=== PATIENT | female | born 1940 | race Caucasian/White ===

== ENCOUNTER → 2017-03-30 15:46 | Outpatient (CLI) | payer MEDICARE, SELFPAY ==
--- NOTE | 2017-03-30 15:52 | MM_ITS ---
MM Dig SC mamm unilat LT CAD CAD Screening ORDERING PHYSICIAN : Froilan Priest MD PATIENT AGE: 76 years GENDER: Female COMPARISON: Previous left mammograms: February 2016, 2014, 2013, January 2013 INDICATION: 76-year-old. Previous right mastectomy. No hormones no new complaints. Family history:. 2 sisters with breast cancer. TECHNIQUE: Standard CC and MLO images were obtained. R2 CAD reviewed. Actually cc view included FINDINGS: Left breast appears stable with no significant new findings. [id number] residual fibroglandular elements. No new areas of concern. Follow-up in one yea recommended r. Self breast examination also. IMPRESSION: Stable left mammogram, with no new areas of concern Follow-up in one year BI-RADS Category: 2 Benign Finding(s) RECOMMENDED FOLLOW-UP: 1YR - 1 YEAR FOLLOW-UP (A letter has been sent to the patient regarding results of the study.)
== END ==
PROVIDERS: Family Provider Internal Medicine Adolescent Medicine; PCP Internal Medicine Adolescent Medicine; Visit Provider Internal Medicine Adolescent Medicine
DX: Z12.31 Encounter for screening mammogram for malignant neoplasm of breast (principal)
CPT/HCPCS: 77067

== ENCOUNTER → 2018-04-07 09:56 | Outpatient (CLI) | payer MEDICARE, OTHER, SELFPAY ==
--- NOTE | 2018-04-07 10:03 | MM_ITS ---
MM Dig SC mamm unilat LT CAD Ordering Physician: Froilan Priest MD Patient Age: 77 years Female COMPARISON: Multiple previous studies including March 2017, February 2016, 2014, 2013. INDICATION: HISTORY. Previous right mastectomy. No hormones no new complaints . family history of 2 sisters with breast cancer. TECHNIQUE: Cc and MLO view both breast along with axillary cc nipple profile MLO view.: 4 images submitted FINDINGS: Minimal residual fibroglandular elements lower density breast with moderate fatty replacement throughout but no significant new areas of concern. No dominant or suspicious mass. No suspicious calcifications. No significant areas highlighted by CAD . Mole markers noted but most evident towards the inferior left breast. IMPRESSION: Negative, Stable left mammogram. No new areas of concern. Follow-up in one year recommended. BI-RADS Category: 1 Negative RECOMMENDED FOLLOW-UP: 1YR 1 YEAR FOLLOW-UP A letter has been sent to the patient regarding results of the study.)
== END ==
PROVIDERS: PCP Internal Medicine Adolescent Medicine; Visit Provider Internal Medicine Adolescent Medicine
DX: Z12.31 Encounter for screening mammogram for malignant neoplasm of breast (principal)
CPT/HCPCS: 77067

== ENCOUNTER 2018-10-10 22:53 | Observation (INO) ==
[2018-10-10 23:26] LABS: Basophils # 0.1 K/mm3 (0-0.2); Basophils % 1.1 % (0.1-2.0); Eosinophils # 0.1 K/mm3 (0.0-0.4); Eosinophils % 1.6 % (0.1-12.0); Hematocrit 42.4 % (37.0-47.0); Hemoglobin 14.5 g/dL (12.2-16.2); Lymphocytes # 2.4 K/mm3 (0.7-4.5); Lymphocytes % 36.7 % (10-50); Mean Corpuscular HGB Conc 34.3 g/dL (31.8-35.4); Mean Corpuscular Volume 87.3 fl (81-99); Mean Platelet Volume 7.3 fl (7.4-10.4); Monocytes # 0.6 K/mm3 (0.1-1.0); Monocytes % 8.8 % (1.7-9.3); Neutrophils # 3.4 K/mm3 (1.8-7.8); Neutrophils % 51.8 % (37.0-80.0); Platelet Count 203 K/mm3 (142-424); Red Blood Count 4.86 M/mm3 (4.20-5.40); Red Cell Distribution Width 13.5 % (11.5-17.5); White Blood Count 6.5 K/mm3 (4.8-10.8)
[2018-10-10 23:43] LABS: Alanine Aminotransferase 27 U/L (12-78); Albumin/Globulin Ratio 1.2 (1.1-1.8); Alkaline Phosphatase 106 U/L (46-116); Anion Gap 14.7 mEq/L (5-15); Aspartate Amino Transferase 17 U/L (15-37); Bilirubin,Total 0.6 mg/dL (0.2-1.0); Blood Urea Nitrogen 27 mg/dL (7-18); Calcium 9.4 mg/dL (8.5-10.1); Carbon Dioxide 26 mmol/L (21.0-32.0); Chloride 106 mmol/L (98-107); Globulin 3.3 gm/dl (1.3-3.2); Glucose 149 mg/dL (74-106); Sodium 143 mmol/L (136-145); Total Protein,Serum 7.3 gm/dL (6.4-8.2)
--- NOTE | 2018-10-10 23:43 | Emergency Department Note ---
ED Disposition Clinical Impression: Atrial fibrillation with rapid ventricular response Dyspnea Qualifiers: Dyspnea type: unspecified Qualified Code(s): R06.00 - Dyspnea, unspecified Disposition: Admitted as Observation Condition on Discharge: Fair (Stable/improved) Time of Disposition: 01:44 - Critical Care Critical Care Time: No Attestation: On 10/10/18, the high probability of a clinically significant, sudden or life threatening deterioration of the following system(s) required my full and direct attention, intervention and personal management. The time I documented below is in addition to time spent performing reported procedures but includes the following listed in this critical care notation. Medical Decision Making - Medical Records Medical records reviewed: Yes: I reviewed the patient's medical records. - Edwin Inquiry Pt receiving controlled substance: No Edwin was queried for this patient: No Vital Signs: 10/10/18 22:58 10/10/18 23:43 10/11/18 00:00 Temperature 98.3 F Temperature Source Oral Pulse Rate [Right Brachial] 113 H 96 H 103 H Respiratory Rate 18 18 18 Blood Pressure [Right Arm] 165/97 H 122/81 128/82 Blood Pressure Mean [Right Arm] 119 94 97 Blood Pressure Source [Right Arm] Automatic Cuff Automatic Cuff Blood Pressure Position [Right Arm] Sitting Sitting 02 Sat by Pulse Oximetry 95 94 L Oxygen Delivery Method Room Air Room Air 10/11/18 00:13 10/11/18 00:46 10/11/18 01:21 Temperature Temperature Source Pulse Rate [Right Brachial] 78 71 72 Respiratory Rate 16 16 Blood Pressure [Right Arm] 128/62 121/66 122/80 Blood Pressure Mean [Right Arm] 84 84 94 Blood Pressure Source [Right Arm] Automatic Cuff Automatic Cuff Blood Pressure Position [Right Arm] Supine Sitting 02 Sat by Pulse Oximetry 98 Oxygen Delivery Method Room Air - Lab Data Lab results reviewed: Yes: I reviewed the patient's lab results. Lab Results 10/10/18 23:17: WBC 6.5, RBC 4.86, Hgb 14.5, Hct 42.4, MCV 87.3, MCH 29.9, MCHC 34.3, RDW 13.5, Plt Count 203, MPV 7.3 L, Neut % (Auto) 51.8, Lymph % (Auto) 36.7, Faulk % (Auto) 8.8, Eos % (Auto) 1.6, Baso % (Auto) 1.1, Neut # (Auto) 3.4, Lymph # (Auto) 2.4, Faulk # (Auto) 0.6, Eos # (Auto) 0.1, Baso # (Auto) 0.1 10/10/18 23:17: Sodium 143, Potassium 3.7, Chloride 106, Carbon Dioxide 26, Anion Gap 14.7, BUN 27 H, Creatinine 1.28 H, Estimated Creat Clear 44, Estimated GFR 40 L, Est GFR ( Amer) 49 L, Glucose 149 H, Calcium 9.4, Total Bilirubin 0.6, AST 17, ALT 27, Alkaline Phosphatase 106, Troponin I < 0.02, Total Protein 7.3, Albumin 4.0, Globulin 3.3 H, Albumin/Globulin Ratio 1.2 10/10/18 23:17: Magnesium 2.0, TSH 7.68 H Result diagrams: 10/10/18 23:17 10/10/18 23:17 Orders (Tests/Meds): ED MEDICATIONS Generic Name Dose Route Start Last Admin Trade Name Freq PRN Reason Stop Dose Admin Diltiazem HCl 100 mg/ Sodium 100 mls @ 5 mls/hr 10/10/18 23:45 10/11/18 00:04 Chloride IV 11/09/18 23:44 5 mls/hr .Q20H BRIAN Administration Protocol Discontinued Medications Generic Name Dose Route Start Last Admin Trade Name Freq PRN Reason Stop Dose Admin Diltiazem HCl 20 mg 10/10/18 23:50 10/11/18 00:05 Cardizem 25mg/5ml Vial IV 10/10/18 23:51 20 mg ONCE ONE Administration ORDERS Category Date Time Status CXR --portable [XR chest portable] Stat Exams 10/10/18 23:26 Taken Troponin I Stat Lab 10/11/18 01:34 Ordered ECG Request by /Nse Stat Y 10/10/18 23:17 Ordered - Radiology Data #1 Image(s): Chest Image Reviewed: Yes I reviewed the patient's radiology image Preliminary Findings: Normal/NAD (No acute changes. Preliminary reading by m yself.) - ECG Data Tracing #1 I reviewed this ECG and interpreted as documented below: (EKG at 23:04 shows atrial fibrillation with RVR at 112 BPM. Minimal LVH voltage criteria. ST-T changes consistent with inferolateral ischemia.) Medical Decision Narrative: 23:54 Pt evaluated. EKG and cardiac work up ordered. Cardizem 20 mg IVP and Cardizem 10 mg/hr IV drip ordered. 01:42 All labs, EKG and PCXR reviewed. Pt reassessed and is improved. Still without chest pain. Dyspnea sensation has resolved. HR in 60's. BP stable. I discussed case with her PCP Dr. Priest and he has agreed to admit pt to observation on step down. I have discussed results of work up, diagnosis and care plan with pt. She understands, agrees and all questions answered. Pt will now be admitted. Arrhythmia/Palpitations HPI - General Chief Complaint: Arrhythmia/Palpitations Stated Complaint: heart racing Time Seen by Provider: 10/10/18 23:42 Mode of Arrival: Ambulatory Source of Information: Patient Limitations: No Limitations - History of Present Illness HPI narrative: Pt is here in the ER for evaluation from home via POV c/o rapid heart rate. Pt has atrial fibrillation. She is on Amiodarone and Plavix. Onset of rapid rate about 2 hours ago. No chest pain. She thinks she may have very mild dyspnea. No abdominal pain. No other complaints. - Related Data Home Medications Medication Instructions Recorded Confirmed Amiodarone HCl [Amiodarone 100mg 100 mg PO DAILY 10/10/18 10/10/18 Tab] Aspirin [Aspir 81] 81 mg PO DAILY 10/10/18 10/10/18 Clopidogrel Bisulfate [Plavix 75mg 75 mg PO DAILY 10/10/18 10/10/18 Tab] Allergies Allergy/AdvReac Type Severity Reaction Status Date / Time corn [From CORN (FOOD/DRUG)] Allergy Mild COUGH Verified 10/10/18 23:04 egg [From EGGS (FOOD/DRUG)] Allergy Mild COUGH Verified 10/10/18 23:04 lactose Allergy Mild COUGH Verified 10/10/18 23:04 [From DAIRY FOODS (FOOD/DRUG)] soy Allergy Mild COUGH Verified 10/10/18 23:04 wheat Allergy Mild COUGH Verified 10/10/18 23:04 From CORN (FOOD/DRUG) Allergy Mild COUGH Uncoded 03/15/17 15:34 From DAIRY FOODS (FOOD/DRUG) Allergy Mild COUGH Uncoded 03/15/17 15:34 From EGGS (FOOD/DRUG) Allergy Unknown COUGH Uncoded 03/15/17 15:34 [facility] History - Hepatitis A Screen Drug use history?: No High risk sexual behaviors?: No History of sexually transmitted infection?: No Currently employed?: No Childcare worker?: No Do you have indoor plumbing?: Yes Do you have electricity?: Yes Attestation statement:: This patient has been screened for Hepatitis A risk factors. I have reviewed the patient's past medical history: Yes - Social History Alcohol Intake: never Occupational Status: retired Housing: house ROS Obtained: Yes All systems reviewed & no additional complaints - Constitutional Constitutional: Reports system reviewed and no additional complaints, except as docu - Eyes Eyes: Reports system reviewed and no additional complaints, except as docu - ENT Ears, Nose, Mouth, and Throat: Reports system reviewed and no additional complaints, except as docu - Cardiovascular Cardiovascular: Reports system reviewed and no additional complaints, except as docu, Reports as per HPI, Denies chest pain, Denies chest pain at rest, Denies diaphoresis, Reports dyspnea (mild sensation), Reports palpitations, Denies radiating jaw, neck or arm pain, Reports rapid heart rate - Respiratory Respiratory: Yes system reviewed and no additional complaints, except as docu, Yes as per HPI, Yes dyspnea (mild sensation) - Gastrointestinal Gastrointestingal: Reports: system reviewed and no additional complaints, except as docu - Genitourinary Female Genitourinary: Reports system reviewed and no additional complaints, except as docu - Musculoskeletal Musculoskeletal: Reports system reviewed and no additional complaints, except as docu - Integumentary/Breasts Skin/Breast: Reports system reviewed and no additional complaints, except as docu - Neurologic Neurologic: Reports system reviewed and no additional complaints, except as docu - Endocrine Endocrine: Reports system reviewed and no additional complaints, except as docu - Hematologic/Lymphatic Henatologic/Lymphatic: Reports system reviewed and no additional complaints, except as docu - Allergic/Immunologic Allergic/Immunologic: Reports system reviewed and no additional complaints, except as docu Physical Exam - General General appearance: alert, in no apparent distress - Head Head exam: atraumatic, normocephalic, normal inspection - Eye Eye exam: Present: normal appearance, PERRL, EOMI - ENT ENT exam: Present: normal exam, normal oropharynx, mucous membranes moist - Neck Neck exam: Present: normal inspection, full ROM, trachea midline - Chest Chest inspection: Present: normal inspection, symmetric chest wall rise. Absent: tenderness - Respiratory Respiratory exam: Present: normal lung sounds bilaterally. Absent: respiratory distress, wheezes - Cardiovascular Cardiovascular exam: Present: tachycardia (irregularly irregular with atrial fibrillation with RVR on lead II monitor.). Absent: systolic murmur, rubs, ga llop, JVD - Abdominal Exam Abdominal exam: Present: soft, normal bowel sounds. Absent: distention, tenderness, guarding, rebound - Extremities Exam Extremities exam: Present: normal inspection, full ROM, normal capillary refill. Absent: tenderness - Back Exam Back exam: Present: normal inspection - Neurological Exam Neurological exam: Present: alert, oriented X3, CN II-XII intact - Psychiatric Psychiatric exam: Present: normal affect, normal mood - Skin Skin exam: Present: warm, dry, intact, normal color. Absent: rash, cyanosis, diaphoresis, erythema
[2018-10-11 00:21] LABS: Thyroid Stimulating Hormone 7.68 uIU/ml (0.358-3.740)
[2018-10-11 06:42] LABS: Anion Gap 16.6 mEq/L (5-15)
--- NOTE | 2018-10-11 08:42 | Pharmacy Consult Notes ---
[facility] Pharmacy VTE Monitoring - Patient Demographics Admission date: 10/11/18 Report Date: 10/11/18 Time: 08:41 Allergies/Adverse Reactions: Patient Allergies corn [From CORN (FOOD/DRUG)] Allergy (Mild, Verified 10/10/18 23:04) COUGH egg [From EGGS (FOOD/DRUG)] Allergy (Mild, Verified 10/10/18 23:04) COUGH lactose [From DAIRY FOODS (FOOD/DRUG)] Allergy (Mild, Verified 10/10/18 23:04) COUGH soy Allergy (Mild, Verified 10/10/18 23:04) COUGH wheat Allergy (Mild, Verified 10/10/18 23:04) COUGH From CORN (FOOD/DRUG) Allergy (Mild, Uncoded 03/15/17 15:34) COUGH From DAIRY FOODS (FOOD/DRUG) Allergy (Mild, Uncoded 03/15/17 15:34) COUGH From EGGS (FOOD/DRUG) Allergy (Unknown, Uncoded 03/15/17 15:34) COUGH Height: 1.68 m Weight: 77.139 kg Patient Problems: Current Active Problems (Updated 10/11/18 @ 01:47 by Harjit Rincon III, DO) Atrial fibrillation with rapid ventricular response (Acute) Dyspnea (Acute) - VTE Risk Labs: VTE Related Lab Results Hgb 14.5 g/dL (12.2-16.2) 10/10/18 23:17 Hct 42.4 % (37.0-47.0) 10/10/18 23:17 Plt Count 203 K/mm3 (142-424) 10/10/18 23:17 BUN 24 mg/dL (7-18) H 10/11/18 05:41 Creatinine 1.04 mg/dL (0.55-1.02) H 10/11/18 05:41 Estimated Creat Clear 54 mL/min (50-200) 10/11/18 05:41 Was VTE Risk Assessment Performed: Yes VTE Score: 3 VTE Risk Level: Low Risk Clinical Trial Participant: No - Prophylaxis VTE Prophylaxis Ordered?: Yes Types of VTE Prophylaxis: TEDS Knee High
--- NOTE | 2018-10-11 08:45 | H&P/Discharge Summary ---
General - General Admission date:: 10/11/18 Discharge date: 10/11/18 *Admission Date: 10/11/18 *Chief complaint: Palpitations with rapid A. fib *History of present illness: 78-year-old white female with remote history of recurrent atrial fibrillation with rapid ventricular response, most recently in 2005, who has been maintained on amiodarone since that point with good results. Unfortunately, last night she came to the hospital with a sensation of palpitations and was found to be in rapid atrial fibrillation with rate of 140. [facility]. Overnight she converted into a slow atrial fibrillation rate and this morning is feeling much better with no symptoms. [facility] History I have reviewed the patient's past medical history: Yes Medical History: Reports:: Arrhythmia, Atrial Fibrillation, Cancer, Deep Vein Thrombosis, Hyperlipidemia, Palpitations Denies:: Diabetes Mellitus Type 1, Diabetes Mellitus Type 2, MRSA *Have you ever received a pneumonia vaccine?: Yes *Have you received a flu vaccine this season?: Yes Other Medical History: Reports: Arthritis, Cataracts (bilateral) Laterality Cases: Right: Breast Biopsy, Mastectomy Other Surgeries: Yes: Colonoscopy (2014) Amputation: No Fractures: No - *Social History Smoking Status: Never smoker Alcohol Intake: never *Occupational Status:: retired Housing: house Household Members: spouse *Travel in the last 8 weeks: None - Psychiatric History Expresses thoughts of harming self/others: None Suicide Plan Description: No Plan Family Hx:: No significant family history, Cancer Review of Systems - Review of Systems Review of systems:: pertinent systems reviewed and negative unless documented below - *Cardiovascular Reports irregular heart rhythm, Reports rapid, pounding, or irregular heartbeat, Reports shortness of breath causing sudden awakening, Denies shortness of breath, Denies shortness of breath with activity, Denies leg swelling, Denies foot swelling, Denies radiating jaw, neck or arm pain Exam Vital signs and Labs for Last 24 Hours: Temp Pulse Resp BP Pulse Ox 98 F 56 L 21 111/55 L 92 L 10/11/18 02:20 10/11/18 07:01 10/11/18 07:01 10/11/18 07:01 10/11/18 07:01 Laboratory Results - last 24 hr 10/10/18 23:17: WBC 6.5, RBC 4.86, Hgb 14.5, Hct 42.4, MCV 87.3, MCH 29.9, MCHC 34.3, RDW 13.5, Plt Count 203, MPV 7.3 L, Neut % (Auto) 51.8, Lymph % (Auto) 36.7, Preble % (Auto) 8.8, Eos % (Auto) 1.6, Baso % (Auto) 1.1, Neut # (Auto) 3.4, Lymph # (Auto) 2.4, Preble # (Auto) 0.6, Eos # (Auto) 0.1, Baso # (Auto) 0.1 10/10/18 23:17: Sodium 143, Potassium 3.7, Chloride 106, Carbon Dioxide 26, Anion Gap 14.7, BUN 27 H, Creatinine 1.28 H, Estimated Creat Clear 44, Estimated GFR 40 L, Est GFR ( Amer) 49 L, Glucose 149 H, Calcium 9.4, Total Bilirubin 0.6, AST 17, ALT 27, Alkaline Phosphatase 106, Troponin I < 0.02, Total Protein 7.3, Albumin 4.0, Globulin 3.3 H, Albumin/Globulin Ratio 1.2 10/10/18 23:17: Magnesium 2.0, TSH 7.68 H 10/11/18 01:48: Troponin I < 0.02 10/11/18 05:41: Troponin I < 0.02 10/11/18 05:41: Sodium 145, Potassium 3.6, Chloride 107, Carbon Dioxide 25, Anion Gap 16.6 H, BUN 24 H, Creatinine 1.04 H, Estimated Creat Clear 54, Estimated GFR 51 L, Est GFR ( Amer) 62 D, Glucose 101 D, Calcium 9.0 I & O for Last 24 hours: Intake & Output 10/08/18 10/09/18 10/10/18 10/11/18 11:59 11:59 11:59 11:59 Intake Total 380 / 380 Balance 380 / 380 Weight 170 lb 1 oz Narrative: Currently patient is pleasant, talkative, oriented x3. Lungs are clear bilaterally. Good air expansion. Heart rate irregular but rate controlled at this point. Abdomen soft and nontender. No edema or clubbing. Neurologically intact. No JVD. Abdomen soft and nontender. Hospital Course Hospital Course: Patient was admitted, converted to slow A. fib on Cardizem drip and this was stopped about 3 hours ago. She is been given 1 dose of immediate release diltiazem. She feels good and wishes to go home. We will obtain echocardiogram before discharge to assess chamber size for further evaluation, and I also discussed with her her need for ongoing anticoagulation instead of her Plavix therapy. We will switch her to Eliquis 5 mg twice daily, starter kits were given and counseling was given by pharmacy service about this medication. We will also start low-dose Synthroid therapy because of her elevated TSH, obviously cautiously because of her atrial fibrillation issues, I will start with 25 mcg daily. We will also begin long-acting diltiazem to start tomorrow. I will see her in short-term follow-up in 2 days. Results Labs on day of discharge: Labs from last 24 hours 10/11/18 10/11/18 10/11/18 05:41 05:41 01:48 WBC RBC Hgb Hct MCV MCH MCHC RDW Plt Count MPV Neut % (Auto) Lymph % (Auto) Preble % (Auto) Eos % (Auto) Baso % (Auto) Neut # (Auto) Lymph # (Auto) Preble # (Auto) Eos # (Auto) Baso # (Auto) Sodium 145 Potassium 3.6 Chloride 107 Carbon Dioxide 25 Anion Gap 16.6 H BUN 24 H Creatinine 1.04 H Estimated Creat Clear 54 Estimated GFR 51 L Est GFR ( Amer) 62 D Glucose 101 D Calcium 9.0 Magnesium Total Bilirubin AST ALT Alkaline Phosphatase Troponin I < 0.02 < 0.02 Total Protein Albumin Globulin Albumin/Globulin Ratio TSH 10/10/18 10/10/18 10/10/18 23:17 23:17 23:17 WBC 6.5 RBC 4.86 Hgb 14.5 Hct 42.4 MCV 87.3 MCH 29.9 MCHC 34.3 RDW 13.5 Plt Count 203 MPV 7.3 L Neut % (Auto) 51.8 Lymph % (Auto) 36.7 Preble % (Auto) 8.8 Eos % (Auto) 1.6 Baso % (Auto) 1.1 Neut # (Auto) 3.4 Lymph # (Auto) 2.4 Preble # (Auto) 0.6 Eos # (Auto) 0.1 Baso # (Auto) 0.1 Sodium 143 Potassium 3.7 Chloride 106 Carbon Dioxide 26 Anion Gap 14.7 BUN 27 H Creatinine 1.28 H Estimated Creat Clear 44 Estimated GFR 40 L Est GFR ( Amer) 49 L Glucose 149 H Calcium 9.4 Magnesium 2.0 Total Bilirubin 0.6 AST 17 ALT 27 Alkaline Phosphatase 106 Troponin I < 0.02 Total Protein 7.3 Albumin 4.0 Globulin 3.3 H Albumin/Globulin Ratio 1.2 TSH 7.68 H DS: Diagnosis - Discharge Diagnosis (1) Hypothyroidism Status: Acute (2) Atrial fibrillation with rapid ventricular response Status: Resolved Discharge Plan - Patient Discharge Instructions ACTIVITY: Continue current activity DIET: continue same diet Patient Instructions: DI for Atrial Fibrillation, DI for Shortness of Breath - Follow up Plan Follow up with: Froilan Priest MD [Primary Care Provider] - 2 days Disposition: Home, Self-Residential Medications: Home Medications Medication Instructions Recorded Confirmed Type Amiodarone HCl [Amiodarone 100mg 200 mg PO DAILY 10/10/18 10/11/18 History Tab] Aspirin [Aspir 81] 81 mg PO DAILY 10/10/18 10/10/18 History Clopidogrel Bisulfate [Plavix 75mg 75 mg PO DAILY 10/10/18 10/10/18 History Tab] Apixaban [Eliquis 5mg tab] 5 mg PO BID #60 tab.ds.pk 10/11/18 Rx Levothyroxine Sodium [Synthroid 25 mcg PO DAILY #30 tab 10/11/18 Rx 25mcg (0.025mg) tablet] dilTIAZem HCl [Cardizem 180mg ER 180 mg PO DAILY #30 cap.er.24h 10/11/18 Rx capsule] Prescriptions/Medication Reconciliation: New Apixaban [Eliquis 5mg tab] 5 mg PO BID #60 tab.ds.pk dilTIAZem HCl [Cardizem 180mg ER capsule] 180 mg PO DAILY #30 cap.er.24h Levothyroxine Sodium [Synthroid 25mcg (0.025mg) tablet] 25 mcg PO DAILY #30 tab Continued Aspirin [Aspir 81] 81 mg PO DAILY Amiodarone HCl [Amiodarone 100mg Tab] 200 mg PO DAILY Discontinued Clopidogrel Bisulfate [Plavix 75mg Tab] 75 mg PO DAILY
--- NOTE | 2018-10-12 14:12 | Cardiology Report ---
PROCEDURE: 2-D M-mode and color Doppler study. INDICATIONS FOR THE TEST: Chest pain COPD Heart Murmur Tobacco Smoking Palpitations Fatigue Syncope Edema Hypertension Diabetes Mellitus Rheumatic Fever SOB ROCK Obesity Hyperlipidemia Family History HD Additional History AF RVR PATIENT INFORMATION HEIGHT: 66 WEIGHT:170 GENDER: Female B/P:128/82 2-D/M-MODE INTERPRETATION: 2-D MEASUREMENTS OBSERVED VALUES IN CMS Right Ventricular Dimension (RVDd) 2.6 Interventricular Septum (Thickness)(IVsd) .9 Left Ventricular Internal Dimensions(LVIDd) 5.3 Left Ventricular Posterior Wall (Thickness)(LVPWd) .9 Aortic Root 3.0 Aortic Cusp Separation 1.1 Left Atrial Dimensions (LAD) 3.2 2D 1. Left atrium is mildly enlarged, left ventricle is normal size, there is no concentric left ventricular hypertrophy, visually estimated ejection fraction 55% with no regional wall motion abnormality. 2. The right atrium and right ventricle are mildly enlarged with normal contractility. 3. The aortic valve is thickened and calcified without aortic stenosis. 4. The mitral and tricuspid valve leaflets are minimally thickened. 5. The pulmonic valve is poorly visualized. 6. No significant pericardial effusion. DOPPLER INTERROGATION: Doppler interrogation of the aortic, mitral and tricuspid valvular presence of mild aortic, mild mitral and tricuspid regurgitation, tricuspid regurgitation jet velocity is inadequate for calculation of the right ventricular systolic pressure, diastolic parameters are inconclusive. Inferior vena cava is normal size with normal inspiratory collapse. CONCLUSION: 1. Biatrial enlargement, normal left ventricular size, visually estimated ejection fraction 55% with no regional wall motion abnormality, diastolic parameters are inconclusive. 2. Mildly enlarged right ventricle with normal contractility. 3. Mild aortic, mild mitral and tricuspid regurgitation. 4. No significant pericardial effusion noted.
== END 2018-10-11 11:02 | disposition home or self-care (01) ==
LOC: ER 22:53 → 2ND 10-11 01:40 → INTOOBSV 10-11 02:05 → 2ND 10-11 02:06
PROVIDERS: ADMIT Internal Medicine Adolescent Medicine; ATTEND Internal Medicine Adolescent Medicine
DX: I48.91 Unspecified atrial fibrillation; Z91.018 Allergy to other foods; Z86.718 Personal history of other venous thrombosis and embolism; Z85.9 Personal history of malignant neoplasm, unspecified; E78.5 Hyperlipidemia, unspecified; Z79.899 Other long term (current) drug therapy; Z79.02 Long term (current) use of antithrombotics/antiplatelets; Z80.9 Family history of malignant neoplasm, unspecified; Z90.11 Acquired absence of right breast and nipple; E03.9 Hypothyroidism, unspecified; Z91.012 Allergy to eggs; Z91.011 Allergy to milk products
CPT/HCPCS: 36415; 71010; 71045; 80048; 80053; 83735; 84443; 84484; 85025; 93005; 93306; 96365; 96366; 96375; 99284; G0378

== ENCOUNTER → 2018-12-18 14:12 | Outpatient (CLI) | payer MEDICARE, OTHER, SELFPAY ==
--- NOTE | 2018-12-18 14:15 | MR_ITS ---
PROCEDURE: MR LUMBAR SPINE WO CON CLINICAL INDICATION: LUMBAR RADICULOPATHY Low back pain radiating down the left leg COMPARISON: BOX LINER/O MRI-L-SPINE W/O from 09/26/2013 TECHNIQUE: Standard multiplanar multiecho sequences are performed without contrast. 3-D MIP and myelographic images are also rendered and reviewed FINDINGS: The spinal cord ends at the L1-L2 level. Mild degenerative disc disease T11-T12. T12-L1: Unremarkable. L1-L2: Mild degenerative disc disease with minimal bulging disc. L2-L3: Mild degenerative disc disease with minimal bulging disc and facet and endplate hypertrophic change with mild left lateral recess and foraminal narrowing. L3-L4: Degenerate disc disease with bulging disc with facet ligamentum hypertrophy with moderate to severe right-sided foraminal narrowing and mild left foraminal narrowing. Previously noted disc herniation at L3-L4 is no longer apparent L4-5: Minimal anterolisthesis of L4 of 2-3 mm with bulging disc along with facet and ligamentum hypertrophy with mild to moderate bilateral foraminal narrowing. There is transverse narrowing of the canal at this level from the facet and uncovertebral hypertrophy with bilateral lateral recess narrowing. L5-S1: Small annular fissure. No extruded herniated disc or bony canal stenosis. IMPRESSION: 1. Multilevel lumbar spondylosis with degenerative disc disease bulging disc and facet and ligamentum hypertrophy. Please see above for detailed description at each level. 2. L2-L3: Mild degenerative disc disease with minimal bulging disc and facet and endplate hypertrophic change with mild left lateral recess and foraminal narrowing. 3. L3-L4: Degenerate disc disease with bulging disc with facet ligamentum hypertrophy with moderate to severe right-sided foraminal narrowing and mild left foraminal narrowing. Previously noted disc herniation at L3-L4 is no longer apparent 4. L4-5: Minimal anterolisthesis of L4 of 2-3 mm with bulging disc along with facet and ligamentum hypertrophy with mild to moderate bilateral foraminal narrowing. There is transverse narrowing of the canal at this level from the facet and uncovertebral hypertrophy with bilateral lateral recess narrowing 5. No extruded herniated disc evident Dictated by: Yong Whatley MD 12/20/2018 07:11 Electronically signed by Yong Whatley MD in [place] 12/20/2018 07:11
== END ==
PROVIDERS: PCP Internal Medicine Adolescent Medicine; Visit Provider Internal Medicine Adolescent Medicine
DX: M54.16 Radiculopathy, lumbar region (principal)
CPT/HCPCS: 72148; 76376

== ENCOUNTER 2019-01-04 15:30 | Outpatient (RCR) | payer MEDICARE, OTHER, SELFPAY ==
--- NOTE | 2018-12-22 16:09 | HMH.PTOPEV ---
PT Outpatient Evaluation Rehab PT Outpatient Evaluation Start: 12/22/18 15:05 Freq: Status: Active Protocol: Document 12/22/18 15:46 ARMOND (Rec: 12/22/18 16:08 ARMOND [id number]) Electronically Signed By Kee Randall, PT 12/22/18 15:46 Outpatient Therapy Subjective History Subjective History Patient is a 78 year old female presenting to outpatient PT with reports of chronic low back pain with acute exacerbation starting . 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 Most recent MRI indicates mult-level degenerative changes and disc bulges. Chief Complaint Pain Symptom Type Sharp Symptoms Relieved By Rest/Positioning Symptoms Aggravated By Standing,Walking Prior Functional Limitations None Current Functional Limitations Lifting,Housework,Sleeping, Standing,Recreation Activity, Walking Symptom Description Constant but Variable Level of pain today (0-10) 8 Pain scale - at its best (0-10) 4 Pain scale - at its worst (0-10) 10 Lumbopelvic Eval Posture Thoracic Spine Posture Standing Position Increased Kyphosis Lumbar Spine Posture Standing Position Decreased Lordosis Assistive device Assistive Devices None / NA Gait Observation General Gait Pattern Observation Wide Based Gait,Hips Posterior to ROBERT,Decrease Weight Bear ( L),Decrease Stride Lngth (L) Palapation tenderness left lumbar spinal tenderness Yes: 3/4 paraspinal tenderness Yes: 3/4 buttock tenderness Yes: 3/4 Accessory Movement L2 left L3 left L4 left L5 left Range of Motion Lumbar Spine Active Flexion Range of 70 Motion (degrees) Lumbar Spine Active Extension Range of 5 inc LLE radic Motion (degrees) Left Lumbar Spine Lateral Flexion Active 7 inc radic Range of Motion (degrees) Right Lumbar Spine Lateral Flexion 22 Active Range of Motion (degrees) Lumbar Spine ROM Limitations Bony Restriction Manual Muscle Test Left Knee Extension Strength Grade 4- Good- Hip Flexion Strength Grade 4- Good- DTR Rt Patellar 2+ Lt Patellar
== END 2019-01-04 15:35 | disposition home or self-care (01) ==
LOC: PT 15:30
PROVIDERS: Visit Provider Internal Medicine Adolescent Medicine
DX: M54.5 Low back pain (principal)
CPT/HCPCS: 97010; 97012; 97014; 97035; 97110; 97163; G0283

== ENCOUNTER → 2019-06-07 10:52 | Outpatient (CLI) | payer MEDICARE, OTHER, SELFPAY ==
--- NOTE | 2019-06-07 10:58 | MM_ITS ---
PROCEDURE: MM DIG SC MAMM UNILAT LT CAD Digital Breast Tomosynthesis Included CLINICAL INDICATION: SCREENING Screening for breast cancer COMPARISON: DMSUL DIG MAMM-SCREENING UNI-LT from 03/19/2016 [facility]UNILT MM Dig SC mamm unilat LT CAD from 03/30/2017 [facility]UNILT MM Dig SC mamm unilat LT CAD from 04/07/2018 TECHNIQUE: Standard CC and MLO images and 3D Tomosynthesis was obtained. R2 CAD reviewed. FINDINGS: Mostly fatty replaced fibroglandular tissue. No malignant appearing mass or malignant-appearing microcalcification evident. There has been a prior right mastectomy. Benign-appearing calcification is present in the lateral aspect of the left breast. IMPRESSION: BI-RAD Category: 1 Negative FOLLOW-UP: 1YR 1 Year Follow-up (A letter has been sent to the patient regarding results of the study.) Dictated by: Yong Whatley MD 06/12/2019 17:43 Electronically signed by Yong Whatley MD in [place] 06/12/2019 17:43
== END ==
PROVIDERS: PCP Internal Medicine Adolescent Medicine; Visit Provider Nurse Practitioner Family
DX: Z12.31 Encounter for screening mammogram for malignant neoplasm of breast (principal)
CPT/HCPCS: 77063; 77067

== ENCOUNTER → 2019-12-12 10:32 | Outpatient (CLI) | payer MEDICARE, OTHER, SELFPAY ==
[2019-12-12 10:48] LABS: Basophils # 0.1 K/mm3 (0-0.2); Basophils % 1.4 % (0.1-2.0); Eosinophils # 0.1 K/mm3 (0.0-0.4); Eosinophils % 1.8 % (0.1-12.0); Hematocrit 35.4 % (37.0-47.0); Hemoglobin 11.6 g/dL (12.2-16.2); Lymphocytes # 1.6 K/mm3 (0.7-4.5); Lymphocytes % 31.5 % (10-50); Mean Corpuscular HGB Conc 32.7 g/dL (31.8-35.4); Mean Corpuscular Hemoglobin 28.6 pg (27.0-31.2); Mean Corpuscular Volume 87.4 fl (81-99); Mean Platelet Volume 8.1 fl (7.4-10.4); Monocytes # 0.5 K/mm3 (0.1-1.0); Monocytes % 10.7 % (1.7-9.3); Neutrophils # 2.7 K/mm3 (1.8-7.8); Neutrophils % 54.7 % (37.0-80.0); Platelet Count 232 K/mm3 (142-424); Red Blood Count 4.05 M/mm3 (4.20-5.40); Red Cell Distribution Width 13.1 % (11.5-17.5)
[2019-12-12 12:19] LABS: Coronavirus 19 IgG Antibody Negative (Negative); Coronavirus 19 IgM Antibody Negative (Negative)
== END ==
PROVIDERS: Visit Provider Otolaryngology
DX: Z01.818 Encounter for other preprocedural examination (principal); D49.89 Neoplasm of unspecified behavior of other specified sites
CPT/HCPCS: 36415; 85025; 86328

== ENCOUNTER 2019-12-13 06:31 | Day surgery (SDC) | payer MEDICARE, OTHER, SELFPAY ==
[2019-12-11 10:43] VITALS: BMI 27.1
[2019-12-13 06:50] VITALS: BP 155/54; PULSE 73; RESP 18; TEMP 36.6; O2SAT 99
--- NOTE | 2019-12-13 07:37 | P.PN_ITS ---
[facility] Anesthesia Checklist - Structural Data Admitted From: Home Planned Operative Procedure/s: excision neoplasm l cheek Consent for Planned Operative Procedure(s) Verified: Yes - Additional verifications Anesthesia Reactions: No Hx Blood Transfusions: No Blood Transfusion Reaction: No - Airway Assessment C-Spine Mobility Assessed: Yes TMJ Mobility Assessed: Yes Dentition: Partials - Neurological Assessment Level of Consciousness: Awake, Alert, Appropriate - Anesthesia Plan Anesthesia Risk discussed: Yes Anesthesia Plan: Verified ASA Class: II Anesthesia Type: MAC [facility] History I have reviewed the patient's past medical history: Yes Medical History: Reports:: Arrhythmia, Atrial Fibrillation, Cancer (breast/ skin), Deep Vein Thrombosis, Hyperlipidemia, Palpitations Denies:: Diabetes Mellitus Type 1, Diabetes Mellitus Type 2, Internal Pacemaker, MRSA, Seizures *Have you ever received a pneumonia vaccine?: Yes *Have you received a flu vaccine this season?: No Other Medical History: Reports: Arthritis, Cataracts. Denies: Blood Transfusion Reaction Anesthesia experience/problems:: none Laterality Cases: Right: Breast Biopsy, Mastectomy, Bilateral: Cataract, Tonsillectomy Other Surgeries: Yes: Colonoscopy. No: Pacemaker Amputation: No Fractures: No - *Social History Last grade of school completed: High school graduate Smoking Status: Never smoker Alcohol Intake: never Substance Use Type: denies use *Occupational Status:: retired Housing: house Household Members: spouse *Travel in the last 8 weeks: None Family Hx:: No significant family history, Cancer
[2019-12-13 09:20] VITALS: BP 134/55; PULSE 66; RESP 18; TEMP 36.3; O2SAT 98
--- NOTE | 2019-12-13 09:20 | P.OP_ITS ---
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 The perilesional area on the left cheek was infiltrated with 1.5 cc of 2% lidocaine containing epinephrine. The joanie out was incised and the lesion was excised and submitted. Bleeding was stopped with bipolar cautery. Blood loss was less than 5 cc. Anterior and posterior incisions were made and a tissue rearrangement geometric plastic repair was done with interrupted 5-0 nylon sutures. A Dermabond dressing was applied and the patient was sent to recovery in good general condition. Condition: stable Disposition: PACU Complications:: none
[2019-12-13 09:35] VITALS: BP 136/73; PULSE 65; RESP 18; O2SAT 100
[2019-12-13 09:50] VITALS: BP 136/59; PULSE 65; RESP 18; O2SAT 98
== END 2019-12-13 09:50 | disposition home or self-care (01) ==
LOC: OR 06:32
PROVIDERS: PCP Internal Medicine Adolescent Medicine; Visit Provider Otolaryngology
PROC: (CPT 14040; principal; 2019-12-13 08:00)
DX: L57.0 Actinic keratosis (principal); Z85.828 Personal history of other malignant neoplasm of skin; Z85.3 Personal history of malignant neoplasm of breast; I10 Essential (primary) hypertension; I48.91 Unspecified atrial fibrillation; E78.5 Hyperlipidemia, unspecified; R00.2 Palpitations; Z86.718 Personal history of other venous thrombosis and embolism; M19.90 Unspecified osteoarthritis, unspecified site; Z90.11 Acquired absence of right breast and nipple; Z90.89 Acquired absence of other organs; Z87.39 Personal history of other diseases of the musculoskeletal system and connective tissue
CPT/HCPCS: 14040; 88305; 96374

== ENCOUNTER → 2020-03-04 16:59 | Outpatient (CLI) | payer MEDICARE, OTHER, SELFPAY ==
--- NOTE | 2020-03-04 | XR_ITS ---
PROCEDURE: XR CHEST 2V CLINICAL HISTORY: CHRONIC COUGH AND SOA COMPARISON: CR CXR CHEST(2 VIEWS-NOT PORTABLE) from 05/01/2014 CR CXR1 CHEST-PORTABLE from 05/03/2014 CR CXR CHEST(2 VIEWS-NOT PORTABLE) from 09/20/2016 FINDINGS: The cardiomediastinal silhouette and pulmonary vascularity are within normal limits. The lungs are clear without infiltrates, suspicious nodules, or pleural effusions. There are degenerative changes of the thoracic with upper thoracic kyphosis IMPRESSION: No acute findings. Dictated by: Yong Whatley MD 03/04/2020 17:28 Yong Whatley MD in [place] 03/04/2020 17:28
[2020-03-04 17:45] LABS: Basophils % 0.4 % (0.1-2.0); Eosinophils % 0.4 % (0.1-12.0); Hematocrit 30.3 % (37.0-47.0); Hemoglobin 9.4 g/dL (12.2-16.2); Lymphocytes # 1.8 K/mm3 (0.7-4.5); Lymphocytes % 28.1 % (10-50); Mean Corpuscular HGB Conc 31.1 g/dL (31.8-35.4); Mean Corpuscular Hemoglobin 24.3 pg (27.0-31.2); Mean Corpuscular Volume 78.1 fl (81-99); Mean Platelet Volume 7.9 fl (7.4-10.4); Monocytes # 0.6 K/mm3 (0.1-1.0); Monocytes % 10.2 % (1.7-9.3); Neutrophils # 3.8 K/mm3 (1.8-7.8); Neutrophils % 60.9 % (37.0-80.0); Platelet Count 318 K/mm3 (142-424); Red Blood Count 3.88 M/mm3 (4.20-5.40); Red Cell Distribution Width 15.3 % (11.5-17.5); White Blood Count 6.3 K/mm3 (4.8-10.8)
[2020-03-04 18:04] LABS: Alanine Aminotransferase 19 U/L (12-78); Albumin Level 4.7 g/dl (3.5-5.0); Albumin/Globulin Ratio 1.9 (1.1-1.8); Alkaline Phosphatase 86 U/L (38-126); Anion Gap 15.6 mEq/L (5-15); Aspartate Amino Transferase 28 U/L (14-36); Bilirubin,Total 0.4 mg/dl (0.2-1.3); Blood Urea Nitrogen 24 mg/dl (7-17); Calcium 10.2 mg/dl (8.4-10.2); Carbon Dioxide 25 mmol/L (22.0-30.0); Chloride 105 mmol/L (98-107); Creatine Kinase 35 U/L (30-135); Estimated Glomerular Filt Rate 43 ml/min (>60); GFR (African American) 52 ML/MIN (>60); Globulin 2.5 g/dL (1.3-3.2); Glucose 100 mg/dl (74-100); Magnesium 2.2 mg/dl (1.6-2.3); Potassium 4.6 mmoL/L (3.5-5.1); Sodium 141 mmol/L (136-145); Total Protein,Serum 7.2 g/dl (6.3-8.2)
[2020-03-04 18:12] LABS: CKMB Relative Index 0.9 U/L (0-4.0); Creatine Kinase MB 0.3 ng/ml (0.0-2.03)
[2020-03-04 18:18] LABS: Troponin I < 0.01 ng/ml (0.00-0.034)
[2020-03-04 18:34] LABS: Thyroid Stimulating Hormone 2.47 uIU/mL (0.465-4.68)
[2020-03-06 21:56] LABS: Iron 12 ug/dL (37-170)
[2020-03-06 22:50] LABS: Ferritin 7.24 ng/ml (11.1-264)
[2020-03-06 23:13] LABS: Vitamin B12 305 pg/mL (239-931)
[2020-03-06 23:23] LABS: Total Iron Binding Capacity 436 ug/dL (265-497)
== END ==
PROVIDERS: Visit Provider Nurse Practitioner Family
DX: R07.9 Chest pain, unspecified (principal); R06.02 Shortness of breath; R05 Cough; E03.9 Hypothyroidism, unspecified; D50.9 Iron deficiency anemia, unspecified
CPT/HCPCS: 36415; 71046; 80053; 82550; 82553; 82607; 82728; 82746; 83540; 83550; 83735; 84443; 84484; 85025

== ENCOUNTER 2020-03-06 20:52 | Observation (INO) | payer MEDICARE, OTHER, SELFPAY ==
--- NOTE | 2020-03-06 21:00 | ECG_ITS ---
APPROVED REPORT Exam: Resting ECG HR:78 bpm ECG Measurements Heart Rate 78 AXES HI 172 P QRSd 86 QRS 29 QT 458 T 54 QTc 522 Conclusion Normal sinus rhythm Nonspecific ST and T wave abnormality Prolonged QT Abnormal ECG Electronically signed by : Froilan Priest, 03/07/2020 08:03:09
[2020-03-06 21:14] VITALS: BP 164/70; PULSE 80; RESP 22; TEMP 36.8; O2SAT 97; BMI 26.6
--- NOTE | 2020-03-06 21:23 | XR_ITS ---
PROCEDURE: XR CHEST 2V CLINICAL HISTORY: SOA COMPARISON: CR CXR1 CHEST-PORTABLE from 05/03/2014 CR CXR CHEST(2 VIEWS-NOT PORTABLE) from 09/20/2016 CR XR CHEST 2V from 03/04/2020 FINDINGS: The cardiomediastinal silhouette and pulmonary vascularity are within normal limits. There is mild prominence of the interstitium. No lobar consolidation or collapse. There is mild upper thoracic kyphosis IMPRESSION: No acute finding. 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
--- NOTE | 2020-03-06 21:26 | HMH.EDSOB ---
ED Disposition Clinical Impression: Acute respiratory alkalosis, Renal insufficiency Dyspnea Qualifiers: Dyspnea type: shortness of breath Qualified Code(s): R06.02 - Shortness of breath Hypothyroidism Qualifiers: Hypothyroidism type: acquired Qualified Code(s): E03.9 - Hypothyroidism, unspecified Anemia Qualifiers: Anemia type: unspecified type Qualified Code(s): D64.9 - Anemia, unspecified Disposition: Admitted as Observation Condition on Discharge: Fair - Critical Care Critical Care Time: No Attestation: On 03/06/20, the high probability of a clinically significant, sudden or life threatening deterioration of the following system(s) required my full and direct attention, intervention and personal management. The time I documented below is in addition to time spent performing reported procedures but includes the following listed in this critical care notation. Medical Decision Making - Medical Records Medical records reviewed: Yes: I reviewed the patient's medical records. - Edwin Inquiry Pt receiving controlled substance: No Vital Signs: 03/06/20 21:14 03/07/20 00:27 Temperature 98.3 F Temperature Source Oral Pulse Rate [Right] 80 74 Respiratory Rate 22 18 Blood Pressure [Left Arm] 164/70 H 136/62 Blood Pressure Mean [Left Arm] 101 86 Blood Pressure Source [Left Arm] Automatic Cuff Blood Pressure Position [Left Arm] Supine 02 Sat by Pulse Oximetry 97 99 Oxygen Delivery Method Room Air - Lab Data Lab results reviewed: Yes: I reviewed the patient's lab results. Lab Results 03/06/20 21:10: WBC 6.7, RBC 4.04 L, Hgb 9.6 L, Hct 30.4 L, MCV 75.1 L, MCH 23.7 L, MCHC 31.6 L, RDW 15.2, Plt Count 318, MPV 7.5, Neut % (Auto) 59.7, Lymph % (Auto) 28.7, Bandera % (Auto) 10.7 H, Eos % (Auto) 0.4, Baso % (Auto) 0.5, Neut # (Auto) 4.0, Lymph # (Auto) 1.9, Bandera # (Auto) 0.7, Eos # (Auto) 0.0, Baso # (Auto) 0.0, ESR 54 H 03/06/20 21:10: Sodium 137, Potassium 4.1, Chloride 104, Carbon Dioxide 23, Anion Gap 14.1, BUN 20 H, Creatinine 1.20 H, Estimated Creat Clear 45, Estimated GFR 43 L, Est GFR ( Amer) 52 L, Glucose 99, Calcium 10.0, Total Bilirubin 0.4, AST 30, ALT 17, Alkaline Phosphatase 98, Troponin I < 0.01, C-Reactive Protein 0.6, NT-Pro-B Natriuret Pep 261, Total Protein 7.8, Albumin 4.7, Globulin 3.1, Albumin/Globulin Ratio 1.5, TSH 3.18 D, Thyroxine (T4) 13.8 H 03/06/20 21:10: SARS-CoV-2 IgG Ab (Rapid) Negative, SARS-CoV-2 IgM Ab (Rapid) Negative 03/06/20 21:23: Specimen Source Left radial, O2 % Room air, ABG pH 7.63 H*, ABG pCO2 19.2 L, ABG pO2 115.2 H, ABG HCO3 19.8 L, ABG Total CO2 20.4 L, ABG O2 Saturation 99, ABG Base Excess -1.3, Yong Test Acceptable 03/06/20 21:50: Urine Color Yellow, Urine Appearance Clear, Urine pH 8.0, Ur Specific [place] 1.010, Urine Protein Negative, Urine Glucose (UA) Negative, Urine Ketones Negative, Urine Blood Negative, Urine Nitrate Negative, Urine Bilirubin Negative, Urine Urobilinogen 0.2, Ur Leukocyte Esterase Negative, Urine Bacteria Trace 03/06/20 23:27: Chlamy pneumoniae PCR Not detected, Adenovirus (PCR) Not detected, B. pertussis DNA (PCR) Not detected, Coronavirus OC43 (PCR) Not detected, Coronavirus HKU1 (PCR) Not detected, Coronavirus 229E (PCR) Not detected, SARS-CoV-2 (PCR) Not detected, Coronavirus NL63 (PCR) Not detected, Human Metapneumovir PCR Not detected, Influenza A (H1) PCR Not detected, Influ A (H1N1/09) PCR Not detected, Influenza A (H3) PCR Not detected, Influenza Type A (PCR) Not detected, Influenza Type B (PCR) Not detected, M. pneumoniae (PCR) Not detected, Parainfluenza 1 (PCR) Not detected, Parainfluenza 2 (PCR) Not detected, Parainfluenza 3 (PCR) Not detected, Parainfluenza 4 (PCR) Not detected, RSV (PCR) Not detected, Entero/Rhino (PCR) Not detected Result diagrams: 03/06/20 21:10 03/06/20 21:10 Orders (Tests/Meds): ORDERS Category Date Time Status XR chest 2V Stat Exams 03/06/20 21:23 Taken Occult Blood,Stool Stat Lab 03/06/20 23:22
[2020-03-06 21:33] LABS: ABG Base Excess -1.3 mmol/L (-2.4-2.3); ABG HCO3 19.8 mmhg (22.0-26.0); ABG Oxygen Saturation 99 % (90-100); ABG PO2 115.2 mmhg (80-100); ABG TCO2 20.4 mmhg (23-27)
[2020-03-06 21:35] LABS: Basophils % 0.5 % (0.1-2.0); Eosinophils % 0.4 % (0.1-12.0); Hematocrit 30.4 % (37.0-47.0); Hemoglobin 9.6 g/dL (12.2-16.2); Lymphocytes # 1.9 K/mm3 (0.7-4.5); Lymphocytes % 28.7 % (10-50); Mean Corpuscular HGB Conc 31.6 g/dL (31.8-35.4); Mean Corpuscular Hemoglobin 23.7 pg (27.0-31.2); Mean Corpuscular Volume 75.1 fl (81-99); Mean Platelet Volume 7.5 fl (7.4-10.4); Monocytes # 0.7 K/mm3 (0.1-1.0); Monocytes % 10.7 % (1.7-9.3); Neutrophils % 59.7 % (37.0-80.0); Platelet Count 318 K/mm3 (142-424); Red Blood Count 4.04 M/mm3 (4.20-5.40); Red Cell Distribution Width 15.2 % (11.5-17.5); White Blood Count 6.7 K/mm3 (4.8-10.8)
[2020-03-06 21:35] LABS: Allen's Test Acceptable; Oxygen ROOM AIR %; Source Left Radial
[2020-03-06 21:36] LABS: ABG PCO2 19.2 mmhg (35.0-45.0); ABG PH 7.63 mmol/L (7.35-7.45)
[2020-03-06 21:56] LABS: Microscopic, Urine URINE MICROSCOPIC (MICROSCOPIC)
[2020-03-06 21:58] LABS: Coronavirus 19 IgG Antibody Negative (Negative); Coronavirus 19 IgM Antibody Negative (Negative)
[2020-03-06 22:07] LABS: Appearance,Urine CLEAR (Clear); Bilirubin,Urine Negative (Negative); Blood, Urine Negative (Negative); Color,Urine YELLOW (Yellow); Glucose,Urine (UA) Negative (Negative); Ketones,Urine Negative (Negative); Leukocyte Esterase,Urine Negative (Negative); Nitrate,Urine Negative (Negative); Protein,Urine Negative (Negative); Urobilinogen,Urine 0.2 EU/dl (0.2)
[2020-03-06 22:13] LABS: Erythrocyte Sedimentation Rate 54 mm/hr (0-30)
[2020-03-06 22:17] LABS: Bacteria,Urine Trace /lpf
[2020-03-06 22:26] LABS: Chloride 104 mmol/L (98-107); Potassium 4.1 mmoL/L (3.5-5.1); Sodium 137 mmol/L (136-145)
[2020-03-06 22:29] LABS: Alanine Aminotransferase 17 U/L (12-78); Albumin Level 4.7 g/dl (3.5-5.0); Albumin/Globulin Ratio 1.5 (1.1-1.8); Alkaline Phosphatase 98 U/L (38-126); Anion Gap 14.1 mEq/L (5-15); Aspartate Amino Transferase 30 U/L (14-36); Bilirubin,Total 0.4 mg/dl (0.2-1.3); Blood Urea Nitrogen 20 mg/dl (7-17); Carbon Dioxide 23 mmol/L (22.0-30.0); Creatinine Clearance Estimated 45 mL/min (50-200); Estimated Glomerular Filt Rate 43 ml/min (>60); GFR (African American) 52 ML/MIN (>60); Globulin 3.1 g/dL (1.3-3.2); Total Protein,Serum 7.8 g/dl (6.3-8.2)
[2020-03-06 22:30] LABS: Glucose 99 mg/dl (74-100)
[2020-03-06 22:35] LABS: C-Reactive Protein 0.6 mg/L (0-4)
[2020-03-06 22:41] LABS: NT Pro Brain Natriuretic Pep. 261 pg/mL (0-450)
[2020-03-06 22:49] LABS: T4 (Thyroxine) 13.8 ug/dl (5.53-11.0); Troponin I < 0.01 ng/ml (0.00-0.034)
[2020-03-06 23:02] LABS: Thyroid Stimulating Hormone 3.18 uIU/mL (0.465-4.68)
[2020-03-06 23:32] LABS: Adenovirus,PCR Not Detected (NotDetected); Bordetella Pertussis Not Detected (NotDetected); Chlamydophila Pneumoniae, PCR Not Detected (NotDetected); Coronavirus 19, PCR Not Detected (NotDetected); Coronavirus 229E Not Detected (NotDetected); Coronavirus NL63 Not Detected (NotDetected); Coronavirus OC43 Not Detected (NotDetected); Coronovirus HKU1,PCR Not Detected (NotDetected); Human Metapneumovirus Not Detected (NotDetected); Influenza A, PCR Not Detected (NotDetected); Influenza AH1, 2009 Not Detected (NotDetected); Influenza AH1, PCR Not Detected (NotDetected); Influenza AH3,PCR Not Detected (NotDetected); Influenza B, PCR Not Detected (NotDetected); Mycoplasma Pneumoniae, PCR Not Detected (NotDetected); Parainfluenza 1, PCR Not Detected (NotDetected); Parainfluenza 2, PCR Not Detected (NotDetected); Parainfluenza 3, PCR Not Detected (NotDetected); Parainfluenza 4, PCR Not Detected (NotDetected); Respiratory Syncytial Virus Not Detected (NotDetected); Rhinovirus/Enterovirus Not Detected (NotDetected)
[2020-03-07] VITALS (20 sets, daily range): BP systolic 118–148; BP diastolic 44–81; PULSE 70–90; RESP 16–24; TEMP 36.6–36.9; O2SAT 96–100; BMI 25.9; BMI 25.8
[2020-03-07 01:15] LABS: Troponin I < 0.01 ng/ml (0.00-0.034)
--- NOTE | 2020-03-07 01:48 | PC.NURSE ---
PT ARRIVED TO THE FLOOR VIA W/C FROM ED WITH STAFF AT 0148
[2020-03-07 03:49] LABS: Troponin I < 0.01 ng/ml (0.00-0.034)
[2020-03-07 06:35] LABS: Basophils # 0.1 K/mm3 (0-0.2); Basophils % 1.1 % (0.1-2.0); Eosinophils # 0.1 K/mm3 (0.0-0.4); Eosinophils % 0.9 % (0.1-12.0); Hematocrit 27.8 % (37.0-47.0); Hemoglobin 8.9 g/dL (12.2-16.2); Lymphocytes # 1.8 K/mm3 (0.7-4.5); Lymphocytes % 27.1 % (10-50); Mean Corpuscular HGB Conc 31.8 g/dL (31.8-35.4); Mean Corpuscular Hemoglobin 23.9 pg (27.0-31.2); Mean Corpuscular Volume 74.9 fl (81-99); Mean Platelet Volume 7.5 fl (7.4-10.4); Monocytes # 0.4 K/mm3 (0.1-1.0); Monocytes % 6.6 % (1.7-9.3); Neutrophils # 4.1 K/mm3 (1.8-7.8); Neutrophils % 64.3 % (37.0-80.0); Platelet Count 276 K/mm3 (142-424); Red Blood Count 3.72 M/mm3 (4.20-5.40); Red Cell Distribution Width 15.1 % (11.5-17.5); White Blood Count 6.4 K/mm3 (4.8-10.8)
[2020-03-07 06:41] LABS: Chloride 108 mmol/L (98-107); Sodium 140 mmol/L (136-145)
[2020-03-07 06:42] LABS: Potassium 4.2 mmoL/L (3.5-5.1)
[2020-03-07 06:45] LABS: Anion Gap 13.2 mEq/L (5-15); Blood Urea Nitrogen 18 mg/dl (7-17); Calcium 9.3 mg/dl (8.4-10.2); Carbon Dioxide 23 mmol/L (22.0-30.0); Creatinine Clearance Estimated 48 mL/min (50-200); Estimated Glomerular Filt Rate 48 ml/min (>60); GFR (African American) 58 ML/MIN (>60); Glucose 95 mg/dl (74-100)
--- NOTE | 2020-03-07 06:48 | P.CONPHA_ITS ---
[facility] Pharmacy VTE Monitoring - Patient Demographics Admission date: 03/06/20 Report Date: 03/07/20 Time: 06:48 Allergies/Adverse Reactions: Patient Allergies corn [From CORN (FOOD/DRUG)] Allergy (Mild, Verified 12/31/19 14:21) COUGH egg [From EGGS (FOOD/DRUG)] Allergy (Mild, Verified 12/31/19 14:21) COUGH lactose [From DAIRY FOODS (FOOD/DRUG)] Allergy (Mild, Verified 12/31/19 14:21) COUGH soy Allergy (Mild, Verified 12/31/19 14:21) COUGH wheat Allergy (Mild, Verified 12/31/19 14:21) COUGH Height: 1.68 m Weight: 72.892 kg Patient Problems: Current Active Problems Dyspnea (Acute) Hypothyroidism (Acute) Acute respiratory alkalosis (Acute) Renal insufficiency (Acute) Anemia (Acute) - VTE Risk Labs: VTE Related Lab Results Hgb 8.9 g/dL (12.2-16.2) L 03/07/20 05:45 Hct 27.8 % (37.0-47.0) L 03/07/20 05:45 Plt Count 276 K/mm3 (142-424) 03/07/20 05:45 BUN 18 mg/dl (7-17) H 03/07/20 05:45 Creatinine 1.10 mg/dl (0.52-1.04) H 03/07/20 05:45 Estimated Creat Clear 48 mL/min (50-200) 03/07/20 05:45 VTE Score: 5 VTE Risk Level: Low Risk - Prophylaxis VTE Prophylaxis Ordered?: Yes Types of VTE Prophylaxis: TEDS Knee High Location of Applied Device: Bilateral Lower Extremeties
--- NOTE | 2020-03-07 06:55 | PC.NURSE ---
Pt is resting in bed at this time. Has remained on RA. Is tachypneic at times. BP and HR remain stable. NSR on telemetry. SHe is currently NPO per MD order. Has echo this AM. Occult stool not obtained at this time. No BM. Call light within reach. No other concerns at this time. Will continue to monitor.
--- NOTE | 2020-03-07 08:00 | CA_ITS ---
APPROVED REPORT EXAM: Comprehensive 2D, Doppler, and color-flow Echocardiogram Auto Rental Clerk: Chantell Bender, RT(R) Ht: 5 ft 6 in Wt: 163lbs BSA: 1.83 BP: 136/62 mmHg Indications: SOB, Murmur, palpitations, AFIB, murmur Echo Enhancing Agent Indication: Endocardial border delineation Agent(s) / Amount(s) Used: Definity 2 cc 2D Dimensions LVOT 1.96 cm (M/F) 1.5-2.5 M-Mode Dimensions RVDd 3.10 cm (0.9-2.6) LA Diam 3.96 cm (1.9-4.0) LVDd 5.10 cm (3.5-5.7) Ao Diam 2.25 cm (2.0-3.7) LVDs 3.82 cm (3.5-5.7) IVSd 0.60 cm (0.6-1.1) PWd 1.17 cm (0.6-1.1) EF (Teich) 49.40% FS 25.10% EDV (Teich) 123.80 mL ESV (Teich) 62.70 mL LV Diastology E Decel Time 197.00 (160-240 msec) E/A Ratio 0.7 MED E' 11.40 (< 7 cm/sec) E'/MED E' Ratio 6.70 (>14) LAT E' 13.20 (<10 cm/sec) E/LAT E' Ratio 5.79 (>14) Aortic Valve LVOT Max 116.00 (70-110 cm/s) LVOT VTI 29.80 cm AoV Peak Marco Antonio. 225.00 (50-130 cm/s) AO Peak GR. 20.20 mmHg AO Mean GR. 11.00 (<5 mmHg) AO VTI 49.83 (18-25 cm) OPAL (VTI) 1.80 (2.5-4.5 cm2) Mitral Valve MV E Max Marco Antonio. 76.00 (40-130 cm/s) MV A Velocity 112.00 (40-130 cm/s) E/A Ratio 0.68 MV Decel. Time 197.00 (160-240 ms) MV PHT 58.00 ms Tricuspid Valve TR P. Velocity 266.00 cm/s RAP Estimate 10.00 mmHg RVSP 38.40 mmHg Left Ventricle Left atrium is mildly enlarged, left ventricle is normal size, left ventricle wall thickness is upper limit of normal, visually estimated ejection fraction 55% with no regional wall motion abnormality, Definity contrast was utilized to delineate the endocardial surfaces. There is no left ventricular thrombus seen. Grade 1 diastolic dysfunction seen without tissue Doppler evidence of raise left atrial pressure. Right Ventricle Right atrium and right ventricle are relatively normal size and function. Aortic Valve Aortic valve is thickened and calcified leaflet chordae display good mobility, morphologically there is no aortic stenosis, there is mild insufficiency, there is increased velocities across the aortic outflow track there is secondary to high cardiac output state. There is no dynamic left ventricular outflow tract obstruction. Seen Mitral Valve Mitral valve leaflets are minimally thickened, there is mild mitral regurgitation. Tricuspid Valve Tricuspid valve grossly normal, there is mild tricuspid regurgitation, tricuspid regurgitation jet velocity is inadequate for calculation of the right ventricular systolic pressure. Pulmonic Valve Pulmonic valve is poorly visualized. Great Vessels Aortic root is normal size. Pericardium No significant pericardial effusion noted. Conclusion 1. Mildly enlarged left atrium, normal left ventricular size, visually estimated ejection fraction 55% with no regional wall motion abnormality, Doppler evidence of high cardiac output state. Grade 1 diastolic dysfunction seen without tissue Doppler evidence of raise left atrial pressure. 2. Thickened and calcified aortic valve without aortic stenosis, there is mild aortic insufficiency, increased aortic outflow velocity is likely secondary to high output state. 3. Mild mitral and tricuspid regurgitation. 4. No significant pericardial effusion noted. Electronically signed by : Alfie Lake, 03/07/2020 13:18:43
--- NOTE | 2020-03-07 09:15 | HMH.PHAINT ---
Medication reconciliation completed using physician office medication list.
--- NOTE | 2020-03-07 12:43 | HMH.CNCARD ---
History of Present Illness Consult date: 03/07/20 Requesting physician: Shane Diggs Consult reason: shortness of breath Chief complaint: Shortness of breath Additional Medical History:: 1. Severe symptomatic anemia (03/07/2020) a. HGB 8.9 and HCT 27.8 2. Diastolic dysfunction without increased left ventricular pressure (03/07/2020) a. Echocardiogram (03/07/2020) 3. Paroxysmal atrial fibrillation a. Amiodarone therapy b. A/C Eliquis 4. No Bleeding issues per pt 5. History of deep vein thrombosis. 6. Abnormal ABG (03/07/2020) a. PH 7.63, PCO2 19.2, Po2 115.2, CO2 20.4 7. Hypothyroidism a. TSH 13.8 b. On thyroid management History of present illness: 79-year-old female presented to the emergency room with increased shortness of breath and cough. Patient states she has had a cough with increased shortness of breath for the past 3 to 4 days. She stated that the shortness of breath was becoming worse. Patient stated her cough is nonproductive. Patient denies fevers. Patient denies chest pain, tightness or pressure. No swelling of the lower extremities. Lung sounds are clear. Patient denies dizziness or palpitations. Patient does have history of Paroxysmal atrial fibrillation. Managed by Amiodarone and Eliquis. Patient denies any bleeding issues. Hemoglobin 8.9 and Hematocrit 27.8 were noted on the labs. Patient is currently receiving 1 unit of PRBC bus monitor reveals sinus rhythm with a heart rate of 68. 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 Patient stated the last stress test was a few years ago. Patient denies ever having a heart catheterization. Patient stated if she is to have any kind of cardiac procedures she would like to have the procedures done in [place]. Patient does have thyroid disorder. TSH was elevated. Will defer elevated TSH to PCP. Initial ED work-up was performed. Initial EKG revealed sinus rhythm with nonspecific ST and T wave changes and prolonged QT. Troponins were negative. Creatinine 1.20 and BUN 20. ABGs were abnormal. ESR was elevated at 54. BNP 261. CXR: No acute finding. 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 Discuss plan of care with Dr. Lake. Discussed plan of care with Dr. Diggs and Dr. Priest. Echocardiogram obtained: Left Ventricle Left atrium is mildly enlarged, left ventricle is normal size, left ventricle wall thickness is upper limit of normal, visually estimated ejection fraction 55% with no regional wall motion abnormality, Definity contrast was utilized to delineate the endocardial surfaces. There is no left ventricular thrombus seen. Grade 1 diastolic dysfunction seen without tissue Doppler evidence of raise left atrial pressure. Right Ventricle Right atrium and right ventricle are relatively normal size and function. Aortic Valve Aortic valve is thickened and calcified leaflet chordae display good mobility, morphologically there is no aortic stenosis, there is mild insufficiency, there is increased velocities across the aortic outflow track there is secondary to high cardiac output state. There is no dynamic left ventricular outflow tract obstruction. Seen Mitral Valve Mitral valve leaflets are minimally thickened, there is mild mitral regurgitation. Tricuspid Valve Tricuspid valve grossly normal, there is mild tricuspid regurgitation, tricuspid regurgitation jet velocity is inadequate for calculation of the right ventricular systolic pressure. Pulmonic Valve Pulmonic valve is poorly visualized. Great Vessels Aortic root is normal size. Pericardium No significant pericardial effusion noted. Conclusion 1. Mildly enlarged left atrium, normal left ventricular size, visually estimated ejection fraction 55% with no regional wall motion abnormality, Doppler evidence of high cardiac output state. Grade 1 diastolic dysfunction seen without tis
--- NOTE | 2020-03-07 14:16 | HMH.HP ---
*Admission Date: 03/06/20 *Chief complaint: Cough, fatigue *History of present illness: 79-year-old female who presented to the ER with cough and fatigue. Denies fever, nausea, vomiting. States she has had progressive cough for a long time now . Per chart review from our office, she has had an ongoing cough for well over a year. Given non-specific respiratory symptoms, patient was worked up for pneumonia. Chest imaging with no focal findings, respiratory panel negative for Covid. Was noted however to be anemic and interestingly had a respiratory alkalosis. Decision was made to admit patient for further management given his acute findings. On assessment this morning, she states her fatigue is worse as the day goes on. Cough and shortness of breath also worsens as the day goes on. Denies fever, cough nonproductive, no nausea or vomiting. No todd blood in her stool, hematochezia, melenic stools. Is on Eliquis for A. fib and stroke prophylaxis. Otherwise doing well. Does not appear disoriented and is not requiring any oxygen at this time. [facility] History I have reviewed the patient's past medical history: Yes Medical History: Reports:: Arrhythmia, Atrial Fibrillation, Cancer, Deep Vein Thrombosis, Hyperlipidemia, Palpitations Denies:: Diabetes Mellitus Type 1, Diabetes Mellitus Type 2, Internal Pacemaker, MRSA, Seizures *Have you ever received a pneumonia vaccine?: Yes *Have you received a flu vaccine this season?: Yes Other Medical History: Reports: Arthritis, Cataracts (bilateral), Hypothyroidism. Denies: Blood Transfusion Reaction Laterality Cases: Right: Breast Biopsy, Mastectomy, Bilateral: Tonsillectomy Other Surgeries: Yes: Cancer Surgery, Colonoscopy. No: Pacemaker Amputation: No Fractures: No - *Social History Last grade of school completed: Some college Smoking Status: Never smoker Alcohol Intake: never Substance Use Type: denies use *Occupational Status:: retired Housing: house Household Members: spouse *Travel in the last 8 weeks: None Family Hx:: Cancer, Heart Attack, Hyperlipidemia, Hypertension, Stroke, Thyroid Disorder Review of Systems - Review of Systems Review of systems:: pertinent systems reviewed and negative unless documented below (14 point review of systems performed, pertinent positives and negatives as per HPI) - *Neurologic Denies localized weakness Meds Home Medications Medication Instructions Recorded Confirmed Type Amiodarone HCl [Amiodarone 100mg 200 mg PO DAILY 10/10/18 03/07/20 History Tab] Apixaban [Eliquis 5mg tab] 5 mg PO BID 12/11/19 03/07/20 History Levothyroxine Sodium [Synthroid 25 mcg PO DAILY 12/11/19 03/07/20 History 25mcg (0.025mg) tablet] pravastatin 40 mg tablet 40 mg PO HS 12/31/19 03/07/20 History Hydrocodone Bit/Homatrop Me-Br 1 tab PO Q8H PRN 03/07/20 03/07/20 History [Hydrocodone-Homatropine 5-1.5] Omeprazole [Omeprazole 40mg 40 mg PO DAILY 30 Days #30 cap 03/07/20 Rx Capsule] Allergies Allergy/AdvReac Type Severity Reaction Status Date / Time corn [From CORN (FOOD/DRUG)] Allergy Mild COUGH Verified 12/31/19 14:21 egg [From EGGS (FOOD/DRUG)] Allergy Mild COUGH Verified 12/31/19 14:21 lactose Allergy Mild COUGH Verified 12/31/19 14:21 [From DAIRY FOODS (FOOD/DRUG)] soy Allergy Mild COUGH Verified 12/31/19 14:21 wheat Allergy Mild COUGH Verified 12/31/19 14:21 Exam Vital signs and Labs for Last 24 Hours: Temp Pulse Resp BP Pulse Ox 97.9 F 84 18 127/55 L 100 03/07/20 14:00 03/07/20 14:00 03/07/20 14:00 03/07/20 14:00 03/07/20 14:00 Laboratory Results - last 24 hr 03/06/20 21:10: WBC 6.7, RBC 4.04 L, Hgb 9.6 L, Hct 30.4 L, MCV 75.1 L, MCH 23.7 L, MCHC 31.6 L, RDW 15.2, Plt Count 318, MPV 7.5, Neut % (Auto) 59.7, Lymph % (Auto) 28.7, [place] % (Auto) 10.7 H, Eos % (Auto) 0.4, Baso % (Auto) 0.5, Neut # (Auto) 4.0, Lymph # (Auto) 1.9, [place] # (Auto) 0.7, Eos # (Auto) 0.0, Baso # (Auto) 0.0, ESR 54 H 03/06/20 21:10:
[2020-03-07 15:00] LABS: ABG Base Excess -2.4 mmol/L (-2.4-2.3); ABG HCO3 21.7 mmhg (22.0-26.0); ABG Oxygen Saturation 97 % (90-100); ABG PCO2 32.2 mmhg (35.0-45.0); ABG PH 7.45 mmol/L (7.35-7.45); ABG PO2 90.3 mmhg (80-100); ABG TCO2 22.7 mmhg (23-27)
[2020-03-07 15:01] LABS: Oxygen ROOM AIR %
[2020-03-07 15:02] LABS: Allen's Test Acceptable; Source Left Radial
[2020-03-07 16:17] LABS: Occult Blood,Stool Positive (Negative)
[2020-03-07 16:33] LABS: Hematocrit 30.8 % (37.0-47.0)
[2020-03-07 16:53] LABS: Hemoglobin 10.1 g/dL (12.2-16.2)
--- NOTE | 2020-03-07 18:16 | HMH.HPDC ---
General - General Admission date:: 03/06/20 Discharge date: 03/07/20 *Admission Date: 03/06/20 *Chief complaint: Cough, fatigue *History of present illness: 79-year-old female who presented to the ER with cough and fatigue. Denies fever, nausea, vomiting. States she has had progressive cough for a long time now . Per chart review from our office, she has had an ongoing cough for well over a year. Given non-specific respiratory symptoms, patient was worked up for pneumonia. Chest imaging with no focal findings, respiratory panel negative for Covid. Was noted however to be anemic and interestingly had a respiratory alkalosis. Decision was made to admit patient for further management given his acute findings. On assessment this morning, she states her fatigue is worse as the day goes on. Cough and shortness of breath also worsens as the day goes on. Denies fever, cough nonproductive, no nausea or vomiting. No todd blood in her stool, hematochezia, melenic stools. Is on Eliquis for A. fib and stroke prophylaxis. Otherwise doing well. Does not appear disoriented and is not requiring any oxygen at this time. [facility] History I have reviewed the patient's past medical history: Yes Medical History: Reports:: Arrhythmia, Atrial Fibrillation, Cancer, Deep Vein Thrombosis, Hyperlipidemia, Palpitations Denies:: Diabetes Mellitus Type 1, Diabetes Mellitus Type 2, Internal Pacemaker, MRSA, Seizures *Have you ever received a pneumonia vaccine?: Yes *Have you received a flu vaccine this season?: Yes Other Medical History: Reports: Arthritis, Cataracts (bilateral), Hypothyroidism. Denies: Blood Transfusion Reaction Laterality Cases: Right: Breast Biopsy, Mastectomy, Bilateral: Tonsillectomy Other Surgeries: Yes: Cancer Surgery, Colonoscopy. No: Pacemaker Amputation: No Fractures: No - *Social History Last grade of school completed: Some college Smoking Status: Never smoker Alcohol Intake: never Substance Use Type: denies use *Occupational Status:: retired Housing: house Household Members: spouse *Travel in the last 8 weeks: None Family Hx:: Cancer, Heart Attack, Hyperlipidemia, Hypertension, Stroke, Thyroid Disorder Review of Systems - Review of Systems Review of systems:: pertinent systems reviewed and negative unless documented below (14 point review of systems performed, pertinent positives and negatives as per HPI) - *Neurologic Denies localized weakness Exam Vital signs and Labs for Last 24 Hours: Temp Pulse Resp BP Pulse Ox 98.2 F 90 20 136/80 99 03/07/20 16:00 03/07/20 16:00 03/07/20 16:00 03/07/20 16:00 03/07/20 16:00 Laboratory Results - last 24 hr 03/06/20 21:10: WBC 6.7, RBC 4.04 L, Hgb 9.6 L, Hct 30.4 L, MCV 75.1 L, MCH 23.7 L, MCHC 31.6 L, RDW 15.2, Plt Count 318, MPV 7.5, Neut % (Auto) 59.7, Lymph % (Auto) 28.7, [place] % (Auto) 10.7 H, Eos % (Auto) 0.4, Baso % (Auto) 0.5, Neut # (Auto) 4.0, Lymph # (Auto) 1.9, [place] # (Auto) 0.7, Eos # (Auto) 0.0, Baso # (Auto) 0.0, ESR 54 H 03/06/20 21:10: Sodium 137, Potassium 4.1, Chloride 104, Carbon Dioxide 23, Anion Gap 14.1, BUN 20 H, Creatinine 1.20 H, Estimated Creat Clear 45, Estimated GFR 43 L, Est GFR ( Amer) 52 L, Glucose 99, Calcium 10.0, Total Bilirubin 0.4, AST 30, ALT 17, Alkaline Phosphatase 98, Troponin I < 0.01, C-Reactive Protein 0.6, NT-Pro-B Natriuret Pep 261, Total Protein 7.8, Albumin 4.7, Globulin 3.1, Albumin/Globulin Ratio 1.5, TSH 3.18 D, Thyroxine (T4) 13.8 H 03/06/20 21:10: SARS-CoV-2 IgG Ab (Rapid) Negative, SARS-CoV-2 IgM Ab (Rapid) Negative 03/06/20 21:23: Specimen Source Left radial, O2 % Room air, ABG pH 7.63 H*, ABG pCO2 19.2 L, ABG pO2 115.2 H, ABG HCO3 19.8 L, ABG Total CO2 20.4 L, ABG O2 Saturation 99, ABG Base Excess -1.3, Yong Test Acceptable 03/06/20 21:50: Urine Color Yellow, Urine Appearance Clear, Urine pH 8.0, Ur Specific [place] 1.010, Urine Protein Negative, Urine Glucose (UA) Negative, Urine Ketones Negative, Urine Blood Ne
== END 2020-03-07 18:40 | disposition home or self-care (01) ==
LOC: ER 23:22 → 2ND 23:31
PROVIDERS: Internal Medicine Adolescent Medicine; Admitting Provider Family Medicine; Emergency Provider Emergency Medicine; PCP Nurse Practitioner Family; Visit Provider Internal Medicine Adolescent Medicine
DX: I48.0 Paroxysmal atrial fibrillation (principal); E03.9 Hypothyroidism, unspecified; E87.3 Alkalosis; R06.00 Dyspnea, unspecified; Z79.01 Long term (current) use of anticoagulants; Z90.11 Acquired absence of right breast and nipple; Z86.718 Personal history of other venous thrombosis and embolism; Z79.899 Other long term (current) drug therapy
CPT/HCPCS: 36415; 71046; 80048; 80053; 81001; 82272; 82803; 83880; 84436; 84443; 84484; 85014; 85018; 85025; 85651; 86140; 86328; 86850; 87581; 87633; 87798; 93005; 93306; 99284; G0328; G0378; P9016; Q9957

== ENCOUNTER → 2020-03-17 14:58 | Outpatient (CLI) | payer MEDICARE, OTHER, SELFPAY ==
[2020-03-17 15:26] LABS: Basophils # 0.1 K/mm3 (0-0.2); Basophils % 0.9 % (0.1-2.0); Eosinophils # 0.1 K/mm3 (0.0-0.4); Eosinophils % 0.9 % (0.1-12.0); Hematocrit 32.1 % (37.0-47.0); Hemoglobin 9.9 g/dL (12.2-16.2); Lymphocytes # 1.7 K/mm3 (0.7-4.5); Lymphocytes % 27.6 % (10-50); Mean Corpuscular HGB Conc 30.8 g/dL (31.8-35.4); Mean Corpuscular Hemoglobin 23.8 pg (27.0-31.2); Mean Corpuscular Volume 77.1 fl (81-99); Mean Platelet Volume 9.2 fl (7.4-10.4); Monocytes # 0.6 K/mm3 (0.1-1.0); Neutrophils # 3.7 K/mm3 (1.8-7.8); Neutrophils % 60.7 % (37.0-80.0); Platelet Count 302 K/mm3 (142-424); Red Blood Count 4.16 M/mm3 (4.20-5.40); Red Cell Distribution Width 15.5 % (11.5-17.5); White Blood Count 6.2 K/mm3 (4.8-10.8)
[2020-03-17 16:07] LABS: Chloride 106 mmol/L (98-107); Potassium 4.2 mmoL/L (3.5-5.1); Sodium 138 mmol/L (136-145)
[2020-03-17 16:10] LABS: Anion Gap 11.2 mEq/L (5-15); Blood Urea Nitrogen 19 mg/dl (7-17); Calcium 9.7 mg/dl (8.4-10.2); Carbon Dioxide 25 mmol/L (22.0-30.0); Estimated Glomerular Filt Rate 53 ml/min (>60); GFR (African American) 65 ML/MIN (>60); Glucose 86 mg/dl (74-100)
== END ==
PROVIDERS: Visit Provider Nurse Practitioner Family
DX: D50.0 Iron deficiency anemia secondary to blood loss (chronic) (principal)
CPT/HCPCS: 36415; 80048; 85025

== ENCOUNTER → 2020-04-02 16:52 | Outpatient (CLI) | payer MEDICARE, OTHER, SELFPAY ==
[2020-04-02 18:21] LABS: Coronavirus 19 IgG Antibody Negative (Negative); Coronavirus 19 IgM Antibody Negative (Negative)
== END ==
PROVIDERS: PCP Internal Medicine Adolescent Medicine; Visit Provider Internal Medicine Gastroenterology
DX: Z01.818 Encounter for other preprocedural examination (principal); Z03.818 Encounter for observation for suspected exposure to other biological agents ruled out; Z13.810 Encounter for screening for upper gastrointestinal disorder; Z12.11 Encounter for screening for malignant neoplasm of colon
CPT/HCPCS: 36415; 86328

== ENCOUNTER 2020-04-04 06:32 | Day surgery (SDC) | payer MEDICARE, OTHER, SELFPAY ==
[2020-04-02 10:31] VITALS: BMI 26.6
[2020-04-04] VITALS (13 sets, daily range): BP systolic 102–164; BP diastolic 6–97; PULSE 61–89; RESP 18; TEMP 36.1–36.4; O2SAT 90–99
--- NOTE | 2020-04-04 08:06 | P.PCN_ITS ---
[facility] Procedure Note Procedure Note:: Upper Endoscopy Procedure Report: Esophagogastroduodenoscopy with cold biopsies and TTS balloon dilation Endoscopost: Andrea Bazzi II, MD Referring Physician: Froilan Priest M.D. Date of Procedure: April 04, 2020 Equipment: Olympus GIF 180 standard upper endoscope Sedation: MAC sedation Indications: Mrs. Rodriguez is a 79-year-old female who is here for diagnostic upper endoscopy and colonoscopy secondary to iron deficiency anemia and Hemoccult positive stool. She is being evaluated for occult gastrointestinal blood loss. The patient recently presented with dyspnea on exertion, fatigue and malaise. She was hospitalized on March 07, 2021 and her hemoglobin and hematocrit were 8.9 and 27.8. She was found to be Hemoccult positive. She received 1 unit of PRBCs. The patient was on Eliquis and now has switched to a baby aspirin. She reports no melena, hematemesis or hematochezia. She gets some occasional epigastric discomfort and reports occasional choking on liquids. She reports no heartburn or reflux. Procedure: Prior to the procedure, a history and physical exam was performed, and patient's medications and allergies were reviewed. The risks, benefits and alternatives of the sedation and procedure were discussed with the patient. All questions were answered and informed consent was obtained. The patient was brought to the procedure room. Patient identification and proposed procedure were verified by the physician and the nurse. The patient was placed in a left lateral decubitus position and the scope was passed under direct vision. Throughout the procedure, the patient's blood pressure, pulse, and oxygen saturations were monitored continuously. The upper GI endoscopy was accomplished without difficulty. The patient tolerated the procedure well. Findings: The scope was passed directly into the upper esophagus and advanced to the third portion of the duodenum. The post bulbar duodenum and duodenal bulb were normal with normal mucosa and conniventes. The scope was withdrawn through a normal duodenal bulb and pylorus into the stomach. There was minimal reactive gastropathy of the antrum. There was moderate chronic atrophic gastritis of the body and fundus of the stomach. Biopsies were taken from the fundus of the stomach to rule out atrophic gastritis or H. pylori. Upon retroflexion there was no hiatal hernia. The scope was then withdrawn into the esophagus. There was no evidence of reflux esophagitis or Vidales's. Biopsies were taken at the GE junction. The entire esophagus was dilated to 60 Salvadorean/20 mm with a TTS hydrostatic balloon. There was mild esophageal dysmotility. The remainder of the esophageal mucosa was normal. Impression: 1. Mild chronic atrophic gastritis Plan: There was certainly no source of bleeding identified from the upper digestive tract. I did not identify ulcerations, erosions or AVMs (angiodysplasias). I will proceed with colonoscopy. If the patient has no identified source on colonoscopy would consider PillCam/video capsule enteroscopy. Chronic atrophic gastritis does reduce iron absorption. I would consider checking biopsy for H. pylori but also checking gastrin level and antiparietal cell antibodies.
--- NOTE | 2020-04-04 08:23 | HMH.ANESCL ---
[facility] Anesthesia Checklist - Structural Data Admitted From: Home Planned Operative Procedure/s: egd,colonoscopy Consent for Planned Operative Procedure(s) Verified: Yes - Additional verifications Anesthesia Reactions: No Hx Blood Transfusions: No Blood Transfusion Reaction: No - Airway Assessment C-Spine Mobility Assessed: Yes TMJ Mobility Assessed: Yes Dentition: Partials - Neurological Assessment Level of Consciousness: Awake, Alert, Appropriate - Anesthesia Plan Anesthesia Risk discussed: Yes Anesthesia Plan: Verified ASA Class: III Anesthesia Type: MAC [facility] History I have reviewed the patient's past medical history: Yes Medical History: Reports:: Arrhythmia, Atrial Fibrillation, Cancer (right breast), Deep Vein Thrombosis, Hyperlipidemia, Palpitations Denies:: Diabetes Mellitus Type 1, Diabetes Mellitus Type 2, Internal Pacemaker, MRSA, Seizures *Have you ever received a pneumonia vaccine?: Yes *Have you received a flu vaccine this season?: Yes Other Medical History: Reports: Arthritis, Cataracts (bilateral), Hypothyroidism. Denies: Blood Transfusion Reaction Anesthesia experience/problems:: none Laterality Cases: Right: Breast Biopsy, Mastectomy, Bilateral: Tonsillectomy Other Surgeries: Yes: Cancer Surgery, Colonoscopy. No: Pacemaker Amputation: No Fractures: No - *Social History Last grade of school completed: High school graduate Smoking Status: Never smoker Alcohol Intake: never Substance Use Type: denies use *Occupational Status:: retired Housing: house Household Members: spouse *Travel in the last 8 weeks: None Family Hx:: Cancer, Hyperlipidemia, Hypertension
--- NOTE | 2020-04-04 08:41 | HMH.PROC ---
[facility] Procedure Note Procedure Note:: Colonoscopy Procedure Report: Colonoscopy with cold snare polypectomy and cold biopsies Endoscopist: Andrea Bazzi II, MD Referring physician: Froilan Priest M.D. Date of Procedure: April 04, 2020 Equipment: Olympus 180 variable stiffness pediatric colonoscope Sedation: MAC sedation Indication: Mrs. Rodriguez is a 79-year-old female with iron deficiency anemia and Hemoccult positive stool. The patient recently was hospitalized with dyspnea on exertion. Her hemoglobin and hematocrit were 8.9 and 27.8 (03/07/2021). She does get some occasional epigastric discomfort. She reports no hematochezia or bright red rectal bleeding. She was on Eliquis. The patient received 1 unit of PRBCs. She reports no change in her bowel habits, weight loss or family history of colon cancer. Her last colonoscopy was 5 years ago (Dr. Manoj Cardozo) at which time some polyps were removed. Procedure: Prior to the procedure, a history and physical exam was performed, and patient's medications and allergies were reviewed. The risks, benefits and alternatives of the sedation and procedure were discussed with the patient. All questions were answered and informed consent was obtained. The patient was brought to the procedure room. Patient identification and proposed procedure were verified by the physician and the nurse. The patient was placed in a left lateral decubitus position and the scope was passed under direct vision. Throughout the procedure, the patient's blood pressure, pulse, and oxygen saturations were monitored continuously. The colonoscopy was accomplished without difficulty. The patient tolerated the procedure well. Findings: On digital rectal examination there was normal rectal tone. There were no external hemorrhoids. The colonoscope was introduced through the anal canal to the rectum and advanced to the cecum. The ileocecal valve and appendiceal orifice were identified. The scope was advanced a short distance into the ileum which appeared grossly normal. The scope was then withdrawn into the colon. Within the cecum there was a large marginated friable and fungating ulcerated mass lesion with some black eschar. This was consistent with cecal cancer/adenocarcinoma. Multiple biopsies were obtained. This was primarily involving the cecal cap and the portion of the cecum opposite or contralateral to the ileocecal valve. This did encompass one third (30 to 40%) of the cecum. There were 3 additional diminutive polyps of the transverse colon and 1 diminutive polyp in the descending colon all removed via cold snare polypectomy. There were scattered diverticuli throughout the descending and sigmoid colon (LEFT colon). The rectum itself was normal. Upon retroflexion within the rectum there were grade 1-2 internal hemorrhoids. The preparation was excellent throughout with Quinton Preparation Score of 9. The cecal time was 12 minutes. Impression: 1. Cecal mass (marginated ulcerated encompassing 30 to 40% of cecum contralateral to ileocecal valve?rule out cecal adenocarcinoma) 2. Diminutive colonic polyps x4 3. Left-sided diverticulosis 4. Grade 1-2 internal hemorrhoids Plan: The anemia and Hemoccult positive stool is related to the cecal colon cancer. I will obtain staging evaluation of the chest, abdomen and pelvis today while here. I will recommend parenteral iron while she is here (Feraheme) and check CEA level. If there is no evidence of colon cancer outside of this area (locally contained), we can discuss minimally invasive robotic resection or local resection (at [place]). If there is evidence of any lymphadenopathy or distant disease, I am going to discuss with colorectal surgery (Dr. Duane Fernandez).
--- NOTE | 2020-04-04 09:28 | CT_ITS ---
PROCEDURE: CT CHEST W CON CLINCAL INDICATION: colon cancer Colon cancer, evaluate for metastasis, anemia the the COMPARISON: No exams were available for comparison TECHNIQUE: IV Contrast: 75ml Isovue 370 Axial images obtained with sagittal and coronal reformats. All CT scans at the facility use one or more dose reduction, viz: automated exposure control, ma/kV adjustment per patient size (including targeted exams where dose is matched to indication, i.e. head), or iterative reconstruction technique. FINDINGS: HEART AND MEDIASTINAL STRUCTURES: No mediastinal or hilar mass or adenopathy. There is a small pretracheal lymph node at 1.2 cm. LUNGS AND PLEURAL SPACES: Mild bronchial thickening. No suspicious pulmonary nodules. No effusions or infiltrates. 4 mm opacity is present in the left lower lobe posteriorly and may be due to an area of scarring there is some minimal atelectatic changes or scarring in the left lung base medially. BONY STRUCTURES: There are mild degenerative changes in the thoracic spine. UPPER ABDOMEN: See abdomen report ADDITIONAL FINDINGS: Prior right mastectomy. IMPRESSION: No acute finding. No convincing evidence of metastatic disease. Dictated by: Yong Whatley MD 04/04/2020 13:40 Yong Whatley MD in [place] 04/04/2020 13:40
--- NOTE | 2020-04-04 09:28 | CT_ITS ---
PROCEDURE: CT ABDOMEN PELVIS W CON CLINICAL INDICATION: colon cancer Evaluate for metastasis COMPARISON: No exams were available for comparison TECHNIQUE: IV Contrast: 75ML Isovue 370 Oral Contrast None Axial images obtained with sagittal and coronal reformats. All CT scans at the facility use one or more dose reduction, viz: automated exposure control, ma/kV adjustment per patient size (including targeted exams where dose is matched to indication, i.e. head), or iterative reconstruction technique. FINDINGS: The liver, spleen, adrenal glands, and pancreas have an unremarkable appearance. There are few small peripancreatic lymph nodes. There are multiple gallstones present. No renal or ureteral calculi. There are small right renal cysts No intestinal obstruction or free air is evident. There is diverticulosis of the sigmoid colon. There are few air-fluid levels within nondistended small bowel loops which are nonspecific there is some eccentric soft tissue thickening involving the cecum which may correspond to patient's cecal mass. There are few mildly prominent lymph nodes in the pericecal region measuring up to 10 mm. No acute bony anomalies are evident. Postsurgical changes are present at L4-5. Nodular densities are present in the right inguinal area. These could be due to enlarged lymph nodes or varicosities. There are some varicosities in this area. IMPRESSION: 1. Eccentric soft tissue thickening involving the cecum which may be related to neoplastic involvement with mildly prominent pericecal lymph nodes. 2. No evidence of hepatic or adrenal metastasis. 3. Cholelithiasis 4. Nodularity in the right inguinal area. There is some varicosities in the right inguinal region. The other not areas of nodularity could be related to varicosities or mildly enlarged lymph nodes. Ultrasound may better evaluate. Dictated by: Yong Whatley MD 04/04/2020 13:57 Yong Whatley MD in [place] 04/04/2020 13:57
[2020-04-04 09:42] LABS: Blood Urea Nitrogen 18 mg/dl (7-17); Creatinine Clearance Estimated 54 mL/min (50-200); Estimated Glomerular Filt Rate 53 ml/min (>60); GFR (African American) 65 ML/MIN (>60)
[2020-04-04 10:03] LABS: Basophils # 0.1 K/mm3 (0-0.2); Basophils % 1.1 % (0.1-2.0); Eosinophils % 0.6 % (0.1-12.0); Hematocrit 33.1 % (37.0-47.0); Hemoglobin 10.9 g/dL (12.2-16.2); Lymphocytes # 1.3 K/mm3 (0.7-4.5); Lymphocytes % 25.8 % (10-50); Mean Corpuscular Hemoglobin 26.7 pg (27.0-31.2); Mean Platelet Volume 7.9 fl (7.4-10.4); Monocytes # 0.4 K/mm3 (0.1-1.0); Monocytes % 6.9 % (1.7-9.3); Neutrophils # 3.4 K/mm3 (1.8-7.8); Neutrophils % 65.6 % (37.0-80.0); Platelet Count 248 K/mm3 (142-424); Red Blood Count 4.08 M/mm3 (4.20-5.40); Red Cell Distribution Width 21.5 % (11.5-17.5); White Blood Count 5.2 K/mm3 (4.8-10.8)
[2020-04-04 10:19] LABS: Chloride 104 mmol/L (98-107); Sodium 140 mmol/L (136-145)
[2020-04-04 10:22] LABS: Alanine Aminotransferase 18 U/L (12-78); Alkaline Phosphatase 75 U/L (38-126); Aspartate Amino Transferase 35 U/L (14-36); Bilirubin,Total 0.5 mg/dl (0.2-1.3); Blood Urea Nitrogen 12 mg/dl (7-17); Calcium 9.7 mg/dl (8.4-10.2); Carbon Dioxide 24 mmol/L (22.0-30.0); Creatinine Clearance Estimated 54 mL/min (50-200); Estimated Glomerular Filt Rate 53 ml/min (>60); GFR (African American) 65 ML/MIN (>60); Glucose 97 mg/dl (74-100); Iron 22 ug/dL (37-170)
[2020-04-04 10:23] LABS: Albumin Level 4.5 g/dl (3.5-5.0); Albumin/Globulin Ratio 1.5 (1.1-1.8); Total Protein,Serum 7.5 g/dl (6.3-8.2)
[2020-04-04 10:34] LABS: Total Iron Binding Capacity 152 ug/dL (265-497)
--- NOTE | 2020-04-04 10:57 | SUR.PHASEII ---
FERUMOXYTOL INFUSIONS STARTED AT 1037 AND FINISHED 1048. PT TOLERATED WELL. NO C/O AT THIS TIME.
[2020-04-04 11:03] LABS: Ferritin 52.1 ng/ml (11.1-264)
[2020-04-05 18:28] LABS: CEA 24.9 ng/mL (0.0-4.7)
== END 2020-04-04 12:37 | disposition home or self-care (01) ==
LOC: OUTP 06:34
PROVIDERS: PCP Internal Medicine Adolescent Medicine; Visit Provider Internal Medicine Gastroenterology
PROC: 0DJ08ZZ Inspection of Upper Intestinal Tract, Via Natural or Artificial Opening Endoscopic (ICD-10-PCS; CPT 43235; principal; 2020-04-04 08:00)
DX: C18.0 Malignant neoplasm of cecum (principal); D12.4 Benign neoplasm of descending colon; D12.3 Benign neoplasm of transverse colon; K57.30 Diverticulosis of large intestine without perforation or abscess without bleeding; K64.0 First degree hemorrhoids; K29.50 Unspecified chronic gastritis without bleeding; K22.8 Other specified diseases of esophagus; K22.4 Dyskinesia of esophagus
CPT/HCPCS: 43239; 43249; 45380; 45385; 71260; 74177; 80053; 82378; 82565; 82728; 83540; 83550; 84520; 85025; 88305; C1726; Q0138; Q9967

== ENCOUNTER → 2020-05-26 14:52 | Outpatient (CLI) | payer MEDICARE, OTHER, SELFPAY ==
[2020-05-26 15:23] LABS: Basophils % 0.5 % (0.1-2.0); Eosinophils # 0.1 K/mm3 (0.0-0.4); Eosinophils % 1.4 % (0.1-12.0); Hematocrit 38.5 % (37.0-47.0); Hemoglobin 12.5 g/dL (12.2-16.2); Lymphocytes # 1.7 K/mm3 (0.7-4.5); Lymphocytes % 29.5 % (10-50); Mean Corpuscular HGB Conc 32.5 g/dL (31.8-35.4); Mean Corpuscular Hemoglobin 27.3 pg (27.0-31.2); Mean Corpuscular Volume 84.2 fl (81-99); Mean Platelet Volume 7.2 fl (7.4-10.4); Monocytes # 0.6 K/mm3 (0.1-1.0); Neutrophils # 3.3 K/mm3 (1.8-7.8); Neutrophils % 57.7 % (37.0-80.0); Platelet Count 243 K/mm3 (142-424); Red Blood Count 4.57 M/mm3 (4.20-5.40); Red Cell Distribution Width 19.6 % (11.5-17.5); White Blood Count 5.8 K/mm3 (4.8-10.8)
[2020-05-26 17:08] LABS: Alanine Aminotransferase 12 U/L (12-78); Albumin Level 3.9 g/dl (3.5-5.0); Albumin/Globulin Ratio 1.4 (1.1-1.8); Alkaline Phosphatase 73 U/L (38-126); Anion Gap 11.5 mEq/L (5-15); Aspartate Amino Transferase 24 U/L (14-36); Bilirubin,Total 0.5 mg/dl (0.2-1.3); Blood Urea Nitrogen 10 mg/dl (7-17); Calcium 9.6 mg/dl (8.4-10.2); Carbon Dioxide 31 mmol/L (22.0-30.0); Chloride 104 mmol/L (98-107); Estimated Glomerular Filt Rate 60 ml/min (>60); GFR (African American) 73 ML/MIN (>60); Globulin 2.8 g/dL (1.3-3.2); Glucose 94 mg/dl (74-100); Potassium 3.5 mmoL/L (3.5-5.1); Sodium 143 mmol/L (136-145); Total Protein,Serum 6.7 g/dl (6.3-8.2)
== END ==
PROVIDERS: Visit Provider Internal Medicine Adolescent Medicine
DX: R50.9 Fever, unspecified (principal); M54.5 Low back pain
CPT/HCPCS: 36415; 80053; 85025

== ENCOUNTER → 2020-05-28 11:08 | Outpatient (CLI) | payer MEDICARE, OTHER, SELFPAY ==
--- NOTE | 2020-05-28 11:19 | CT_ITS ---
PROCEDURE: CT ABDOMEN PELVIS W CON CLINICAL INDICATION: LOW BACK PAIN, FEVER AND CHILLS Low grade temperature COMPARISON: CT CT ABDOMEN PELVIS W CON from 04/04/2020 TECHNIQUE: IV Contrast: 75ML Isovue 370 Oral Contrast None Axial images obtained with sagittal and coronal reformats. All CT scans at the facility use one or more dose reduction, viz: automated exposure control, ma/kV adjustment per patient size (including targeted exams where dose is matched to indication, i.e. head), or iterative reconstruction technique. FINDINGS: LOWER THORAX: Atelectatic changes are present in the lung bases. There is a nonspecific pleural based density in the right lower lobe posteriorly and may be due to an area of atelectasis. A 4 mm noncalcified nodules present in the left lower lobe laterally unchanged. There are trace bilateral effusions. There has been a prior right mastectomy. ABDOMEN & PELVIS: Cholelithiasis. Gallbladder is contracted and full of stones. There is a 5 mm hypodensity in the left hepatic lobe laterally probably not significantly changed. A subtle area of decreased attenuation is present involving the right hepatic lobe anteriorly image 22 series 3 and may be due to an area of fatty infiltration. Follow-up may confirm. The spleen, adrenal glands, and pancreas have an unremarkable appearance. No renal or ureteral calculi. There is minimal stranding of the fat in the pericolic gutters on both sides. This is nonspecific. There are postsurgical changes with suture lines in the ascending colon region with a patent ileocolic anastomosis. No evidence of abscess. There is colonic diverticulosis of the descending and sigmoid colon. No evidence of diverticulitis. Small amount fluid is present in the pelvis. Postsurgical changes of the lumbar spine with prior posterior fusion at L4-5. IMPRESSION: 1. Postsurgical changes from prior right hemicolectomy. No evidence of postsurgical abscess. 2. Colonic diverticulosis. No evidence of diverticulitis. 3. Cholelithiasis. 4. Trace bilateral effusions. 5. Two hypodense lesions of the liver 1 in the left hepatic lobe and 1 in the right hepatic lobe of questionable clinical significance. Stability may be confirmed with follow-up the Dictated by: Yong Whatley MD 05/29/2020 15:27 Yong Whatley MD in [place] 05/29/2020 15:27
== END ==
PROVIDERS: PCP Internal Medicine Adolescent Medicine; Visit Provider Internal Medicine Adolescent Medicine
DX: M54.5 Low back pain (principal); R50.9 Fever, unspecified
CPT/HCPCS: 74177; Q9967

== ENCOUNTER → 2020-06-24 16:22 | Outpatient (CLI) | payer MEDICARE, OTHER, SELFPAY ==
[2020-06-24 17:07] LABS: Basophils % 0.3 % (0.1-2.0); Eosinophils # 0.1 K/mm3 (0.0-0.4); Eosinophils % 1.1 % (0.1-12.0); Hematocrit 37.6 % (37.0-47.0); Hemoglobin 12.3 g/dL (12.2-16.2); Lymphocytes # 1.8 K/mm3 (0.7-4.5); Lymphocytes % 33.9 % (10-50); Mean Corpuscular HGB Conc 32.6 g/dL (31.8-35.4); Mean Corpuscular Volume 85.8 fl (81-99); Mean Platelet Volume 7.3 fl (7.4-10.4); Monocytes # 0.3 K/mm3 (0.1-1.0); Monocytes % 5.7 % (1.7-9.3); Neutrophils # 3.1 K/mm3 (1.8-7.8); Neutrophils % 58.9 % (37.0-80.0); Platelet Count 223 K/mm3 (142-424); Red Blood Count 4.39 M/mm3 (4.20-5.40); Red Cell Distribution Width 18.1 % (11.5-17.5); White Blood Count 5.3 K/mm3 (4.8-10.8)
[2020-06-24 17:58] LABS: Alanine Aminotransferase 15 U/L (12-78); Albumin Level 4.2 g/dl (3.5-5.0); Albumin/Globulin Ratio 1.8 (1.1-1.8); Alkaline Phosphatase 75 U/L (38-126); Anion Gap 11.7 mEq/L (5-15); Aspartate Amino Transferase 30 U/L (14-36); Bilirubin,Total 0.5 mg/dl (0.2-1.3); Blood Urea Nitrogen 10 mg/dl (7-17); Calcium 9.4 mg/dl (8.4-10.2); Carbon Dioxide 28 mmol/L (22.0-30.0); Chloride 103 mmol/L (98-107); Estimated Glomerular Filt Rate 81 ml/min (>60); GFR (African American) 97 ML/MIN (>60); Globulin 2.4 g/dL (1.3-3.2); Glucose 98 mg/dl (74-100); Potassium 3.7 mmoL/L (3.5-5.1); Sodium 139 mmol/L (136-145); Total Protein,Serum 6.6 g/dl (6.3-8.2)
== END ==
PROVIDERS: Visit Provider Internal Medicine Medical Oncology
DX: C18.9 Malignant neoplasm of colon, unspecified (principal)
CPT/HCPCS: 36415; 80053; 85025

== ENCOUNTER → 2020-07-23 15:15 | Outpatient (CLI) | payer MEDICARE, OTHER, SELFPAY ==
[2020-07-23 16:07] LABS: Basophils % 0.8 % (0.1-2.0); Eosinophils % 0.8 % (0.1-12.0); Hematocrit 36.1 % (37.0-47.0); Hemoglobin 11.9 g/dL (12.2-16.2); Lymphocytes # 2.2 K/mm3 (0.7-4.5); Lymphocytes % 42.1 % (10-50); Mean Corpuscular HGB Conc 33.1 g/dL (31.8-35.4); Mean Corpuscular Hemoglobin 29.8 pg (27.0-31.2); Mean Corpuscular Volume 90.1 fl (81-99); Mean Platelet Volume 6.9 fl (7.4-10.4); Monocytes # 0.4 K/mm3 (0.1-1.0); Monocytes % 7.9 % (1.7-9.3); Neutrophils # 2.5 K/mm3 (1.8-7.8); Neutrophils % 48.4 % (37.0-80.0); Platelet Count 234 K/mm3 (142-424); Red Cell Distribution Width 21.7 % (11.5-17.5); White Blood Count 5.1 K/mm3 (4.8-10.8)
[2020-07-23 16:30] LABS: Alanine Aminotransferase 27 U/L (12-78); Albumin Level 4.3 g/dl (3.5-5.0); Albumin/Globulin Ratio 1.8 (1.1-1.8); Alkaline Phosphatase 79 U/L (38-126); Anion Gap 11.1 mEq/L (5-15); Aspartate Amino Transferase 41 U/L (14-36); Bilirubin,Total 0.9 mg/dl (0.2-1.3); Blood Urea Nitrogen 17 mg/dl (7-17); Calcium 9.7 mg/dl (8.4-10.2); Carbon Dioxide 26 mmol/L (22.0-30.0); Chloride 108 mmol/L (98-107); Estimated Glomerular Filt Rate 69 ml/min (>60); GFR (African American) 84 ML/MIN (>60); Globulin 2.4 g/dL (1.3-3.2); Glucose 100 mg/dl (74-100); Potassium 4.1 mmoL/L (3.5-5.1); Sodium 141 mmol/L (136-145); Total Protein,Serum 6.7 g/dl (6.3-8.2)
== END ==
PROVIDERS: Visit Provider Internal Medicine Medical Oncology
DX: C18.9 Malignant neoplasm of colon, unspecified (principal)
CPT/HCPCS: 36415; 80053; 85025

== ENCOUNTER → 2020-07-25 12:02 | Outpatient (CLI) | payer MEDICARE, OTHER, SELFPAY ==
--- NOTE | 2020-07-25 | CA_ITS ---
APPROVED REPORT Left Lower Extremity Venous Study for DVT. Grinder Operator External Tool: MICHAEL Indications Lower Extremity Edema: Left Varicose Veins Lower Extremity Swelling: Left Risk Factors Prior Phlebitis/DVT Malignancy Patient had DVT in 1995 with breast carcinoma. Patient currently has colon cancer. She is undergoing chemo and radiation. She states her left lower extremity swells throughout the day and seems to be getting worse. Medications Patient takes Eliquis twice daily for AFIB Vein Imaging CFV (L): compressive, spontaneous, phasic, augmentation FEM (L): compressive, spontaneous, phasic, augmentation POP (L): compressive, spontaneous, phasic, augmentation PTV (L): Compressible GSV (L): compressive, spontaneous, phasic, augmentation SSV (L): Compressible Peroneals (L):Compressible GAS (L): Compressible Findings No evidence of DVT in the veins scanned of the left lower extremity. Conclusion No evidence of DVT in the veins scanned of the left lower extremity. Electronically signed by : Yong Whatley MD 07/25/2020 15:44:29
== END ==
PROVIDERS: PCP Nurse Practitioner Family; Visit Provider Internal Medicine Medical Oncology
DX: M79.605 Pain in left leg (principal); C18.9 Malignant neoplasm of colon, unspecified
CPT/HCPCS: 93971

== ENCOUNTER → 2020-07-29 10:03 | Outpatient (CLI) | payer MEDICARE, OTHER, SELFPAY ==
--- NOTE | 2020-07-29 10:05 | MM_ITS ---
PROCEDURE INFORMATION: Exam: MG Screening 3D Mammography Exam date and time: 07/29/2020 10:05 AM Age: 80 years old Clinical indication: Right mastectomy for carcinoma. Screening left mammogram. TECHNIQUE: Imaging protocol: Screening tomosynthesis and 2D mammography including computer-aided detection (CAD) when performed. COMPARISON: 1. MG MM DIG SC MAMM UNILAT LT CAD 06/07/2019 11:09 AM 2. MG SCUNILT MM Dig SC mamm unilat LT CAD 04/07/2018 10:14 AM 3. MG SCUNILT MM Dig SC mamm unilat LT CAD 03/30/2017 4:07 PM 4. MG DMSUL DIG MAMM-SCREENING UNI-LT 03/19/2016 8:37 AM FINDINGS: MAMMOGRAPHY: Breast composition: There are scattered areas of fibroglandular density. Mass: None. Architectural distortion: No new or suspicious architectural distortion. Calcifications: No new or suspicious calcifications are present Asymmetric density: No new or suspicious asymmetric density is present Skin thickening: None. Axillary adenopathy: None. IMPRESSION: No mammographic evidence of malignancy. Recommend annual screening mammography unless otherwise clinically indicated. ASSESSMENT: BI-RADS category 1: Negative
== END ==
PROVIDERS: PCP Internal Medicine Adolescent Medicine; Visit Provider Nurse Practitioner Family
DX: Z12.31 Encounter for screening mammogram for malignant neoplasm of breast (principal)
CPT/HCPCS: 77063; 77067

== ENCOUNTER → 2020-08-13 15:14 | Outpatient (CLI) | payer MEDICARE, OTHER, SELFPAY ==
[2020-08-13 15:47] LABS: Basophils # 0.1 K/mm3 (0-0.2); Eosinophils # 0.1 K/mm3 (0.0-0.4); Eosinophils % 2.2 % (0.1-12.0); Hematocrit 36.8 % (37.0-47.0); Lymphocytes # 1.6 K/mm3 (0.7-4.5); Lymphocytes % 31.7 % (10-50); Mean Corpuscular HGB Conc 32.7 g/dL (31.8-35.4); Mean Corpuscular Hemoglobin 31.1 pg (27.0-31.2); Mean Corpuscular Volume 95.1 fl (81-99); Mean Platelet Volume 7.8 fl (7.4-10.4); Monocytes # 0.4 K/mm3 (0.1-1.0); Monocytes % 8.4 % (1.7-9.3); Neutrophils # 2.9 K/mm3 (1.8-7.8); Neutrophils % 56.7 % (37.0-80.0); Platelet Count 240 K/mm3 (142-424); Red Blood Count 3.87 M/mm3 (4.20-5.40); Red Cell Distribution Width 23.5 % (11.5-17.5); White Blood Count 5.1 K/mm3 (4.8-10.8)
[2020-08-13 16:06] LABS: Alanine Aminotransferase 31 U/L (12-78); Albumin Level 4.4 g/dl (3.5-5.0); Albumin/Globulin Ratio 1.8 (1.1-1.8); Alkaline Phosphatase 89 U/L (38-126); Anion Gap 12.6 mEq/L (5-15); Aspartate Amino Transferase 38 U/L (14-36); Bilirubin,Total 1.1 mg/dl (0.2-1.3); Blood Urea Nitrogen 12 mg/dl (7-17); Calcium 9.1 mg/dl (8.4-10.2); Carbon Dioxide 20 mmol/L (22.0-30.0); Chloride 109 mmol/L (98-107); Estimated Glomerular Filt Rate 69 ml/min (>60); GFR (African American) 84 ML/MIN (>60); Globulin 2.5 g/dL (1.3-3.2); Glucose 129 mg/dl (74-100); Potassium 3.6 mmoL/L (3.5-5.1); Sodium 138 mmol/L (136-145); Total Protein,Serum 6.9 g/dl (6.3-8.2)
== END ==
PROVIDERS: Visit Provider Internal Medicine Medical Oncology
DX: C18.9 Malignant neoplasm of colon, unspecified (principal)
CPT/HCPCS: 36415; 80053; 85025

== ENCOUNTER 2020-09-03 16:00 | Outpatient (RCR) | payer MEDICARE, OTHER, SELFPAY ==
--- NOTE | 2020-08-13 14:22 | HMH.PTOPWND ---
Rehab Outpt Wound Evaluation Rehab OP Wound Evaluation Start: 08/13/20 13:53 Freq: Status: Active Protocol: Document 08/13/20 14:16 PHOLELIA (Rec: 08/13/20 14:21 PHORNE [id number]) Electronically Signed By Eduard Florian, PT 08/13/20 14:16 Subjective/History History History Pt is 80 yowf who presents with increased B LE edema x 1- 2 mos, L worse than R. She reports she was diagnosed with colon cancer in March and had resulting partial colectomy 04/17/20. She is also currently undergaing a 6 mo chemotherapy regimen. She reports L LE feels worse with more tenderness to palpation as well. PMH HL, A-fib, CVI Subjective Subjective Pain in the LE is 4/10 at worst. Palpation tenderness is 2/4 to L lower leg. Lymphedema Eval Classification of Lymphedema Secondary Lymphedema Yes Stemmer's sign Stemmer's Sign no Stage of Lymphedema Lymphedema stages Stage I (Pitting edema, reduces w/ elevation, no fibrosis) Skin Changes Dry Skin Yes Redness Yes Discoloration of Skin Yes Other Changes Yes Pain Scale Pain Scale (0-10) 4 Radiation Therapy Has received radiation therapy no Chemo Therapy Has received chemo therapy yes Affected Extremities Areas Affected by Lymphedema/Edema Abdomen,Right Lower Extremity, Left Lower Extremity Manual Lymphatic Drainage Treatment Area MLD Treatment Area Abdomen,Right Lower Extremity, Left Lower Extremity Wound Problems/Impairments Impairments Problems/Impairmments Palpation Tenderness,Impaired Walking,Impaired Recreational Activities,Increased Edema, Lymphedema Present,Subjective C/O Pain,Impaired Self Care/ Self Management Prognosis Rehab Potential Good Clinical Impression Consistent with Diagnosis Yes Short Term Goals Number of Weeks 4 Decreased Palpation Tenderness Yes: 1/4 Decrease Edema Yes Decrease Subjective C/O Pain Yes: 2/10 Patient to Understand Lymphedema Yes Treatment and Exercises Decrease Girth Measurments by (cm) Yes: by 5 cm Senior Care Goals Num
== END 2020-09-03 16:05 | disposition home or self-care (01) ==
LOC: PT 16:00
PROVIDERS: PCP Nurse Practitioner Family; Visit Provider Nurse Practitioner Family
DX: I89.0 Lymphedema, not elsewhere classified (principal); M79.605 Pain in left leg; M79.89 Other specified soft tissue disorders
CPT/HCPCS: 97140; 97162; 97760

== ENCOUNTER → 2020-09-03 17:01 | Outpatient (CLI) | payer MEDICARE, OTHER, SELFPAY ==
[2020-09-03 17:49] LABS: Basophils # 0.1 K/mm3 (0-0.2); Basophils % 1.4 % (0.1-2.0); Eosinophils # 0.1 K/mm3 (0.0-0.4); Hematocrit 36.6 % (37.0-47.0); Hemoglobin 12.6 g/dL (12.2-16.2); Lymphocytes # 1.7 K/mm3 (0.7-4.5); Lymphocytes % 39.3 % (10-50); Mean Corpuscular HGB Conc 34.4 g/dL (31.8-35.4); Mean Corpuscular Hemoglobin 32.7 pg (27.0-31.2); Mean Corpuscular Volume 95.1 fl (81-99); Mean Platelet Volume 8.7 fl (7.4-10.4); Monocytes # 0.5 K/mm3 (0.1-1.0); Monocytes % 12.1 % (1.7-9.3); Neutrophils % 45.2 % (37.0-80.0); Platelet Count 236 K/mm3 (142-424); Red Blood Count 3.85 M/mm3 (4.20-5.40); Red Cell Distribution Width 23.6 % (11.5-17.5); White Blood Count 4.3 K/mm3 (4.8-10.8)
[2020-09-03 17:59] LABS: Chloride 105 mmol/L (98-107); Potassium 3.9 mmoL/L (3.5-5.1); Sodium 140 mmol/L (136-145)
[2020-09-03 18:02] LABS: Alanine Aminotransferase 20 U/L (12-78); Albumin Level 4.4 g/dl (3.5-5.0); Albumin/Globulin Ratio 1.7 (1.1-1.8); Alkaline Phosphatase 98 U/L (38-126); Anion Gap 12.9 mEq/L (5-15); Aspartate Amino Transferase 34 U/L (14-36); Bilirubin,Total 0.8 mg/dl (0.2-1.3); Blood Urea Nitrogen 15 mg/dl (7-17); Calcium 9.1 mg/dl (8.4-10.2); Carbon Dioxide 26 mmol/L (22.0-30.0); Estimated Glomerular Filt Rate 81 ml/min (>60); GFR (African American) 97 ML/MIN (>60); Globulin 2.6 g/dL (1.3-3.2); Glucose 99 mg/dl (74-100)
== END ==
PROVIDERS: Visit Provider Internal Medicine Medical Oncology
DX: C18.9 Malignant neoplasm of colon, unspecified (principal)
CPT/HCPCS: 36415; 80053; 85025

== ENCOUNTER → 2020-10-01 17:01 | Outpatient (CLI) | payer MEDICARE, OTHER, SELFPAY ==
[2020-10-01 17:26] LABS: Basophils # 0.1 K/mm3 (0-0.2); Basophils % 1.8 % (0.1-2.0); Eosinophils % 0.8 % (0.1-12.0); Hematocrit 43.5 % (37.0-47.0); Hemoglobin 14.3 g/dL (12.2-16.2); Lymphocytes # 2.4 K/mm3 (0.7-4.5); Lymphocytes % 41.5 % (10-50); Mean Corpuscular HGB Conc 32.9 g/dL (31.8-35.4); Mean Corpuscular Hemoglobin 32.1 pg (27.0-31.2); Mean Corpuscular Volume 97.8 fl (81-99); Mean Platelet Volume 7.1 fl (7.4-10.4); Monocytes # 0.4 K/mm3 (0.1-1.0); Monocytes % 6.1 % (1.7-9.3); Neutrophils # 2.8 K/mm3 (1.8-7.8); Neutrophils % 49.7 % (37.0-80.0); Platelet Count 205 K/mm3 (142-424); Red Blood Count 4.44 M/mm3 (4.20-5.40); Red Cell Distribution Width 22.3 % (11.5-17.5); White Blood Count 5.7 K/mm3 (4.8-10.8)
[2020-10-01 17:56] LABS: Chloride 102 mmol/L (98-107)
[2020-10-01 17:57] LABS: Potassium 5.6 mmoL/L (3.5-5.1); Sodium 140 mmol/L (136-145)
[2020-10-01 17:59] LABS: Alanine Aminotransferase 27 U/L (12-78); Albumin Level 4.9 g/dl (3.5-5.0); Albumin/Globulin Ratio 1.6 (1.1-1.8); Alkaline Phosphatase 88 U/L (38-126); Anion Gap 16.6 mEq/L (5-15); Aspartate Amino Transferase 40 U/L (14-36); Bilirubin,Total 0.9 mg/dl (0.2-1.3); Blood Urea Nitrogen 20 mg/dl (7-17); Calcium 10.1 mg/dl (8.4-10.2); Carbon Dioxide 27 mmol/L (22.0-30.0); Estimated Glomerular Filt Rate 48 ml/min (>60); GFR (African American) 58 ML/MIN (>60); Glucose 98 mg/dl (74-100); Total Protein,Serum 7.9 g/dl (6.3-8.2)
== END ==
PROVIDERS: Visit Provider Internal Medicine Medical Oncology
DX: C18.9 Malignant neoplasm of colon, unspecified (principal)
CPT/HCPCS: 36415; 80053; 85025

== ENCOUNTER 2020-10-03 10:55 | Outpatient (CLI) | payer MEDICARE, OTHER, SELFPAY ==
[2020-10-03 11:15] VITALS: BP 108/63; PULSE 72; RESP 20; TEMP 36.9; O2SAT 95
[2020-10-03 12:00] VITALS: BP 110/68; PULSE 72; RESP 20; TEMP 36.9; O2SAT 95
== END 2020-10-03 12:42 | disposition home or self-care (01) ==
LOC: INF 11:01
PROVIDERS: Visit Provider Internal Medicine Medical Oncology
DX: C18.9 Malignant neoplasm of colon, unspecified (principal); E86.0 Dehydration
CPT/HCPCS: 96360

== ENCOUNTER 2020-10-13 12:47 | Outpatient (CLI) | payer MEDICARE, OTHER, SELFPAY ==
[2020-10-13 12:52] VITALS: BP 139/69; PULSE 64; RESP 18; TEMP 36.2; O2SAT 100
[2020-10-13 13:55] VITALS: BP 140/71; PULSE 73; RESP 18
== END 2020-10-13 13:57 | disposition home or self-care (01) ==
LOC: INF 12:47
PROVIDERS: PCP Nurse Practitioner Family; Visit Provider Internal Medicine Medical Oncology
DX: C18.9 Malignant neoplasm of colon, unspecified (principal); E86.0 Dehydration
CPT/HCPCS: 96360

== ENCOUNTER → 2020-10-22 18:54 | Outpatient (CLI) | payer MEDICARE, OTHER, SELFPAY ==
[2020-10-22 19:29] LABS: Basophils # 0.1 K/mm3 (0-0.2); Basophils % 1.4 % (0.1-2.0); Eosinophils # 0.1 K/mm3 (0.0-0.4); Eosinophils % 1.1 % (0.1-12.0); Hematocrit 39.8 % (37.0-47.0); Hemoglobin 13.1 g/dL (12.2-16.2); Lymphocytes % 31.5 % (10-50); Mean Corpuscular HGB Conc 32.8 g/dL (31.8-35.4); Mean Corpuscular Hemoglobin 33.1 pg (27.0-31.2); Mean Corpuscular Volume 100.8 fl (81-99); Mean Platelet Volume 7.6 fl (7.4-10.4); Monocytes # 0.6 K/mm3 (0.1-1.0); Monocytes % 9.4 % (1.7-9.3); Neutrophils # 3.6 K/mm3 (1.8-7.8); Neutrophils % 56.6 % (37.0-80.0); Platelet Count 206 K/mm3 (142-424); Red Blood Count 3.95 M/mm3 (4.20-5.40); White Blood Count 6.3 K/mm3 (4.8-10.8)
[2020-10-22 19:54] LABS: Chloride 106 mmol/L (98-107); Potassium 3.8 mmoL/L (3.5-5.1); Sodium 140 mmol/L (136-145)
[2020-10-22 19:57] LABS: Alanine Aminotransferase 26 U/L (12-78); Albumin Level 4.7 g/dl (3.5-5.0); Albumin/Globulin Ratio 1.6 (1.1-1.8); Alkaline Phosphatase 105 U/L (38-126); Anion Gap 14.8 mEq/L (5-15); Aspartate Amino Transferase 37 U/L (14-36); Blood Urea Nitrogen 18 mg/dl (7-17); Calcium 9.4 mg/dl (8.4-10.2); Carbon Dioxide 23 mmol/L (22.0-30.0); Estimated Glomerular Filt Rate 53 ml/min (>60); GFR (African American) 65 ML/MIN (>60); Glucose 83 mg/dl (74-100); Total Protein,Serum 7.7 g/dl (6.3-8.2)
== END ==
PROVIDERS: Visit Provider Internal Medicine Medical Oncology
DX: C18.9 Malignant neoplasm of colon, unspecified (principal)
CPT/HCPCS: 80053; 85025

== ENCOUNTER → 2020-11-19 16:32 | Outpatient (CLI) | payer MEDICARE, OTHER, SELFPAY ==
[2020-11-19 17:12] LABS: Basophils # 0.1 K/mm3 (0-0.2); Basophils % 1.2 % (0.1-2.0); Eosinophils % 0.5 % (0.1-12.0); Hemoglobin 13.1 g/dL (12.2-16.2); Lymphocytes # 1.9 K/mm3 (0.7-4.5); Lymphocytes % 33.8 % (10-50); Mean Corpuscular HGB Conc 33.5 g/dL (31.8-35.4); Mean Corpuscular Hemoglobin 34.9 pg (27.0-31.2); Mean Platelet Volume 7.9 fl (7.4-10.4); Monocytes # 0.3 K/mm3 (0.1-1.0); Monocytes % 4.9 % (1.7-9.3); Neutrophils # 3.4 K/mm3 (1.8-7.8); Neutrophils % 59.7 % (37.0-80.0); Platelet Count 219 K/mm3 (142-424); Red Blood Count 3.75 M/mm3 (4.20-5.40); Red Cell Distribution Width 18.7 % (11.5-17.5); White Blood Count 5.7 K/mm3 (4.8-10.8)
[2020-11-19 19:15] LABS: Alanine Aminotransferase 23 U/L (12-78); Albumin Level 3.9 g/dl (3.5-5.0); Albumin/Globulin Ratio 1.5 (1.1-1.8); Alkaline Phosphatase 66 U/L (38-126); Anion Gap 14.9 mEq/L (5-15); Aspartate Amino Transferase 30 U/L (14-36); Bilirubin,Total 0.9 mg/dl (0.2-1.3); Blood Urea Nitrogen 17 mg/dl (7-17); Calcium 8.9 mg/dl (8.4-10.2); Carbon Dioxide 23 mmol/L (22.0-30.0); Chloride 107 mmol/L (98-107); Estimated Glomerular Filt Rate 53 ml/min (>60); GFR (African American) 65 ML/MIN (>60); Globulin 2.6 g/dL (1.3-3.2); Glucose 87 mg/dl (74-100); Potassium 3.9 mmoL/L (3.5-5.1); Sodium 141 mmol/L (136-145); Total Protein,Serum 6.5 g/dl (6.3-8.2)
== END ==
PROVIDERS: Visit Provider Internal Medicine Medical Oncology
DX: C18.9 Malignant neoplasm of colon, unspecified (principal)
CPT/HCPCS: 36415; 80053; 85025

== ENCOUNTER → 2021-01-10 12:19 | Outpatient (CLI) | payer MEDICARE, OTHER, SELFPAY ==
[2021-01-10 12:37] LABS: Basophils # 0.1 K/mm3 (0-0.2); Basophils % 1.8 % (0.1-2.0); Eosinophils # 0.1 K/mm3 (0.0-0.4); Eosinophils % 1.2 % (0.1-12.0); Hematocrit 43.7 % (37.0-47.0); Hemoglobin 14.3 g/dL (12.2-16.2); Lymphocytes # 2.4 K/mm3 (0.7-4.5); Lymphocytes % 38.7 % (10-50); Mean Corpuscular HGB Conc 32.8 g/dL (31.8-35.4); Mean Corpuscular Hemoglobin 32.5 pg (27.0-31.2); Mean Corpuscular Volume 99.2 fl (81-99); Mean Platelet Volume 7.7 fl (7.4-10.4); Monocytes # 0.5 K/mm3 (0.1-1.0); Neutrophils # 3.2 K/mm3 (1.8-7.8); Neutrophils % 50.2 % (37.0-80.0); Platelet Count 264 K/mm3 (142-424); Red Cell Distribution Width 14.6 % (11.5-17.5); White Blood Count 6.3 K/mm3 (4.8-10.8)
[2021-01-10 13:33] LABS: Anion Gap 10.8 mEq/L (5-15); Blood Urea Nitrogen 20 mg/dl (7-17); Calcium 9.6 mg/dl (8.4-10.2); Carbon Dioxide 27 mmol/L (22.0-30.0); Chloride 108 mmol/L (98-107); Estimated Glomerular Filt Rate 81 ml/min (>60); GFR (African American) 97 ML/MIN (>60); Glucose 91 mg/dl (74-100); Potassium 4.8 mmoL/L (3.5-5.1); Sodium 141 mmol/L (136-145)
== END ==
PROVIDERS: Visit Provider Surgery
DX: C18.9 Malignant neoplasm of colon, unspecified (principal); Z01.812 Encounter for preprocedural laboratory examination; Z20.822 Contact with and (suspected) exposure to COVID-19
CPT/HCPCS: 36415; 80048; 85025; C9803; U0003; U0005

== ENCOUNTER 2021-01-14 13:43 | Outpatient (CLI) | payer MEDICARE, OTHER, SELFPAY ==
[2021-01-14 13:55] VITALS: BMI 24.3
[2021-01-14 14:14] LABS: Basophils # 0.1 K/mm3 (0-0.2); Basophils % 1.3 % (0.1-2.0); Eosinophils % 0.7 % (0.1-12.0); Hematocrit 42.9 % (37.0-47.0); Hemoglobin 14.3 g/dL (12.2-16.2); Lymphocytes # 1.6 K/mm3 (0.7-4.5); Lymphocytes % 31.2 % (10-50); Mean Corpuscular HGB Conc 33.3 g/dL (31.8-35.4); Mean Corpuscular Hemoglobin 32.9 pg (27.0-31.2); Mean Corpuscular Volume 98.8 fl (81-99); Mean Platelet Volume 7.2 fl (7.4-10.4); Monocytes # 0.3 K/mm3 (0.1-1.0); Monocytes % 6.4 % (1.7-9.3); Neutrophils # 3.2 K/mm3 (1.8-7.8); Neutrophils % 60.4 % (37.0-80.0); Platelet Count 234 K/mm3 (142-424); Red Blood Count 4.34 M/mm3 (4.20-5.40); Red Cell Distribution Width 13.7 % (11.5-17.5); White Blood Count 5.2 K/mm3 (4.8-10.8)
[2021-01-14 14:26] LABS: Chloride 102 mmol/L (98-107); Potassium 4.5 mmoL/L (3.5-5.1); Sodium 141 mmol/L (136-145)
[2021-01-14 14:28] LABS: Alanine Aminotransferase 36 U/L (12-78); Aspartate Amino Transferase 45 U/L (14-36); Blood Urea Nitrogen 14 mg/dl (7-17); Creatinine Clearance Estimated 49 mL/min (50-200); Estimated Glomerular Filt Rate 69 ml/min (>60); GFR (African American) 84 ML/MIN (>60)
[2021-01-14 14:29] LABS: Albumin Level 4.4 g/dl (3.5-5.0); Albumin/Globulin Ratio 1.3 (1.1-1.8); Alkaline Phosphatase 100 U/L (38-126); Anion Gap 13.5 mEq/L (5-15); Bilirubin,Total 0.4 mg/dl (0.2-1.3); Calcium 9.7 mg/dl (8.4-10.2); Carbon Dioxide 30 mmol/L (22.0-30.0); Globulin 3.4 g/dL (1.3-3.2); Glucose 119 mg/dl (74-100); Total Protein,Serum 7.8 g/dl (6.3-8.2)
[2021-01-14 15:00] LABS: Thyroid Stimulating Hormone 2.63 uIU/mL (0.465-4.68)
[2021-01-14 15:05] VITALS: BP 130/60; PULSE 75; RESP 17; TEMP 36.6; O2SAT 99
[2021-01-14 15:41] VITALS: BP 150/64; PULSE 65; RESP 17; TEMP 36.5; O2SAT 99
== END 2021-01-14 16:09 | disposition home or self-care (01) ==
LOC: INF 13:45
PROVIDERS: PCP Internal Medicine Adolescent Medicine; Visit Provider Internal Medicine Medical Oncology
DX: Z51.11 Encounter for antineoplastic chemotherapy (principal); C18.9 Malignant neoplasm of colon, unspecified; Z79.899 Other long term (current) drug therapy
CPT/HCPCS: 80053; 82533; 84443; 85025; 96413; J9271

== ENCOUNTER → 2021-01-19 11:30 | Outpatient (CLI) | payer MEDICARE, OTHER, SELFPAY ==
[2021-01-19 11:50] LABS: Basophils # 0.1 K/mm3 (0-0.2); Basophils % 1.2 % (0.1-2.0); Eosinophils # 0.1 K/mm3 (0.0-0.4); Eosinophils % 1.2 % (0.1-12.0); Hematocrit 42.2 % (37.0-47.0); Lymphocytes # 1.9 K/mm3 (0.7-4.5); Lymphocytes % 30.3 % (10-50); Mean Corpuscular HGB Conc 33.1 g/dL (31.8-35.4); Mean Corpuscular Hemoglobin 32.4 pg (27.0-31.2); Mean Corpuscular Volume 97.6 fl (81-99); Mean Platelet Volume 7.5 fl (7.4-10.4); Monocytes # 0.4 K/mm3 (0.1-1.0); Monocytes % 7.2 % (1.7-9.3); Neutrophils # 3.7 K/mm3 (1.8-7.8); Neutrophils % 60.1 % (37.0-80.0); Platelet Count 233 K/mm3 (142-424); Red Blood Count 4.32 M/mm3 (4.20-5.40); Red Cell Distribution Width 13.9 % (11.5-17.5); White Blood Count 6.2 K/mm3 (4.8-10.8)
[2021-01-19 12:23] LABS: Chloride 103 mmol/L (98-107); Potassium 4.4 mmoL/L (3.5-5.1); Sodium 140 mmol/L (136-145)
[2021-01-19 12:25] LABS: Blood Urea Nitrogen 19 mg/dl (7-17); Estimated Glomerular Filt Rate 69 ml/min (>60); GFR (African American) 84 ML/MIN (>60)
[2021-01-19 12:26] LABS: Anion Gap 14.4 mEq/L (5-15); Calcium 9.4 mg/dl (8.4-10.2); Carbon Dioxide 27 mmol/L (22.0-30.0); Glucose 103 mg/dl (74-100)
== END ==
PROVIDERS: Visit Provider Surgery
DX: Z01.812 Encounter for preprocedural laboratory examination (principal); Z11.52 Encounter for screening for COVID-19; C18.9 Malignant neoplasm of colon, unspecified
CPT/HCPCS: 36415; 80048; 85025; C9803; U0003; U0005

== ENCOUNTER 2021-01-20 06:09 | Day surgery (SDC) | payer MEDICARE, OTHER, SELFPAY ==
[2021-01-12 08:44] VITALS: BMI 24.2
[2021-01-20 06:28] VITALS: BP 147/63; PULSE 76; RESP 18; TEMP 36.4; O2SAT 100
--- NOTE | 2021-01-20 06:46 | SUR.PREOP ---
Pt had first dose of Keytruda (iv chemo) on 01/14/21.
--- NOTE | 2021-01-20 08:03 | HMH.ANESCL ---
[facility] Anesthesia Checklist - Patient Identification Patient Identification: Arm Band, Verbal (Name & ) - Structural Data Admitted From: Home Planned Operative Procedure/s: Port A Cath Placement Consent for Planned Operative Procedure(s) Verified: Yes Verified Documents: Surgical Consent - NPO Status Verified Time NPO: 00:00 - Chart Verification Results Verified: CBC, BMP - Additional verifications Anesthesia Reactions: No Hx Blood Transfusions: Yes Blood Transfusion Reaction: No - Cardiovascular Assessment Heart Sounds: S1 & S2 Pulse Rhythm: Regular - Airway Assessment C-Spine Mobility Assessed: Yes TMJ Mobility Assessed: Yes Dentition: Partials - Neurological Assessment Level of Consciousness: Awake, Alert, Appropriate - Anesthesia Plan Anesthesia Risk discussed: Yes Anesthesia Plan: Not verified due to Patient Condition Anesthesia Type: General [facility] History Medical History: Reports:: Arrhythmia, Atrial Fibrillation, Cancer (colon), Deep Vein Thrombosis, Hyperlipidemia, Palpitations Denies:: Diabetes Mellitus Type 1, Diabetes Mellitus Type 2, Internal Pacemaker, MRSA, Seizures *Have you ever received a pneumonia vaccine?: Yes *Have you received a flu vaccine this season?: Yes Other Medical History: Reports: Arthritis, Cataracts, Hypothyroidism. Denies: Blood Transfusion Reaction Anesthesia experience/problems:: no issues Laterality Cases: Right: Breast Biopsy, Mastectomy, Bilateral: Cataract, Tonsillectomy Other Surgeries: Yes: Appendectomy, Cancer Surgery (rt colectomy), Colonoscopy, Colon Resection, EGD, Skin Cancer Excision, Tubal Ligation, Other. No: Pacemaker Amputation: No Fractures: No - *Social History Last grade of school completed: High school graduate Smoking Status: Never smoker Alcohol Intake: never Substance Use Type: denies use *Occupational Status:: retired Housing: house Household Members: spouse *Travel in the last 8 weeks: None Family Hx:: Cancer
--- NOTE | 2021-01-20 08:14 | XR_ITS ---
PROCEDURE: XR CHEST AP CLINICAL INDICATION: PORT A CATH PLACEMENT COMPARISON: portable chest 01/20/2021 FINDINGS: Two fluoroscopic spot films show placement of the central line. The 2nd film in the sequence shows tip at the junction of the SVC with the right atrium. IMPRESSION: Satisfactory placement of Port-A-Cath Dictated by: Dr. Donnell Manzo MD 01/20/2021 08:49 Dr. Donnell Manzo MD in [place] 01/20/2021 08:49
--- NOTE | 2021-01-20 08:17 | HMH.OPNOTE ---
Date of procedure: 01/20/21 Pre-op Diagnosis:: Static colon cancer, need for semipermanent venous access Post-op Diagnosis:: Same Procedure performed:: Placement of open ended 8 Thai single-lumen tunneled catheter in left subclavian vein with implantable reservoir port (PowerPort) Surgeon:: Prasanth Vaughan MD SLITTER CREASER SLOTTER HELPER:: Other Anesthesia: MAC, local Estimated blood loss (mL): 10 Clinical Note:: Patient is a very pleasant 80-year-old female referred by Dr. Barrera for venous port placement for chemotherapy. Patient had undergone panendoscopy by Dr. 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 She was referred to where she underwent right hemicolectomy by Dr. 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 Of note, she does have a history of paroxysmal atrial fibrillation. She completed 7 cycles of Xeloda. She had a follow-up CT scan at [facility] recently and was noted to have necrotic AC node and right paratracheal node concerning for metastatic disease. Plan is to initiate chemotherapy with Keytruda. Of note, the patient has previous right mastectomy. Operative findings:: Apparent normal anatomy. Operative note:: Patient was taken to the operating room. She was positioned in supine position. Adequate intravenous sedation was achieved. Her upper neck and chest was prepped and draped in standard surgical fashion bilaterally. She was positioned in Trendelenburg position. Local anesthetic was infiltrated inferior to the left clavicle medial to the deltopectoral groove. 18-gauge needle was inserted manipulating it posterior to the clavicle. After a couple of passes the left subclavian vein was cannulated with good return of blood flow. Guidewire was inserted. Fluoroscopy was used to confirm appropriate cannulation and position of the guidewire. Small incision was made at the guidewire insertion site. Subcutaneous tissues were dilated with the dilator with breakaway sheath as it was inserted over the guidewire. The guidewire and dilator were then removed. 8 Thai open ended single-lumen catheter was inserted through the sheath. Sheath was then removed. Once again fluoroscopy was used to position the tip of the catheter near the atriocaval junction. Skin was then marked with a skin marker for planned subcutaneous tunneling and creation of subcutaneous pocket. Additional local anesthetic was infiltrated. Incision was made for subcutaneous pocket. Electrocautery was used to create inferior subcutaneous pocket. Catheter was then tunneled subcutaneously. Fluoroscopy was used to confirm appropriate position of the catheter. It was then cut to the appropriate length. Catheter was secured to the reservoir port. [place] port was secured into the subcutaneous pocket with several interrupted 2-0 PDS sutures. The port was then aspirated and flushed with saline. It was flushed with heparinized saline at the completion of the procedure. There was good hemostasis. Subdermal tissues were closed with a running 2-0 Vicryl. Skin incisions were closed with 3-0 Stratafix. Clean dry sterile dressing was applied. Condition: stable Disposition: PACU Complications:: None immediately apparent
[2021-01-20 08:21] VITALS: BP 110/54; PULSE 81; RESP 16; TEMP 36.4; O2SAT 96
--- NOTE | 2021-01-20 08:21 | XR_ITS ---
PROCEDURE: XR CHEST PORTABLE CLINICAL HISTORY: S/P Port-a-cath placement COMPARISON: CR CXR CHEST(2 VIEWS-NOT PORTABLE) from 09/20/2016 CR XR CHEST 2V from 03/04/2020 CR XR CHEST 2V from 03/06/[address] CHEST W CON from 04/04/2020 FINDINGS: This is a somewhat poor inspiration. There are somewhat reticular opacities in left perihilar region and left base probably representing atelectasis and or postinflammatory scarring but this finding was not present on the most recent chest film 03/06/2020. There is a central line ascending the left axillary vein with the tip in the SVC near the right atrium. Cardiac size is likely normal considering the poor inspiration. IMPRESSION: Satisfactory placement of Port-A-Cath Dictated by: Dr. Donnell Manzo MD 01/20/2021 08:37 Dr. Donnell Manzo MD in [place] 01/20/2021 08:37
[2021-01-20 08:36] VITALS: BP 127/57; PULSE 70; RESP 16; O2SAT 97
[2021-01-20 08:51] VITALS: BP 143/75; PULSE 68; RESP 16; O2SAT 100
[2021-01-20 09:20] VITALS: BP 140/77; PULSE 66; RESP 16; TEMP 36.4; O2SAT 100
--- NOTE | 2021-01-22 17:56 | P.PN_ITS ---
[facility] Anesthesia Record Part II Discharge Time: 08:21 Destination: Inpatient PACU nurse assessment reviewed?: Yes Patient Condition:: Good Anesthesia Complications:: None none Swallowing reflex intact?: Yes Cyanosis?: No Blood Pressure: 110/54 Pulse Rate: 81 Temperature: 97.5 F Mental Status: Alert & Oriented Pain level:: 0 Nausea and/or vomitting:: None Intake, IV Amount: 0
[2021-01-22 17:58] VITALS: BP 110/54; PULSE 81; TEMP 36.4
== END 2021-01-20 09:20 | disposition home or self-care (01) ==
LOC: OR 06:11
PROVIDERS: PCP Nurse Practitioner Family; Visit Provider Surgery
DX: C18.9 Malignant neoplasm of colon, unspecified (principal); I49.9 Cardiac arrhythmia, unspecified; E78.5 Hyperlipidemia, unspecified; R00.2 Palpitations; Z86.718 Personal history of other venous thrombosis and embolism; M19.90 Unspecified osteoarthritis, unspecified site; E03.9 Hypothyroidism, unspecified; Z90.49 Acquired absence of other specified parts of digestive tract; Z85.828 Personal history of other malignant neoplasm of skin
CPT/HCPCS: 36561; 71045; 76000; 96374; C1788; J1642; J2405

== ENCOUNTER 2021-02-05 09:10 | Outpatient (CLI) | payer MEDICARE, OTHER, SELFPAY ==
[2021-02-05 09:17] VITALS: BMI 24.2
[2021-02-05 09:52] LABS: Basophils # 0.1 K/mm3 (0-0.2); Basophils % 2.1 % (0.1-2.0); Eosinophils # 0.2 K/mm3 (0.0-0.4); Hematocrit 39.3 % (37.0-47.0); Hemoglobin 12.8 g/dL (12.2-16.2); Lymphocytes # 1.9 K/mm3 (0.7-4.5); Lymphocytes % 30.2 % (10-50); Mean Corpuscular HGB Conc 32.5 g/dL (31.8-35.4); Mean Corpuscular Hemoglobin 31.4 pg (27.0-31.2); Mean Corpuscular Volume 96.6 fl (81-99); Mean Platelet Volume 7.4 fl (7.4-10.4); Monocytes # 0.6 K/mm3 (0.1-1.0); Monocytes % 9.7 % (1.7-9.3); Neutrophils # 3.5 K/mm3 (1.8-7.8); Platelet Count 225 K/mm3 (142-424); Red Blood Count 4.07 M/mm3 (4.20-5.40); Red Cell Distribution Width 13.8 % (11.5-17.5); White Blood Count 6.4 K/mm3 (4.8-10.8)
[2021-02-05 10:02] LABS: Alanine Aminotransferase 69 U/L (12-78); Albumin Level 3.9 g/dl (3.5-5.0); Albumin/Globulin Ratio 1.5 (1.1-1.8); Alkaline Phosphatase 81 U/L (38-126); Anion Gap 9.8 mEq/L (5-15); Aspartate Amino Transferase 124 U/L (14-36); Bilirubin,Total 0.4 mg/dl (0.2-1.3); Blood Urea Nitrogen 12 mg/dl (7-17); Carbon Dioxide 27 mmol/L (22.0-30.0); Chloride 106 mmol/L (98-107); Creatinine Clearance Estimated 48 mL/min (50-200); Estimated Glomerular Filt Rate 69 ml/min (>60); GFR (African American) 84 ML/MIN (>60); Globulin 2.6 g/dL (1.3-3.2); Glucose 117 mg/dl (74-100); Potassium 3.8 mmoL/L (3.5-5.1); Sodium 139 mmol/L (136-145); Total Protein,Serum 6.5 g/dl (6.3-8.2)
[2021-02-05 10:33] LABS: Thyroid Stimulating Hormone 2.43 uIU/mL (0.465-4.68)
[2021-02-05 11:35] VITALS: BP 144/63; PULSE 71; RESP 18; TEMP 36.7; O2SAT 100
[2021-02-05 12:28] VITALS: BP 145/75; PULSE 75; RESP 18; O2SAT 100
[2021-02-06 12:11] LABS: Adrenocorticotropic Hormone 63.5 pg/mL (7.2-63.3)
== END 2021-02-05 12:31 | disposition home or self-care (01) ==
LOC: INF 09:11
PROVIDERS: PCP Internal Medicine Adolescent Medicine; Visit Provider Internal Medicine Medical Oncology
DX: Z51.11 Encounter for antineoplastic chemotherapy (principal); C18.9 Malignant neoplasm of colon, unspecified; Z79.899 Other long term (current) drug therapy
CPT/HCPCS: 80053; 82024; 82533; 84443; 85025; 96413; J1642; J9271

== ENCOUNTER → 2021-02-09 17:56 | Outpatient (CLI) | payer MEDICARE, OTHER, SELFPAY ==
[2021-02-09 18:23] LABS: Basophils # 0.1 K/mm3 (0-0.2); Basophils % 1.2 % (0.1-2.0); Eosinophils # 0.1 K/mm3 (0.0-0.4); Eosinophils % 0.6 % (0.1-12.0); Hematocrit 47.3 % (37.0-47.0); Hemoglobin 16.2 g/dL (12.2-16.2); Lymphocytes # 2.1 K/mm3 (0.7-4.5); Lymphocytes % 18.6 % (10-50); Mean Corpuscular HGB Conc 34.2 g/dL (31.8-35.4); Mean Corpuscular Volume 93.6 fl (81-99); Mean Platelet Volume 8.4 fl (7.4-10.4); Monocytes # 0.8 K/mm3 (0.1-1.0); Monocytes % 7.2 % (1.7-9.3); Neutrophils # 8.3 K/mm3 (1.8-7.8); Neutrophils % 72.4 % (37.0-80.0); Platelet Count 312 K/mm3 (142-424); Red Blood Count 5.06 M/mm3 (4.20-5.40); Red Cell Distribution Width 13.4 % (11.5-17.5); White Blood Count 11.4 K/mm3 (4.8-10.8)
[2021-02-09 18:53] LABS: Chloride 98 mmol/L (98-107); Potassium 4.2 mmoL/L (3.5-5.1); Sodium 136 mmol/L (136-145)
[2021-02-09 18:56] LABS: Alanine Aminotransferase 136 U/L (12-78); Albumin Level 4.8 g/dl (3.5-5.0); Albumin/Globulin Ratio 1.5 (1.1-1.8); Alkaline Phosphatase 110 U/L (38-126); Anion Gap 14.2 mEq/L (5-15); Aspartate Amino Transferase 244 U/L (14-36); Bilirubin,Total 0.7 mg/dl (0.2-1.3); Blood Urea Nitrogen 11 mg/dl (7-17); Carbon Dioxide 28 mmol/L (22.0-30.0); Estimated Glomerular Filt Rate 81 ml/min (>60); GFR (African American) 97 ML/MIN (>60); Globulin 3.1 g/dL (1.3-3.2); Total Protein,Serum 7.9 g/dl (6.3-8.2)
[2021-02-09 18:57] LABS: Calcium 9.8 mg/dl (8.4-10.2); Glucose 105 mg/dl (74-100)
== END ==
PROVIDERS: Visit Provider Nurse Practitioner Family
DX: R31.29 Other microscopic hematuria (principal)
CPT/HCPCS: 36415; 80053; 85025; 87086

== ENCOUNTER 2021-02-13 05:07 | Observation (INO) | payer MEDICARE, OTHER, SELFPAY ==
[2021-02-13] VITALS (13 sets, daily range): BP systolic 117–155; BP diastolic 70–84; PULSE 81–103; RESP 16–22; TEMP 36.3–36.7; O2SAT 94–100; BMI 28.2; BMI 23.6
--- NOTE | 2021-02-13 05:17 | ECG_ITS ---
APPROVED REPORT Exam: Resting ECG HR:96 bpm ECG Measurements Heart Rate 96 AXES QRSd 98 QRS 40 QT 336 T 242 QTc 424 Conclusion Atrial fibrillation Marked ST abnormality, possible inferolateral subendocardial injury Abnormal ECG Electronically signed by : Froilan Priest MD 02/14/2021 19:31:09
--- NOTE | 2021-02-13 05:38 | XR_ITS ---
PROCEDURE INFORMATION: Exam: XR Chest Exam date and time: 02/13/2021 5:38 AM Age: 80 years old Clinical indication: Other: Weakness TECHNIQUE: Imaging protocol: XR of the chest. Views: 1 view. COMPARISON: CR XR CHEST PORTABLE 01/20/2021 8:26 AM FINDINGS: Tubes, catheters and devices: There is a left subclavian central line with the tip projecting over the superior vena cava. Lungs: See Heart/Mediastinum finding. Pleural spaces: There is no pleural effusion or pneumothorax. Heart/Mediastinum: The cardiac silhouette is mildly enlarged but stable since the prior exam. I do not see overt congestive heart failure. There is hypoinflation with crowding of the mediastinal structures/bronchovascular bundles and mild basilar atelectasis. Bones/joints: The bones are demineralized but intact. IMPRESSION: As detailed above.
--- NOTE | 2021-02-13 05:38 | CT_ITS ---
PROCEDURE INFORMATION: Exam: CT Abdomen And Pelvis With Contrast Exam date and time: 02/13/2021 5:38 AM Age: 80 years old Clinical indication: Nausea and vomiting; Additional info: N/v/d TECHNIQUE: Imaging protocol: Computed tomography of the abdomen and pelvis with contrast. Radiation optimization: All CT scans at this facility use at least one of these dose optimization techniques: automated exposure control; mA and/or kV adjustment per patient size (includes targeted exams where dose is matched to clinical indication); or iterative reconstruction. Contrast material: ISOVUE; Contrast volume: 70 ml; Contrast route: IV; COMPARISON: CT ABDOMEN PELVIS W CON 05/28/2020 11:37 AM FINDINGS: Lungs: There is dependent atelectasis within the visualized lungs. Heart: Visualized cardiac chambers are grossly unremarkable. Liver: Hepatic steatosis. Gallbladder and bile ducts: There is extensive cholelithiasis. Pancreas: Atrophy and fatty infiltration of the pancreas. Spleen: No splenomegaly or splenic mass. Adrenal glands: Normal. No mass. Kidneys and ureters: Bilateral renal cortical thinning and scarring. Stomach and bowel: The patient is status post partial right hemicolectomy with ileocolic anastomosis. There are air-fluid levels within the colon suggesting a large bowel ileus. I do not see a definite transition to indicate bowel obstruction. Appendix: No evidence of appendicitis. No appendicolith. Intraperitoneal space: No free fluid, free air or focal inflammatory infiltration. Vasculature: No abdominal aortic aneurysm. The portal, splenic and superior mesenteric veins appear patent. Lymph nodes: No enlarged lymph nodes within the retroperitoneal space or mesentery. Urinary bladder: Unremarkable as visualized. Reproductive: Unremarkable as visualized. Bones/joints: Bones are demineralized with age-related degenerative changes in the lumbar spine. There is posterior fusion at L4/5 with pedicle screws and fixation rods. Soft tissues: Paraspinous and extracorporeal soft tissues are unremarkable. IMPRESSION: 1. Air-fluid levels in the colon suggesting a large bowel ileus. 2. Extensive cholelithiasis. 2. Sigmoid diverticulosis without convincing evidence of diverticulitis. 3. Status post partial right hemicolectomy with ileocolic anastomosis. 4. Hepatic steatosis. 5. Bilateral renal cortical thinning and scarring. 6. Posterior fusion at L4/5.
[2021-02-13 05:47] LABS: Basophils # 0.1 K/mm3 (0-0.2); Basophils % 1.1 % (0.1-2.0); Eosinophils # 0.2 K/mm3 (0.0-0.4); Eosinophils % 2.2 % (0.1-12.0); Hematocrit 45.4 % (37.0-47.0); Hemoglobin 15.7 g/dL (12.2-16.2); Lymphocytes # 1.6 K/mm3 (0.7-4.5); Lymphocytes % 20.4 % (10-50); Mean Corpuscular HGB Conc 34.5 g/dL (31.8-35.4); Mean Corpuscular Hemoglobin 31.8 pg (27.0-31.2); Mean Corpuscular Volume 92.3 fl (81-99); Mean Platelet Volume 7.7 fl (7.4-10.4); Monocytes # 0.7 K/mm3 (0.1-1.0); Monocytes % 9.1 % (1.7-9.3); Neutrophils # 5.4 K/mm3 (1.8-7.8); Neutrophils % 67.3 % (37.0-80.0); Platelet Count 288 K/mm3 (142-424); Red Blood Count 4.92 M/mm3 (4.20-5.40); Red Cell Distribution Width 13.4 % (11.5-17.5)
[2021-02-13 05:51] LABS: Alanine Aminotransferase 142 U/L (12-78); Albumin Level 4.2 g/dl (3.5-5.0); Albumin/Globulin Ratio 1.4 (1.1-1.8); Alkaline Phosphatase 81 U/L (38-126); Anion Gap 9.5 mEq/L (5-15); Aspartate Amino Transferase 248 U/L (14-36); Bilirubin,Total 0.5 mg/dl (0.2-1.3); Blood Urea Nitrogen 11 mg/dl (7-17); Calcium 9.4 mg/dl (8.4-10.2); Carbon Dioxide 29 mmol/L (22.0-30.0); Chloride 107 mmol/L (98-107); Creatinine Clearance Estimated 56 mL/min (50-200); Estimated Glomerular Filt Rate 81 ml/min (>60); GFR (African American) 97 ML/MIN (>60); Glucose 104 mg/dl (74-100); Potassium 3.5 mmoL/L (3.5-5.1); Sodium 142 mmol/L (136-145); Total Protein,Serum 7.2 g/dl (6.3-8.2)
[2021-02-13 05:55] LABS: Lactic Acid 1.4 mmol/L (0.7-2.1)
[2021-02-13 05:57] LABS: C-Reactive Protein 1.3 mg/L (0-4)
[2021-02-13 06:00] LABS: Coronavirus 19, PCR Not Detected (NotDetected); Influenza A, PCR Not Detected (NotDetected); Influenza B, PCR Not Detected (NotDetected)
[2021-02-13 06:08] LABS: Troponin I 0.36 ng/ml (0.00-0.034)
--- NOTE | 2021-02-13 06:08 | PC.NURSE ---
notified of critical troponin
[2021-02-13 06:10] LABS: Procalcitonin 0.077 ng/mL (0.0-2.0)
[2021-02-13 06:12] LABS: Erythrocyte Sedimentation Rate 30 mm/hr (0-30)
--- NOTE | 2021-02-13 06:14 | ECG_ITS ---
APPROVED REPORT Exam: Resting ECG HR:80 bpm ECG Measurements Heart Rate 80 AXES QRSd 94 QRS 26 QT 388 T 225 QTc [address] & T wave abnormality, consider inferior ischemia or digitalis effect ST & T wave abnormality, consider anterolateral ischemia or digitalis effect Abnormal ECG Electronically signed by : Froilan Priest MD 02/14/2021 19:30:59
--- NOTE | 2021-02-13 06:24 | HMH.EDWEAK ---
ED Disposition Clinical Impression: Non-STEMI (non-ST elevated myocardial infarction), Ileus Hypothyroidism Qualifiers: Hypothyroidism type: acquired Qualified Code(s): E03.9 - Hypothyroidism, unspecified Atrial fibrillation Qualifiers: Atrial fibrillation type: unspecified Qualified Code(s): I48.91 - Unspecified atrial fibrillation Cholelithiasis Qualifiers: Cholelithiasis location: gallbladder Cholecystitis presence: without cholecystitis Biliary obstruction: without biliary obstruction Qualified Code(s): K80.20 - Calculus of gallbladder without cholecystitis without obstruction Disposition: Admitted As Inpatient Condition on Discharge: Good Referrals: Froilan Priest MD [Primary Care Provider] - - Critical Care Critical Care Time: No Attestation: On 02/13/21, the high probability of a clinically significant, sudden or life threatening deterioration of the following system(s) required my full and direct attention, intervention and personal management. The time I documented below is in addition to time spent performing reported procedures but includes the following listed in this critical care notation. Medical Decision Making - Medical Records Medical records reviewed: Yes: I reviewed the patient's medical records. - Edwin Inquiry Pt receiving controlled substance: No Vital Signs: 02/13/21 05:10 Temperature 97.4 F L Temperature Source Oral Pulse Rate [Left] 103 H Respiratory Rate 22 Blood Pressure [Left Arm] 154/80 H Blood Pressure Mean [Left Arm] 104 Blood Pressure Source [Left Arm] Automatic Cuff 02 Sat by Pulse Oximetry 100 Oxygen Delivery Method Room Air - Lab Data Lab results reviewed: Yes: I reviewed the patient's lab results. Lab Results 02/13/21 05:31: WBC 8.0, RBC 4.92, Hgb 15.7, Hct 45.4, MCV 92.3, MCH 31.8 H, MCHC 34.5, RDW 13.4, Plt Count 288, MPV 7.7, Neut % (Auto) 67.3, Lymph % (Auto) 20.4, Wythe % (Auto) 9.1, Eos % (Auto) 2.2, Baso % (Auto) 1.1, Neut # (Auto) 5.4, Lymph # (Auto) 1.6, Wy[place] # (Auto) 0.7, Eos # (Auto) 0.2, Baso # (Auto) 0.1, ESR 30 02/13/21 05:31: Sodium 142, Potassium 3.5, Chloride 107, Carbon Dioxide 29, Anion Gap 9.5, BUN 11, Creatinine 0.70, Estimated Creat Clear 56, Estimated GFR 81, Est GFR ( Amer) 97, Glucose 104 H, Calcium 9.4, Total Bilirubin 0.5, AST 248 H, ALT 142 H, Alkaline Phosphatase 81, Troponin I 0.36 H, C-Reactive Protein 1.3, Total Protein 7.2, Albumin 4.2, Globulin 3.0, Albumin/Globulin Ratio 1.4, Procalcitonin 0.077 02/13/21 05:31: Lactate 1.4 02/13/21 05:45: SARS-CoV-2 (PCR) Not detected, Influenza A Untype (PCR) Not detected, Influenza Type B (PCR) Not detected Result diagrams: 02/13/21 05:31 02/13/21 05:31 Orders (Tests/Meds): ED MEDICATIONS Generic Name Dose Route Start Last Admin Trade Name Freq PRN Reason Stop Dose Admin Sodium Chloride 1,000 mls @ 999 mls/hr 02/13/21 05:45 02/13/21 06:00 Sod Chlor 0.9% 1000ml Bag IV 02/13/21 06:45 999 mls/hr .Q1H1M BRIAN Administration Discontinued Medications Generic Name Dose Route Start Last Admin Trade Name Freq PRN Reason Stop Dose Admin Iopamidol 70 ml 02/13/21 06:24 02/13/21 06:24 Iopamidol-370 (76%);100ml Bottle IV 02/13/21 06:25 70 ml ONCE ONE Administration Ketorolac Tromethamine 30 mg 02/13/21 05:58 02/13/21 05:59 Ketorolac 30mg/Ml Vial IV 02/13/21 05:59 30 mg ONCE ONE Administration Ondansetron HCl 4 mg 02/13/21 05:40 02/13/21 05:59 Ondansetron 4mg/2ml Vial IV 02/13/21 05:41 Not Given ONCE ONE Sodium Chloride 10 ml 02/13/21 06:24 02/13/21 06:24 Sodium Chloride 0.9% 10ml Syr (Rad Only) IV 02/13/21 06:25 10 ml ONCE ONE Administration ORDERS Category Date Time Status Amylase Stat Lab 02/13/21 05:31 Received Lipase Stat Lab 02/13/21 05:31 Received T4 (Thyroxine) Stat Lab 02/13/21 05:31 Received TSH [Thyroid Stimulating Hormone] Stat Lab 02/13/21 05:31 Received Troponin I Q3H Lab 02/13/21 05:31 Received
--- NOTE | 2021-02-13 07:08 | PC.NURSE ---
Dr. Traylor s/w Dr. Diggs
--- NOTE | 2021-02-13 07:08 | PC.NURSE ---
supervisor of officials notified for bed assignment.
[2021-02-13 07:22] LABS: Amylase 52 U/L (30-110); Lipase 28 U/L (23-300)
[2021-02-13 07:27] LABS: T4 (Thyroxine) 14.3 ug/dl (5.53-11.0)
--- NOTE | 2021-02-13 07:27 | PC.NURSE ---
attempted to call [facility] to let them know of echo, no answer, will try to call again.
--- NOTE | 2021-02-13 07:27 | PC.NURSE ---
attempted to call report, they are giving charge report have not assignment
[2021-02-13 07:41] LABS: Thyroid Stimulating Hormone 2.32 uIU/mL (0.465-4.68)
--- NOTE | 2021-02-13 07:53 | P.CONPHA_ITS ---
[facility] Pharmacy VTE Monitoring - Patient Demographics Admission date: 02/13/21 Report Date: 02/13/21 Time: 07:53 Allergies/Adverse Reactions: Patient Allergies corn [From CORN (FOOD/DRUG)] Allergy (Mild, Verified 02/05/21 10:21) COUGH egg [From EGGS (FOOD/DRUG)] Allergy (Mild, Verified 02/05/21 10:21) COUGH lactose [From DAIRY FOODS (FOOD/DRUG)] Allergy (Mild, Verified 02/05/21 10:21) COUGH soy Allergy (Mild, Verified 02/05/21 10:21) COUGH wheat Allergy (Mild, Verified 02/05/21 10:21) COUGH Height: 1.68 m Weight: 79.379 kg Patient Problems: Current Active Problems Hypothyroidism (Acute) Non-STEMI (non-ST elevated myocardial infarction) (Acute) Atrial fibrillation (Acute) Ileus (Acute) Cholelithiasis (Acute) - VTE Risk Labs: VTE Related Lab Results Hgb 15.7 g/dL (12.2-16.2) 02/13/21 05:31 Hct 45.4 % (37.0-47.0) 02/13/21 05:31 Plt Count 288 K/mm3 (142-424) 02/13/21 05:31 BUN 11 mg/dl (7-17) 02/13/21 05:31 Creatinine 0.70 mg/dl (0.52-1.04) 02/13/21 05:31 Estimated Creat Clear 56 mL/min (50-200) 02/13/21 05:31 Clinical Trial Participant: No - Prophylaxis VTE Prophylaxis Ordered?: Yes Types of VTE Prophylaxis: TEDS Knee High
--- NOTE | 2021-02-13 08:03 | PC.NURSE ---
[facility] here to do echo
[2021-02-13 08:17] LABS: Cholesterol 131 mg/dl (140-200); HDL Cholesterol 33 mg/dl (40-60); Triglycerides 387 mg/dl (30-150); VLDL Cholesterol 77 mg/dL (0-40)
[2021-02-13 08:28] LABS: Direct LDL Cholesterol 42.19 mg/dL (100-129)
[2021-02-13 09:24] LABS: Troponin I 0.38 ng/ml (0.00-0.034)
--- NOTE | 2021-02-13 10:44 | HMH.CNCARD ---
History of Present Illness Consult date: 02/13/21 Requesting physician: Shane Diggs Consult reason: atrial fibrillation Chief complaint: NSTEMI, A. fib Additional Medical History:: 1. History of colon cancer, status post surgical removal with anastomosis, March 2020 A. Status post 6 rounds of chemotherapy B. New nodules discovered late 2020 with institution of Keytruda in January 2021 2. Paroxysmal atrial fibrillation with CHADS-VASC score of 4 (HTN, Age, Sex) A. Amiodarone therapy B. Anticoagulation with Eliquis 3. Hypertension A. Echo, 02/2020,1. Mildly enlarged left atrium, normal left ventricular size, visually estimated ejection fraction 55% with no regional wall motion abnormality, Doppler evidence of high cardiac output state. Grade 1 diastolic dysfunction seen without tissue Doppler evidence of raise left atrial pressure. 2. Thickened and calcified aortic valve without aortic stenosis, there is mild aortic insufficiency, increased aortic outflow velocity is likely secondary to high output state. 3. Mild mitral and tricuspid regurgitation. 4. No significant pericardial effusion noted. Electronically signed by : Alfie Lake, 03/07/2020 13:18:43 4. Hyperlipidemia 5. Prior history of DVT 6. Abnormal EKG with elevated troponins, suspected NSTEMI, 02/13/2021, patient refused procedure at this hospital. History of present illness: Pt c/o severe weakness, generalized achiness, pain to the back of her neck, and n/v/d. Pt sees Dr. Barrera and recently started on Keytruda and has receveived 2 doses thus far. Pt states she had no issues with the first dose, but since the 2nd dose she has been weak, aching, and n/v/d that just keeps getting worse . Pt saw Leatha Medina and had labs & ua 02/09, started on Cefdinir for possible UTI. Pt denies fever or chills. The above per Dr. Traylor Patient confirms events as noted above. She denies any chest pain, pressure or tightness. No prior history of coronary artery disease or coronary work-up per patient. She does relate being on amiodarone and anticoagulation for history of atrial fibrillation. Patient noted to have elevated troponins with abnormal EKG in the ER on admission with cardiology consulted for evaluation and recommendations. In light of patient's elevated troponins and abnormal EKG compared with tracing from February [address] depression inferolaterally, recommended cardiac catheterization. 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 [facility] History Medical History: Reports:: Arrhythmia, Atrial Fibrillation, Cancer, Deep Vein Thrombosis, Hyperlipidemia, Hypertension, Palpitations Denies:: Diabetes Mellitus Type 1, Diabetes Mellitus Type 2, Internal Pacemaker, MRSA, Seizures *Have you ever received a pneumonia vaccine?: Yes *Have you received a flu vaccine this season?: Yes Other Medical History: Reports: Arthritis, Cataracts, Chemotherapy, Hypothyroidism. Denies: Blood Transfusion Reaction Laterality Cases: Right: Breast Biopsy, Mastectomy, Bilateral: Tonsillectomy Other Surgeries: Yes: Appendectomy, Cancer Surgery (rt colectomy), Colonoscopy, Colon Resection, Colostomy, EGD, Skin Cancer Excision, Tubal Ligation, Other. No: Pacemaker Amputation: No Fractures: No - *Social History Last grade of school completed: High school graduate Smoking Status: Never smoker Alcohol Intake: never Substance Use Type: denies use *Occupational Status:: retired Housing: house Household Members: spouse *Travel in the last 8 weeks: None Family Hx:: Cancer, Hyperlipidemia, Hypertension Meds Home Medications Medication Instructions Recorded Confirmed Type Amiodarone HCl [Amiodarone 100mg 200 mg PO DAILY 10/10/18 02/13/21 History Tab] Levothyroxine Sodium [Synthroid 25 mcg PO DAILY 12/11/19 02/13/21 History 25mcg (0.025mg) tablet] pravastatin 40 mg tablet 40 mg PO HS 12/31/19 02/13/21 History Acetaminophen
--- NOTE | 2021-02-13 11:50 | HMH.PHAINT ---
MEDICATION RECONCILIATION COMPLETED ON PATIENT USING LIST FROM PCP OFFICE. -ATIF PARSONS, RUBYD
--- NOTE | 2021-02-13 12:33 | HMH.CONS ---
*Admission Date: 02/13/21 *Reason for consult:: metastatic colon cancer *History of present illness: 80 yo wf with h/o colon cancer stage III completed adjuvant chemotherapy recently noted to have local recurrence with enlarging abdl lymph nodes on scan done at . pt cancer is MSI-H and therefore she was eligible for treatment with IO specifically keytruda. she had cycle 1 on 01/15 and tolerated without problems. cycle 2 was on 02/05/2021. she reports she started feeling poorly on 02/06. she reports weakness, arm/leg muscle aching. her lfts ast/alt are elevated. bilirubin and alk phos are normal. she is being eval for heart attack as well. ct scan demonstrated a large bowel ileus. pt denies n/v. she reports chronic diarrhea since her surgery and this has not changed. she denies abdl pain. sister is present in the room. [facility] History Medical History: Reports:: Arrhythmia, Atrial Fibrillation, Cancer, Deep Vein Thrombosis, Hyperlipidemia, Hypertension, Palpitations Denies:: Diabetes Mellitus Type 1, Diabetes Mellitus Type 2, Internal Pacemaker, MRSA, Seizures *Have you ever received a pneumonia vaccine?: Yes *Have you received a flu vaccine this season?: Yes Other Medical History: Reports: Arthritis, Cataracts, Chemotherapy, Hypothyroidism. Denies: Blood Transfusion Reaction Laterality Cases: Right: Breast Biopsy, Mastectomy, Bilateral: Tonsillectomy Other Surgeries: Yes: Appendectomy, Cancer Surgery (rt colectomy), Colonoscopy, Colon Resection, Colostomy, EGD, Skin Cancer Excision, Tubal Ligation, Other. No: Pacemaker Amputation: No Fractures: No - *Social History Last grade of school completed: High school graduate Smoking Status: Never smoker Alcohol Intake: never Substance Use Type: denies use *Occupational Status:: retired Housing: house Household Members: spouse *Travel in the last 8 weeks: None Family Hx:: Cancer, Hyperlipidemia, Hypertension Review of Systems - Constitutional Reports body ache(s), Reports fatigue, Reports lack of energy, Reports weakness - *Gastrointestinal Reports loose stools - *Neurologic Reports weakness, Denies localized weakness Meds Home Medications Medication Instructions Recorded Confirmed Type Amiodarone HCl [Amiodarone 100mg 200 mg PO DAILY 10/10/18 02/13/21 History Tab] Levothyroxine Sodium [Synthroid 25 mcg PO DAILY 12/11/19 02/13/21 History 25mcg (0.025mg) tablet] pravastatin 40 mg tablet 40 mg PO HS 12/31/19 02/13/21 History Acetaminophen [Tylenol 500mg 1,000 mg PO Q6H PRN 01/12/21 02/13/21 History tablet] Apixaban [Eliquis] 5 mg PO BID 01/12/21 02/13/21 History Cetirizine HCl 10 mg PO DAILY 01/12/21 02/13/21 History Multivit-Min/Folic Acid/Vit K1 1 each PO DAILY 01/12/21 02/13/21 History [Multi For Her 50 Plus Softgel] Pembrolizumab [Keytruda] 200 mg IV DIRECTED 01/20/21 02/13/21 History Cefdinir [Omnicef 300mg Capsule] 300 mg PO BID 02/13/21 02/13/21 History Allergies Allergy/AdvReac Type Severity Reaction Status Date / Time corn [From CORN (FOOD/DRUG)] Allergy Mild COUGH Verified 02/05/21 10:21 egg [From EGGS (FOOD/DRUG)] Allergy Mild COUGH Verified 02/05/21 10:21 lactose Allergy Mild COUGH Verified 02/05/21 10:21 [From DAIRY FOODS (FOOD/DRUG)] soy Allergy Mild COUGH Verified 02/05/21 10:21 wheat Allergy Mild COUGH Verified 02/05/21 10:21 Exam Vital signs and Labs for Last 24 Hours: Temp Pulse Resp BP Pulse Ox 97.4 F L 92 H 18 153/84 H 96 02/13/21 09:02 02/13/21 09:02 02/13/21 09:02 02/13/21 09:02 02/13/21 09:02 Laboratory Results - last 24 hr 02/13/21 05:31: WBC 8.0, RBC 4.92, Hgb 15.7, Hct 45.4, MCV 92.3, MCH 31.8 H, MCHC 34.5, RDW 13.4, Plt Count 288, MPV 7.7, Neut % (Auto) 67.3, Lymph % (Auto) 20.4, [place] % (Auto) 9.1, Eos % (Auto) 2.2, Baso % (Auto) 1.1, Neut # (Auto) 5.4, Lymph # (Auto) 1.6, [place] # (Auto) 0.7, Eos # (Auto) 0.2, Baso # (Auto) 0.1, ESR 30 02/13/21 05:31: Sodium 142, Potassium 3.5, Chlorid
[2021-02-13 12:56] LABS: Troponin I 0.38 ng/ml (0.00-0.034)
--- NOTE | 2021-02-13 13:23 | ECG_ITS ---
APPROVED REPORT Exam: Resting ECG HR:88 bpm ECG Measurements Heart Rate 88 AXES ME 200 P 23 QRSd 96 QRS 57 QT 372 T 266 QTc 450 Conclusion Normal sinus rhythm ST & T wave abnormality, consider inferior ischemia ST & T wave abnormality, consider anterolateral ischemia Abnormal ECG Electronically signed by : Froilan Priest MD 02/14/2021 19:28:43
--- NOTE | 2021-02-13 13:48 | HMH.HPDC ---
General - General Admission date:: 02/13/21 Discharge date: 02/13/21 *Admission Date: 02/13/21 *Chief complaint: weakness, SOA *History of present illness: Ms. Rodriguez is an 80yo F with significant past medical Hx of colon cancer s/p surgery earlier this year with removal of extensive portion of her colon and intestines, A. fib, chronic anticoagulation, history of TIA a year ago, metastatic lesions to her lymph nodes in her abdomen. Patient presented to the ER last night due to complaint of severe weakness, generalized achiness, pain to the back of her neck, and n/v/d. Pt sees Dr. Barrera and recently started on Keytruda for colon cancer. Has receveived 2 doses thus far. Pt states she had no issues with the first dose, but since the 2nd dose she has been weak, aching, and n/v/d that just keeps getting worse . Pt saw our nurse practitioner earlier this week and had labs & UA 02/09, started on Cefdinir for possible UTI. Pt denies fever or chills. On assessment earlier this morning she denied any chest pain however in seeing her on repeat rounds at lunch, patient complains of some chest tightness in her left chest and arm. It is resolved at this time with rest. She normally sees Dr. Aldana at [facility] for cardiology. No documented history of coronary artery disease or coronary work-up per patient. She is currently on amiodarone and anticoagulation for history of atrial fibrillation. Patient noted to have elevated troponins with abnormal EKG in the ER on admission with cardiology consulted for evaluation and recommendations. Cardiology recommended cardiac catheterization in light of patient's elevated troponins and abnormal EKG compared with tracing from February [address] depression inferolaterally. At this time patient has said she has a bladder blower in [place], and declines further care or intervention at our facility. Patient pleasant on interview today. [facility] History I have reviewed the patient's past medical history: Yes Medical History: Reports:: Arrhythmia, Atrial Fibrillation, Cancer, Deep Vein Thrombosis, Hyperlipidemia, Hypertension, Palpitations Denies:: Diabetes Mellitus Type 1, Diabetes Mellitus Type 2, Internal Pacemaker, MRSA, Seizures *Have you ever received a pneumonia vaccine?: Yes *Have you received a flu vaccine this season?: Yes Other Medical History: Reports: Arthritis, Cataracts, Chemotherapy, Hypothyroidism. Denies: Blood Transfusion Reaction Laterality Cases: Right: Breast Biopsy, Mastectomy, Bilateral: Tonsillectomy Other Surgeries: Yes: Appendectomy, Cancer Surgery (rt colectomy), Colonoscopy, Colon Resection, Colostomy, EGD, Skin Cancer Excision, Tubal Ligation, Other. No: Pacemaker Amputation: No Fractures: No - *Social History Last grade of school completed: High school graduate Smoking Status: Never smoker Alcohol Intake: never Substance Use Type: denies use *Occupational Status:: retired Housing: house Household Members: spouse *Travel in the last 8 weeks: None Family Hx:: Cancer, Hyperlipidemia, Hypertension Review of Systems - Review of Systems Review of systems:: pertinent systems reviewed and negative unless documented below (14 point review of systems performed, pertinent positives and negatives as per HPI) - *Neurologic Reports weakness, Denies localized weakness Exam Vital signs and Labs for Last 24 Hours: Temp Pulse Resp BP Pulse Ox 97.4 F L 92 H 18 153/84 H 96 02/13/21 09:02 02/13/21 09:02 02/13/21 09:02 02/13/21 09:02 02/13/21 09:02 Laboratory Results - last 24 hr 02/13/21 05:31: WBC 8.0, RBC 4.92, Hgb 15.7, Hct 45.4, MCV 92.3, MCH 31.8 H, MCHC 34.5, RDW 13.4, Plt Count 288, MPV 7.7, Neut % (Auto) 67.3, Lymph % (Auto) 20.4, [place] % (Auto) 9.1, Eos % (Auto) 2.2, Baso % (Auto) 1.1, Neut # (Auto) 5.4, Lymph # (Auto) 1.6, [place] # (Auto) 0.7, Eos # (Auto) 0.2, Baso # (Auto) 0.1, ESR 30 02/13/21 05:31: Sodium 142, Potassium 3.5, Chloride 107, Carbon Dioxide 29, Anion Gap 9
--- NOTE | 2021-02-13 14:14 | SW/DCPLANNER ---
PATIENT IS TRANSFERRING TO [facility] IN [place] PER PATIENTS REQUEST...
[2021-02-13 14:57] LABS: Microscopic, Urine URINE MICROSCOPIC (MICROSCOPIC)
[2021-02-13 15:24] LABS: Appearance,Urine CLEAR (Clear); Bilirubin,Urine Negative (Negative); Blood, Urine 3+ (Negative); Color,Urine YELLOW (Yellow); Glucose,Urine (UA) Negative (Negative); Ketones,Urine TRACE (Negative); Leukocyte Esterase,Urine Negative (Negative); Nitrate,Urine Negative (Negative); Protein,Urine TRACE (Negative); Urobilinogen,Urine 0.2 EU/dl (0.2)
[2021-02-13 16:29] LABS: Bacteria,Urine Trace /lpf; Squamous Epithelial Cell,Urine Occasional #/hpf (0-5); WBC,Urine Occasional #/hpf (0-3)
--- NOTE | 2021-02-13 20:16 | PC.NURSE ---
CALLED REPORT TO [facility] AND SPOKE WITH NAFISA.
--- NOTE | 2021-02-13 21:06 | PC.NURSE ---
PT WAS TRANSFERRED VIA STRETCHER PER EMS TO DIFFERENT FACILITY [id number]
== END 2021-02-13 21:01 | disposition short-term general hospital (02) ==
LOC: ER 06:40 → 2ND 07:13
PROVIDERS: Admitting Provider Internal Medicine Adolescent Medicine; Emergency Provider Emergency Medicine; PCP Internal Medicine Adolescent Medicine; Visit Provider Internal Medicine Adolescent Medicine
DX: I21.4 Non-ST elevation (NSTEMI) myocardial infarction (principal); Z20.822 Contact with and (suspected) exposure to COVID-19; I48.0 Paroxysmal atrial fibrillation; C18.9 Malignant neoplasm of colon, unspecified; C77.2 Secondary and unspecified malignant neoplasm of intra-abdominal lymph nodes; Z79.899 Other long term (current) drug therapy; Z88.8 Allergy status to other drugs, medicaments and biological substances; Z86.718 Personal history of other venous thrombosis and embolism; I10 Essential (primary) hypertension; K56.7 Ileus, unspecified; E03.9 Hypothyroidism, unspecified; Z79.01 Long term (current) use of anticoagulants
CPT/HCPCS: G0378; 71045; 74177; 80053; 80061; 81001; 82150; 83605; 83690; 84145; 84436; 84443; 84484; 85025; 85651; 86140; 87040; 93005; 93306; 96365; 96367; 96375; 96376; 99285; C9803; Q9967; U0003; U0005

== ENCOUNTER → 2021-02-26 12:32 | Outpatient (CLI) | payer MEDICARE, OTHER, SELFPAY ==
[2021-02-26 13:59] LABS: Basophils % 0.1 % (0.1-2.0); Hematocrit 52.1 % (37.0-47.0); Hemoglobin 17.3 g/dL (12.2-16.2); Lymphocytes # 0.5 K/mm3 (0.7-4.5); Mean Corpuscular HGB Conc 33.1 g/dL (31.8-35.4); Mean Corpuscular Hemoglobin 30.9 pg (27.0-31.2); Mean Corpuscular Volume 93.1 fl (81-99); Mean Platelet Volume 8.4 fl (7.4-10.4); Monocytes # 0.7 K/mm3 (0.1-1.0); Monocytes % 5.5 % (1.7-9.3); Neutrophils # 11.8 K/mm3 (1.8-7.8); Neutrophils % 90.4 % (37.0-80.0); Platelet Count 414 K/mm3 (142-424); Red Blood Count 5.59 M/mm3 (4.20-5.40); Red Cell Distribution Width 13.4 % (11.5-17.5)
[2021-02-26 14:01] LABS: MANUAL DIFFERENTIAL MANUAL DIFFERENTIAL (MANUAL DIFF)
[2021-02-26 14:43] LABS: Chloride 101 mmol/L (98-107)
[2021-02-26 14:44] LABS: Potassium 4.9 mmoL/L (3.5-5.1); Sodium 141 mmol/L (136-145)
[2021-02-26 14:46] LABS: Alanine Aminotransferase 47 U/L (12-78); Alkaline Phosphatase 86 U/L (38-126); Anion Gap 11.9 mEq/L (5-15); Aspartate Amino Transferase 41 U/L (14-36); Bilirubin,Total 0.6 mg/dl (0.2-1.3); Blood Urea Nitrogen 27 mg/dl (7-17); Carbon Dioxide 33 mmol/L (22.0-30.0); Estimated Glomerular Filt Rate 81 ml/min (>60); GFR (African American) 97 ML/MIN (>60)
[2021-02-26 14:47] LABS: Albumin Level 4.3 g/dl (3.5-5.0); Albumin/Globulin Ratio 1.7 (1.1-1.8); Calcium 9.9 mg/dl (8.4-10.2); Globulin 2.5 g/dL (1.3-3.2); Glucose 85 mg/dl (74-100); Total Protein,Serum 6.8 g/dl (6.3-8.2)
[2021-02-26 14:51] LABS: Lymphocytes % 4 % (10-50); Monocytes % 7 % (2-9); Neutrophils % 89 % (42-76); Total Cells Counted 100
[2021-02-26 14:52] LABS: Platelet Estimate Normal
== END ==
PROVIDERS: Visit Provider Internal Medicine Medical Oncology
DX: C18.9 Malignant neoplasm of colon, unspecified (principal)
CPT/HCPCS: 36415; 80053; 85007; 85025

== ENCOUNTER → 2021-03-05 13:39 | Outpatient (CLI) | payer MEDICARE, OTHER, SELFPAY ==
[2021-03-05 14:17] LABS: Basophils # 0.1 K/mm3 (0-0.2); Basophils % 0.4 % (0.1-2.0); Eosinophils % 0.4 % (0.1-12.0); Hemoglobin 17.9 g/dL (12.2-16.2); Lymphocytes # 0.5 K/mm3 (0.7-4.5); Lymphocytes % 4.2 % (10-50); Mean Corpuscular HGB Conc 33.1 g/dL (31.8-35.4); Mean Corpuscular Hemoglobin 30.8 pg (27.0-31.2); Mean Corpuscular Volume 92.9 fl (81-99); Mean Platelet Volume 8.5 fl (7.4-10.4); Monocytes # 0.3 K/mm3 (0.1-1.0); Monocytes % 2.9 % (1.7-9.3); Neutrophils # 10.5 K/mm3 (1.8-7.8); Platelet Count 309 K/mm3 (142-424); Red Blood Count 5.81 M/mm3 (4.20-5.40); Red Cell Distribution Width 13.4 % (11.5-17.5); White Blood Count 11.4 K/mm3 (4.8-10.8)
[2021-03-05 14:22] LABS: MANUAL DIFFERENTIAL MANUAL DIFFERENTIAL (MANUAL DIFF)
[2021-03-05 16:34] LABS: Alanine Aminotransferase 55 U/L (12-78); Albumin Level 4.3 g/dl (3.5-5.0); Albumin/Globulin Ratio 1.7 (1.1-1.8); Alkaline Phosphatase 82 U/L (38-126); Anion Gap 11.8 mEq/L (5-15); Aspartate Amino Transferase 47 U/L (14-36); Blood Urea Nitrogen 30 mg/dl (7-17); Calcium 10.1 mg/dl (8.4-10.2); Carbon Dioxide 29 mmol/L (22.0-30.0); Chloride 100 mmol/L (98-107); Estimated Glomerular Filt Rate 60 ml/min (>60); GFR (African American) 73 ML/MIN (>60); Globulin 2.6 g/dL (1.3-3.2); Glucose 115 mg/dl (74-100); Potassium 5.8 mmoL/L (3.5-5.1); Sodium 135 mmol/L (136-145); Total Protein,Serum 6.9 g/dl (6.3-8.2)
[2021-03-05 21:14] LABS: Lymphocytes % 5 % (10-50); Monocytes % 4 % (2-9); Neutrophils % 91 % (42-76); Platelet Estimate Normal; Total Cells Counted 100
== END ==
PROVIDERS: Visit Provider Internal Medicine Medical Oncology
DX: C18.9 Malignant neoplasm of colon, unspecified (principal)
CPT/HCPCS: 36415; 80053; 85007; 85025

== ENCOUNTER 2021-03-12 13:08 | Outpatient (CLI) | payer MEDICARE, OTHER, SELFPAY ==
[2021-03-12 13:14] VITALS: BMI 22.4
[2021-03-12 13:34] LABS: Basophils % 0.3 % (0.1-2.0); Eosinophils # 0.1 K/mm3 (0.0-0.4); Eosinophils % 0.4 % (0.1-12.0); Hematocrit 46.2 % (37.0-47.0); Hemoglobin 16.1 g/dL (12.2-16.2); Lymphocytes # 0.8 K/mm3 (0.7-4.5); Lymphocytes % 6.8 % (10-50); Mean Corpuscular HGB Conc 34.9 g/dL (31.8-35.4); Mean Corpuscular Hemoglobin 31.8 pg (27.0-31.2); Mean Platelet Volume 7.2 fl (7.4-10.4); Monocytes # 0.7 K/mm3 (0.1-1.0); Neutrophils # 10.2 K/mm3 (1.8-7.8); Neutrophils % 86.5 % (37.0-80.0); Platelet Count 206 K/mm3 (142-424); Red Blood Count 5.08 M/mm3 (4.20-5.40); Red Cell Distribution Width 13.6 % (11.5-17.5); White Blood Count 11.8 K/mm3 (4.8-10.8)
[2021-03-12 13:36] LABS: MANUAL DIFFERENTIAL MANUAL DIFFERENTIAL (MANUAL DIFF)
[2021-03-12 13:39] LABS: Chloride 101 mmol/L (98-107); Potassium 4.2 mmoL/L (3.5-5.1); Sodium 135 mmol/L (136-145)
[2021-03-12 13:42] LABS: Alanine Aminotransferase 44 U/L (12-78); Albumin Level 3.8 g/dl (3.5-5.0); Albumin/Globulin Ratio 1.7 (1.1-1.8); Alkaline Phosphatase 73 U/L (38-126); Anion Gap 10.2 mEq/L (5-15); Aspartate Amino Transferase 39 U/L (14-36); Bilirubin,Total 0.5 mg/dl (0.2-1.3); Blood Urea Nitrogen 25 mg/dl (7-17); Calcium 8.9 mg/dl (8.4-10.2); Carbon Dioxide 28 mmol/L (22.0-30.0); Creatinine Clearance Estimated 45 mL/min (50-200); Estimated Glomerular Filt Rate 60 ml/min (>60); GFR (African American) 73 ML/MIN (>60); Globulin 2.3 g/dL (1.3-3.2); Glucose 99 mg/dl (74-100); Total Protein,Serum 6.1 g/dl (6.3-8.2)
[2021-03-12 13:59] LABS: Hypochromasia 1+; Lymphocytes % 6 % (10-50); Monocytes % 6 % (2-9); Neutrophils % 88 % (42-76); Platelet Estimate Normal; Total Cells Counted 100
== END 2021-03-12 13:30 | disposition home or self-care (01) ==
LOC: INF 13:10
PROVIDERS: PCP Internal Medicine Adolescent Medicine; Visit Provider Internal Medicine Medical Oncology
DX: C18.9 Malignant neoplasm of colon, unspecified (principal)
CPT/HCPCS: 80053; 85007; 85025; J1642

== ENCOUNTER 2021-04-02 10:48 | Outpatient (CLI) | payer MEDICARE, OTHER, SELFPAY ==
[2021-04-02 10:54] VITALS: BMI 22.4
[2021-04-02 11:27] LABS: Basophils # 0.1 K/mm3 (0-0.2); Basophils % 2.1 % (0.1-2.0); Eosinophils % 0.5 % (0.1-12.0); Hematocrit 47.4 % (37.0-47.0); Lymphocytes # 2.4 K/mm3 (0.7-4.5); Lymphocytes % 40.1 % (10-50); Mean Corpuscular HGB Conc 31.6 g/dL (31.8-35.4); Mean Corpuscular Hemoglobin 30.6 pg (27.0-31.2); Mean Platelet Volume 7.7 fl (7.4-10.4); Monocytes # 0.5 K/mm3 (0.1-1.0); Monocytes % 7.6 % (1.7-9.3); Neutrophils % 49.6 % (37.0-80.0); Platelet Count 274 K/mm3 (142-424); Red Blood Count 4.89 M/mm3 (4.20-5.40); Red Cell Distribution Width 15.1 % (11.5-17.5); White Blood Count 6.1 K/mm3 (4.8-10.8)
[2021-04-02 11:47] LABS: Alanine Aminotransferase 43 U/L (12-78); Albumin Level 3.9 g/dl (3.5-5.0); Albumin/Globulin Ratio 1.9 (1.1-1.8); Alkaline Phosphatase 50 U/L (38-126); Anion Gap 8.7 mEq/L (5-15); Aspartate Amino Transferase 48 U/L (14-36); Bilirubin,Total 0.4 mg/dl (0.2-1.3); Blood Urea Nitrogen 16 mg/dl (7-17); Carbon Dioxide 30 mmol/L (22.0-30.0); Chloride 102 mmol/L (98-107); Creatinine Clearance Estimated 45 mL/min (50-200); Estimated Glomerular Filt Rate 81 ml/min (>60); GFR (African American) 97 ML/MIN (>60); Globulin 2.1 g/dL (1.3-3.2); Glucose 124 mg/dl (74-100); Potassium 3.7 mmoL/L (3.5-5.1); Sodium 137 mmol/L (136-145)
== END 2021-04-02 11:10 | disposition home or self-care (01) ==
LOC: INF 10:49
PROVIDERS: PCP Internal Medicine Adolescent Medicine; Visit Provider Internal Medicine Medical Oncology
DX: C18.9 Malignant neoplasm of colon, unspecified (principal); Z45.2 Encounter for adjustment and management of vascular access device
CPT/HCPCS: 80053; 85025; J1642

== ENCOUNTER 2021-04-02 13:00 | Outpatient (RCR) | payer MEDICARE, OTHER, SELFPAY ==
--- NOTE | 2021-03-12 15:25 | HMH.PTOPEV ---
PT Outpatient Evaluation Rehab PT Outpatient Evaluation Start: 03/12/21 14:58 Freq: Status: Active Protocol: Document 03/12/21 14:58 TRENT (Rec: 03/12/21 15:23 TRENT [id number]) Electronically Signed By Wilbert Painting, PT 03/12/21 14:58 Outpatient Therapy Subjective History Subjective History Pt reports generalized weakness, deconditioned, low back and neck pain, balance deficits since colon and breast canxer treatment in Dec. Pt reports 'I'm just really weak, get tired so easy , and unless I'm holding onto something I'll be wobbly'. Pt reports 'maybe 5 minutes' on standing/walking endurance. PMH:L4-5 fusion Chief Complaint Pain,Weakness Symptom Type Ache,Dull Symptoms Relieved By Rest/Positioning Symptoms Aggravated By Standing,Walking Prior Functional Limitations Housework,Standing,Walking, Balance Current Functional Limitations Housework,Standing,Walking, Balance Symptom Description Constant but Variable Level of pain today (0-10) 3 Pain scale - at its best (0-10) 1 Pain scale - at its worst (0-10) 6 Cervical Eval Palpation Cervical Muscles R Cervical Paraspinal,L Cervical Paraspinal,R Upper Trapezius,L Upper Trapezius Cervical/Thoracic Palpation Findings Tenderness Posture Head/C-Spine Posture Sitting Position Flexed Head/C-Spine Posture Standing Position Flexed Flexibility Deficits Upper Trapezius Muscle Length (R) Moderate Tightness,(L) Moderate Tightness MMT Bilateral Deltoid (C5) 3+ Fair+ Biceps Brachii Strength Grade 4 Good Wrist Extension Strength Grade 4 Good Triceps Brachii Strength Grade 4 Good Wrist Flexion Strength Grade 4 Good Extensor Pollicis Longus Strength Grade 4 Good Finger Abduction Strength Grade 4 Good Lumbopelvic Eval Posture Thoracic Spine Posture Standing Position Neutral Lumbar Spine Posture Standing Position Flattened Assistive device Assistive Devices Wheelchair Gait Observation General Gait Pattern Observation Ataxic Gait,Shuffling Step Palapation tenderness bilateral paraspinal tenderness Yes: 3/4 Lumbar/Sacral Palpation Findings Tenderness Manual Muscle Test Bilateral Knee Extension Strength Grade 4 Good Knee Flexion Strength Grade 4 Good Hip Flexion Strength Grade 3+ Fair+ Hip Abduction Streng
== END 2021-04-02 13:05 | disposition home or self-care (01) ==
LOC: PT 13:00
PROVIDERS: PCP Internal Medicine Adolescent Medicine; Visit Provider Internal Medicine Medical Oncology
DX: M62.81 Muscle weakness (generalized) (principal); C18.9 Malignant neoplasm of colon, unspecified
CPT/HCPCS: 97010; 97014; 97110; 97163; G0283

== ENCOUNTER → 2021-04-07 14:24 | Outpatient (CLI) | payer MEDICARE, OTHER, SELFPAY | PROVIDERS: Visit Provider Internal Medicine Adolescent Medicine | DX: R35.0 Frequency of micturition (principal); B96.4 Proteus (mirabilis) (morganii) as the cause of diseases classified elsewhere | CPT/HCPCS: 87086; 87088; 87186 ==

== ENCOUNTER → 2021-04-15 16:52 | Outpatient (CLI) | payer MEDICARE, OTHER, SELFPAY ==
--- NOTE | 2021-04-15 17:13 | XR_ITS ---
PROCEDURE INFORMATION: Exam: XR Chest Exam date and time: 04/15/2021 5:13 PM Age: 80 years old Clinical indication: Shortness of breath; Additional info: Short of breath TECHNIQUE: Imaging protocol: XR of the chest. Views: 2 views. COMPARISON: CR XR CHEST PORTABLE 02/13/2021 6:20 AM FINDINGS: Tubes, catheters and devices: Left-sided chest port with tip terminating at the SVC. Lungs: Prominent interstitial markings of the lung base of the without airspace opacities or pleural effusions. Pleural spaces: See Lungs finding. Heart/Mediastinum: Unremarkable. No cardiomegaly. Bones/joints: Exaggerated kyphotic curvature of the thoracic spine related to senescent degenerative changes. IMPRESSION: Prominent interstitial markings of the lung base of the without airspace opacities or pleural effusions.
[2021-04-15 17:33] LABS: Basophils # 0.2 K/mm3 (0-0.2); Eosinophils % 0.5 % (0.1-12.0); Hematocrit 46.5 % (37.0-47.0); Hemoglobin 15.4 g/dL (12.2-16.2); Lymphocytes # 1.8 K/mm3 (0.7-4.5); Lymphocytes % 24.8 % (10-50); Mean Corpuscular HGB Conc 33.1 g/dL (31.8-35.4); Mean Corpuscular Hemoglobin 31.2 pg (27.0-31.2); Mean Corpuscular Volume 94.2 fl (81-99); Mean Platelet Volume 7.7 fl (7.4-10.4); Monocytes # 0.9 K/mm3 (0.1-1.0); Neutrophils # 4.4 K/mm3 (1.8-7.8); Neutrophils % 59.8 % (37.0-80.0); Platelet Count 288 K/mm3 (142-424); Red Blood Count 4.93 M/mm3 (4.20-5.40); Red Cell Distribution Width 15.5 % (11.5-17.5); White Blood Count 7.4 K/mm3 (4.8-10.8)
[2021-04-15 17:39] LABS: Lactic Acid 1.4 mmol/L (0.7-2.1)
[2021-04-15 18:31] LABS: Chloride 102 mmol/L (98-107); Sodium 139 mmol/L (136-145)
[2021-04-15 18:32] LABS: Potassium 5.2 mmoL/L (3.5-5.1)
[2021-04-15 18:34] LABS: Alanine Aminotransferase 31 U/L (12-78); Albumin Level 4.3 g/dl (3.5-5.0); Albumin/Globulin Ratio 1.7 (1.1-1.8); Alkaline Phosphatase 68 U/L (38-126); Aspartate Amino Transferase 51 U/L (14-36); Bilirubin,Total 0.7 mg/dl (0.2-1.3); Blood Urea Nitrogen 12 mg/dl (7-17); Estimated Glomerular Filt Rate 69 ml/min (>60); GFR (African American) 84 ML/MIN (>60); Globulin 2.5 g/dL (1.3-3.2); Total Protein,Serum 6.8 g/dl (6.3-8.2)
[2021-04-15 18:35] LABS: Anion Gap 13.2 mEq/L (5-15); Calcium 9.9 mg/dl (8.4-10.2); Carbon Dioxide 29 mmol/L (22.0-30.0); Glucose 88 mg/dl (74-100)
== END ==
PROVIDERS: Visit Provider Internal Medicine Adolescent Medicine
DX: R06.02 Shortness of breath (principal); R53.81 Other malaise
CPT/HCPCS: 36415; 71046; 80053; 83605; 85025

== ENCOUNTER → 2021-04-16 16:10 | Outpatient (CLI) | payer MEDICARE, OTHER, SELFPAY ==
[2021-04-16 16:14] LABS: Microscopic, Urine URINE MICROSCOPIC (MICROSCOPIC)
[2021-04-16 16:44] LABS: Appearance,Urine CLEAR (Clear); Bilirubin,Urine Negative (Negative); Blood, Urine TRACE-L (Negative); Color,Urine YELLOW (Yellow); Glucose,Urine (UA) Negative (Negative); Ketones,Urine Negative (Negative); Leukocyte Esterase,Urine Negative (Negative); Nitrate,Urine Negative (Negative); PH,Urine 5.5 (5.0-8.5); Protein,Urine Negative (Negative); Specific Gravity, Urine 1.025 (1.005-1.030); Urobilinogen,Urine 0.2 EU/dl (0.2)
[2021-04-16 16:51] LABS: Bacteria,Urine 1+ /lpf; Calcium Oxalate Crystals,Urine 1+ /lpf; Mucus,Urine 2+ /lpf; WBC,Urine Occasional #/hpf (0-3)
== END ==
PROVIDERS: Visit Provider Internal Medicine Adolescent Medicine
DX: R06.02 Shortness of breath (principal); R53.81 Other malaise
CPT/HCPCS: 81001

== ENCOUNTER 2021-04-23 11:51 | Outpatient (CLI) | payer MEDICARE, OTHER, SELFPAY ==
[2021-04-23 12:11] VITALS: BMI 24.2
[2021-04-23 12:53] LABS: Blood Urea Nitrogen 13 mg/dl (7-17); Creatinine Clearance Estimated 48 mL/min (50-200); Estimated Glomerular Filt Rate 96 ml/min (>60); GFR (African American) 116 ML/MIN (>60)
[2021-04-23 12:58] LABS: C-Reactive Protein 3.6 mg/L (0-4)
[2021-04-23 13:00] LABS: Erythrocyte Sedimentation Rate 60 mm/hr (0-30)
[2021-04-23 13:08] LABS: Lactate Dehydrogenase 273 U/L (313-618)
[2021-04-24 14:16] LABS: Aldolase 7.7 U/L (3.3-10.3)
[2021-04-24 21:22] LABS: Anti-Cyclic Citrullinated Pept 2 units (0-19)
[2021-05-18 16:42] LABS: Antinuclear Antibodies (ANA) POSITIVE
== END 2021-04-23 12:27 | disposition home or self-care (01) ==
LOC: INF 11:54
PROVIDERS: PCP Internal Medicine Adolescent Medicine; Visit Provider Internal Medicine Medical Oncology
DX: Z45.2 Encounter for adjustment and management of vascular access device (principal); C18.9 Malignant neoplasm of colon, unspecified; R06.02 Shortness of breath; R53.81 Other malaise; Z85.3 Personal history of malignant neoplasm of breast
CPT/HCPCS: 82085; 82565; 83615; 84520; 85651; 86038; 86140; 86200; J1642

== ENCOUNTER → 2021-04-24 08:51 | Outpatient (CLI) | payer MEDICARE, OTHER, SELFPAY ==
--- NOTE | 2021-04-24 09:01 | CT_ITS ---
FINAL REPORT TECHNIQUE: Axial images through the chest was performed with and without contrast. Sagittal and coronal reformatted images were obtained and reviewed. This study was performed with techniques to keep radiation doses as low as reasonably achievable (ALARA). Individualized dose reduction techniques using automated exposure control or adjustment of mA and/or kV according to the patient's size were employed. CLINICAL HISTORY: H/O BREAST CA,SOB,MALAISE FINDINGS: There are postoperative changes from prior right mastectomy. Left upper anterior chest port terminates in the SVC. The mediastinal vasculature is adequately opacified. No pulmonary artery filling defects are identified. There is no mediastinal mass or adenopathy. There is a little bit of scarring at the left base and posterior lingula. There are moderate hypertrophic changes of degenerative disc disease in the midthoracic spine. IMPRESSION: There is no evidence of metastatic disease. No acute cardiopulmonary process. Reviewed, Interpreted and Dictated by Nick Oseguera MD Transcribed by Daisy Tatum Authenticated by Nick Oseguera MD on 04/24/2021 01:19:38 PM [facility]
--- NOTE | 2021-04-24 09:01 | CT_ITS ---
FINAL REPORT TECHNIQUE: The patient was injected with IV contrast. Oral contrast was also administered. Axial images were obtained from the lung bases to the pubic symphysis by computed tomography. Precontrast images were also obtained. This study was performed with techniques to keep radiation doses as low as reasonably achievable (ALARA). Individualized dose reduction techniques using automated exposure control or adjustment of mA and/or kV according to the patient's size were employed. CLINICAL HISTORY: H/O BREAST CA,SOB,MALAISE COMPARISON: 02/13/2021 FINDINGS: ABDOMEN: The heart is normal in size. Multiple gallstones are seen in the gallbladder. There is streak artifact from posterior fusion hardware bridging the lower lumbar spine. The liver parenchyma is homogeneous. The spleen is unremarkable. No adrenal masses present. The pancreas is normal. The kidneys are normal. The aorta is normal in caliber. There is no free fluid or adenopathy. PELVIS: The appendix is not clearly identified. No pelvic mass or inflammation is identified. The uterus is present and lies midline. Note is made of a partial right colectomy, unchanged from previous. The urinary bladder is unremarkable. There is no free fluid or adenopathy identified. IMPRESSION: Cholelithiasis. No evidence of metastatic disease. Partial right colectomy. Reviewed, Interpreted and Dictated by Nick Oseguera MD Transcribed by Daisy Tatum Authenticated by Nick Oseguera MD on 04/24/2021 01:19:57 PM [facility]
== END ==
PROVIDERS: PCP Internal Medicine Adolescent Medicine; Visit Provider Internal Medicine Adolescent Medicine
DX: R06.02 Shortness of breath (principal); R53.81 Other malaise; C18.0 Malignant neoplasm of cecum; Z03.89 Encounter for observation for other suspected diseases and conditions ruled out; Z85.3 Personal history of malignant neoplasm of breast
CPT/HCPCS: 71270; 74178; J1642; Q9967

== ENCOUNTER → 2021-05-04 12:55 | Outpatient (CLI) | payer MEDICARE, OTHER, SELFPAY ==
[2021-05-04 13:45] VITALS: PULSE 79; PULSE 83
== END ==
PROVIDERS: PCP Internal Medicine Adolescent Medicine; Visit Provider Internal Medicine Adolescent Medicine
DX: R06.09 Other forms of dyspnea (principal)
CPT/HCPCS: 94060; 94618; 94640; 94727; 94729

== ENCOUNTER 2021-06-04 13:18 | Outpatient (CLI) | payer MEDICARE, OTHER, SELFPAY ==
[2021-06-04 13:24] VITALS: BMI 23.8
[2021-06-04 13:53] LABS: Chloride 103 mmol/L (98-107); Potassium 3.9 mmoL/L (3.5-5.1); Sodium 133 mmol/L (136-145)
[2021-06-04 13:56] LABS: Alanine Aminotransferase 22 U/L (12-78); Albumin/Globulin Ratio 1.6 (1.1-1.8); Alkaline Phosphatase 80 U/L (38-126); Anion Gap 9.9 mEq/L (5-15); Aspartate Amino Transferase 37 U/L (14-36); Bilirubin,Total 0.7 mg/dl (0.2-1.3); Blood Urea Nitrogen 15 mg/dl (7-17); Calcium 8.3 mg/dl (8.4-10.2); Carbon Dioxide 24 mmol/L (22.0-30.0); Creatinine Clearance Estimated 47 mL/min (50-200); Estimated Glomerular Filt Rate 80 ml/min (>60); GFR (African American) 97 ML/MIN (>60); Globulin 2.5 g/dL (1.3-3.2); Glucose 79 mg/dl (74-100); Total Protein,Serum 6.5 g/dl (6.3-8.2)
[2021-06-04 14:01] LABS: Basophils # 0.1 K/mm3 (0-0.2); Basophils % 1.1 % (0.1-2.0); Eosinophils % 0.5 % (0.1-12.0); Hematocrit 40.4 % (37.0-47.0); Hemoglobin 13.2 g/dL (12.2-16.2); Lymphocytes # 2.3 K/mm3 (0.7-4.5); Lymphocytes % 31.2 % (10-50); Mean Corpuscular HGB Conc 32.6 g/dL (31.8-35.4); Mean Corpuscular Hemoglobin 30.9 pg (27.0-31.2); Mean Corpuscular Volume 94.6 fl (81-99); Mean Platelet Volume 7.6 fl (7.4-10.4); Monocytes # 0.7 K/mm3 (0.1-1.0); Monocytes % 9.6 % (1.7-9.3); Neutrophils # 4.2 K/mm3 (1.8-7.8); Neutrophils % 57.7 % (37.0-80.0); Platelet Count 240 K/mm3 (142-424); Red Blood Count 4.27 M/mm3 (4.20-5.40); Red Cell Distribution Width 13.9 % (11.5-17.5); White Blood Count 7.4 K/mm3 (4.8-10.8)
[2021-06-04 14:40] LABS: Erythrocyte Sedimentation Rate 23 mm/hr (0-30)
[2021-06-06 09:14] LABS: CEA 3.1 ng/mL (0.0-4.7)
== END 2021-06-04 13:35 | disposition home or self-care (01) ==
LOC: INF 13:20
PROVIDERS: PCP Internal Medicine Adolescent Medicine; Visit Provider Internal Medicine Medical Oncology
DX: C18.9 Malignant neoplasm of colon, unspecified (principal)
CPT/HCPCS: 80053; 82378; 85025; 85651; J1642

== ENCOUNTER 2021-07-30 12:18 | Outpatient (CLI) | payer MEDICARE, OTHER, SELFPAY ==
[2021-07-30 12:24] VITALS: BMI 24.8
[2021-07-30 12:47] LABS: Basophils # 0.1 K/mm3 (0-0.2); Basophils % 1.6 % (0.1-2.0); Chloride 107 mmol/L (98-107); Eosinophils # 0.1 K/mm3 (0.0-0.4); Hematocrit 39.8 % (37.0-47.0); Hemoglobin 13.1 g/dL (12.2-16.2); Lymphocytes # 1.7 K/mm3 (0.7-4.5); Lymphocytes % 38.1 % (10-50); Mean Corpuscular Hemoglobin 30.1 pg (27.0-31.2); Mean Corpuscular Volume 91.3 fl (81-99); Mean Platelet Volume 8.3 fl (7.4-10.4); Monocytes # 0.5 K/mm3 (0.1-1.0); Monocytes % 11.2 % (1.7-9.3); Neutrophils # 2.1 K/mm3 (1.8-7.8); Neutrophils % 48.1 % (37.0-80.0); Platelet Count 239 K/mm3 (142-424); Red Blood Count 4.36 M/mm3 (4.20-5.40); Red Cell Distribution Width 13.2 % (11.5-17.5); White Blood Count 4.5 K/mm3 (4.8-10.8)
[2021-07-30 12:48] LABS: Potassium 4.3 mmoL/L (3.5-5.1); Sodium 138 mmol/L (136-145)
[2021-07-30 12:50] LABS: Alanine Aminotransferase 20 U/L (12-78); Albumin Level 3.8 g/dl (3.5-5.0); Albumin/Globulin Ratio 1.6 (1.1-1.8); Alkaline Phosphatase 85 U/L (38-126); Anion Gap 9.3 mEq/L (5-15); Aspartate Amino Transferase 28 U/L (14-36); Bilirubin,Total 0.6 mg/dl (0.2-1.3); Blood Urea Nitrogen 20 mg/dl (7-17); Calcium 9.2 mg/dl (8.4-10.2); Carbon Dioxide 26 mmol/L (22.0-30.0); Creatinine Clearance Estimated 49 mL/min (50-200); Estimated Glomerular Filt Rate 80 ml/min (>60); GFR (African American) 97 ML/MIN (>60); Globulin 2.4 g/dL (1.3-3.2); Glucose 110 mg/dl (74-100); Total Protein,Serum 6.2 g/dl (6.3-8.2)
== END 2021-07-30 12:42 | disposition home or self-care (01) ==
LOC: INF 12:20
PROVIDERS: PCP Internal Medicine Adolescent Medicine; Visit Provider Internal Medicine Medical Oncology
DX: C18.9 Malignant neoplasm of colon, unspecified (principal); Z45.2 Encounter for adjustment and management of vascular access device
CPT/HCPCS: 80053; 85025; J1642

== ENCOUNTER 2021-08-20 11:00 | Outpatient (RCR) | payer MEDICARE, OTHER, SELFPAY ==
--- NOTE | 2021-05-25 12:13 | HMH.PTOPEV ---
PT Outpatient Evaluation Rehab PT Outpatient Evaluation Start: 05/25/21 11:21 Freq: Status: Active Protocol: Document 05/25/21 11:21 TRENT (Rec: 05/25/21 12:12 TRENT [id number]) Electronically Signed By Wilbert Painting, PT 05/25/21 11:21 Outpatient Therapy Subjective History Subjective History Pt reports generalized weakness since taking chemo rx last August, 'it really just took everything out of me'. Pt reports h/o chronic LBP, s/p lumbar fusion ~3 yrs ago, left side > right side LBP, no radicular s/s. Pt reports recent progress w/standing endurance and transition away from RW, to no A.D. Chief Complaint Pain,Weakness Symptom Type Ache,Dull Symptoms Relieved By Rest/Positioning,Heat Symptoms Aggravated By Standing,Physical Activity, Walking Prior Functional Limitations Housework,Standing,Walking Current Functional Limitations Housework,Standing,Walking Symptom Description Constant but Variable Level of pain today (0-10) 5 Pain scale - at its best (0-10) 4 Pain scale - at its worst (0-10) 7 Lumbopelvic Eval Posture Thoracic Spine Posture Standing Position Flattened Lumbar Spine Posture Standing Position Flattened Assistive device Assistive Devices None / NA Gait Observation General Gait Pattern Observation Ataxic Gait,Shuffling Step Palapation tenderness right lumbar spinal tenderness Yes: 1/4 paraspinal tenderness Yes: 2/4 buttock tenderness Yes: 1/4 Lumbar/Sacral Palpation Findings Tenderness left lumbar spinal tenderness Yes: 3/4 paraspinal tenderness Yes: 3/4 buttock tenderness Yes: 2/4 Lumbar/Sacral Palpation Findings Tenderness Accessory Movement L-spine Vertebrae Accessory Movements Central P/A [place] that Elicit Symptoms L3 left L4 left L5 left Range of Motion Lumbar Spine Active Flexion Range of 0-41 Motion (degrees) Lumbar Spine Active Extension Range of 0-16 Motion (degrees) Left Lumbar Spine Lateral Flexion Active 0-21 Range of Motion (degrees) Right Lumbar Spine Lateral Flexion 0-23 Active Range of Motion (degrees) Lumbar Spine ROM Limitations Pain Manual Muscle Test Bilateral Knee Extension Strength Grade 4- Good- Knee Flexion Strength Grade 4- Good- Hip Flexion Strength Grade 3+ Fair+ Hip Abduction Strength Grade
--- NOTE | 2021-06-22 11:42 | HMH.RHREAS ---
Rehab Reassessment Rehab OP Re-assessment Start: 06/22/21 11:29 Freq: Status: Active Protocol: Document 06/22/21 11:29 [place] (Rec: 06/22/21 11:39 TRENT [id number]) Electronically Signed By Wilbert Painting, PT 06/22/21 11:29 Rehab Re-assessment Subjective Subjective Pt reports improved strength since I eval, and 0/10 LBP on VAS this am, 5/10 LBP with activity on VAS. Objective Objective Notes MMT: BRENDA. HIP FLX 4/5, B HIP ABD 4-/5, B HIP ADD4/5, B HIP EXT 4/5, B KNEE EXT,FLX 4-4+/5 TTP: LEFT LUMBAR PARA 2/4, LUMBAR L4-5 SP 2/4, RIGHT LUMBAR PARA 1/4 AROM: LUMBAR SPINE AROM FLX 0- 45, EXT 0-25, B SB 0-25 Assessment Progress Assessment Progressing as Expected Assessment Notes IMPROVED STRENGTH, TTP, ROM, ENDURANCE Patient goals met STG'S 08/02 LTG'S 06/03 Goals Not Met STG'S 06/02, LTG'S 09/03 Plan Plan Pt to continue w/skilled P.T. to make further improvements in bilateral LE strength, endurance, AROM, and TTP to allow for optimal function Frequency of Therapy 2-3x/wk Duration of therapy 6-8wks Time and Billing Re-Eval Time 11 Re-Eval Billing Units 0 PHYSICIAN CERTIFICATION: I certify the specified therapy services for Viridiana Rodriguez are required, authorized, and reviewed every 30 days.
--- NOTE | 2021-07-21 15:21 | HMH.RHREAS ---
Rehab Reassessment Rehab OP Re-assessment Start: 06/22/21 11:29 Freq: Status: Active Protocol: Document 07/21/21 13:40 TRENT (Rec: 07/21/21 15:21 TRENT [id number]) Electronically Signed By Wilbert Painting, PT 07/21/21 13:40 Rehab Re-assessment Subjective Subjective Pt reports LBP exacerbation over the last week (missed multiple appts d/t pain), however, reports 0/10 LBP on VAS this pm. Pt reports 70% improvement overall since I eval, and 'when I'm feeling good, like this weekend, I can be up on my feet for 2-3 hours'. Objective Objective Notes MMT: BRENDA. HIP FLX 4/5, B HIP ABD 4/5, B HIP ADD 4/5, B HIP EXT 4/5, B KNEE EXT,FLX 4+/5 TTP: LEFT LUMBAR PARA 1/4, LUMBAR L4-5 SP 1/4, RIGHT LUMBAR PARA 1/4 AROM: LUMBAR SPINE AROM FLX 0- 51, EXT 0-28, R SB 0-27, L SB 0-31 Assessment Progress Assessment Progressing as Expected Assessment Notes SIGNIFICANT IMPROVEMENT IN FUNCTIONAL STRENGTH AND ENDURANCE SINCE I EVAL Patient goals met STG'S 11/02 LTG'S 09/03 Goals Not Met LTG'S 06/03 Plan Plan Pt to continue w/skilled P.T. to make further improvements in bilateral LE strength, endurance, AROM, and TTP to allow for optimal function Frequency of Therapy 2-3X/WK Duration of therapy 2-4WKS Time and Billing Re-Eval Time 12 Re-Eval Billing Units 1 PHYSICIAN CERTIFICATION: I certify the specified therapy services for Viridiana Rodriguez are required, authorized, and reviewed every 30 days.
== END 2021-08-20 11:05 | disposition home or self-care (01) ==
LOC: PT 11:00
PROVIDERS: PCP Internal Medicine Adolescent Medicine; Visit Provider Internal Medicine Adolescent Medicine
DX: M54.50 Low back pain, unspecified (principal)
CPT/HCPCS: 97010; 97014; 97110; 97112; 97163; 97164; G0283

== ENCOUNTER 2021-09-23 08:28 | Outpatient (CLI) | payer MEDICARE, OTHER, SELFPAY ==
[2021-09-23 08:33] VITALS: BMI 25.0
--- NOTE | 2021-09-23 08:49 | CT_ITS ---
FINAL REPORT CLINICAL HISTORY: COLON CANCER COMPARISON: April 24, 2021 FINDINGS: Axial CT images of the chest were obtained with contrast. Coronal reformatted images were also obtained. This study was performed with techniques to keep radiation doses as low as reasonably achievable, (ALARA). Individualized dose reduction techniques using automated exposure control or adjustment of mA and/or KV according to the patient's size were employed. There is a left subclavian chest port present. There is no evidence of mediastinal or hilar mass or adenopathy.No axillary mass or adenopathy is identified. On lung window images, no pulmonary mass or dominant pulmonary nodule is identified. There is mild scarring. There are postoperative changes of the right anterior chest wall. IMPRESSION: No mass or localized inflammatory process. Reviewed, Interpreted and Dictated by Prasanth Etienne III, MD Transcribed by Ariella Galeas Authenticated and [facility]
--- NOTE | 2021-09-23 08:49 | CT_ITS ---
FINAL REPORT CLINICAL HISTORY: COLON CANCER FINDINGS: CT OF THE ABDOMEN AND PELVIS WITH CONTRAST Axial CT images of the abdomen and pelvis were obtained after the administration of iv contrast. Coronal reformatted images were also obtained and reviewed.This study was performed with techniques to keep radiation doses as low as reasonably achievable (ALARA). Individualized dose reduction techniques using automated exposure control or adjustment of mA and/or kV according to the patient's size were employed. Abdomen: The liver has an unremarkable appearance, without evidence of mass or biliary ductal dilatation. There are multiple gallstones in the gallbladder. There is gallbladder wall thickening. Cholecystitis is not excluded. The spleen is unremarkable. No adrenal mass is present. The pancreas has an unremarkable appearance. There are small bilateral renal cysts. The aorta is normal in caliber. There is no free fluid or adenopathy. Pelvis: The appendix is not visualized. The urinary bladder is unremarkable. No inflammatory process is seen. There is no evidence of mass or adenopathy. There is no evidence of bowel obstruction. Multiple diverticula seen in the sigmoid colon. There are postoperative changes of the right lower quadrant. There are postoperative changes of the lower lumbar spine. IMPRESSION: Cholelithiasis with gallbladder wall thickening, cholecystitis is not excluded. If indicated nuclear medicine hepatobiliary scan recommended. No mass or adenopathy to suggest neoplastic involvement. Reviewed, Interpreted and Dictated by Prasanth Etienne III, MD Transcribed by Ariella Galeas Authenticated and [facility]
[2021-09-23 08:51] LABS: Basophils % 0.9 % (0.1-2.0); Eosinophils # 0.1 K/mm3 (0.0-0.4); Eosinophils % 1.8 % (0.1-12.0); Hematocrit 38.3 % (37.0-47.0); Hemoglobin 13.2 g/dL (12.2-16.2); Lymphocytes # 1.8 K/mm3 (0.7-4.5); Lymphocytes % 42.8 % (10-50); Mean Corpuscular HGB Conc 34.5 g/dL (31.8-35.4); Mean Corpuscular Hemoglobin 29.7 pg (27.0-31.2); Mean Corpuscular Volume 85.9 fl (81-99); Mean Platelet Volume 7.3 fl (7.4-10.4); Monocytes # 0.5 K/mm3 (0.1-1.0); Monocytes % 11.3 % (1.7-9.3); Neutrophils # 1.8 K/mm3 (1.8-7.8); Neutrophils % 43.2 % (37.0-80.0); Platelet Count 196 K/mm3 (142-424); Red Blood Count 4.45 M/mm3 (4.20-5.40); White Blood Count 4.2 K/mm3 (4.8-10.8)
[2021-09-23 08:58] LABS: Chloride 106 mmol/L (98-107)
[2021-09-23 08:59] LABS: Potassium 4.1 mmoL/L (3.5-5.1); Sodium 140 mmol/L (136-145)
[2021-09-23 09:01] LABS: Alanine Aminotransferase 22 U/L (12-78); Alkaline Phosphatase 83 U/L (38-126); Aspartate Amino Transferase 32 U/L (14-36); Bilirubin,Total 0.8 mg/dl (0.2-1.3); Blood Urea Nitrogen 13 mg/dl (7-17); Creatinine Clearance Estimated 49 mL/min (50-200); Estimated Glomerular Filt Rate 69 ml/min (>60); GFR (African American) 83 ML/MIN (>60)
[2021-09-23 09:02] LABS: Albumin Level 4.2 g/dl (3.5-5.0); Albumin/Globulin Ratio 1.7 (1.1-1.8); Anion Gap 9.1 mEq/L (5-15); Calcium 9.4 mg/dl (8.4-10.2); Carbon Dioxide 29 mmol/L (22.0-30.0); Globulin 2.5 g/dL (1.3-3.2); Glucose 105 mg/dl (74-100); Total Protein,Serum 6.7 g/dl (6.3-8.2)
== END 2021-09-23 09:50 | disposition home or self-care (01) ==
LOC: INF 08:29
PROVIDERS: PCP Internal Medicine Adolescent Medicine; Visit Provider Internal Medicine Medical Oncology
DX: C18.9 Malignant neoplasm of colon, unspecified (principal)
CPT/HCPCS: 36591; 71260; 74177; 80053; 82378; 85025; J1642; Q9967

== ENCOUNTER 2021-10-26 11:04 | Outpatient (CLI) | payer MEDICARE, OTHER, SELFPAY ==
[2021-10-26 11:10] VITALS: BMI 22.7
--- NOTE | 2021-10-26 11:11 | XR_ITS ---
FINAL REPORT CLINICAL HISTORY: febrile illness FINDINGS: A single portable view of the chest was obtained. A left subclavian chest port is present. The heart size and pulmonary vascularity are within normal limits. The mediastinum is within normal limits. No acute pulmonary abnormality is identified. There is mild scarring. The bony thorax is intact. IMPRESSION: No active cardiopulmonary disease. Reviewed, Interpreted and Dictated by Prasanth Etienen III, MD Transcribed by Shavon Fatima Authenticated and . [facility]
--- NOTE | 2021-10-26 11:18 | PC.NURSE ---
1118-rad her for portable chest xray
[2021-10-26 11:29] LABS: Microscopic, Urine URINE MICROSCOPIC (MICROSCOPIC)
[2021-10-26 11:32] LABS: Basophils # 0.1 K/mm3 (0-0.2); Basophils % 1.5 % (0.1-2.0); Eosinophils # 0.1 K/mm3 (0.0-0.4); Eosinophils % 0.9 % (0.1-12.0); Hematocrit 40.8 % (37.0-47.0); Hemoglobin 13.3 g/dL (12.2-16.2); Lymphocytes % 31.5 % (10-50); Mean Corpuscular HGB Conc 32.5 g/dL (31.8-35.4); Mean Corpuscular Hemoglobin 29.7 pg (27.0-31.2); Mean Corpuscular Volume 91.3 fl (81-99); Monocytes # 0.6 K/mm3 (0.1-1.0); Monocytes % 9.7 % (1.7-9.3); Neutrophils # 3.7 K/mm3 (1.8-7.8); Neutrophils % 56.4 % (37.0-80.0); Platelet Count 248 K/mm3 (142-424); Red Blood Count 4.47 M/mm3 (4.20-5.40); Red Cell Distribution Width 14.4 % (11.5-17.5); White Blood Count 6.5 K/mm3 (4.8-10.8)
[2021-10-26 11:36] LABS: Appearance,Urine CLEAR (Clear); Bilirubin,Urine Negative (Negative); Blood, Urine Negative (Negative); Color,Urine YELLOW (Yellow); Glucose,Urine (UA) Negative (Negative); Ketones,Urine Negative (Negative); Leukocyte Esterase,Urine Negative (Negative); Nitrate,Urine Negative (Negative); PH,Urine 6.5 (5.0-8.5); Protein,Urine Negative (Negative); Urobilinogen,Urine 0.2 EU/dl (0.2)
[2021-10-26 11:37] LABS: Chloride 107 mmol/L (98-107); Potassium 3.5 mmoL/L (3.5-5.1); Sodium 140 mmol/L (136-145)
[2021-10-26 11:39] LABS: Blood Urea Nitrogen 11 mg/dl (7-17)
[2021-10-26 11:40] LABS: Alanine Aminotransferase 20 U/L (12-78); Albumin Level 4.2 g/dl (3.5-5.0); Albumin/Globulin Ratio 1.4 (1.1-1.8); Alkaline Phosphatase 123 U/L (38-126); Anion Gap 11.5 mEq/L (5-15); Aspartate Amino Transferase 31 U/L (14-36); Bilirubin,Total 0.8 mg/dl (0.2-1.3); Calcium 9.6 mg/dl (8.4-10.2); Carbon Dioxide 25 mmol/L (22.0-30.0); Creatinine Clearance Estimated 45 mL/min (50-200); Estimated Glomerular Filt Rate 69 ml/min (>60); GFR (African American) 83 ML/MIN (>60); Globulin 2.9 g/dL (1.3-3.2); Glucose 99 mg/dl (74-100); Total Protein,Serum 7.1 g/dl (6.3-8.2)
[2021-10-26 12:00] LABS: Squamous Epithelial Cell,Urine Occasional #/hpf (0-5)
== END 2021-10-26 11:20 | disposition home or self-care (01) ==
PROVIDERS: PCP Internal Medicine Adolescent Medicine; Visit Provider Internal Medicine Adolescent Medicine
DX: R50.9 Fever, unspecified (principal); Z45.2 Encounter for adjustment and management of vascular access device
CPT/HCPCS: 36591; 71045; 80053; 81001; 85025; J1642

== ENCOUNTER 2021-12-07 14:13 | Outpatient (CLI) | payer MEDICARE, OTHER, SELFPAY | END 2021-12-07 14:30 | disposition home or self-care (01) | PROVIDERS: PCP Internal Medicine Adolescent Medicine; Visit Provider Internal Medicine Medical Oncology | DX: Z45.2 Encounter for adjustment and management of vascular access device (principal); C18.9 Malignant neoplasm of colon, unspecified | CPT/HCPCS: 96523; J1642 ==

== ENCOUNTER 2022-01-14 11:49 | Outpatient (CLI) | payer MEDICARE, OTHER, SELFPAY ==
[2022-01-14 11:56] VITALS: BMI 24.2
[2022-01-14 12:18] LABS: Basophils # 0.1 K/mm3 (0-0.2); Basophils % 1.4 % (0.1-2.0); Eosinophils % 0.8 % (0.1-12.0); Hematocrit 40.3 % (37.0-47.0); Lymphocytes # 1.5 K/mm3 (0.7-4.5); Lymphocytes % 31.5 % (10-50); Mean Corpuscular HGB Conc 32.3 g/dL (31.8-35.4); Mean Corpuscular Hemoglobin 29.3 pg (27.0-31.2); Mean Corpuscular Volume 90.8 fl (81-99); Mean Platelet Volume 7.5 fl (7.4-10.4); Monocytes # 0.5 K/mm3 (0.1-1.0); Monocytes % 10.5 % (1.7-9.3); Neutrophils # 2.7 K/mm3 (1.8-7.8); Neutrophils % 55.7 % (37.0-80.0); Platelet Count 245 K/mm3 (142-424); Red Blood Count 4.44 M/mm3 (4.20-5.40); Red Cell Distribution Width 14.6 % (11.5-17.5); White Blood Count 4.8 K/mm3 (4.8-10.8)
[2022-01-14 12:30] LABS: Alanine Aminotransferase 21 U/L (12-78); Albumin/Globulin Ratio 1.5 (1.1-1.8); Alkaline Phosphatase 103 U/L (38-126); Anion Gap 15.4 mEq/L (5-15); Aspartate Amino Transferase 33 U/L (14-36); Bilirubin,Total 0.7 mg/dl (0.2-1.3); Blood Urea Nitrogen 21 mg/dl (7-17); Calcium 8.7 mg/dl (8.4-10.2); Carbon Dioxide 26 mmol/L (22.0-30.0); Chloride 102 mmol/L (98-107); Creatinine Clearance Estimated 47 mL/min (50-200); Estimated Glomerular Filt Rate 69 ml/min (>60); GFR (African American) 83 ML/MIN (>60); Globulin 2.7 g/dL (1.3-3.2); Glucose 107 mg/dl (74-100); Potassium 4.4 mmoL/L (3.5-5.1); Sodium 139 mmol/L (136-145); Total Protein,Serum 6.7 g/dl (6.3-8.2)
[2022-01-15 09:14] LABS: CEA 4.3 ng/mL (0.0-4.7)
== END 2022-01-14 12:05 | disposition home or self-care (01) ==
LOC: INF 11:51
PROVIDERS: PCP Internal Medicine Adolescent Medicine; Visit Provider Internal Medicine Medical Oncology
DX: C18.9 Malignant neoplasm of colon, unspecified (principal); Z45.2 Encounter for adjustment and management of vascular access device
CPT/HCPCS: 36591; 80053; 82378; 85025; J1642

== ENCOUNTER 2022-04-05 02:16 | Inpatient (IN) | payer MEDICARE, OTHER, SELFPAY ==
[2022-04-05] VITALS (14 sets, daily range): BP systolic 93–158; BP diastolic 51–98; PULSE 49–108; RESP 16–24; TEMP 36.5–36.9; O2SAT 92–100; BMI 24.2
--- NOTE | 2022-04-05 02:32 | ECG_ITS ---
APPROVED REPORT Exam: Resting ECG HR:81 bpm ECG Measurements Heart Rate 81 AXES AL 209 P 52 QRSd 96 QRS 66 QT 421 T 91 QTc 458 Conclusion SINUS RHYTHM SEPTAL MYOCARDIAL INFARCTION , OF INDETERMINATE AGE [40+ ms Q WAVE IN V1/V2] ABNORMAL ECG UNCONFIRMED REPORT Electronically signed by : Froilan Priest MD 04/05/2022 19:23:40
--- NOTE | 2022-04-05 02:32 | XR_ITS ---
PROCEDURE INFORMATION: Exam: XR Chest Exam date and time: 04/05/2022 3:02 AM Age: 81 years old Clinical indication: Pain; Chest pressure; Additional info: Epigastric pain TECHNIQUE: Imaging protocol: Radiologic exam of the chest. Views: 1 view. COMPARISON: CR XR CHEST PORTABLE 10/26/2021 11:14 AM FINDINGS: Tubes, catheters and devices: Left subclavian port type catheter tip projects over the brachiocephalic confluence. Lungs: Clear lung parenchyma. Pleural spaces: Unremarkable. No pleural effusion. No pneumothorax. Heart/Mediastinum: Heart size is normal on CT. Prominence of the cardiac silhouette on plain film likely reflects positioning and prominent epicardial fat. Bones/joints: Unremarkable. IMPRESSION: No acute cardiopulmonary abnormality. Apparent enlargement of the cardiac silhouette is artifactual from prominent epicardial fat and positioning.
--- NOTE | 2022-04-05 02:34 | CT_ITS ---
PROCEDURE INFORMATION: Exam: CT Abdomen And Pelvis Without Contrast Exam date and time: 04/05/2022 2:45 AM Age: 81 years old Clinical indication: Abdominal pain; Epigastric TECHNIQUE: Imaging protocol: Computed tomography of the abdomen and pelvis without contrast. Radiation optimization: All CT scans at this facility use at least one of these dose optimization techniques: automated exposure control; mA and/or kV adjustment per patient size (includes targeted exams where dose is matched to clinical indication); or iterative reconstruction. COMPARISON: CT CHEST W CON 09/23/2021 9:29 AM FINDINGS: Lungs: Clear basilar lung parenchyma. Pleural spaces: No pleural fluid. Heart: Normal heart size. Liver: Normal configuration. Homogeneous parenchyma. Gallbladder and bile ducts: Cholelithiasis noted. Several gallstones are situated in the gallbladder neck. No wall thickening or pericholecystic fluid. Normal caliber common duct. Pancreas: Severe fatty atrophy of the pancreas. Spleen: Normal. No splenomegaly. Adrenal glands: Normal configuration. Kidneys and ureters: No evidence of obstruction. No visible inflammation. Stomach and bowel: Prior ileo colic resection and anastomosis. Minimal distal colonic diverticulosis without evidence of acute diverticulitis. Postprandial stomach. Normal caliber small bowel. Appendix: Appendix is surgically absent. Intraperitoneal space: No free air. No significant fluid collection. Vasculature: Normal caliber arterial structures. Lymph nodes: No enlarged lymph nodes. Urinary bladder: Unremarkable as visualized. Reproductive: Physiologic appearance for age. Bones/joints: Prior posterior element fusion procedure at L4-L5. No acute bony abnormality. Soft tissues: Prior right mastectomy. Rectus diastasis. Varices noted in the right proximal thigh. IMPRESSION: Exam demonstrates cholelithiasis. Several gallstones are situated in the gallbladder neck but there is no convincing gallbladder inflammatory change. Regardless, the stones may be symptomatic. Correlate with any findings of biliary colic.
[2022-04-05 02:39] LABS: Basophils # 0.1 K/mm3 (0-0.2); Basophils % 0.7 % (0.1-2.0); Eosinophils # 0.1 K/mm3 (0.0-0.4); Eosinophils % 0.4 % (0.1-12.0); Hematocrit 43.8 % (37.0-47.0); Hemoglobin 14.8 g/dL (12.2-16.2); Lymphocytes # 1.7 K/mm3 (0.7-4.5); Lymphocytes % 14.1 % (10-50); Mean Corpuscular HGB Conc 33.8 g/dL (31.8-35.4); Mean Corpuscular Hemoglobin 30.1 pg (27.0-31.2); Mean Platelet Volume 7.7 fl (7.4-10.4); Monocytes # 0.5 K/mm3 (0.1-1.0); Monocytes % 4.5 % (1.7-9.3); Neutrophils # 9.4 K/mm3 (1.8-7.8); Neutrophils % 80.2 % (37.0-80.0); Platelet Count 252 K/mm3 (142-424); Red Blood Count 4.92 M/mm3 (4.20-5.40); Red Cell Distribution Width 13.7 % (11.5-17.5); White Blood Count 11.7 K/mm3 (4.8-10.8)
[2022-04-05 02:48] LABS: Chloride 100 mmol/L (98-107); Sodium 138 mmol/L (136-145)
[2022-04-05 02:49] LABS: Potassium 4.1 mmoL/L (3.5-5.1)
[2022-04-05 02:51] LABS: Alanine Aminotransferase 32 U/L (12-78); Alkaline Phosphatase 112 U/L (38-126); Amylase 79 U/L (30-110); Anion Gap 20.1 mEq/L (5-15); Aspartate Amino Transferase 36 U/L (14-36); Blood Urea Nitrogen 20 mg/dl (7-17); Calcium 9.9 mg/dl (8.4-10.2); Carbon Dioxide 22 mmol/L (22.0-30.0); Creatinine Clearance Estimated 47 mL/min (50-200); Estimated Glomerular Filt Rate 60 ml/min (>60); GFR (African American) 73 ML/MIN (>60); Glucose 124 mg/dl (74-100); Lipase 21 U/L (23-300)
[2022-04-05 02:52] LABS: Albumin Level 5.3 g/dl (3.5-5.0); Albumin/Globulin Ratio 1.4 (1.1-1.8); Globulin 3.8 g/dL (1.3-3.2); Total Protein,Serum 9.1 g/dl (6.3-8.2)
--- NOTE | 2022-04-05 02:54 | HMH.EDABDPAI ---
Discharge Plan Disposition Patient Disposition: Admitted As Inpatient Chief Complaint: Abdominal Pain Prescriptions Prescriptions: No Action pravastatin 40 mg tablet 40 mg PO HS levothyroxine 25 MCG tablet 25 mcg PO DAILY apixaban 5 MG tablet 5 mg PO BID acetaminophen 325 MG tablet 650 mg PO Q4HP PRN (Reason: Fever Or Mild Pain) 0RF amiodarone 100 MG tablet 200 mg PO DAILY omeprazole 20 mg Capsule,Delayed Release(Dr/Ec) 20 mg PO DAILY Referrals Follow up/Referrals: Froilan Priest MD [Primary Care Provider] - See instructions Clinical Impressions Clinical Impression: Cholelithiasis Instructions Patient Instructions: DI for Acute Abdominal Pain Discharge ED Provider: Ovi Traylor Abdominal Pain HPI General Chief Complaint: Abdominal Pain Stated Complaint: Severe upper stomach pain Time Seen by Provider: 04/05/22 02:54 Mode of Arrival: Wheelchair Source of Information: Patient, Spouse and Medical Record Limitations: No Limitations Description of Symptoms (Recalled from ER Triage Doc. by RN): pt c/o epigastric pain that started @ 7pm History of Present Illness HPI narrative: progressive upper abd pain with nausea - complaint: abdominal pain Onset (ago): hour(s) Consistency: constant Location: RUQ and epigastric Severity: moderate Quality: sharp Related Data Home Medications Medication Instructions Recorded Confirmed amiodarone 100 mg tablet 200 mg PO DAILY Heart rate 10/10/18 04/05/22 levothyroxine 25 mcg tablet 25 mcg PO DAILY Hypothyroidism 12/11/19 04/05/22 pravastatin 40 mg tablet 40 mg PO HS Cholesterol 12/31/19 04/05/22 apixaban 5 mg tablet 5 mg PO BID Blood thinner 01/12/21 04/05/22 omeprazole 20 mg capsule,delayed 20 mg PO DAILY GERD 04/05/22 04/05/22 release Previous Rx's Medication Instructions Recorded acetaminophen 325 mg tablet 650 mg PO Q4HP PRN Fever Or Mild 02/13/21 Pain Allergies Allergy/AdvReac Type Severity Reaction Status Date / Time corn [From CORN (FOOD/DRUG)] Allergy Mild COUGH Verified 01/14/22 12:28 egg [From EGGS (FOOD/DRUG)] Allergy Mild COUGH Verified 01/14/22 12:28 lactose Allergy Mild COUGH Verified 01/14/22 12:28 [From DAIRY FOODS (FOOD/DRUG)] soy Allergy Mild COUGH Verified 01/14/22 12:28 wheat Allergy Mild COUGH Verified 01/14/22 12:28 [facility] Disclaimer: The information contained in this section may have been updated after the patient was seen, as this information can be updated by other users. Medical History (Updated 04/05/22 @ 04:07 by Ovi Traylor MD) Anemia Hypothyroidism Social History Smoking Status: Never smoker second hand exposure: Yes alcohol intake: never substance use type: denies use current occupational status: retired Travel in the last 8 weeks: None household members: spouse housing: house current occupational exposures/hazards: No caffeine: Yes ROS Obtained: Yes All systems reviewed & no additional complaints except as documented Physical Exam General General appearance: alert Head Head exam: normocephalic Eye Eye exam: Present PERRL and EOMI ENT ENT exam: Present mucous membranes moist Neck Neck exam: Present trachea midline Respiratory Respiratory exam: Present normal lung sounds bilaterally Cardiovascular Cardiovascular exam: Present regular rate, systolic murmur and +S4 Abdominal Exam Abdominal exam: Present soft, tenderness and Florez's sign; Absent guarding, rebound or rigidity Abdominal tenderness: Present RUQ, epigastrium and moderate Extremities Exam Extremities exam: Present full ROM; Absent calf tenderness Neurological Exam Neurological exam: Present alert, oriented X3 and CN II-XII intact; Absent motor sensory deficit Psychiatric Psychiatric exam: Present normal affect Skin Skin exam: Absent rash Medical Decision Making Medical Records Medical records
[2022-04-05 03:04] LABS: Troponin I 0.07 ng/ml (0.00-0.034)
[2022-04-05 03:12] LABS: Lactic Acid 2.7 mmol/L (0.7-2.1)
[2022-04-05 03:25] LABS: Coronavirus 19, PCR Not Detected (NotDetected); Influenza A, PCR Not Detected (NotDetected); Influenza B, PCR Not Detected (NotDetected)
[2022-04-05 03:32] LABS: Microscopic, Urine URINE MICROSCOPIC (MICROSCOPIC)
--- NOTE | 2022-04-05 03:56 | PC.NURSE ---
paged dr louie @ this time
[2022-04-05 04:08] LABS: Appearance,Urine CLEAR (Clear); Bilirubin,Urine Negative (Negative); Blood, Urine 1+ (Negative); Color,Urine YELLOW (Yellow); Glucose,Urine (UA) Negative (Negative); Ketones,Urine 1+ (Negative); Leukocyte Esterase,Urine Negative (Negative); Nitrate,Urine Negative (Negative); PH,Urine 5.5 (5.0-8.5); Protein,Urine 1+ (Negative); Specific Gravity, Urine 1.025 (1.005-1.030); Urobilinogen,Urine 0.2 EU/dl (0.2)
[2022-04-05 04:43] LABS: WBC,Urine Occasional #/hpf (0-3)
[2022-04-05 06:08] LABS: Basophils # 0.1 K/mm3 (0-0.2); Basophils % 0.6 % (0.1-2.0); Eosinophils # 0.1 K/mm3 (0.0-0.4); Eosinophils % 0.7 % (0.1-12.0); Hematocrit 38.9 % (37.0-47.0); Lymphocytes # 1.1 K/mm3 (0.7-4.5); Lymphocytes % 9.7 % (10-50); Mean Corpuscular HGB Conc 33.3 g/dL (31.8-35.4); Mean Corpuscular Volume 90.1 fl (81-99); Mean Platelet Volume 7.2 fl (7.4-10.4); Monocytes # 0.6 K/mm3 (0.1-1.0); Monocytes % 5.1 % (1.7-9.3); Neutrophils # 9.1 K/mm3 (1.8-7.8); Neutrophils % 83.9 % (37.0-80.0); Platelet Count 208 K/mm3 (142-424); Red Blood Count 4.32 M/mm3 (4.20-5.40); Red Cell Distribution Width 13.6 % (11.5-17.5); White Blood Count 10.8 K/mm3 (4.8-10.8)
[2022-04-05 06:17] LABS: Alanine Aminotransferase 24 U/L (12-78); Albumin/Globulin Ratio 1.5 (1.1-1.8); Alkaline Phosphatase 75 U/L (38-126); Aspartate Amino Transferase 29 U/L (14-36); Bilirubin,Total 0.6 mg/dl (0.2-1.3); Blood Urea Nitrogen 17 mg/dl (7-17); Calcium 8.4 mg/dl (8.4-10.2); Carbon Dioxide 24 mmol/L (22.0-30.0); Chloride 105 mmol/L (98-107); Creatinine Clearance Estimated 47 mL/min (50-200); Estimated Glomerular Filt Rate 69 ml/min (>60); GFR (African American) 83 ML/MIN (>60); Globulin 2.6 g/dL (1.3-3.2); Glucose 116 mg/dl (74-100); Sodium 136 mmol/L (136-145); Total Protein,Serum 6.6 g/dl (6.3-8.2)
[2022-04-05 06:29] LABS: Troponin I 0.16 ng/ml (0.00-0.034)
--- NOTE | 2022-04-05 06:31 | EXP.SURG.CON ---
History of Present Illness *Admission Date: 04/05/22 *Reason for visit:: Abdominal pain *History of present illness: Patient is a 81-year-old female who has a history of metastatic colon cancer. She had undergone panendoscopy by Dr. 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 She has been followed by Dr. Barrera and has declined any additional chemotherapy due to side effects. She has remote history of breast cancer. She has a history of atrial fibrillation with rapid ventricular response, renal insufficiency, previous non-STEMI. She is on Eliquis. 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 She had presented to emergency department with significant upper abdominal pain in the epigastrium beginning approximately 7 PM on 04/04/2021. This was described as moderate, sharp, and constant. She had a CT scan performed without any contrast whatsoever which revealed gallstones but there was no evidence of any inflammatory change or radiographic evidence of acute cholecystitis. She was admitted for inpatient management due to ongoing pain and surgical consultation for gallbladder . She had a gallbladder ultrasound performed today which reveals findings of multiple gallstones with no evidence of biliary ductal dilatation. Patient describes ongoing pain of approximately 8 out of 10. She does state that she had previously been told about 10 years ago that she may need to have her gallbladder removed. Of note, she has had some significant weakness over the past couple of weeks. [facility] Disclaimer: The information contained in this section may have been updated after the patient was seen, as this information can be updated by other users. Medical History (Updated 04/05/22 @ 13:55 by Prasanth Vaughan MD) Anemia Breast cancer Hypothyroidism Social History (Updated 04/05/22 @ 10:35 by Marika Hill RN) Smoking Status: Never smoker second hand exposure: Yes alcohol intake: never substance use type: denies use current occupational status: retired Travel in the last 8 weeks: None household members: spouse housing: house current occupational exposures/hazards: No caffeine: Yes Meds Home Medications and Allergies Home Medications Medication Instructions Recorded Confirmed Type levothyroxine 25 mcg tablet 25 mcg PO DAILY Hypothyroidism 12/11/19 04/05/22 History pravastatin 40 mg tablet 40 mg PO HS Cholesterol 12/31/19 04/05/22 History apixaban 5 mg tablet 5 mg PO BID AFIB 01/12/21 04/05/22 History acetaminophen 325 mg tablet 650 mg PO Q4HP PRN Fever Or Mild 02/13/21 04/05/22 Rx Pain amiodarone 200 mg tablet 200 mg PO DAILY HEART RATE 04/05/22 04/05/22 History omeprazole 20 mg capsule,delayed 20 mg PO DAILY GERD 04/05/22 04/05/22 History release New Prescriptions to Start Prescriptions: Allergies Allergy/AdvReac Type Severity Reaction Status Date / Time corn [From CORN (FOOD/DRUG)] Allergy Mild COUGH Verified 01/14/22 12:28 egg [From EGGS (FOOD/DRUG)] Allergy Mild COUGH Verified 01/14/22 12:28 lactose Allergy Mild COUGH Verified 01/14/22 12:28 [From DAIRY FOODS (FOOD/DRUG)] soy Allergy Mild COUGH Verified 01/14/22 12:28 wheat Allergy Mild COUGH Verified 01/14/22 12:28 Exam (Inpt) Vital signs and Labs for Last 24 Hours: Temp Pulse Resp BP Pulse Ox 97.8 F 76 24 136/74 95 04/05/22 02:18 04/05/22 04:00 04/05/22 02:18 04/05/22 04:00 04/05/22 04:00 Laboratory Results - last 24 hr 04/05/22 02:30: WBC 11.7 H, RBC 4.92, Hgb 14.8, Hct 43.8, MCV 89.0, MCH 30.1, MCHC 33.8, RDW 13.7, Plt Count 252, MPV 7.7, Neut % (Auto) 80.2 H, Lymph % (Auto) 14.1, [place] % (Auto) 4.5, Eos % (Auto) 0.4, Baso % (Auto) 0.7, Neut # (Auto) 9.4 H, Lymph # (Auto) 1.7, [place] # (Auto) 0.5, Eos # (Auto) 0.1, Baso # (Auto) 0.1 04/05/22 02:30: Sodium 138, [place]
[2022-04-05 06:39] LABS: Reflex Lactic Add Lactic Reflex
[2022-04-05 07:29] LABS: Lactic Acid Follow Up (RFLX 1) 2.7 mmol/L (0.7-2.1)
--- NOTE | 2022-04-05 08:00 | US_ITS ---
FINAL REPORT CLINICAL HISTORY: abd pain/abn ct FINDINGS: Sonographic images of the right upper quadrant were obtained. The pancreas is partially obscured.The liver has an unremarkable appearance. There are multiple gallstones within the gallbladder. There is no evidence of biliary ductal dilatation.The common duct measures 3 mm. Limited images of the right kidney are unremarkable. IMPRESSION: Cholelithiasis. Reviewed, Interpreted and Dictated by Prasanth Etienne III, MD Transcribed by Linda Berman Authenticated and [facility]
[2022-04-05 09:11] LABS: Reflex Lactic (2 hrs) Add Lactic Reflex
--- NOTE | 2022-04-05 09:33 | EXP.HP ---
History of Present Illness *Admission Date: 04/05/22 *Reason for visit:: epigastric pain *History of present illness: Patient is a 81-year-old female who has a history of metastatic colon cancer. She had undergone panendoscopy by Dr. 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 She has been followed by Dr. Barrera and has declined any additional chemotherapy. She has remote history of breast cancer. She has a history of atrial fibrillation with rapid ventricular response, renal insufficiency, previous non-STEMI. She is on Eliquis. She had presented to emergency department with significant upper abdominal pain in the epigastrium beginning approximately 7 PM on 04/04/2021. This was described as moderate, sharp, and constant. She had a CT scan performed without any contrast whatsoever which revealed gallstones but there was no evidence of any inflammatory change or radiographic evidence of acute cholecystitis. She was admitted for inpatient management due to ongoing pain and surgical consultation for gallbladder . Above 2 paragraph's from surgery consult. Patient notes that she has had several episodes of this type of pain over the past several months. They come and go. Her tells me that she was recommended have her gallbladder out many years ago but she is put this off because of other issues. [facility] Disclaimer: The information contained in this section may have been updated after the patient was seen, as this information can be updated by other users. Medical History (Updated 04/05/22 @ 04:07 by Ovi Traylor MD) Anemia Hypothyroidism Social History Smoking Status: Never smoker second hand exposure: Yes alcohol intake: never substance use type: denies use current occupational status: retired Travel in the last 8 weeks: None household members: spouse housing: house current occupational exposures/hazards: No caffeine: Yes Review of Systems Review of Systems Review of systems:: pertinent systems reviewed and negative unless documented below Meds Home Medications and Allergies Home Medications Medication Instructions Recorded Confirmed Type amiodarone 100 mg tablet 200 mg PO DAILY Heart rate 10/10/18 04/05/22 History levothyroxine 25 mcg tablet 25 mcg PO DAILY Hypothyroidism 12/11/19 04/05/22 History pravastatin 40 mg tablet 40 mg PO HS Cholesterol 10/05/20 01/09/23 History apixaban 5 mg tablet 5 mg PO BID Blood thinner 01/12/21 04/05/22 History acetaminophen 325 mg tablet 650 mg PO Q4HP PRN Fever Or Mild 02/13/21 04/05/22 Rx Pain omeprazole 20 mg capsule,delayed 20 mg PO DAILY GERD 04/05/22 04/05/22 History release New Prescriptions to Start Prescriptions: Allergies Allergy/AdvReac Type Severity Reaction Status Date / Time corn [From CORN (FOOD/DRUG)] Allergy Mild COUGH Verified 01/14/22 12:28 egg [From EGGS (FOOD/DRUG)] Allergy Mild COUGH Verified 01/14/22 12:28 lactose Allergy Mild COUGH Verified 01/14/22 12:28 [From DAIRY FOODS (FOOD/DRUG)] soy Allergy Mild COUGH Verified 01/14/22 12:28 wheat Allergy Mild COUGH Verified 01/14/22 12:28 Exam Data for Last 24 hours Vital signs and Labs for Last 24 Hours: Temp Pulse Resp BP Pulse Ox 97.8 F 78 16 116/71 95 04/05/22 07:36 04/05/22 07:36 04/05/22 07:36 04/05/22 07:36 04/05/22 07:02 Laboratory Results - last 24 hr 04/05/22 02:30: WBC 11.7 H, RBC 4.92, Hgb 14.8, Hct 43.8, MCV 89.0, MCH 30.1, MCHC 33.8, RDW 13.7, Plt Count 252, MPV 7.7, Neut % (Auto) 80.2 H, Lymph % (Auto) 14.1, [place] % (Auto) 4.5, Eos % (Auto) 0.4, Baso % (Auto) 0.7, Neut # (Auto) 9.4 H, Lymph # (Auto) 1.7, [place] # (Auto) 0.5, Eos # (Auto) 0.1, Baso # (Auto) 0.1 04/05/22 02:30: Sodium 138, Potassium 4.1, Chloride 100, Carbon Dioxide 22, Anion Gap 20.1 H, BU
[2022-04-05 10:12] LABS: Lactic Acid Follow up (RFLX 2) 1.4 mmol/L (0.7-2.1)
[2022-04-05 10:28] LABS: Troponin I 0.18 ng/ml (0.00-0.034)
--- NOTE | 2022-04-05 10:46 | PC.NURSE ---
Dr. Priest aware of elevated troponins, no new orders
--- NOTE | 2022-04-05 10:47 | PC.NURSE ---
douglas is aware of consult
--- NOTE | 2022-04-05 13:19 | HMH.PHAINT1 ---
Pharmacy Intervention Comments: MEDICATION RECONCILIATION COMPLETED ON PATIENT USING LIST FROM PCP OFFICE. -ATIF PARSONS, RUBYD
--- NOTE | 2022-04-05 13:31 | CT_ITS ---
FINAL REPORT TECHNIQUE: After the administration of intravenous contrast, axial images were obtained through the abdomen and pelvis by computed tomography. This study was performed with technique to keep radiation doses as low as reasonably achievable, (ALARA). Individualized dose reduction techniques using automated exposure control or adjustment of the MA and/or KV according to the patient's size were employed. CLINICAL HISTORY: ABDOMINAL PAIN, gallstones COMPARISON: Exam performed same day without contrast FINDINGS: Abdomen: The lung bases demonstrate mild bibasilar scarring. The liver is normal in size and attenuation. There is worsening gallbladder wall thickening with adjacent inflammation. There are numerous stones seen in the gallbladder as well as stones in the gallbladder neck . Findings are worrisome for acute cholecystitis. There is no biliary dilatation. The spleen is unremarkable. The adrenals are normal. The pancreas is unremarkable. There is mild bilateral renal scarring. There are small right renal cysts noted. The aorta is normal in caliber. There is no free fluid or adenopathy. There are postoperative changes in the ascending colon. There are scattered sigmoid diverticula. Pelvis: The appendix is not identified. The urinary bladder is unremarkable. There is no free fluid or adenopathy. Postoperative changes are noted of the lower lumbar spine. IMPRESSION: Worsening gallbladder wall thickening with adjacent inflammation with numerous stones in the gallbladder and gallbladder neck worrisome for acute cholecystitis. Reviewed, Interpreted and Dictated by Prasanth Etienne III, MD Transcribed by Chen Silva Authenticated and [facility]
--- NOTE | 2022-04-05 15:11 | CA_ITS ---
APPROVED REPORT EXAM: Comprehensive 2D, Doppler, and color-flow Echocardiogram Automated Logistics Specialist: NIK Cooper, RVS Ht: 5 ft 6 in Wt: 150lbs BSA: 1.77 BP: 116/71 mmHg Indications: Pre-op Gallbladder dysfunction, Afib, COPD Echo Enhancing Agent Indication: Endocardial border delineation Agent(s) / Amount(s) Used: Definity 2 cc 2D Dimensions IVSd 1.07 cm LVEF (Visual) 59.00 % PWd 0.92 cm LA Volume 30.70 mL LVDd 4.62 cm LA Volume Index 17.00 mL/m2 (M/F) 16-34 LVDs 3.18 cm Aortic Root 2.67 cm Left Atrium 3.58 cm LVOT 1.80 cm (M/F) 1.5-2.5 M-Mode Dimensions LA Diam 3.71 cm (1.9-4.0) LVDd 5.54 cm (3.5-5.7) Ao Diam 2.91 cm (2.0-3.7) LVDs 4.76 cm (3.5-5.7) EF (Teich) 29.70% EPSs 0.80 cm FS 14.10% EDV (Teich) 149.90 mL TAPSE 0.99 (<1.7) ESV (Teich) 105.40 mL LV Diastology E Decel Time 150.00 (160-240 msec) E/A Ratio 1.98 MED E' 8.40 (< 7 cm/sec) MED A' 3.00 cm/s E'/MED E' Ratio 12.70 (>14) LAT E' 3.70 (<10 cm/sec) LAT A' 8.90 cm/s E/LAT E' Ratio 28.84 (>14) Aortic Valve LVOT Max 102.00 (70-110 cm/s) LVOT VTI 14.69 cm AoV Peak Marco Antonio. 193.00 (50-130 cm/s) AI PHT 518.00 ms AO Peak GR. 14.90 mmHg AO Mean GR. 7.40 (<5 mmHg) AO VTI 31.54 (18-25 cm) OPAL (VTI) 1.19 (2.5-4.5 cm2) Mitral Valve MV A Velocity 54.00 (40-130 cm/s) E/A Ratio 1.98 MV Decel. Time 150.00 (160-240 ms) MV PHT 43.00 ms Pulmonary Valve PV Peak Velocity 81.00 (50-150 cm/s) WA End VMAX 162.00 cm/s Tricuspid Valve TR P. Velocity 266.00 cm/s RAP Estimate 10.00 mmHg RVSP 38.20 mmHg Left Ventricle Technically difficult study because of the patient factors and poor acoustic windows, Definity contrast was utilized to delineate the endocardial surfaces. Left atrium is mildly enlarged, left ventricle is mildly dilated, severe reduced left ventricular systolic function, estimated ejection fraction approximately 25 to 30%, there is marked hypokinesis involving mid to distal septum, anterior, anterior apical and apical wall. There is no left ventricular thrombus seen. Diastolic parameters are inconclusive. Right Ventricle Right atrium and right ventricle are mildly enlarged, contractility right ventricle is mildly reduced. Aortic Valve Aortic valve is thickened and calcified without aortic stenosis, there is mild aortic insufficiency. Mitral Valve Mitral valve is grossly normal, there is moderate mitral regurgitation. Tricuspid Valve Tricuspid grossly normal, there is moderate tricuspid regurgitation, calculated right ventricular systolic pressure 38 mmHg. Pulmonic Valve Pulmonic valve is poorly visualized. Great Vessels Aortic root is normal size. Inferior vena cava is normal size with normal inspiratory collapse. Pericardium No significant pericardial effusion noted. Conclusion 1. Biatrial enlargement, normal left ventricular size, mild concentric left ventricular hypertrophy, severe reduced left ventricular systolic function, estimated ejection fraction approximately 25 to 30%, with multiple segmental wall motion abnormality described above, diastolic parameters are inconclusive. 2. Mildly enlarged right ventricle with mild reduced contractility. 3. Mild aortic, moderate mitral and tricuspid regurgitation, calculated right ventricular systolic pressure 38 mmHg. 4. No significant pericardial effusion noted. 5. Inferior vena cava
--- NOTE | 2022-04-05 16:18 | EXP.CARD.CON ---
History of Present Illness History of Present Illness Consult date: 04/05/22 Requesting physician: Froilan Priest Consult reason: pre-op evaluation Chief complaint: acute Cholecystitis, Elevated troponin Additional Medical History:: 1.? History of colon cancer, status post surgical removal with anastomosis, March 2020 A.? Status post 6 rounds of chemotherapy B.? New nodules discovered late 2020 with institution of Keytruda in 12/2020 Which resulted in significant weakness of the arms and legs with elevated LFTs AST and ALT. [place] to be a side effect and discontinued. No further therapy at patient request. 2.? Paroxysmal atrial fibrillation with CHADS-VASC score of 4 (HTN, Age, Sex) A.? Amiodarone therapy B.? Anticoagulation with Eliquis 3.? Hypertension A.? Echo, 02/2020,1.? Mildly enlarged left atrium, normal left ventricular size, visually estimated ejection fraction 55% with no regional wall motion abnormality, Doppler evidence of high cardiac output state.? Grade 1 diastolic dysfunction seen without tissue Doppler evidence of raise left atrial pressure. 2.? Thickened and calcified aortic valve without aortic stenosis, there is mild aortic insufficiency, increased aortic outflow velocity is likely secondary to high output state. 3.? Mild mitral and tricuspid regurgitation. 4.? No significant pericardial effusion noted. Electronically signed by : Alfie Lake,? 03/07/2020 13:18:43 4.? Hyperlipidemia 5.? Prior history of DVT 6.? 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 A. Echo, 01/2021, Normal LV size with EF 55-60%. RVSP 46 mmHg no significant valvular stenosis or regurgitation. History of present illness: Patient is a 81-year-old female who has a history of metastatic colon cancer.? She had undergone panendoscopy by Dr. 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 She has been followed by Dr. Barrera and has declined any additional chemotherapy.? She has remote history of breast cancer.? She has a history of atrial fibrillation with rapid ventricular response, renal insufficiency, previous non-STEMI.? She is on Eliquis. She had presented to emergency department with significant upper abdominal pain in the epigastrium beginning approximately 7 PM on 04/04/2021.? This was described as moderate, sharp, and constant.? She had a CT scan performed without any contrast whatsoever which revealed gallstones but there was no evidence of any inflammatory change or radiographic evidence of acute cholecystitis.? She was admitted for inpatient management due to ongoing pain and surgical consultation for gallbladder . Above 2 paragraph's from surgery consult.? Patient notes that she has had several episodes of this type of pain over the past several months.? They come and go.? Her tells me that she was recommended have her gallbladder out many years ago but she is put this off because of other issues. The above per Dr. Priest Patient confirms events as noted above. She was last seen in this hospital by us in January 2021 with elevated troponins and at that time with recommendation for left heart catheterization. She requested to revisit her parts expediter in [place] and reportedly had a work-up with no further intervention needed. She is unsure she had a cardiac cath or not. Cardiology consulted at this time due to elevated troponins and possible preop assessment. Echocardiogram is in progress at this time. Patient denies any chest pain, pressure or tightness recently. [facility] Disclaimer: The information contained in this section may have been updated after the patient was seen, as this information can be updated by other users. Medical History (Updated 04/05/22 @ 16:36 by GENEVIEVE Bailey) Anemia Breast cancer Hypo
--- NOTE | 2022-04-05 20:17 | PC.NURSE ---
spoke with Dr. Priest regarding pts 2100 scheduled dose of Metoprolol. Pt had 1st dose @1652. States ok to give scheduled dose
[2022-04-06] VITALS (47 sets, daily range): BP systolic 68–179; BP diastolic 39–87; PULSE 32–93; RESP 10–26; TEMP 36–43; O2SAT 90–100; BMI 24.0
--- NOTE | 2022-04-06 00:37 | PC.NURSE ---
Pts HR noted to decrease to 40's. Pt C/O of feeling clammy. Rectal temp 101.5 at this time. Manual BP 70/44. FSBS 117. Spoke with Dr. Priest. orders obtained to give 2L bolus NS now and 650 tylenol q6hr prn
--- NOTE | 2022-04-06 00:57 | PC.NURSE ---
HR sustaining 39-40. QT interval 0.68. Dr Priest aware
--- NOTE | 2022-04-06 03:47 | PC.NURSE ---
spoke with Dr Priest at this time regarding pts BP 68/42. orders recevied to start levophed gtt and titrate to keep SBP> 90.
--- NOTE | 2022-04-06 05:46 | PC.NURSE ---
Pt remains bradycardic. HR is currently 36. Levo gtt infusing at 6 mcg/min, titrated per protocol to keep SBP>90. Pt sitting up in bed, A&O. Pt reports she feels much better than she did last night.
[2022-04-06 06:07] LABS: Alanine Aminotransferase 178 U/L (12-78); Albumin Level 3.7 g/dl (3.5-5.0); Albumin/Globulin Ratio 1.5 (1.1-1.8); Alkaline Phosphatase 73 U/L (38-126); Anion Gap 16.1 mEq/L (5-15); Aspartate Amino Transferase 333 U/L (14-36); Bilirubin,Total 2.3 mg/dl (0.2-1.3); Blood Urea Nitrogen 14 mg/dl (7-17); Calcium 7.8 mg/dl (8.4-10.2); Carbon Dioxide 17 mmol/L (22.0-30.0); Chloride 109 mmol/L (98-107); Creatinine Clearance Estimated 34 mL/min (50-200); Estimated Glomerular Filt Rate 36 ml/min (>60); GFR (African American) 44 ML/MIN (>60); Globulin 2.5 g/dL (1.3-3.2); Glucose 160 mg/dl (74-100); Potassium 5.1 mmoL/L (3.5-5.1); Sodium 137 mmol/L (136-145); Total Protein,Serum 6.2 g/dl (6.3-8.2)
[2022-04-06 06:13] LABS: Basophils # 0.1 K/mm3 (0-0.2); Basophils % 0.5 % (0.1-2.0); Eosinophils % 0.2 % (0.1-12.0); Lymphocytes # 1.6 K/mm3 (0.7-4.5); Lymphocytes % 10.3 % (10-50); Mean Corpuscular HGB Conc 30.9 g/dL (31.8-35.4); Mean Corpuscular Hemoglobin 29.6 pg (27.0-31.2); Mean Corpuscular Volume 95.6 fl (81-99); Mean Platelet Volume 8.2 fl (7.4-10.4); Monocytes # 1.3 K/mm3 (0.1-1.0); Monocytes % 8.1 % (1.7-9.3); Neutrophils # 12.9 K/mm3 (1.8-7.8); Platelet Count 267 K/mm3 (142-424); Red Blood Count 4.91 M/mm3 (4.20-5.40); Red Cell Distribution Width 13.8 % (11.5-17.5); White Blood Count 15.9 K/mm3 (4.8-10.8)
[2022-04-06 06:25] LABS: MANUAL DIFFERENTIAL MANUAL DIFFERENTIAL (MANUAL DIFF)
[2022-04-06 06:53] LABS: Hemoglobin 14.5 g/dL (12.2-16.2)
[2022-04-06 07:50] LABS: Lymphocytes % 6 % (10-50); Monocytes % 9 % (2-9); Neutrophils % 85 % (42-76); Platelet Estimate Normal; RBC Morphology Normal; Total Cells Counted 100
--- NOTE | 2022-04-06 08:07 | PC.NURSE ---
Levophed drip titrated to 2mcg at 0736
--- NOTE | 2022-04-06 08:33 | EXP.SURG.PN ---
Subjective Narrative: Patient actually states that her pain is better. However, she has shown signs of sepsis overnight with fever and leukocytosis with some hypotension requiring initiation of low-dose Levophed drip by primary service. Cardiology has seen the patient. She does have some elevation of troponins. Concern for congestive heart failure. Exam Data for Last 24 hours Vital signs and Labs for Last 24 Hours: Temp Pulse Resp BP Pulse Ox 97.6 F 45 L 14 111/55 L 97 04/06/22 07:59 04/06/22 07:59 04/06/22 07:59 04/06/22 07:59 04/06/22 07:59 Laboratory Results - last 24 hr 04/05/22 09:12: Troponin I 0.18 H 04/05/22 09:45: Lactate 1.4 04/06/22 05:30: WBC 15.9 H D, RBC 4.91, Hgb 14.5 D, Hct 47.0, MCV 95.6, MCH 29.6, MCHC 30.9 L, RDW 13.8, Plt Count 267 D, MPV 8.2, Neut % (Auto) 81.0 H, Lymph % (Auto) 10.3, [place] % (Auto) 8.1, Eos % (Auto) 0.2, Baso % (Auto) 0.5, Neut # (Auto) 12.9 H, Lymph # (Auto) 1.6, [place] # (Auto) 1.3 H, Eos # (Auto) 0.0, Baso # (Auto) 0.1, Total Counted 100, Neutrophils % (Manual) 85 H, Lymphocytes % (Manual) 6 L, Monocytes % (Manual) 9, Platelet Estimate Normal, RBC Morphology Normal 04/06/22 05:30: Sodium 137, Potassium 5.1 D, Chloride 109 H, Carbon Dioxide 17 L, Anion Gap 16.1 H, BUN 14, Creatinine 1.40 H D, Estimated Creat Clear 34, Estimated GFR 36 L, Est GFR ( Amer) 44 L D, Glucose 160 H D, Calcium 7.8 L, Total Bilirubin 2.3 H, AST 333 H* D, ALT 178 H D, Alkaline Phosphatase 73, Total Protein 6.2 L, Albumin 3.7, Globulin 2.5, Albumin/Globulin Ratio 1.5 I & O for Last 24 hours: Intake & Output 04/03/22 04/04/22 04/05/22 04/06/22 11:59 11:59 11:59 11:59 Intake Total 2953 / 2953 Output Total 0 / 0 Balance 2953 / 2953 Weight 150 lb 149 lb 14.629 oz *Routine Abdominal Exam Comments: Diffusely tender, soft with some guarding Progress Note: A&P Assessment and plan (1) Abdominal pain: Status: Acute (2) Atrial fibrillation with rapid ventricular response: Status: Resolved (3) Cholecystitis, acute: Status: Acute Assessment and Plan Assessment and Plan for All Diagnoses:: She has elevation of her liver function test at this time. This appears to be more indicative of severe acute cholecystitis as opposed to choledocholithiasis. Unfortunately the patient has active cardiac issues and is undergoing evaluation at this time. I will wait cardiology and medicine disposition prior to consideration of cholecystectomy. Very possible patient may require transfer to higher level of care.
--- NOTE | 2022-04-06 09:14 | EXP.CARD.PN ---
Subjective Subjective Date: 04/06/22 Time: 09:15 Principal diagnosis: Acute cholecystitis, cardiomyopathy Interval history: 81 yo WF in bed in [place]. Levophed last night due to low BP after metoprolol Tele shows garett with PVC's in the 40-50 bpm range. Echo shows: 1.? Biatrial enlargement, normal left ventricular size, mild concentric left ventricular hypertrophy, severe reduced left ventricular systolic function, estimated ejection fraction approximately 25 to 30%, with multiple segmental wall motion abnormality (see full report), diastolic parameters are inconclusive. 2.? Mildly enlarged right ventricle with mild reduced contractility. 3.? Mild aortic, moderate mitral and tricuspid regurgitation, calculated right ventricular systolic pressure 38 mmHg. 4.? No significant pericardial effusion noted. 5.? Inferior vena cava is normal size with normal inspiratory collapse. Electronically signed by : Alfie Lake MD? 04/05/2022 21:25:49 Exam Data for Last 24 hours Vital signs and Labs for Last 24 Hours: Temp Pulse Resp BP Pulse Ox 97.6 F 45 L 14 111/55 L 97 04/06/22 07:59 04/06/22 07:59 04/06/22 07:59 04/06/22 07:59 04/06/22 07:59 Laboratory Results - last 24 hr 04/05/22 09:12: Troponin I 0.18 H 04/05/22 09:45: Lactate 1.4 04/06/22 05:30: WBC 15.9 H D, RBC 4.91, Hgb 14.5 D, Hct 47.0, MCV 95.6, MCH 29.6, MCHC 30.9 L, RDW 13.8, Plt Count 267 D, MPV 8.2, Neut % (Auto) 81.0 H, Lymph % (Auto) 10.3, [place] % (Auto) 8.1, Eos % (Auto) 0.2, Baso % (Auto) 0.5, Neut # (Auto) 12.9 H, Lymph # (Auto) 1.6, [place] # (Auto) 1.3 H, Eos # (Auto) 0.0, Baso # (Auto) 0.1, Total Counted 100, Neutrophils % (Manual) 85 H, Lymphocytes % (Manual) 6 L, Monocytes % (Manual) 9, Platelet Estimate Normal, RBC Morphology Normal 04/06/22 05:30: Sodium 137, Potassium 5.1 D, Chloride 109 H, Carbon Dioxide 17 L, Anion Gap 16.1 H, BUN 14, Creatinine 1.40 H D, Estimated Creat Clear 34, Estimated GFR 36 L, Est GFR ( Amer) 44 L D, Glucose 160 H D, Calcium 7.8 L, Total Bilirubin 2.3 H, AST 333 H* D, ALT 178 H D, Alkaline Phosphatase 73, Total Protein 6.2 L, Albumin 3.7, Globulin 2.5, Albumin/Globulin Ratio 1.5 I & O for Last 24 hours: Intake & Output 04/03/22 04/04/22 04/05/22 04/06/22 11:59 11:59 11:59 11:59 Intake Total 2953 / 2953 Output Total 0 / 0 Balance 2953 / 2953 Weight 150 lb 149 lb 14.629 oz Constitutional Constitutional: no acute distress *Routine Respiratory Exam Respiratory: Present CTA bilaterally *Routine Cardiovascular Exam Cardiovascular: Present bradycardia Progress Note: A&P Assessment and plan (1) Abdominal pain: Status: Acute (2) Atrial fibrillation with rapid ventricular response: Status: Resolved (3) Cholecystitis, acute: Status: Acute (4) Cardiomyopathy: Status: Acute (5) Moderate mitral regurgitation: Status: Acute Assessment and Plan Assessment and Plan for All Diagnoses:: 1. Acute cholecystitis with elevated WBC and LFT's, needs cholecystectomy. 2. Newly diagnosed Cardiomyopathy (EF 25-30%) in setting of NSTEMI. Recommend C to define coronary anatomy prior to surgery to help risk stratify. Pt may have stress related cardiomyopathy. Long discussion with patient, daughter and sisters regarding clinical situation and recommendation for LHC. Pt will discuss with family and decide. 3. FRAN[place], Cr up to 1.4 today with little urine output 4. A. fib with RVR yesterday, currently tele shows what appears to be junctional bradycardia in the 40-50 bpm range with QT prolongation and frequent PVC's. Holding amiodarone and metoprolol. Holding eliquis in preparation for surgery. 5. Moderate MR on echo
--- NOTE | 2022-04-06 10:29 | PC.NURSE ---
Levophed drip on standby.
--- NOTE | 2022-04-06 10:35 | IR_ITS ---
APPROVED REPORT Patient Location: Inpatient PROCEDURES Left heart catheterization Left ventriculogram Selective coronary angiogram INDICATION New onset cardiomyopathy with large regional wall motion abnormality involving the anteroapical wall. Ejection fraction reduced from 45 to 25%, Preoperative evaluation, Elevated troponin Informed consent was obtained prior to the procedure. COMPLICATIONS None Estimated Blood Loss: Less than 10 mls TECHNIQUE One percent lidocaine used to anesthetize the right anterior aspect of the wrist. The right radial artery was accessed via the Seldinger technique. A 6 Turkish sheath was placed in the right radial artery. 2.5 mg of verapamil, 800 mcg of nitroglycerin, 1mg Lidocaine and 5000 U Heparin were given through the arterial sheath. The papa catheter was also used to perform left heart catheterization, left ventriculogram and selective coronary angiogram. At the end of the procedure the sheath was removed good hemostasis was achieved using Traclet band, patient was transferred to the postop holding area in stable condition. 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 Continue supportive care 2. Patient is a low to moderate risk from a cardiac standpoint to proceed with urgent/emergent cholecystectomy 3. IV fluids normal saline 150 cc an hour for 1 L and then adjust in the acute perioperative phase and postoperatively. With ejection fraction now improving and patient's creatinine increasing from 0.8 up to 1.4 she is likely volume deplete and should be able to tolerate fluids with improvement in ejection fraction 4. Discussed with surgeon the patient is acceptable to proceed directly to the operating room 5. Primary care physician also notified Electronically signed by : Sanjiv Tomlin MD 04/06/2022 12:57:07
--- NOTE | 2022-04-06 11:56 | PC.NURSE ---
PT voided in toilet before hat was placed. Estimated amount was less than 200ml.
--- NOTE | 2022-04-06 14:16 | P.PN_ITS ---
[facility] Disclaimer: The information contained in this section may have been updated after the patient was seen, as this information can be updated by other users. Medical History (Updated 04/06/22 @ 09:21 by GENEVIEVE Bailey) Anemia Breast cancer Hypothyroidism Social History (Updated 04/05/22 @ 10:35 by Marika Hill RN) Smoking Status: Never smoker second hand exposure: Yes alcohol intake: never substance use type: denies use current occupational status: retired Travel in the last 8 weeks: None household members: spouse housing: house current occupational exposures/hazards: No caffeine: Yes [facility] Anesthesia Checklist Patient Identification Patient Identification: Arm Band and Verbal (Name & ) Structural Data Admitted From: Inpatient Planned Operative Procedure/s: Laparascopic Cholecystectomy NPO Status Verified Time NPO: 00:00 Additional verifications Anesthesia Reactions: No Hx Blood Transfusions: Yes Blood Transfusion Reaction: No Airway Assessment C-Spine Mobility Assessed: Yes TMJ Mobility Assessed: Yes Dentition: Good Dentition Neurological Assessment Level of Consciousness: Awake, Alert and Appropriate Anesthesia Plan Anesthesia Risk discussed: Yes Anesthesia Plan: Patient unable to respond/answer ASA Class: III Anesthesia Type: General
--- NOTE | 2022-04-06 15:07 | PC.NURSE ---
Levophed drip restarted at 1100 due to 86/47 pressure
--- NOTE | 2022-04-06 15:17 | EXP.OP.NOTE ---
Date of procedure: 04/06/22 Pre-op Diagnosis:: Acute cholecystitis Post-op Diagnosis:: Same Procedure performed:: Laparoscopic cholecystectomy Surgeon:: Prasanth Vaughan MD DIRECTOR PAYMENT:: Cheyenne Simmons and Sukhwinder Uribe Anesthesia: GETA Estimated blood loss (mL): 50 Clinical Note:: Patient is a 81-year-old female who has a history of metastatic colon cancer.? She had undergone panendoscopy by Dr. 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 She has been followed by Dr. Barrera and has declined any additional chemotherapy due to side effects.? She has remote history of breast cancer.? She has a history of atrial fibrillation with rapid ventricular response, renal insufficiency, previous non-STEMI.? She is on Eliquis. Her cuff presser is in [place]. She had presented to emergency department with significant upper abdominal pain in the epigastrium beginning approximately 7 PM on 04/04/2021.? This was described as moderate, sharp, and constant.? She had a CT scan performed without any contrast whatsoever which revealed gallstones but there was no evidence of any inflammatory change or radiographic evidence of acute cholecystitis.? She was admitted for inpatient management due to ongoing pain and surgical consultation for gallbladder .? She had a gallbladder ultrasound performed 04/05/2021 which reveals findings of gallstones with no evidence of biliary ductal dilatation.? Patient described ongoing pain of approximately 8 out of 10.? She does state that she had previously been told about 10 years ago that she may need to have her gallbladder removed but never pursued this.? Of note, she has had some significant weakness over the past couple of weeks. Patient was seen as a surgical consultation on 04/05/2022. She had some diffuse abdominal tenderness with diffuse guarding. Given the findings on physical examination without any imaging evidence showing acute cholecystitis there was concern for possible alternate etiology other than gallbladder. CT scan with contrast was ordered. Images were reviewed which revealed findings consistent with obvious cholecystitis. Official reading of CT scan revealed findings of worsening gallbladder wall thickening with adjacent inflammation with numerous gallstones in the gallbladder and gallbladder neck worrisome for acute cholecystitis. Tentative plan was for cholecystectomy the following day for management of acute cholecystitis. Cardiology was consulted on the patient as well due to some elevation of troponins. There was concern for possible significantly diminished ejection fraction on echocardiogram. Recommendations were made for heart catheterization. Given the patient's possible cardiac issues as well as the fact that her regular cuff presser was located in [place] consideration was being given for transfer for management of her heart and cholecystitis. However ultimately the patient's family and patient agreed to proceed with heart catheterization at this facility. This was done which revealed ejection fraction of 45% with normal coronaries. It was felt that she had experienced some possible cardiac dysfunction secondary to her acute cholecystitis. And it was felt that the patient was a low to moderate risk from cardiac standpoint to proceed with urgent cholecystectomy. Arrangements were made to proceed with cholecystectomy. Operative findings:: Patient had a severely inflamed hydropic thickened distended gallbladder consistent with significant acute cholecystitis. She has several stones impacted in the neck of the gallbladder. There were multiple other large stones within the body of the gallbladder. There was some bilious fluid throughout the abdomen in all 4 quadrants. 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 Operative not
--- NOTE | 2022-04-06 15:26 | EXP.ANES.I ---
[facility] Anesthesia Record Part I Anesthesia Record I Intake, IV Amount: 700 Estimated blood loss (mL): 10 Urine output (mL): 0 Blood Pressure: 110/53 SaO2: 93 Pulse Rate: 78 Respiratory Rate: 24 Temperature: 97.7 F Patient is:: Drowsy and Oral/Nasal airway Stable to PACU at:: 15:22
--- NOTE | 2022-04-06 15:37 | PC.NURSE ---
TR band noted to left wrist. TR band removed per LAVON Kumar. Pressure held for 10min, no bleeding or swelling noted. Pt tolerated well.
[2022-04-06 16:32] LABS: POC Glucose,Bedside 117 (70-110)
--- NOTE | 2022-04-06 17:28 | PC.NURSE ---
Patient underwent heart cath and cholycystectomy. Right radial site clean dry and intact. 5 lap sites some drainage noted. Small [place]-n[place]she[place]wish band in middle of tefla pads, patient complained of abdominal pain, morphine given. Some distention noted, belly soft, tender on palpation. VS stable, 3LNC added as patient asleep. oxygen saturations 88 when on room air, in 90's while awake.
[2022-04-06 19:02] LABS: Microscopic,Cath URINE MICROSCOPIC (MICROSCOPIC)
[2022-04-06 20:19] LABS: Appearance,Urine/Cath CLEAR (Clear); Bilirubin,Cath Negative (Negative); Blood, Urine/Cath 1+ (Negative); Color,Urine/Cath YELLOW (Yellow); Glucose,Urine/Cath (UA) Negative (Negative); Ketones,Urine/Cath TRACE (Negative); Leukocyte Esterase,Cath Negative (Negative); Nitrate,Cath Negative (Negative); PH,Urine/Cath 5.5 (5.0-8.5); Protein,Urine/Cath 2+ (Negative); Specific Gravity, Urine/Cath 1.025 (1.005-1.030); Urobilinogen,Cath 0.2 EU/dl (0.2)
[2022-04-06 20:47] LABS: Amorphous Sediment,Ur/Cath Trace /lpf; Bacteria,Urine/Cath 3+ /lpf; RBC,Urine/Cath Occasional # /hpf (0-3)
[2022-04-07] VITALS (9 sets, daily range): BP systolic 100–154; BP diastolic 57–69; PULSE 79–105; RESP 15–29; TEMP 36.5–37; O2SAT 90–98; BMI 24.0
[2022-04-07 06:42] LABS: Basophils % 0.3 % (0.1-2.0); Eosinophils # 0.1 K/mm3 (0.0-0.4); Eosinophils % 1.3 % (0.1-12.0); Hematocrit 37.8 % (37.0-47.0); Hemoglobin 12.2 g/dL (12.2-16.2); Lymphocytes # 0.8 K/mm3 (0.7-4.5); Lymphocytes % 7.8 % (10-50); Mean Corpuscular HGB Conc 32.1 g/dL (31.8-35.4); Mean Corpuscular Hemoglobin 30.2 pg (27.0-31.2); Mean Corpuscular Volume 93.9 fl (81-99); Mean Platelet Volume 8.1 fl (7.4-10.4); Monocytes # 0.7 K/mm3 (0.1-1.0); Monocytes % 6.3 % (1.7-9.3); Neutrophils % 84.3 % (37.0-80.0); Platelet Count 178 K/mm3 (142-424); Red Blood Count 4.03 M/mm3 (4.20-5.40); Red Cell Distribution Width 14.2 % (11.5-17.5); White Blood Count 10.7 K/mm3 (4.8-10.8)
[2022-04-07 06:48] LABS: Alanine Aminotransferase 424 U/L (12-78); Albumin/Globulin Ratio 1.3 (1.1-1.8); Alkaline Phosphatase 60 U/L (38-126); Aspartate Amino Transferase 623 U/L (14-36); Bilirubin,Total 0.8 mg/dl (0.2-1.3); Blood Urea Nitrogen 19 mg/dl (7-17); Calcium 7.6 mg/dl (8.4-10.2); Carbon Dioxide 23 mmol/L (22.0-30.0); Chloride 112 mmol/L (98-107); Creatinine Clearance Estimated 43 mL/min (50-200); Estimated Glomerular Filt Rate 48 ml/min (>60); GFR (African American) 58 ML/MIN (>60); Globulin 2.3 g/dL (1.3-3.2); Glucose 85 mg/dl (74-100); Sodium 141 mmol/L (136-145); Total Protein,Serum 5.3 g/dl (6.3-8.2)
--- NOTE | 2022-04-07 07:19 | EXP.SURG.PN ---
Subjective Patient reports: still having pain Exam Data for Last 24 hours Vital signs and Labs for Last 24 Hours: Temp Pulse Resp BP Pulse Ox 98.6 F 97 H 29 H 154/57 H 97 04/07/22 04:00 04/07/22 06:00 04/07/22 06:00 04/07/22 06:00 04/07/22 06:00 Laboratory Results - last 24 hr 04/06/22 00:08: POC Glucose 117 H 04/06/22 05:30: Total Counted 100, Neutrophils % (Manual) 85 H, Lymphocytes % (Manual) 6 L, Monocytes % (Manual) 9, Platelet Estimate Normal, RBC Morphology Normal 04/06/22 18:50: Urine Color Yellow, Urine Appearance Clear, Urine pH 5.5, Ur Specific [place] 1.025, Urine Protein 2+, Urine Glucose (UA) Negative, Urine Ketones Trace, Urine Blood 1+, Urine Nitrate Negative, Urine Bilirubin Negative, Urine Urobilinogen 0.2, Ur Leukocyte Esterase Negative, Urine RBC Occasional, Urine Bacteria 3+ A 04/07/22 06:22: WBC 10.7 D, RBC 4.03 L, Hgb 12.2, Hct 37.8, MCV 93.9, MCH 30.2, MCHC 32.1, RDW 14.2, Plt Count 178 D, MPV 8.1, Neut % (Auto) 84.3 H, Lymph % (Auto) 7.8 L, [place] % (Auto) 6.3, Eos % (Auto) 1.3, Baso % (Auto) 0.3, Neut # (Auto) 9.0 H, Lymph # (Auto) 0.8, [place] # (Auto) 0.7, Eos # (Auto) 0.1, Baso # (Auto) 0.0 04/07/22 06:22: Sodium 141, Potassium 4.0 D, Chloride 112 H, Carbon Dioxide 23, Anion Gap 10.0, BUN 19 H D, Creatinine 1.10 H D, Estimated Creat Clear 43, Estimated GFR 48 L, Est GFR ( Amer) 58 L D, Glucose 85, Calcium 7.6 L, Total Bilirubin 0.8, AST 623 H* D, ALT 424 H*, Alkaline Phosphatase 60, Total Protein 5.3 L, Albumin 3.0 L D, Globulin 2.3, Albumin/Globulin Ratio 1.3 I & O for Last 24 hours: Intake & Output 04/04/22 04/05/22 04/06/22 04/07/22 11:59 11:59 11:59 11:59 Intake Total 3446 / 3446 2445 / 2445 Output Total 0 / 0 1400 / 1400 Balance 3446 / 3446 1045 / 1045 Weight 150 lb 149 lb 14.629 oz Microbiology Reports for the Last 24 Hours: Microbiology 04/05/22 02:30 Blood Blood Culture - Preliminary NO GROWTH AFTER 48 HOURS 04/05/22 02:30 Blood Blood Culture - Preliminary NO GROWTH AFTER 48 HOURS Constitutional Constitutional: no acute distress *Routine Respiratory Exam Respiratory: Absent respiratory distress *Routine Cardiovascular Exam Cardiovascular: Absent tachycardia *Routine Abdominal Exam Comments: Dressings intact. No cellulitis. Progress Note: A&P Assessment and plan (1) Cholecystitis, acute: Status: Acute Assessment and plan: Overall, doing fairly well status post laparoscopic cholecystectomy. Slowly increase ambulation Increase diet as patient tolerates Continue overall management as per primary service (2) Atrial fibrillation with rapid ventricular response: Status: Resolved (3) Cardiomyopathy: Status: Acute (4) Moderate mitral regurgitation: Status: Acute
--- NOTE | 2022-04-07 08:10 | EXP.CARD.PN ---
Subjective Subjective Date: 04/07/22 Time: 08:10 Principal diagnosis: Acute cholecystitis, cardiomyopathy Interval history: 81-year-old white female in bed in no acute distress but does complain of some abdominal pain. Tolerating clear liquids and Jell-O this morning with no nausea or vomiting. No BM yet. Telemetry shows atrial fibrillation with rate around 100 bpm. Will discuss with surgery regarding restarting Eliquis. We will restart amiodarone to try to convert patient back to sinus rhythm. Exam Data for Last 24 hours Vital signs and Labs for Last 24 Hours: Temp Pulse Resp BP Pulse Ox 98.6 F 97 H 29 H 154/57 H 97 04/07/22 04:00 04/07/22 06:00 04/07/22 06:00 04/07/22 06:00 04/07/22 06:00 Laboratory Results - last 24 hr 04/06/22 00:08: POC Glucose 117 H 04/06/22 18:50: Urine Color Yellow, Urine Appearance Clear, Urine pH 5.5, Ur Specific [place] 1.025, Urine Protein 2+, Urine Glucose (UA) Negative, Urine Ketones Trace, Urine Blood 1+, Urine Nitrate Negative, Urine Bilirubin Negative, Urine Urobilinogen 0.2, Ur Leukocyte Esterase Negative, Urine RBC Occasional, Urine Bacteria 3+ A 04/07/22 06:22: WBC 10.7 D, RBC 4.03 L, Hgb 12.2, Hct 37.8, MCV 93.9, MCH 30.2, MCHC 32.1, RDW 14.2, Plt Count 178 D, MPV 8.1, Neut % (Auto) 84.3 H, Lymph % (Auto) 7.8 L, [place] % (Auto) 6.3, Eos % (Auto) 1.3, Baso % (Auto) 0.3, Neut # (Auto) 9.0 H, Lymph # (Auto) 0.8, [place] # (Auto) 0.7, Eos # (Auto) 0.1, Baso # (Auto) 0.0 04/07/22 06:22: Sodium 141, Potassium 4.0 D, Chloride 112 H, Carbon Dioxide 23, Anion Gap 10.0, BUN 19 H D, Creatinine 1.10 H D, Estimated Creat Clear 43, Estimated GFR 48 L, Est GFR ( Amer) 58 L D, Glucose 85, Calcium 7.6 L, Total Bilirubin 0.8, AST 623 H* D, ALT 424 H*, Alkaline Phosphatase 60, Total Protein 5.3 L, Albumin 3.0 L D, Globulin 2.3, Albumin/Globulin Ratio 1.3 I & O for Last 24 hours: Intake & Output 04/04/22 04/05/22 04/06/22 04/07/22 11:59 11:59 11:59 11:59 Intake Total 3446 / 3446 2445 / 2445 Output Total 0 / 0 1400 / 1400 Balance 3446 / 3446 1045 / 1045 Weight 150 lb 149 lb 14.629 oz Microbiology Reports for the Last 24 Hours: Microbiology 04/05/22 02:30 Blood Blood Culture - Preliminary NO GROWTH AFTER 48 HOURS 04/05/22 02:30 Blood Blood Culture - Preliminary NO GROWTH AFTER 48 HOURS Constitutional Constitutional: no acute distress *Routine Respiratory Exam Respiratory: Present CTA bilaterally *Routine Cardiovascular Exam Cardiovascular: Present irregularly irregular *Routine Abdominal Exam Abdominal: Present tenderness Progress Note: A&P Assessment and plan (1) Cholecystitis, acute: Status: Acute (2) Atrial fibrillation with rapid ventricular response: Status: Resolved (3) Cardiomyopathy: Status: Acute (4) Moderate mitral regurgitation: Status: Acute (5) Abdominal pain: Status: Acute Assessment and Plan Assessment and Plan for All Diagnoses:: 1. Acute cholecystitis - status post laparoscopic cholecystectomy, 04/06/2022. 2. Takotsubo cardiomyopathy, improving. -Patient is off Levophed since last evening. -Will repeat limited echo prior to discharge for confirmation of improvement. 3. FRANCHESKA, improving 4. Paroxysmal atrial fibrillation, chronic -Restart amiodarone and Eliquis today 5. Moderate MR on echo, this may improve with improvement in ejection fraction. Follow-up as an outpatient.
--- NOTE | 2022-04-07 08:55 | EXP.ACUTE.PN ---
Subjective *Date: 04/07/22 *Time: 08:55 Interval history: Overall patient feels better still with a lot of pain. Medical Exam Vital signs and Labs for Last 24 Hours: Vital Signs Temp Pulse Pulse Pulse Resp BP BP 04/07/22 08:00 85 26 H 04/07/22 08:00 98.5 F 04/07/22 06:00 97 H 29 H 04/07/22 02:00 04/07/22 00:00 91 H 04/07/22 04:00 97 H 04/07/22 04:00 98.6 F 04/07/22 04:00 97 H 27 H 04/07/22 02:00 79 20 04/07/22 00:00 105 H 18 04/07/22 00:00 97.7 F 04/06/22 20:00 04/06/22 22:45 93 H 22 04/06/22 21:45 79 20 04/06/22 20:45 76 18 04/06/22 20:00 76 04/06/22 20:00 98.0 F 04/06/22 19:45 79 17 04/06/22 18:45 97.2 F L 79 22 04/06/22 18:15 97.1 F L 61 22 04/06/22 17:45 97.2 F L 71 23 04/06/22 17:15 97.1 F L 65 25 H 04/06/22 16:30 96.9 F L 65 17 04/06/22 16:15 96.8 F L 66 22 04/06/22 16:00 68 04/06/22 16:00 96.9 F L 69 25 H 04/06/22 15:42 71 16 04/06/22 15:32 77 16 04/06/22 15:22 97.7 F 76 12 04/06/22 15:30 97.7 F 77 16 04/06/22 15:00 61 10 L 04/06/22 14:30 69 10 L 04/06/22 14:00 80 10 L 04/06/22 13:45 49 L 10 L 04/06/22 13:30 49 L 10 L 04/06/22 13:15 98.0 F 65 18 04/06/22 11:00 40 L 19 86/47 L 04/06/22 10:00 42 L 25 H 113/60 04/06/22 09:00 38 L 23 105/52 L 04/06/22 12:00 50 L 04/06/22 12:50 65 18 101/53 L 04/06/22 12:45 56 L 18 95/87 L 04/06/22 11:59 98.0 F 45 L 16 114/51 L 04/06/22 15:32 97.7 F 78 24 110/53 L BP Pulse Ox 04/07/22 08:00 151/68 H 96 04/07/22 08:00 04/07/22 06:00 154/57 H 97 04/07/22 02:00 98 04/07/22 00:00 04/07/22 04:00 04/07/22 04:00 04/07/22 04:00 128/63 97 04/07/22 02:00 116/62 97 04/07/22 00:00 124/69 93 L 04/07/22 00:00 04/06/22 20:00 98 04/06/22 22:45 144/75 H 100 04/06/22 21:45 163/81 H 100 04/06/22 20:45 152/76 H 100 04/06/22 20:00 04/06/22 20:00 04/06/22 19:45 179/81 H 98 04/06/22 18:45 163/79 H 100 04/06/22 18:15 132/60 98 04/06/22 17:45 128/65 97 04/06/22 17:15 139/63 96 04/06/22 16:30 142/60 H 90 L 04/06/22 16:15 142/65 H 90 L 04/06/22 16:00 04/06/22 16:00 134/63 91 L 04/06/22 15:42 127/57 L 95 04/06/22 15:32 126/55 L 95 04/06/22 15:22 110/46 L 96 04/06/22 15:30 128/50 L 96 04/06/22 15:00 90/55 L 100 04/06/22 14:30 119/54 L 100 04/06/22 14:00 179/76 H 100 04/06/22 13:45 116/56 L 100 04/06/22 13:30 121/60 96 04/06/22 13:15 101/53 L 92 L 04/06/22 11:00 94 L 04/06/22 10:00 95 04/06/22 09:00 94 L 04/06/22 12:00 04/06/22 12:50 92 L 04/06/22 12:45 92 L 04/06/22 11:59 94 L 04/06/22 15:32 Intake and Output 04/06/22 04/07/22 04/07/22 19:59 03:59 11:59 Intake Total 700 / 2805 2105 / 2805 Output Total 0 / 1400 1400 / 1400 Balance 700 / 1405 0 / 1405 705 / 1405 Intake: Intake, Oral Amount 360 / 360 Intake, Total IV Amount 700 / 2445 1745 / 2445 0.9 % Sodium Chloride 1,000 ml 1595 / 1595 @ 100 mls/hr IV .Q10H BRIAN Rx#: [id number] Pipercillin/Tazo 3.375 gm In 0. 150 / 150 9 % Sodium Chloride 50 ml @ 100 mls/hr IV Q6H BRIAN Rx#:[id number] Output: Output, Urine Amount 0 / 200 200 / 200 Output, Urine Amount (Catheter) 1200 / 1200 Garcia 1200 / 1200 Other: Number of Unmeasured Voids 1 Laboratory Results - last 24 hr 04/06/22 00:08: POC Glucose 117 H 04/06/22 18:50: Urine Color Yellow, Urine Appearance Clear, Urine pH 5.5, Ur Specific [place] 1.025, Urine Protein 2+, Urine Glucose (UA) Negative, Urine Ketones Trace, Urine Blood 1+, Urine Nitrate Negative, Urine Bilirubin Negative, Urine Urobilinogen 0.2, Ur Leukocyte Esterase Negative, Urine RB
--- NOTE | 2022-04-07 11:50 | HMH.OTEV ---
OT Inpatient Evaluation Rehab OT IP Evaluation Start: 04/07/22 08:54 Freq: ONCE Status: Active Protocol: Document 04/07/22 10:23 TYLERKANE (Rec: 04/07/22 11:50 MARY ELLEN [id number]) Rehab OT IP Assessment Subjective History Patient is a 81-year-old female who has a history of metastatic colon cancer.? She had undergone panendoscopy by Dr. 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 She has been followed by Dr. Barrera and has declined any additional chemotherapy due to side effects.? She has remote history of breast cancer.? She has a history of atrial fibrillation with rapid ventricular response, renal insufficiency, previous non- STEMI.? She is on Eliquis. Her machine buffer is in [place]. She had presented to emergency department with significant upper abdominal pain in the epigastrium beginning approximately 7 PM on 04/04/2021 .? This was described as moderate, sharp, and constant. ? She had a CT scan performed without any contrast whatsoever which revealed gallstones but there was no evidence of any inflammatory change or radiographic evidence of acute cholecystitis.? She was admitted for inpatient management due to ongoing pain and surgical consultation for gallbladder .? She had a gallbladder ultrasound performed 04/05/2021 which reveals findings of gallstones with no evidence of biliary
--- NOTE | 2022-04-07 12:06 | HMH.PTEV ---
Physical Therapy Evaluation Rehab PT IP Evaluation Start: 04/07/22 08:54 Freq: ONCE Status: Active Protocol: Document 04/07/22 09:00 PHORMANUELA (Rec: 04/07/22 12:05 PHORNE [id number]) Subjective/History History History 81 yowf adm to [facility] with cholecystitis, now S/P lap CCY . She has expected post-op c/o abdominal pain. She is able to ambulate independently without AD at baseline. Subjective Subjective Pt c/o abdominal pain this am. Rehab PT IP Eval Objective Appearance Patient Behavior Appropriate Patient Orientation Person,Place,Time Difficulty following instructions none Speech Pattern Clear Ambulation Patient Able to Ambulate Yes Ambulation Observation IP General Gait Pattern Observation Shuffling Step,Decrease Stride Lngth (R),Decrease Stride Lngth (L) Ambulation Distance (feet) 4 Ambulation Assistive Device None Ambulation Ability Minimal x 2 (25% assist) Balance Ability to Arise Able, uses arms to help Sitting Balance Steady, safe Standing Balance Steady, wide stance Dynamic Sitting Balance Ability Good Dynamic Standing Balance Ability Fair Transfers Bed Transfer Ability Minimal x 2 (25% assist) Chair Transfer Ability Minimal x 2 (25% assist) Sit to Stand Bed Transfer Ability Minimal x 2 (25% assist) Sit to Stand Chair Transfer Ability Minimal x 2 (25% assist) ROM All Extremities PT ROM Status WFL MMT All Extremities PT MMT WFL Rehab PT IP prob,goals,plan Problems Date of Evaluation: 04/07/22 PT IP Problems Bed Mobility,Transfers,Gait Rehab Potential Rehab Potential Good Plan PT Intervention Plan Bed Mobility,Transfers,Gait, Therapeutic Exercise PT Plan Frequency Daily Duration LOS Discharge Goals Bed Transfer Ability Contact Guard/Hand Hold Sit to Stand Chair Transfer Ability Contact Guard/Hand Hold Ambulation Assistive Device Rolling Walker Ambulation Distance (feet) 20 Discharge Plan PT Discharge Plan Pt is currently most appropriate for rehab placement once medically stable, but could return home with assistance should her mobility improve. G -code Required No Eval Complexity Eval Charge Codes 16211 - High Complexity
--- NOTE | 2022-04-07 17:19 | PC.NURSE ---
Patient has been up to chair three times this shift, denies passing any gas, bowel sounds remain hypoactive, encouraged to chew gum, no BM this shift, medicated for pain x2 this shift, alert and oriented x4, afib per telemetry, weaned to RA and tolerating well, lung sounds diminished in bl bases, SCDs in place BL, denies any cp or soa, vss, call light in reach with bed in lowest position.
[2022-04-08] VITALS (7 sets, daily range): BP systolic 100–156; BP diastolic 55–78; PULSE 70–90; RESP 16–20; TEMP 36.5–36.9; O2SAT 90–98; BMI 23.7
--- NOTE | 2022-04-08 05:12 | PC.NURSE ---
Pt. got pain pill once during my shift. No other changes noted.
[2022-04-08 06:56] LABS: Alanine Aminotransferase 354 U/L (12-78); Albumin Level 2.9 g/dl (3.5-5.0); Albumin/Globulin Ratio 1.2 (1.1-1.8); Alkaline Phosphatase 76 U/L (38-126); Anion Gap 8.7 mEq/L (5-15); Aspartate Amino Transferase 343 U/L (14-36); Bilirubin,Total 0.8 mg/dl (0.2-1.3); Blood Urea Nitrogen 16 mg/dl (7-17); Calcium 7.8 mg/dl (8.4-10.2); Carbon Dioxide 22 mmol/L (22.0-30.0); Chloride 112 mmol/L (98-107); Creatinine Clearance Estimated 47 mL/min (50-200); Estimated Glomerular Filt Rate 60 ml/min (>60); GFR (African American) 73 ML/MIN (>60); Globulin 2.4 g/dL (1.3-3.2); Glucose 77 mg/dl (74-100); Potassium 3.7 mmoL/L (3.5-5.1); Sodium 139 mmol/L (136-145); Total Protein,Serum 5.3 g/dl (6.3-8.2)
[2022-04-08 06:58] LABS: Basophils # 0.1 K/mm3 (0-0.2); Basophils % 0.5 % (0.1-2.0); Eosinophils # 0.3 K/mm3 (0.0-0.4); Eosinophils % 3.4 % (0.1-12.0); Hematocrit 36.6 % (37.0-47.0); Hemoglobin 11.7 g/dL (12.2-16.2); Lymphocytes # 1.2 K/mm3 (0.7-4.5); Lymphocytes % 12.1 % (10-50); Mean Corpuscular HGB Conc 31.9 g/dL (31.8-35.4); Mean Corpuscular Hemoglobin 30.4 pg (27.0-31.2); Mean Corpuscular Volume 95.1 fl (81-99); Mean Platelet Volume 8.7 fl (7.4-10.4); Monocytes # 0.7 K/mm3 (0.1-1.0); Monocytes % 7.1 % (1.7-9.3); Neutrophils # 7.7 K/mm3 (1.8-7.8); Neutrophils % 76.9 % (37.0-80.0); Platelet Count 175 K/mm3 (142-424); Red Blood Count 3.85 M/mm3 (4.20-5.40); Red Cell Distribution Width 14.2 % (11.5-17.5)
--- NOTE | 2022-04-08 07:45 | P.PN_ITS ---
Subjective Narrative: Patient complains of some ongoing pain. She feels bloated. Exam Data for Last 24 hours Vital signs and Labs for Last 24 Hours: Temp Pulse Resp BP Pulse Ox 97.7 F 73 18 105/63 L 97 04/08/22 04:00 04/08/22 04:00 04/08/22 04:00 04/08/22 04:00 04/08/22 04:00 Laboratory Results - last 24 hr 04/08/22 06:07: WBC 10.0, RBC 3.85 L, Hgb 11.7 L, Hct 36.6 L, MCV 95.1, MCH 30.4, MCHC 31.9, RDW 14.2, Plt Count 175, MPV 8.7, Neut % (Auto) 76.9, Lymph % (Auto) 12.1, [place] % (Auto) 7.1, Eos % (Auto) 3.4, Baso % (Auto) 0.5, Neut # (Auto) 7.7, Lymph # (Auto) 1.2, [place] # (Auto) 0.7, Eos # (Auto) 0.3, Baso # (Auto) 0.1 04/08/22 06:07: Sodium 139, Potassium 3.7, Chloride 112 H, Carbon Dioxide 22, Anion Gap 8.7, BUN 16, Creatinine 0.90, Estimated Creat Clear 47, Estimated GFR 60, Est GFR ( Amer) 73 D, Glucose 77, Calcium 7.8 L, Total Bilirubin 0.8, AST 343 H* D, ALT 354 H*, Alkaline Phosphatase 76, Total Protein 5.3 L, Albumin 2.9 L, Globulin 2.4, Albumin/Globulin Ratio 1.2 I & O for Last 24 hours: Intake & Output 04/05/22 04/06/22 04/07/22 04/08/22 11:59 11:59 11:59 11:59 Intake Total 3446 / 3446 2805 / 2805 2399 / 2399 Output Total 0 / 0 1400 / 1400 200 / 200 Balance 3446 / 3446 1405 / 1405 2199 / 2199 Weight 150 lb 149 lb 14.629 oz 147 lb 11.355 oz Microbiology Reports for the Last 24 Hours: Microbiology 04/06/22 18:50 Urine,Catheterized Urine Culture - Preliminary NO GROWTH AFTER 24 HOURS 04/06/22 18:50 Urine,Catheterized Urine Culture - Preliminary NO GROWTH AFTER 24 HOURS *Routine Abdominal Exam Comments: Her abdomen is appreciably distended. She has some diffuse tenderness. No g uarding or rebound. Progress Note: A&P Assessment and plan (1) Cholecystitis, acute: Status: Acute Assessment and plan: It appears that the patient likely has significant ileus. I will back off on her diet to essentially just sips of clears. I will check a acute abdominal series. Add simethicone. Encourage ambulation and gum chewing. LFTs shown improvement. (2) Abdominal pain: Status: Acute (3) Hypothyroidism: Status: Acute (4) Renal insufficiency: Status: Acute (5) Sepsis: Status: Acute (6) Atrial fibrillation: Status: Acute
--- NOTE | 2022-04-08 07:51 | XR_ITS ---
FINAL REPORT CLINICAL HISTORY: ABDOMINAL PAIN, DISTENSION COMPARISON: 04/05/2022 FINDINGS: THREE-VIEW ABDOMEN An AP view of the the chest was obtained. There is a left subclavian port in place. Heart mediastinum are within normal limits. There is worsening bibasilar atelectasis or pneumonia. A small left pleural effusion is present. There is no pneumothorax. Flat and upright views of the abdomen were obtained. There are multiple, air-filled, distended bowel loops which likely represent ileus. There are postoperative changes seen in the right upper quadrant. IMPRESSION: Worsening bibasilar atelectasis or pneumonia with small left pleural effusion. Multiple air-filled, distended bowel loops, favor ileus. Reviewed, Interpreted and Dictated by Prasanth Etienne III, MD Transcribed by Chen Silva Authenticated and [facility]
--- NOTE | 2022-04-08 08:22 | DIET.NUTRFU ---
Per patient she eats bread, eggs, soy and milk at home. She said they are childhood allergies and only had cough as symptoms. She is requesting toast. Notified kitchen
--- NOTE | 2022-04-08 08:25 | EXP.ACUTE.PN ---
Subjective *Date: 04/08/22 *Time: 08:25 Interval history: Overall patient is doing well except for some belly distention and symptoms of ileus. She reports some pain with palpation. She has not vomited however. Did well with physical therapy yesterday. Medical Exam Vital signs and Labs for Last 24 Hours: Vital Signs Temp Pulse Pulse Resp BP Pulse Ox 04/08/22 08:00 98.3 F 72 20 156/78 H 04/08/22 04:00 80 04/08/22 04:00 97.7 F 73 18 105/63 L 97 04/08/22 00:00 83 04/07/22 20:00 97 04/08/22 00:00 98 F 89 16 100/55 L 90 L 04/07/22 20:00 98 F 86 17 132/68 94 L 04/07/22 20:00 80 04/07/22 16:20 93 H 04/07/22 15:54 97.7 F 84 15 121/61 90 L 04/07/22 12:00 97.7 F 88 20 100/57 L 93 L Intake and Output 04/07/22 04/08/22 04/08/22 19:59 03:59 11:59 Intake Total 1549 / 2399 850 / 2399 Output Total 200 / 200 Balance 1349 / 2199 850 / 2199 Intake: Intake, Oral Amount 600 / 600 Intake, Total IV Amount 949 / 1799 850 / 1799 0.9 % Sodium Chloride 1,000 ml 799 / 1599 800 / 1599 @ 100 mls/hr IV .Q10H BRIAN Rx#: [id number] Ertapenem Sodium 1 gm In 0.9 % 50 / 50 Sodium Chloride 50 ml @ 100 mls /hr IV Q24H BRIAN Rx#:[id number] Pipercillin/Tazo 3.375 gm In 0. 100 / 150 50 / 150 9 % Sodium Chloride 50 ml @ 100 mls/hr IV Q6H BRIAN Rx#:[id number] Output: Output, Urine Amount 200 / 200 Other: Weight 149 lb 14.629 oz 147 lb 11.355 oz Patient Weight 04/08/22 11:59 Weight 147 lb 11.355 oz Laboratory Results - last 24 hr 04/08/22 06:07: WBC 10.0, RBC 3.85 L, Hgb 11.7 L, Hct 36.6 L, MCV 95.1, MCH 30.4, MCHC 31.9, RDW 14.2, Plt Count 175, MPV 8.7, Neut % (Auto) 76.9, Lymph % (Auto) 12.1, [place] % (Auto) 7.1, Eos % (Auto) 3.4, Baso % (Auto) 0.5, Neut # (Auto) 7.7, Lymph # (Auto) 1.2, [place] # (Auto) 0.7, Eos # (Auto) 0.3, Baso # (Auto) 0.1 04/08/22 06:07: Sodium 139, Potassium 3.7, Chloride 112 H, Carbon Dioxide 22, Anion Gap 8.7, BUN 16, Creatinine 0.90, Estimated Creat Clear 47, Estimated GFR 60, Est GFR ( Amer) 73 D, Glucose 77, Calcium 7.8 L, Total Bilirubin 0.8, AST 343 H* D, ALT 354 H*, Alkaline Phosphatase 76, Total Protein 5.3 L, Albumin 2.9 L, Globulin 2.4, Albumin/Globulin Ratio 1.2 I & O for Labs for Last 24 Hours: Intake & Output 04/05/22 04/06/22 04/07/22 04/08/22 11:59 11:59 11:59 11:59 Intake Total 3446 / 3446 2805 / 2805 2399 / 2399 Output Total 0 / 0 1400 / 1400 200 / 200 Balance 3446 / 3446 1405 / 1405 2199 / 2199 Weight 150 lb 149 lb 14.629 oz 147 lb 11.355 oz Microbiology Reports for the Last 24 Hours: Microbiology 04/06/22 18:50 Urine,Catheterized Urine Culture - Preliminary NO GROWTH AFTER 24 HOURS 04/06/22 18:50 Urine,Catheterized Urine Culture - Preliminary NO GROWTH AFTER 24 HOURS Comment:: Lungs clear, heart rate irregular. Better blood pressure control, good rate control. Bowel sounds are tympanitic. Distended belly. Soft however, no peripheral edema Assessment and Plan *Assessment and plan (1) Cholecystitis, acute: Status: Acute Category: Medical Code(s): K81.0 - Acute cholecystitis (2) Abdominal pain: Status: Acute Category: Medical Code(s): R10.9 - Unspecified abdominal pain (3) Hypothyroidism: Status: Acute Qualifiers: Hypothyroidism type: acquired Qualified Code(s): E03.9 - Hypothyroidism, unspecified Category: Medical Code(s): E03.9 - Hypothyroidism, unspecified (4) Renal insufficiency: Status: Acute Category: Medical Code(s): N28.9 - Disorder of kidney and ureter, unspecified (5) Sepsis: Status: Acute Category: Medical Code(s): A41.9 - Sepsis, unspecified organism (6) Atrial fibrillation: Status: Acute Qualifiers: Atrial fibrilla
--- NOTE | 2022-04-08 09:17 | EXP.CARD.PN ---
Subjective Subjective Date: 04/08/22 Time: 09:17 Principal diagnosis: Acute cholecystitis, cardiomyopathy Interval history: 81-year-old white female status post laparoscopic cholecystectomy with continued abdominal discomfort and possible ileus. No flatus or BM at this time. No episode of chest pain overnight. Exam Data for Last 24 hours Vital signs and Labs for Last 24 Hours: Temp Pulse Resp BP Pulse Ox 98.3 F 72 20 156/78 H 97 04/08/22 08:00 04/08/22 08:00 04/08/22 08:00 04/08/22 08:00 04/08/22 04:00 Laboratory Results - last 24 hr 04/08/22 06:07: WBC 10.0, RBC 3.85 L, Hgb 11.7 L, Hct 36.6 L, MCV 95.1, MCH 30.4, MCHC 31.9, RDW 14.2, Plt Count 175, MPV 8.7, Neut % (Auto) 76.9, Lymph % (Auto) 12.1, [place] % (Auto) 7.1, Eos % (Auto) 3.4, Baso % (Auto) 0.5, Neut # (Auto) 7.7, Lymph # (Auto) 1.2, [place] # (Auto) 0.7, Eos # (Auto) 0.3, Baso # (Auto) 0.1 04/08/22 06:07: Sodium 139, Potassium 3.7, Chloride 112 H, Carbon Dioxide 22, Anion Gap 8.7, BUN 16, Creatinine 0.90, Estimated Creat Clear 47, Estimated GFR 60, Est GFR ( Amer) 73 D, Glucose 77, Calcium 7.8 L, Total Bilirubin 0.8, AST 343 H* D, ALT 354 H*, Alkaline Phosphatase 76, Total Protein 5.3 L, Albumin 2.9 L, Globulin 2.4, Albumin/Globulin Ratio 1.2 I & O for Last 24 hours: Intake & Output 04/05/22 04/06/22 04/07/22 04/08/22 11:59 11:59 11:59 11:59 Intake Total 3446 / 3446 2805 / 2805 4488 / 4488 Output Total 0 / 0 1400 / 1400 200 / 200 Balance 3446 / 3446 1405 / 1405 4288 / 4288 Weight 150 lb 149 lb 14.629 oz 147 lb 11.355 oz Microbiology Reports for the Last 24 Hours: Microbiology 04/06/22 18:50 Urine,Catheterized Urine Culture - Preliminary NO GROWTH AFTER 24 HOURS 04/06/22 18:50 Urine,Catheterized Urine Culture - Preliminary NO GROWTH AFTER 24 HOURS Constitutional Constitutional: no acute distress *Routine Respiratory Exam Respiratory: Present CTA bilaterally *Routine Cardiovascular Exam Cardiovascular: Present RRR *Routine Abdominal Exam Abdominal: Present distended and firm Progress Note: A&P Assessment and plan (1) Cholecystitis, acute: Status: Acute (2) Abdominal pain: Status: Acute (3) Hypothyroidism: Status: Acute (4) Renal insufficiency: Status: Acute (5) Sepsis: Status: Acute (6) Atrial fibrillation: Status: Acute (7) Atrial fibrillation with rapid ventricular response: Status: Resolved (8) Cardiomyopathy: Status: Acute (9) Moderate mitral regurgitation: Status: Acute Assessment and Plan Assessment and Plan for All Diagnoses:: 1. Acute cholecystitis - status post laparoscopic cholecystectomy, 04/06/2022. - Possible ileus 2. Takotsubo cardiomyopathy, improving. -Will repeat limited echo prior to discharge for confirmation of improvement. 3. FRANCHESKA, resolved 4. Paroxysmal atrial fibrillation, chronic -Continue amiodarone and Eliquis 5. Moderate MR on echo, this may improve with improvement in ejection fraction. Follow-up as an outpatient.
--- NOTE | 2022-04-08 13:07 | EXP.PHA.PN ---
Subjective *Date: 04/08/22 *Time: 13:07 Medical Exam Vital signs and Labs for Last 24 Hours: Vital Signs Temp Pulse Pulse Resp BP Pulse Ox 04/08/22 12:00 98.1 F 77 16 138/70 96 04/08/22 08:00 98.3 F 72 20 156/78 H 04/08/22 04:00 80 04/08/22 04:00 97.7 F 73 18 105/63 L 97 04/08/22 00:00 83 04/07/22 20:00 97 04/08/22 00:00 98 F 89 16 100/55 L 90 L 04/07/22 20:00 98 F 86 17 132/68 94 L 04/07/22 20:00 80 04/07/22 16:20 93 H 04/07/22 15:54 97.7 F 84 15 121/61 90 L Intake and Output 04/07/22 04/08/22 04/08/22 23:59 07:59 15:59 Intake Total 1429 / 4504 850 / 2939 2089 / 2939 Output Total 200 / 1600 Balance 1229 / 2904 850 / 2939 2089 / 2939 Intake: Intake, Oral Amount 480 / 960 480 / 480 Intake, Total IV Amount 949 / 3544 850 / 2459 1609 / 2459 0.9 % Sodium Chloride 1,000 ml 799 / 3194 800 / 2409 1609 / 2409 @ 100 mls/hr IV .Q10H BRIAN Rx#: [id number] Ertapenem Sodium 1 gm In 0.9 % 50 / 50 Sodium Chloride 50 ml @ 100 mls /hr IV Q24H BRIAN Rx#:[id number] Pipercillin/Tazo 3.375 gm In 0. 100 / 300 50 / 50 9 % Sodium Chloride 50 ml @ 100 mls/hr IV Q6H BRIAN Rx#:[id number] Output: Output, Urine Amount 200 / 400 Other: Weight 67 kg Patient Weight 04/08/22 23:59 Weight 67 kg Laboratory Results - last 24 hr 04/08/22 06:07: WBC 10.0, RBC 3.85 L, Hgb 11.7 L, Hct 36.6 L, MCV 95.1, MCH 30.4, MCHC 31.9, RDW 14.2, Plt Count 175, MPV 8.7, Neut % (Auto) 76.9, Lymph % (Auto) 12.1, [place] % (Auto) 7.1, Eos % (Auto) 3.4, Baso % (Auto) 0.5, Neut # (Auto) 7.7, Lymph # (Auto) 1.2, [place] # (Auto) 0.7, Eos # (Auto) 0.3, Baso # (Auto) 0.1 04/08/22 06:07: Sodium 139, Potassium 3.7, Chloride 112 H, Carbon Dioxide 22, Anion Gap 8.7, BUN 16, Creatinine 0.90, Estimated Creat Clear 47, Estimated GFR 60, Est GFR ( Amer) 73 D, Glucose 77, Calcium 7.8 L, Total Bilirubin 0.8, AST 343 H* D, ALT 354 H*, Alkaline Phosphatase 76, Total Protein 5.3 L, Albumin 2.9 L, Globulin 2.4, Albumin/Globulin Ratio 1.2 I & O for Labs for Last 24 Hours: Intake & Output 04/05/22 04/06/22 04/07/22 04/08/22 23:59 23:59 23:59 23:59 Intake Total 120 / 120 4026 / 4026 3654 / 4504 2939 / 2939 Output Total 0 / 0 0 / 0 1600 / 1600 Balance 120 / 120 4026 / 4026 2054 / 2904 2939 / 2939 Weight 68.039 kg 68 kg 68 kg 67 kg Microbiology Reports for the Last 24 Hours: Microbiology 04/06/22 18:50 Urine,Catheterized Urine Culture - Preliminary NO GROWTH AFTER 24 HOURS 04/06/22 18:50 Urine,Catheterized Urine Culture - Preliminary NO GROWTH AFTER 24 HOURS The patient's infection will respond to the chosen ABx?: Yes Is the patient receiving the right drug, dose, and route?: Yes Could a more targeted ABx be ordered?: No (URINE AND BLOOD CX -, WBC WNL NOW.)
--- NOTE | 2022-04-08 14:50 | CARE MANAGER ---
Spoke with patient today regarding discharge planning. Patient plans to discharge home and does not want to consider going to SNF. Patient is planned for possible discharge home tomorrow and will likely benefit from services. CM will continue to follow for discharge planning needs.
--- NOTE | 2022-04-08 21:20 | PC.NURSE ---
Catina states it is ok to remove quality assurance monitor final at this time.
[2022-04-09] VITALS (9 sets, daily range): BP systolic 127–196; BP diastolic 57–102; PULSE 67–80; RESP 16–20; TEMP 36.4–36.9; O2SAT 92–99
--- NOTE | 2022-04-09 05:30 | PC.NURSE ---
No acute changes noted.
[2022-04-09 06:25] LABS: Basophils # 0.1 K/mm3 (0-0.2); Basophils % 0.6 % (0.1-2.0); Eosinophils # 0.3 K/mm3 (0.0-0.4); Eosinophils % 3.8 % (0.1-12.0); Hematocrit 38.1 % (37.0-47.0); Hemoglobin 11.9 g/dL (12.2-16.2); Lymphocytes # 1.1 K/mm3 (0.7-4.5); Lymphocytes % 13.3 % (10-50); Mean Corpuscular HGB Conc 31.2 g/dL (31.8-35.4); Mean Corpuscular Hemoglobin 30.1 pg (27.0-31.2); Mean Corpuscular Volume 96.3 fl (81-99); Mean Platelet Volume 8.1 fl (7.4-10.4); Monocytes # 0.5 K/mm3 (0.1-1.0); Monocytes % 6.3 % (1.7-9.3); Neutrophils # 6.3 K/mm3 (1.8-7.8); Platelet Count 212 K/mm3 (142-424); Red Blood Count 3.96 M/mm3 (4.20-5.40); Red Cell Distribution Width 14.4 % (11.5-17.5); White Blood Count 8.2 K/mm3 (4.8-10.8)
--- NOTE | 2022-04-09 06:32 | P.PN_ITS ---
Subjective Narrative: Patient states that she still feels bloated. Has been taking some limited clears. Has ambulated. This morning during assessment examination patient became significantly nauseated and began vomiting. Abdominal x-ray yesterday favored ileus. Exam Data for Last 24 hours Vital signs and Labs for Last 24 Hours: Temp Pulse Resp BP Pulse Ox 97.7 F 74 16 150/67 H 98 04/09/22 04:00 04/09/22 04:00 04/09/22 04:00 04/09/22 04:00 04/09/22 04:00 Laboratory Results - last 24 hr 04/08/22 06:07: WBC 10.0, RBC 3.85 L, Hgb 11.7 L, Hct 36.6 L, MCV 95.1, MCH 30.4, MCHC 31.9, RDW 14.2, Plt Count 175, MPV 8.7, Neut % (Auto) 76.9, Lymph % (Auto) 12.1, [place] % (Auto) 7.1, Eos % (Auto) 3.4, Baso % (Auto) 0.5, Neut # (Auto) 7.7, Lymph # (Auto) 1.2, [place] # (Auto) 0.7, Eos # (Auto) 0.3, Baso # (Auto) 0.1 04/08/22 06:07: Sodium 139, Potassium 3.7, Chloride 112 H, Carbon Dioxide 22, Anion Gap 8.7, BUN 16, Creatinine 0.90, Estimated Creat Clear 47, Estimated GFR 60, Est GFR ( Amer) 73 D, Glucose 77, Calcium 7.8 L, Total Bilirubin 0.8, AST 343 H* D, ALT 354 H*, Alkaline Phosphatase 76, Total Protein 5.3 L, Albumin 2.9 L, Globulin 2.4, Albumin/Globulin Ratio 1.2 04/09/22 05:50: WBC 8.2, RBC 3.96 L, Hgb 11.9 L, Hct 38.1, MCV 96.3, MCH 30.1, MCHC 31.2 L, RDW 14.4, Plt Count 212, MPV 8.1, Neut % (Auto) 76.0, Lymph % (Auto) 13.3, [place] % (Auto) 6.3, Eos % (Auto) 3.8, Baso % (Auto) 0.6, Neut # (Auto) 6.3, Lymph # (Auto) 1.1, [place] # (Auto) 0.5, Eos # (Auto) 0.3, Baso # (Auto) 0.1 I & O for Last 24 hours: Intake & Output 04/06/22 04/07/22 04/08/22 04/09/22 11:59 11:59 11:59 11:59 Intake Total 3446 / 3446 2805 / 2805 4488 / 4488 570 / 570 Output Total 0 / 0 1400 / 1400 200 / 200 1000 / 1000 Balance 3446 / 3446 1405 / 1405 4288 / 4288 -430 / -430 Weight 149 lb 14.629 oz 147 lb 11.355 oz Microbiology Reports for the Last 24 Hours: Microbiology 04/06/22 18:50 Urine,Catheterized Urine Culture - Final NO GROWTH AFTER 48 HOURS 04/06/22 18:50 Urine,Catheterized Urine Culture - Final NO GROWTH AFTER 48 HOURS *Routine Abdominal Exam Abdominal: Present distended Progress Note: A&P Assessment and plan (1) Cholecystitis, acute: Status: Acute (2) Abdominal pain: Status: Acute (3) Hypothyroidism: Status: Acute (4) Renal insufficiency: Status: Acute (5) Sepsis: Status: Acute (6) Atrial fibrillation: Status: Acute (7) Atrial fibrillation with rapid ventricular response: Status: Resolved (8) Cardiomyopathy: Status: Acute (9) Moderate mitral regurgitation: Status: Acute Assessment and Plan Assessment and Plan for All Diagnoses:: Patient has ileus with vomiting. Continue inpatient management
[2022-04-09 06:36] LABS: Alanine Aminotransferase 279 U/L (12-78); Albumin Level 3.1 g/dl (3.5-5.0); Albumin/Globulin Ratio 1.2 (1.1-1.8); Alkaline Phosphatase 124 U/L (38-126); Anion Gap 9.5 mEq/L (5-15); Aspartate Amino Transferase 169 U/L (14-36); Bilirubin,Total 0.8 mg/dl (0.2-1.3); Blood Urea Nitrogen 13 mg/dl (7-17); Carbon Dioxide 24 mmol/L (22.0-30.0); Chloride 110 mmol/L (98-107); Creatinine Clearance Estimated 47 mL/min (50-200); Estimated Glomerular Filt Rate 69 ml/min (>60); GFR (African American) 83 ML/MIN (>60); Globulin 2.5 g/dL (1.3-3.2); Glucose 81 mg/dl (74-100); Potassium 3.5 mmoL/L (3.5-5.1); Sodium 140 mmol/L (136-145); Total Protein,Serum 5.6 g/dl (6.3-8.2)
--- NOTE | 2022-04-09 06:36 | PC.NURSE ---
Pt. had one episode of emesis and zofran was given.
--- NOTE | 2022-04-09 08:30 | EXP.PN ---
Subjective *Date: 04/09/22 *Time: 09:57 Interval history: Rested well overnight but this morning with some increased nausea and one episode of vomiting. Has had zofran and feeling some better now. Still not passing any flatus. Exam Data for Last 24 hours Vital signs and Labs for Last 24 Hours: Temp Pulse Resp BP Pulse Ox 97.7 F 74 16 150/67 H 98 04/09/22 04:00 04/09/22 04:00 04/09/22 04:00 04/09/22 04:00 04/09/22 04:00 Laboratory Results - last 24 hr 04/09/22 05:50: WBC 8.2, RBC 3.96 L, Hgb 11.9 L, Hct 38.1, MCV 96.3, MCH 30.1, MCHC 31.2 L, RDW 14.4, Plt Count 212, MPV 8.1, Neut % (Auto) 76.0, Lymph % (Auto) 13.3, [place] % (Auto) 6.3, Eos % (Auto) 3.8, Baso % (Auto) 0.6, Neut # (Auto) 6.3, Lymph # (Auto) 1.1, [place] # (Auto) 0.5, Eos # (Auto) 0.3, Baso # (Auto) 0.1 04/09/22 05:50: Sodium 140, Potassium 3.5, Chloride 110 H, Carbon Dioxide 24, Anion Gap 9.5, BUN 13, Creatinine 0.80, Estimated Creat Clear 47, Estimated GFR 69, Est GFR ( Amer) 83, Glucose 81, Calcium 8.0 L, Total Bilirubin 0.8, AST 169 H D, ALT 279 H, Alkaline Phosphatase 124, Total Protein 5.6 L, Albumin 3.1 L, Globulin 2.5, Albumin/Globulin Ratio 1.2 I & O for Last 24 hours: Intake & Output 04/06/22 04/07/22 04/08/22 04/09/22 11:59 11:59 11:59 11:59 Intake Total 3446 / 3446 2805 / 2805 4488 / 4488 570 / 570 Output Total 0 / 0 1400 / 1400 200 / 200 1000 / 1000 Balance 3446 / 3446 1405 / 1405 4288 / 4288 -430 / -430 Weight 149 lb 14.629 oz 147 lb 11.355 oz Microbiology Reports for the Last 24 Hours: Microbiology 04/06/22 18:50 Urine,Catheterized Urine Culture - Final NO GROWTH AFTER 48 HOURS 04/06/22 18:50 Urine,Catheterized Urine Culture - Final NO GROWTH AFTER 48 HOURS Constitutional Constitutional: no acute distress, average body habitus and cooperative *Routine HEENT Exam Head: Present normocephalic Eye: Present conjunctivae pink ENT: Present mucous membranes moist *Routine Neck Exam Neck: Present supple *Routine Respiratory Exam Respiratory: Present CTA bilaterally *Routine Cardiovascular Exam Cardiovascular: Present RRR *Routine Abdominal Exam Abdominal: Present distended Comments: bowel sounds in all quadrants, high pitched in the upper abdomen *Routine Rectal Exam Patient deferred: visual exam *Routine Exam Patient deferred: external exam *Routine Extremities Exam Extremities: Present pulses intact and normal capillary refill Comments: soft swelling left upper extremity *Routine Skin Exam Skin: Present intact and warm *Routine Neurological Exam Neurological: Present alert and oriented X3 Assessment and Plan *Assessment and plan (1) Cholecystitis, acute: Status: Acute Category: Medical Code(s): K81.0 - Acute cholecystitis (2) Ileus: Status: Acute Category: Medical Code(s): K56.7 - Ileus, unspecified (3) Abdominal pain: Status: Acute Category: Medical Code(s): R10.9 - Unspecified abdominal pain (4) Hypothyroidism: Status: Acute Qualifiers: Hypothyroidism type: acquired Qualified Code(s): E03.9 - Hypothyroidism, unspecified Category: Medical Code(s): E03.9 - Hypothyroidism, unspecified (5) Renal insufficiency: Status: Acute Category: Medical Code(s): N28.9 - Disorder of kidney and ureter, unspecified (6) Sepsis: Status: Acute Category: Medical Code(s): A41.9 - Sepsis, unspecified organism (7) Atrial fibrillation: Status: Acute Qualifiers: Atrial fibrillation type: unspecified Qualified Code(s): I48.91 - Unspecified atrial fibrillation Category: Medical Code(s): I48.91 - Unspecified atrial fibrillation Plan Patient status-post cholecystectomy. Overall doing well with exception of post-op ileus. Continue postoperative mobilization. Sepsis-continue antibiotics. O
--- NOTE | 2022-04-09 10:30 | CA_ITS ---
APPROVED REPORT EXAM: Comprehensive 2D, Doppler, and color-flow Echocardiogram Associate Quality Engineer: Violeta Wray CRT Ht: 5 ft 6 in Wt: 146lbs BSA: 1.75 BP: 150/67 mmHg Indications: ef 25-30 echo 04-05-22 ef 45 cath 04/06/22 2D Dimensions LVOT 1.52 cm (M/F) 1.5-2.5 M-Mode Dimensions RVDd 3.11 cm (0.9-2.6) LA Diam 2.91 cm (1.9-4.0) LVDd 5.44 cm (3.5-5.7) Ao Diam 3.37 cm (2.0-3.7) LVDs 4.08 cm (3.5-5.7) IVSd 1.39 cm (0.6-1.1) PWd 0.46 cm (0.6-1.1) EF (Teich) 48.90% FS 25.00% EDV (Teich) 143.70 mL ESV (Teich) 73.40 mL Conclusion 1. Limited echocardiogram was performed which is very challenging to interpret, likely preserved left ventricular systolic function, estimated ejection fraction 50% with no regional wall motion abnormality. Electronically signed by : Alfie Lake MD 04/09/2022 12:59:14
--- NOTE | 2022-04-09 10:57 | P.PNANES_ITS ---
[facility] Anesthesia Record Part II Anesthesia Record Part II Discharge Time: 15:42 Destination: Second Floor PACU nurse assessment reviewed?: Yes Patient Condition:: Good Anesthesia Complications:: None Swallowing reflex intact?: Yes Cyanosis?: No Blood Pressure: 127/57 Pulse Rate: 71 Temperature: 97.7 F Mental Status: Alert & Oriented Pain level:: 0 Nausea and/or vomitting:: None Intake, IV Amount: 0
--- NOTE | 2022-04-09 10:57 | EXP.CARD.PN ---
Subjective Subjective Date: 04/09/22 Time: 10:57 Principal diagnosis: Acute cholecystitis, cardiomyopathy Interval history: 81-year-old white female lying in bed in no acute distress with continues to have abdominal discomfort. Episode of vomiting this a.m. improved after Zofran therapy. No flatus or bowel movement as of yet. Left upper extremity swelling noted felt possibly related to IV site. I/O's reviewed with positive balance of nearly 9 L. Will order a one-time dose of Lasix. Exam Data for Last 24 hours Vital signs and Labs for Last 24 Hours: Temp Pulse Resp BP Pulse Ox 97.6 F 80 16 196/102 H 98 04/09/22 08:00 04/09/22 08:00 04/09/22 08:00 04/09/22 08:00 04/09/22 08:00 Laboratory Results - last 24 hr 04/09/22 05:50: WBC 8.2, RBC 3.96 L, Hgb 11.9 L, Hct 38.1, MCV 96.3, MCH 30.1, MCHC 31.2 L, RDW 14.4, Plt Count 212, MPV 8.1, Neut % (Auto) 76.0, Lymph % (Auto) 13.3, [place] % (Auto) 6.3, Eos % (Auto) 3.8, Baso % (Auto) 0.6, Neut # (Auto) 6.3, Lymph # (Auto) 1.1, [place] # (Auto) 0.5, Eos # (Auto) 0.3, Baso # (Auto) 0.1 04/09/22 05:50: Sodium 140, Potassium 3.5, Chloride 110 H, Carbon Dioxide 24, Anion Gap 9.5, BUN 13, Creatinine 0.80, Estimated Creat Clear 47, Estimated GFR 69, Est GFR ( Amer) 83, Glucose 81, Calcium 8.0 L, Total Bilirubin 0.8, AST 169 H D, ALT 279 H, Alkaline Phosphatase 124, Total Protein 5.6 L, Albumin 3.1 L, Globulin 2.5, Albumin/Globulin Ratio 1.2 I & O for Last 24 hours: Intake & Output 04/06/22 04/07/22 04/08/22 04/09/22 11:59 11:59 11:59 11:59 Intake Total 3446 / 3446 2805 / 2805 4488 / 4488 570 / 570 Output Total 0 / 0 1400 / 1400 200 / 200 1000 / 1000 Balance 3446 / 3446 1405 / 1405 4288 / 4288 -430 / -430 Weight 149 lb 14.629 oz 147 lb 11.355 oz Microbiology Reports for the Last 24 Hours: Microbiology 04/06/22 18:50 Urine,Catheterized Urine Culture - Final NO GROWTH AFTER 48 HOURS 04/06/22 18:50 Urine,Catheterized Urine Culture - Final NO GROWTH AFTER 48 HOURS Constitutional Constitutional: no acute distress *Routine Respiratory Exam Respiratory: Present CTA bilaterally *Routine Cardiovascular Exam Cardiovascular: Present RRR *Routine Extremities Exam Extremities: Present edema Progress Note: A&P Assessment and plan (1) Cholecystitis, acute: Status: Acute (2) Ileus: Status: Acute (3) Abdominal pain: Status: Acute (4) Hypothyroidism: Status: Acute (5) Renal insufficiency: Status: Acute (6) Sepsis: Status: Acute (7) Atrial fibrillation: Status: Acute (8) Atrial fibrillation with rapid ventricular response: Status: Resolved (9) Cardiomyopathy: Status: Acute (10) Moderate mitral regurgitation: Status: Acute Assessment and Plan Assessment and Plan for All Diagnoses:: 1.? Acute cholecystitis - status post laparoscopic cholecystectomy, 04/06/2022. - ileus -Elevated LFTs improving 2.? 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 -Limited echo today shows EF up to 50% 3.? [place], resolved 4.? Paroxysmal atrial fibrillation, chronic -Continue amiodarone and Eliquis 5.? Moderate MR on echo, this may improve with improvement in ejection fraction.? Follow-up as an outpatient. 6. Upper extremity edema with significant net positive fluid intake -Single dose of Lasix today Nothing further to add. If BP remains elevated then would recommend ARB in setting of recent stress cardiomyopathy or BB for BP plus rate control. Follow up with Cardiology in 1-2 wks after discharge.
--- NOTE | 2022-04-09 12:55 | P.PN_ITS ---
Subjective *Date: 04/09/22 *Time: 12:55 Medical Exam Vital signs and Labs for Last 24 Hours: Vital Signs Temp Pulse Pulse Resp BP BP Pulse Ox 04/09/22 12:00 98.1 F 67 16 149/62 H 99 04/09/22 11:00 155/80 H 04/09/22 08:00 97.6 F 80 16 196/102 H 98 04/09/22 04:00 97.7 F 74 16 150/67 H 98 04/09/22 00:00 98.0 F 75 18 156/81 H 98 04/08/22 23:28 97 04/08/22 20:00 90 04/08/22 20:00 98.4 F 71 16 138/66 98 04/08/22 16:00 81 04/08/22 16:00 98.4 F 77 20 123/63 96 04/09/22 10:57 97.7 F 71 127/57 L Intake and Output 04/08/22 04/09/22 04/09/22 23:59 07:59 15:59 Intake Total 290 / 3509 0 / 0 Output Total 500 / 1000 500 / 900 400 / 900 Balance -210 / 2509 -500 / -900 -400 / -900 Intake: Intake, Oral Amount 240 / 1000 Intake, Total IV Amount 50 / 2509 0 / 0 Pipercillin/Tazo 3.375 gm In 0. 50 / 100 9 % Sodium Chloride 50 ml @ 100 mls/hr IV Q6H [facility] Rx#:[id number] Output: Output, Urine Amount 500 / 750 250 / 650 400 / 650 Output, Urine Amount (Catheter) 250 / 250 Garcia 250 / 250 Other: Number of Unmeasured Voids 0 Laboratory Results - last 24 hr 04/09/22 05:50: WBC 8.2, RBC 3.96 L, Hgb 11.9 L, Hct 38.1, MCV 96.3, MCH 30.1, MCHC 31.2 L, RDW 14.4, Plt Count 212, MPV 8.1, Neut % (Auto) 76.0, Lymph % (Auto) 13.3, [place] % (Auto) 6.3, Eos % (Auto) 3.8, Baso % (Auto) 0.6, Neut # (Auto) 6.3, Lymph # (Auto) 1.1, [place] # (Auto) 0.5, Eos # (Auto) 0.3, Baso # (Auto) 0.1 04/09/22 05:50: Sodium 140, Potassium 3.5, Chloride 110 H, Carbon Dioxide 24, Anion Gap 9.5, BUN 13, Creatinine 0.80, Estimated Creat Clear 47, Estimated GFR 69, Est GFR ( Amer) 83, Glucose 81, Calcium 8.0 L, Total Bilirubin 0.8, AST 169 H D, ALT 279 H, Alkaline Phosphatase 124, Total Protein 5.6 L, Albumin 3.1 L, Globulin 2.5, Albumin/Globulin Ratio 1.2 I & O for Labs for Last 24 Hours: Intake & Output 04/06/22 04/07/22 04/08/22 04/09/22 23:59 23:59 23:59 23:59 Intake Total 4026 / 4026 3654 / 4504 3509 / 3509 0 / 0 Output Total 0 / 0 1600 / 1600 500 / 1000 900 / 900 Balance 4026 / 4026 2054 / 2904 3009 / 2509 -900 / -900 Weight 68 kg 68 kg 67 kg Microbiology Reports for the Last 24 Hours: Microbiology 04/06/22 18:50 Urine,Catheterized Urine Culture - Final NO GROWTH AFTER 48 HOURS 04/06/22 18:50 Urine,Catheterized Urine Culture - Final NO GROWTH AFTER 48 HOURS The patient's infection will respond to the chosen ABx?: Yes Is the patient receiving the right drug, dose, and route?: Yes Could a more targeted ABx be ordered?: No
[2022-04-10 04:00] VITALS: BP 163/65; PULSE 73; RESP 18; O2SAT 94; BMI 24.1
--- NOTE | 2022-04-10 05:44 | PC.NURSE ---
Addendum entered by Charlene Billy RN 04/10/22 05:50: noted pt to have swelling to left arm, s/p IV site to left arm. pt states arm feels tight and states it has been this way for couple of days. Original Note: pt has slept most of the night, vss, f/c to bsd with cyu noted, abdomen distended and tender, hypoactive bowel sounds auscultated, pt without bm but states that she has been passing flatus, pt denies pain. abd incision sites x5 with dressings intact, no new drainage noted, right radial site post cath without dressing, bruising noted, no acute distress, pt is alert and oriented x4, no other issues or concerns at this time.
--- NOTE | 2022-04-10 08:43 | EXP.PN ---
Subjective *Date: 04/10/22 *Time: 09:55 Interval history: Feels better this morning. Has passed a small amount of flatus. No further vomiting since early yesterday morning. Invanz discontinued yesterday, given IV lasix 20mg once and diuresed well. Tolerating oral fluids. Afebrile. Morning labs pending at time of exam. Exam Data for Last 24 hours Vital signs and Labs for Last 24 Hours: Temp Pulse Resp BP Pulse Ox 98.4 F 73 18 163/65 H 94 L 04/09/22 23:53 04/10/22 04:00 04/10/22 04:00 04/10/22 04:00 04/10/22 04:00 I & O for Last 24 hours: Intake & Output 04/07/22 04/08/22 04/09/22 04/10/22 11:59 11:59 11:59 11:59 Intake Total 2805 / 2805 4488 / 4488 570 / 570 2064 / 2064 Output Total 1400 / 1400 200 / 200 1400 / 1400 2850 / 2850 Balance 1405 / 1405 4288 / 4288 -830 / -830 -786 / -786 Weight 147 lb 11.355 oz 150 lb 6 oz Microbiology Reports for the Last 24 Hours: Microbiology 04/05/22 02:30 Blood Blood Culture - Final NO GROWTH AFTER 5 DAYS 04/05/22 02:30 Blood Blood Culture - Final NO GROWTH AFTER 5 DAYS Constitutional Constitutional: no acute distress *Routine HEENT Exam Head: Present atraumatic Eye: Present conjunctivae pink ENT: Present mucous membranes moist *Routine Neck Exam Neck: Present supple *Routine Respiratory Exam Respiratory: Present CTA bilaterally *Routine Cardiovascular Exam Cardiovascular: Present RRR *Routine Abdominal Exam Abdominal: Present soft, normoactive bowel sounds and distended Comments: much softer today, still distended, bowel sounds in all quadrants *Routine Rectal Exam Patient deferred: visual exam *Routine Exam Patient deferred: external exam *Routine Extremities Exam Extremities: Present edema; Absent tenderness Comments: edema confined to the left upper extremity *Routine Skin Exam Skin: Present intact and warm *Routine Neurological Exam Neurological: Present oriented X3 and normal speech Assessment and Plan *Assessment and plan (1) Cholecystitis, acute: Status: Acute Category: Medical Code(s): K81.0 - Acute cholecystitis (2) Ileus: Status: Acute Category: Medical Code(s): K56.7 - Ileus, unspecified (3) Hypothyroidism: Status: Acute Qualifiers: Hypothyroidism type: acquired Qualified Code(s): E03.9 - Hypothyroidism, unspecified Category: Medical Code(s): E03.9 - Hypothyroidism, unspecified (4) Renal insufficiency: Status: Acute Category: Medical Code(s): N28.9 - Disorder of kidney and ureter, unspecified (5) Sepsis: Status: Acute Category: Medical Code(s): A41.9 - Sepsis, unspecified organism (6) Atrial fibrillation: Status: Acute Qualifiers: Atrial fibrillation type: unspecified Qualified Code(s): I48.91 - Unspecified atrial fibrillation Category: Medical Code(s): I48.91 - Unspecified atrial fibrillation (7) Hypertension: Status: Acute Category: Medical Code(s): I10 - Essential (primary) hypertension (8) Edema of left upper extremity: Status: Acute Category: Medical Code(s): R60.0 - Localized edema Plan Patient status-post cholecystectomy. Overall doing well with exception of post-op ileus. Continue postoperative mobilization. Sepsis- Invanz discontinued yesterday. Continues on IV zosyn. Off pressors. Improving with source of sepsis removed i.e. gallbladder. Elevated LFTs, consistent with liver injury from sepsis/cholecystitis- continuing to trend downward Patient is better except for the ileus issues. Lomotil discontinued yesterday and has had a small amount of flatus over night. Encouraged increased ambulation as tolerated today. Appreciate surgery involvement. Continue current antibiotics given her sepsis and necrotic gallbladder. Discontinue IV fluids, repeat IV l
[2022-04-10 08:46] VITALS: BP 175/87; PULSE 77; RESP 18; TEMP 36.9; O2SAT 95
[2022-04-10 09:47] LABS: Basophils % 0.3 % (0.1-2.0); Eosinophils # 0.3 K/mm3 (0.0-0.4); Eosinophils % 3.2 % (0.1-12.0); Hematocrit 34.5 % (37.0-47.0); Hemoglobin 11.6 g/dL (12.2-16.2); Lymphocytes # 0.8 K/mm3 (0.7-4.5); Lymphocytes % 10.3 % (10-50); Mean Corpuscular HGB Conc 33.6 g/dL (31.8-35.4); Mean Corpuscular Hemoglobin 30.8 pg (27.0-31.2); Mean Corpuscular Volume 91.7 fl (81-99); Mean Platelet Volume 8.8 fl (7.4-10.4); Monocytes # 0.6 K/mm3 (0.1-1.0); Monocytes % 7.7 % (1.7-9.3); Neutrophils # 6.4 K/mm3 (1.8-7.8); Neutrophils % 78.6 % (37.0-80.0); Platelet Count 229 K/mm3 (142-424); Red Blood Count 3.77 M/mm3 (4.20-5.40); Red Cell Distribution Width 13.9 % (11.5-17.5); White Blood Count 8.1 K/mm3 (4.8-10.8)
--- NOTE | 2022-04-10 09:56 | CA_ITS ---
FINAL REPORT TECHNIQUE: Graded compression, spectral analysis and ultrasound images of the venous system of the upper extremity were obtained. CLINICAL HISTORY: LUE swelling, edema, redness. Patient has history of colon cancer and right breast cancer. Patient has had numerous blood draws and IV sticks to left upper extremity during this 6 day hospital stay for sepsis and cholecystitis. Patient does have a port in the left subclavian region. FINDINGS: The jugular vein, subclavian vein, axillary vein, brachial vein, cephalic vein and basilic venous system are fully compressible and demonstrate no evidence of thrombosis. IMPRESSION: No evidence of thrombosis of the venous system of the left upper extremity. Reviewed, Interpreted and Dictated by Krysta Singh MD Transcribed by Chen Silva Authenticated and [facility]
--- NOTE | 2022-04-10 10:00 | P.PN_ITS ---
Subjective Narrative: Patient seems to be feeling better. No nausea. She is tolerating a diet at this time. She has passed some gas. Still some distention. Complains of left upper extremity swelling. Exam Data for Last 24 hours Vital signs and Labs for Last 24 Hours: Temp Pulse Resp BP Pulse Ox 98.4 F 77 18 175/87 H 95 04/10/22 08:46 04/10/22 08:46 04/10/22 08:46 04/10/22 08:46 04/10/22 08:46 Laboratory Results - last 24 hr 04/10/22 09:30: WBC 8.1, RBC 3.77 L, Hgb 11.6 L, Hct 34.5 L, MCV 91.7, MCH 30.8, MCHC 33.6, RDW 13.9, Plt Count 229, MPV 8.8, Neut % (Auto) 78.6, Lymph % (Auto) 10.3, [place] % (Auto) 7.7, Eos % (Auto) 3.2, Baso % (Auto) 0.3, Neut # (Auto) 6.4, Lymph # (Auto) 0.8, [place] # (Auto) 0.6, Eos # (Auto) 0.3, Baso # (Auto) 0.0 I & O for Last 24 hours: Intake & Output 04/07/22 04/08/22 04/09/22 04/10/22 11:59 11:59 11:59 11:59 Intake Total 2805 / 2805 4488 / 4488 570 / 570 2424 / 2424 Output Total 1400 / 1400 200 / 200 1400 / 1400 2850 / 2850 Balance 1405 / 1405 4288 / 4288 -830 / -830 -426 / -426 Weight 147 lb 11.355 oz 150 lb 6 oz Microbiology Reports for the Last 24 Hours: Microbiology 04/05/22 02:30 Blood Blood Culture - Final NO GROWTH AFTER 5 DAYS 04/05/22 02:30 Blood Blood Culture - Final NO GROWTH AFTER 5 DAYS *Routine Abdominal Exam Abdominal: Present distended Comments: Abdomen moderately distended. Improving. No significant tenderness Progress Note: A&P Assessment and plan (1) Cholecystitis, acute: Status: Acute (2) Ileus: Status: Acute Assessment and plan: Encourage ambulation. Monitor liver function test. Left upper extremity venous duplex to rule out thrombosis. (3) Hypothyroidism: Status: Acute (4) Renal insufficiency: Status: Acute (5) Sepsis: Status: Acute (6) Atrial fibrillation: Status: Acute (7) Hypertension: Status: Acute (8) Edema of left upper extremity: Status: Acute
[2022-04-10 10:06] LABS: Chloride 108 mmol/L (98-107); Potassium 3.5 mmoL/L (3.5-5.1); Sodium 138 mmol/L (136-145)
[2022-04-10 10:09] LABS: Alanine Aminotransferase 172 U/L (12-78); Albumin Level 2.9 g/dl (3.5-5.0); Albumin/Globulin Ratio 1.2 (1.1-1.8); Alkaline Phosphatase 101 U/L (38-126); Anion Gap 14.5 mEq/L (5-15); Aspartate Amino Transferase 66 U/L (14-36); Bilirubin,Total 0.7 mg/dl (0.2-1.3); Blood Urea Nitrogen 10 mg/dl (7-17); Carbon Dioxide 19 mmol/L (22.0-30.0); Creatinine Clearance Estimated 48 mL/min (50-200); Estimated Glomerular Filt Rate 80 ml/min (>60); GFR (African American) 97 ML/MIN (>60); Globulin 2.5 g/dL (1.3-3.2); Total Protein,Serum 5.4 g/dl (6.3-8.2)
[2022-04-10 10:10] LABS: Calcium 7.8 mg/dl (8.4-10.2); Glucose 144 mg/dl (74-100)
[2022-04-10 11:58] VITALS: BP 166/74; PULSE 75; RESP 18; TEMP 36.6; O2SAT 96
[2022-04-10 15:58] VITALS: BP 171/72; PULSE 74; RESP 20; TEMP 37.2; O2SAT 92
[2022-04-10 20:00] VITALS: BP 139/69; PULSE 105; RESP 18; TEMP 36.9; O2SAT 95
[2022-04-11] VITALS: BP 159/91; PULSE 93; RESP 18; TEMP 36.8; O2SAT 97
[2022-04-11 04:00] VITALS: BP 166/71; PULSE 110; RESP 18; TEMP 37.2; BMI 24.0
--- NOTE | 2022-04-11 05:17 | PC.NURSE ---
no acute distress, low grade temp noted 99, noted hr 98-105, pt is alert and oriented x4, f/c to bsd with cyu noted, skin pwd. dressing cdi, port to left chest wall accessed and covered with dressing, abd distended, hypoactive bowel sounds, pt with bm x1 this shift.
--- NOTE | 2022-04-11 07:10 | PC.NURSE ---
pts left chest wall port access changed this am, current walker needle removed, area cleansed with chloraprep, sterile 20g walker needle used to access port with great blood return and blood drawn for labs, pt tolerated well and verbalized understanding.
[2022-04-11 07:36] LABS: Basophils % 0.5 % (0.1-2.0); Eosinophils # 0.3 K/mm3 (0.0-0.4); Eosinophils % 3.4 % (0.1-12.0); Hematocrit 33.1 % (37.0-47.0); Hemoglobin 11.4 g/dL (12.2-16.2); Lymphocytes # 1.2 K/mm3 (0.7-4.5); Lymphocytes % 15.6 % (10-50); Mean Corpuscular HGB Conc 34.4 g/dL (31.8-35.4); Mean Corpuscular Hemoglobin 30.4 pg (27.0-31.2); Mean Corpuscular Volume 88.3 fl (81-99); Monocytes # 0.7 K/mm3 (0.1-1.0); Monocytes % 9.9 % (1.7-9.3); Neutrophils # 5.3 K/mm3 (1.8-7.8); Neutrophils % 70.6 % (37.0-80.0); Platelet Count 218 K/mm3 (142-424); Red Blood Count 3.75 M/mm3 (4.20-5.40); Red Cell Distribution Width 14.1 % (11.5-17.5); White Blood Count 7.5 K/mm3 (4.8-10.8)
[2022-04-11 07:50] LABS: Alanine Aminotransferase 126 U/L (12-78); Albumin/Globulin Ratio 1.3 (1.1-1.8); Alkaline Phosphatase 116 U/L (38-126); Anion Gap 3.7 mEq/L (5-15); Aspartate Amino Transferase 38 U/L (14-36); Bilirubin,Total 0.6 mg/dl (0.2-1.3); Blood Urea Nitrogen 7 mg/dl (7-17); Calcium 8.1 mg/dl (8.4-10.2); Carbon Dioxide 29 mmol/L (22.0-30.0); Chloride 103 mmol/L (98-107); Creatinine Clearance Estimated 47 mL/min (50-200); Estimated Glomerular Filt Rate 80 ml/min (>60); GFR (African American) 97 ML/MIN (>60); Globulin 2.4 g/dL (1.3-3.2); Glucose 89 mg/dl (74-100); Sodium 133 mmol/L (136-145); Total Protein,Serum 5.4 g/dl (6.3-8.2)
[2022-04-11 08:00] VITALS: BP 176/92; PULSE 70; RESP 18; TEMP 37.2; O2SAT 95
[2022-04-11 08:04] LABS: Potassium 2.7 mmoL/L (3.5-5.1)
--- NOTE | 2022-04-11 09:02 | EXP.PN ---
Subjective *Date: 04/11/22 *Time: 09:37 Interval history: Has done well overnight, passed flatus and several bowel movements. No nausea or vomiting, tolerating solids by mouth. Was able to get up and showered with assistance yesterday. She denies pain this morning with the exception of incisional pain when she coughs. Exam Data for Last 24 hours Vital signs and Labs for Last 24 Hours: Temp Pulse Resp BP Pulse Ox 98.9 F 70 18 176/92 H 95 04/11/22 08:00 04/11/22 08:00 04/11/22 08:00 04/11/22 08:00 04/11/22 08:00 Laboratory Results - last 24 hr 04/10/22 09:30: WBC 8.1, RBC 3.77 L, Hgb 11.6 L, Hct 34.5 L, MCV 91.7, MCH 30.8, MCHC 33.6, RDW 13.9, Plt Count 229, MPV 8.8, Neut % (Auto) 78.6, Lymph % (Auto) 10.3, Floyd % (Auto) 7.7, Eos % (Auto) 3.2, Baso % (Auto) 0.3, Neut # (Auto) 6.4, Lymph # (Auto) 0.8, Floyd # (Auto) 0.6, Eos # (Auto) 0.3, Baso # (Auto) 0.0 04/10/22 09:30: Sodium 138, Potassium 3.5, Chloride 108 H, Carbon Dioxide 19 L, Anion Gap 14.5, BUN 10, Creatinine 0.70, Estimated Creat Clear 48, Estimated GFR 80, Est GFR ( Amer) 97, Glucose 144 H, Calcium 7.8 L, Total Bilirubin 0.7, AST 66 H D, ALT 172 H D, Alkaline Phosphatase 101, Total Protein 5.4 L, Albumin 2.9 L, Globulin 2.5, Albumin/Globulin Ratio 1.2 04/11/22 06:55: WBC 7.5, RBC 3.75 L, Hgb 11.4 L, Hct 33.1 L, MCV 88.3, MCH 30.4, MCHC 34.4, RDW 14.1, Plt Count 218, MPV 8.0, Neut % (Auto) 70.6, Lymph % (Auto) 15.6, Floyd % (Auto) 9.9 H, Eos % (Auto) 3.4, Baso % (Auto) 0.5, Neut # (Auto) 5.3, Lymph # (Auto) 1.2, Floyd # (Auto) 0.7, Eos # (Auto) 0.3, Baso # (Auto) 0.0 04/11/22 06:55: Sodium 133 L, Potassium 2.7 L* D, Chloride 103, Carbon Dioxide 29, Anion Gap 3.7 L, BUN 7 D, Creatinine 0.70, Estimated Creat Clear 47, Estimated GFR 80, Est GFR ( Amer) 97, Glucose 89 D, Calcium 8.1 L, Total Bilirubin 0.6, AST 38 H D, ALT 126 H D, Alkaline Phosphatase 116, Total Protein 5.4 L, Albumin 3.0 L, Globulin 2.4, Albumin/Globulin Ratio 1.3 I & O for Last 24 hours: Intake & Output 04/08/22 04/09/22 04/10/22 04/11/22 11:59 11:59 11:59 11:59 Intake Total 4488 / 4488 570 / 570 2424 / 2424 1060 / 1060 Output Total 200 / 200 1400 / 1400 3050 / 3050 1400 / 1400 Balance 4288 / 4288 -830 / -830 -626 / -626 -340 / -340 Weight 147 lb 11.355 oz 150 lb 6 oz 149 lb 6.199 oz *Routine Abdominal Exam Abdominal: Present normoactive bowel sounds and distended Comments: Abdomen mildly distended. Improving. No significant tenderness Assessment and Plan *Assessment and plan (1) Cholecystitis, acute: Status: Acute Category: Medical Code(s): K81.0 - Acute cholecystitis (2) Ileus: Status: Acute Category: Medical Code(s): K56.7 - Ileus, unspecified (3) Hypothyroidism: Status: Acute Qualifiers: Hypothyroidism type: acquired Qualified Code(s): E03.9 - Hypothyroidism, unspecified Category: Medical Code(s): E03.9 - Hypothyroidism, unspecified (4) Renal insufficiency: Status: Acute Category: Medical Code(s): N28.9 - Disorder of kidney and ureter, unspecified (5) Sepsis: Status: Acute Category: Medical Code(s): A41.9 - Sepsis, unspecified organism (6) Atrial fibrillation: Status: Acute Qualifiers: Atrial fibrillation type: unspecified Qualified Code(s): I48.91 - Unspecified atrial fibrillation Category: Medical Code(s): I48.91 - Unspecified atrial fibrillation (7) Hypertension: Status: Acute Category: Medical Code(s): I10 - Essential (primary) hypertension (8) Edema of left upper extremity: Status: Acute Category: Medical Code(s): R60.0 - Localized edema (9) Hypokalemia: Status: Acute Category: Medical Code(s): E87.6 - Hypokalemia Plan Patient status-post cholecystectomy. Overall doing well with exception of post-op ileus. Continue postoperative mobilization
--- NOTE | 2022-04-11 09:38 | P.PN_ITS ---
Subjective Patient reports: no new complaints Narrative: Patient tolerating a diet. Feels much better. Exam Data for Last 24 hours Vital signs and Labs for Last 24 Hours: Temp Pulse Resp BP Pulse Ox 98.9 F 70 18 176/92 H 95 04/11/22 08:00 04/11/22 08:00 04/11/22 08:00 04/11/22 08:00 04/11/22 08:00 Laboratory Results - last 24 hr 04/10/22 09:30: WBC 8.1, RBC 3.77 L, Hgb 11.6 L, Hct 34.5 L, MCV 91.7, MCH 30.8, MCHC 33.6, RDW 13.9, Plt Count 229, MPV 8.8, Neut % (Auto) 78.6, Lymph % (Auto) 10.3, [place] % (Auto) 7.7, Eos % (Auto) 3.2, Baso % (Auto) 0.3, Neut # (Auto) 6.4, Lymph # (Auto) 0.8, [place] # (Auto) 0.6, Eos # (Auto) 0.3, Baso # (Auto) 0.0 04/10/22 09:30: Sodium 138, Potassium 3.5, Chloride 108 H, Carbon Dioxide 19 L, Anion Gap 14.5, BUN 10, Creatinine 0.70, Estimated Creat Clear 48, Estimated GFR 80, Est GFR ( Amer) 97, Glucose 144 H, Calcium 7.8 L, Total Bilirubin 0.7, AST 66 H D, ALT 172 H D, Alkaline Phosphatase 101, Total Protein 5.4 L, Albumin 2.9 L, Globulin 2.5, Albumin/Globulin Ratio 1.2 04/11/22 06:55: WBC 7.5, RBC 3.75 L, Hgb 11.4 L, Hct 33.1 L, MCV 88.3, MCH 30.4, MCHC 34.4, RDW 14.1, Plt Count 218, MPV 8.0, Neut % (Auto) 70.6, Lymph % (Auto) 15.6, [place] % (Auto) 9.9 H, Eos % (Auto) 3.4, Baso % (Auto) 0.5, Neut # (Auto) 5.3, Lymph # (Auto) 1.2, [place] # (Auto) 0.7, Eos # (Auto) 0.3, Baso # (Auto) 0.0 04/11/22 06:55: Sodium 133 L, Potassium 2.7 L* D, Chloride 103, Carbon Dioxide 29, Anion Gap 3.7 L, BUN 7 D, Creatinine 0.70, Estimated Creat Clear 47, Estimated GFR 80, Est GFR ( Amer) 97, Glucose 89 D, Calcium 8.1 L, Total Bilirubin 0.6, AST 38 H D, ALT 126 H D, Alkaline Phosphatase 116, Total Protein 5.4 L, Albumin 3.0 L, Globulin 2.4, Albumin/Globulin Ratio 1.3 I & O for Last 24 hours: Intake & Output 04/08/22 04/09/22 04/10/22 04/11/22 11:59 11:59 11:59 11:59 Intake Total 4488 / 4488 570 / 570 2424 / 2424 1060 / 1060 Output Total 200 / 200 1400 / 1400 3050 / 3050 1400 / 1400 Balance 4288 / 4288 -830 / -830 -626 / -626 -340 / -340 Weight 147 lb 11.355 oz 150 lb 6 oz 149 lb 6.199 oz *Routine Abdominal Exam Abdominal: Present soft; Absent tenderness Progress Note: A&P Assessment and plan (1) Cholecystitis, acute: Status: Acute Assessment and plan: Anticipate discharge soon (2) Ileus: Status: Acute (3) Hypothyroidism: Status: Acute (4) Renal insufficiency: Status: Acute (5) Sepsis: Status: Acute (6) Atrial fibrillation: Status: Acute (7) Hypertension: Status: Acute (8) Edema of left upper extremity: Status: Acute (9) Hypokalemia: Status: Acute
[2022-04-11 12:00] VITALS: BP 163/72; PULSE 67; RESP 20; TEMP 37.1; O2SAT 98
[2022-04-11 16:00] VITALS: BP 147/92; PULSE 70; RESP 16; TEMP 36.9; O2SAT 96
--- NOTE | 2022-04-11 17:11 | PC.NURSE ---
pt has ambulated in [place] with x1 assist. she reports feeling better today. has been able to void x2 after kim removal.
[2022-04-11 20:00] VITALS: BP 168/75; PULSE 78; RESP 18; TEMP 37.3; O2SAT 95
[2022-04-12] VITALS: BP 166/73; PULSE 79; RESP 16; TEMP 37.1; O2SAT 97
[2022-04-12 04:00] VITALS: BP 141/75; PULSE 73; RESP 16; TEMP 37.2; O2SAT 96; BMI 26.9
--- NOTE | 2022-04-12 05:53 | PC.NURSE ---
no changes from previous assessment, no acute distress, vss, pt c/o of back pain and given po pain meds as prescribed with relief, no other issues or concerns noted at this time.
[2022-04-12 08:00] VITALS: BP 189/92; PULSE 69; RESP 18; TEMP 37.1; O2SAT 96
--- NOTE | 2022-04-12 08:45 | EXP.PN ---
Subjective *Date: 04/12/22 *Time: 09:15 Interval history: Has done well overnight, voided several times since catheter removed and she continues to pass flatus and soft stool. No further nausea or vomiting, tolerating solids by mouth. Was able to get up yesterday with stand-by assistance. She denies pain this morning with the exception of incisional pain when she coughs or moves. Exam Data for Last 24 hours Vital signs and Labs for Last 24 Hours: Temp Pulse Resp BP Pulse Ox 98.8 F 69 18 189/92 H 96 04/12/22 08:00 04/12/22 08:00 04/12/22 08:00 04/12/22 08:00 04/12/22 08:00 I & O for Last 24 hours: Intake & Output 04/09/22 04/10/22 04/11/22 04/12/22 11:59 11:59 11:59 11:59 Intake Total 570 / 570 2424 / 2424 1060 / 1060 960 / 960 Output Total 1400 / 1400 3050 / 3050 1400 / 2200 1075 / 1075 Balance -830 / -830 -626 / -626 -340 / -1140 -115 / -115 Weight 150 lb 6 oz 149 lb 6.199 oz 167 lb 12.8 oz *Routine HEENT Exam Head: Present atraumatic Eye: Present conjunctivae pink ENT: Present mucous membranes moist *Routine Neck Exam Neck: Present supple *Routine Respiratory Exam Respiratory: Present CTA bilaterally *Routine Cardiovascular Exam Cardiovascular: Present RRR *Routine Abdominal Exam Abdominal: Present soft; Absent tenderness or distended Comments: surgical incisions clean, dry, intact *Routine Rectal Exam Patient deferred: visual exam *Routine Exam Patient deferred: external exam *Routine Extremities Exam Extremities: Present pulses intact and normal capillary refill Comments: minimal swelling left upper extremity *Routine Skin Exam Skin: Present intact and warm *Routine Neurological Exam Neurological: Present alert and oriented X3 Assessment and Plan *Assessment and plan (1) Cholecystitis, acute: Status: Acute Category: Medical Code(s): K81.0 - Acute cholecystitis (2) Ileus: Status: Acute Category: Medical Code(s): K56.7 - Ileus, unspecified (3) Hypothyroidism: Status: Acute Qualifiers: Hypothyroidism type: acquired Qualified Code(s): E03.9 - Hypothyroidism, unspecified Category: Medical Code(s): E03.9 - Hypothyroidism, unspecified (4) Renal insufficiency: Status: Acute Category: Medical Code(s): N28.9 - Disorder of kidney and ureter, unspecified (5) Sepsis: Status: Acute Category: Medical Code(s): A41.9 - Sepsis, unspecified organism (6) Atrial fibrillation: Status: Acute Qualifiers: Atrial fibrillation type: unspecified Qualified Code(s): I48.91 - Unspecified atrial fibrillation Category: Medical Code(s): I48.91 - Unspecified atrial fibrillation (7) Hypertension: Status: Acute Category: Medical Code(s): I10 - Essential (primary) hypertension (8) Edema of left upper extremity: Status: Acute Category: Medical Code(s): R60.0 - Localized edema (9) Hypokalemia: Status: Acute Category: Medical Code(s): E87.6 - Hypokalemia Plan Patient status-post cholecystectomy. Continue postoperative mobilization. Sepsis- Invanz discontinued. Continues on IV zosyn. Off pressors. Resolved with source of sepsis removed i.e. gallbladder. Elevated LFTs, consistent with liver injury from sepsis/cholecystitis- continuing to trend downward Preliminary doppler of left upper extremity reportedly negative for acute DVT and she is already anticoagulated with oral eliquis due to atrial fibrillation BP improved this morning, continue ARB. Plan DC home today with family Agree with note and plan above from Ms. Medina. Please see discharge summary
--- NOTE | 2022-04-12 09:21 | EXP.DC.SUM ---
General Admission date:: 04/05/22 Discharge date: 04/12/22 HPI HPI HPI: Patient is a 81-year-old female who has a history of metastatic colon cancer. She had undergone panendoscopy by Dr. 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 She has been followed by Dr. Barrera and has declined any additional chemotherapy due to side effects. She has remote history of breast cancer. She has a history of atrial fibrillation with rapid ventricular response, renal insufficiency, previous non-STEMI. She is on Eliquis. 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 She had presented to emergency department with significant upper abdominal pain in the epigastrium beginning approximately 7 PM on 04/04/2021. This was described as moderate, sharp, and constant. She had a CT scan performed without any contrast whatsoever which revealed gallstones but there was no evidence of any inflammatory change or radiographic evidence of acute cholecystitis. She was admitted for inpatient management due to ongoing pain and surgical consultation for gallbladder . She had a gallbladder ultrasound performed today which reveals findings of multiple gallstones with no evidence of biliary ductal dilatation. Patient describes ongoing pain of approximately 8 out of 10. She does state that she had previously been told about 10 years ago that she may need to have her gallbladder removed. Of note, she has had some significant weakness over the past couple of weeks. Hospital Course Hospital Course Hospital Course: Patient was admitted as noted. Found to be septic, gallbladder found to be source, patient begun on broad-spectrum antibiotics. Cardiology consulted because of initial EF reading of 25%. They recommended heart cath before surgery which was done which revealed clean coronaries and ejection fraction of 40%. Surgery proceeded laparoscopically. Necrotic gallbladder was removed and surgery went well. The patient felt better almost immediately, was able to be taken off pressors and antibiotics were continued. She did develop a postop ileus. But this was treated with the cessation of her home Lomotil and standard mobilization practices and this slowly resolved. She finished a 7-day course of antibiotics in the hospital. Cardiology repeated her echo which was up to 50%. Unsure about the veracity of the first echocardiogram versus sepsis suppression of her ejection fraction. She was also found to be hypertensive. Losartan was started, she tolerated this well. This morning she was doing well. See Ms. Medina's note for details. Can be discharged home, losartan prescription, follow-up in our office on . No antibiotics. Hold Lomotil until . We will reevaluate her need for it at that point. We will evaluate her for home health given her tendency for weakness and unsteadiness in the hospital. Exam Data for Last 24 hours Vital signs and Labs for Last 24 Hours: Temp Pulse Resp BP Pulse Ox 98.8 F 69 18 189/92 H 96 04/12/22 08:00 04/12/22 08:00 04/12/22 08:00 04/12/22 08:00 04/12/22 08:00 I & O for Last 24 hours: Intake & Output 04/09/22 04/10/22 04/11/22 04/12/22 11:59 11:59 11:59 11:59 Intake Total 570 / 570 2424 / 2424 1060 / 1060 960 / 960 Output Total 1400 / 1400 3050 / 3050 1400 / 2200 1075 / 1075 Balance -830 / -830 -626 / -626 -340 / -1140 -115 / -115 Weight 150 lb 6 oz 149 lb 6.199 oz 167 lb 12.8 oz Constitutional Constitutional: no acute distress *Routine HEENT Exam Head: Present normocephalic Eye: Present EOMI and PERRL ENT: Present mucous membranes moist *Routine Neck Exam Neck: Present supple; Absent lymphadenopathy *Routine Respiratory Exam Respiratory: Present CTA bilaterally *Routine Cardiovascular Exam Cardiovascular: Present murmur and irregular rhythm *Rou
[2022-04-12 10:23] LABS: Basophils # 0.1 K/mm3 (0-0.2); Basophils % 0.8 % (0.1-2.0); Eosinophils # 0.4 K/mm3 (0.0-0.4); Eosinophils % 4.8 % (0.1-12.0); Hematocrit 33.2 % (37.0-47.0); Lymphocytes # 1.3 K/mm3 (0.7-4.5); Lymphocytes % 17.6 % (10-50); Mean Corpuscular Hemoglobin 30.2 pg (27.0-31.2); Mean Corpuscular Volume 91.4 fl (81-99); Mean Platelet Volume 7.9 fl (7.4-10.4); Monocytes # 0.5 K/mm3 (0.1-1.0); Monocytes % 7.1 % (1.7-9.3); Neutrophils # 5.1 K/mm3 (1.8-7.8); Neutrophils % 69.7 % (37.0-80.0); Platelet Count 230 K/mm3 (142-424); Red Blood Count 3.63 M/mm3 (4.20-5.40); White Blood Count 7.3 K/mm3 (4.8-10.8)
--- NOTE | 2022-04-12 10:55 | P.CONPHA_ITS ---
Pharmacy Intervention Comments: Met with patient to behavioral school counselors on discharge medications prior to discharge. Discussed new and continued medications as well as indications, possible adverse effects, and mitigation strategies for each. Patient verbalized understanding of information provided and had no questions or concerns at this time. -Rosio Fuller, PharmD Candidate 2022
[2022-04-12 10:58] LABS: Alanine Aminotransferase 95 U/L (12-78); Albumin Level 2.9 g/dl (3.5-5.0); Albumin/Globulin Ratio 1.3 (1.1-1.8); Alkaline Phosphatase 100 U/L (38-126); Anion Gap 8.9 mEq/L (5-15); Aspartate Amino Transferase 29 U/L (14-36); Bilirubin,Total 0.6 mg/dl (0.2-1.3); Blood Urea Nitrogen 7 mg/dl (7-17); Calcium 8.2 mg/dl (8.4-10.2); Carbon Dioxide 29 mmol/L (22.0-30.0); Chloride 103 mmol/L (98-107); Creatinine Clearance Estimated 53 mL/min (50-200); Estimated Glomerular Filt Rate 96 ml/min (>60); GFR (African American) 116 ML/MIN (>60); Globulin 2.2 g/dL (1.3-3.2); Glucose 115 mg/dl (74-100); Sodium 138 mmol/L (136-145); Total Protein,Serum 5.1 g/dl (6.3-8.2)
[2022-04-12 11:00] LABS: Potassium 2.9 mmoL/L (3.5-5.1)
--- NOTE | 2022-04-12 11:38 | CARE MANAGER ---
Staff spoke with patient concerning Home Health, patient refuses.
--- NOTE | 2022-04-12 12:34 | CARE MANAGER ---
CM spoke with patient prior to discharge today, regarding need for HH services. Patient refused HH services when offered. No other known needs at this time.
--- NOTE | 2022-04-16 15:22 | CARE MANAGER ---
Called and spoke with patient's , who states that she is doing well. Had a f/u appt with Dr. Priest yesterday, and is aware of the other f/u appts.
== END 2022-04-12 11:29 | disposition home or self-care (01) | DRG 853 ==
LOC: ER 04:06 → 2ND 05:51 → ICU 14:09 → 2ND 04-06 16:49
PROVIDERS: Internal Medicine; Nurse Practitioner Family; Surgery; Admitting Provider Internal Medicine Adolescent Medicine; Emergency Provider Emergency Medicine; PCP Internal Medicine Adolescent Medicine; Visit Provider Internal Medicine Adolescent Medicine
PROC: B2111ZZ Fluoroscopy of Multiple Coronary Arteries using Low Osmolar Contrast (ICD-10-PCS; principal; 2022-04-06 11:00)
PROC: 0FT44ZZ Resection of Gallbladder, Percutaneous Endoscopic Approach (ICD-10-PCS; CPT 47562; principal; 2022-04-06 13:30)
DX: A41.9 Sepsis, unspecified organism (principal); K72.00 Acute and subacute hepatic failure without coma; C18.0 Malignant neoplasm of cecum; I51.81 Takotsubo syndrome; K56.7 Ileus, unspecified; K80.20 Calculus of gallbladder without cholecystitis without obstruction; E03.9 Hypothyroidism, unspecified; D64.9 Anemia, unspecified; Z79.01 Long term (current) use of anticoagulants; I25.2 Old myocardial infarction; I34.0 Nonrheumatic mitral (valve) insufficiency; I48.0 Paroxysmal atrial fibrillation; E87.6 Hypokalemia
CPT/HCPCS: 47562; 36415; 71045; 74021; 74176; 74177; 76705; 80053; 81001; 82150; 82962; 83605; 83690; 84484; 85007; 85025; 87040; 87086; 88304; 93005; 93306; 93308; 93458; 93971; 97110; 97116; 97163; 97165; 97530; 99152; 99285; C1725; C1769; C9803; J1335; J1642; J1644; J2405; J2543; Q9957; Q9967; U0003; U0005

== ENCOUNTER 2022-04-30 12:07 | Outpatient (CLI) | payer MEDICARE, OTHER, SELFPAY ==
[2022-04-30 12:10] VITALS: BMI 56.9
[2022-04-30 12:52] LABS: Basophils # 0.2 K/mm3 (0-0.2); Basophils % 2.9 % (0.1-2.0); Eosinophils # 0.2 K/mm3 (0.0-0.4); Eosinophils % 4.6 % (0.1-12.0); Hematocrit 39.6 % (37.0-47.0); Hemoglobin 13.2 g/dL (12.2-16.2); Lymphocytes # 1.9 K/mm3 (0.7-4.5); Lymphocytes % 37.2 % (10-50); Mean Corpuscular HGB Conc 33.2 g/dL (31.8-35.4); Mean Corpuscular Hemoglobin 28.9 pg (27.0-31.2); Monocytes # 0.5 K/mm3 (0.1-1.0); Monocytes % 9.5 % (1.7-9.3); Neutrophils # 2.3 K/mm3 (1.8-7.8); Neutrophils % 45.8 % (37.0-80.0); Platelet Count 280 K/mm3 (142-424); Red Blood Count 4.56 M/mm3 (4.20-5.40); Red Cell Distribution Width 13.5 % (11.5-17.5)
[2022-04-30 12:59] LABS: Alanine Aminotransferase 16 U/L (12-78); Albumin Level 4.1 g/dl (3.5-5.0); Albumin/Globulin Ratio 1.4 (1.1-1.8); Alkaline Phosphatase 99 U/L (38-126); Aspartate Amino Transferase 28 U/L (14-36); Bilirubin,Total 0.5 mg/dl (0.2-1.3); Blood Urea Nitrogen 13 mg/dl (7-17); Calcium 8.8 mg/dl (8.4-10.2); Carbon Dioxide 28 mmol/L (22.0-30.0); Chloride 107 mmol/L (98-107); Creatinine Clearance Estimated 41 mL/min (50-200); Estimated Glomerular Filt Rate 69 ml/min (>60); GFR (African American) 83 ML/MIN (>60); Globulin 2.9 g/dL (1.3-3.2); Glucose 110 mg/dl (74-100); Sodium 141 mmol/L (136-145)
[2022-05-01 10:26] LABS: CEA 4.5 ng/mL (0.0-4.7)
== END 2022-04-30 12:20 | disposition home or self-care (01) ==
LOC: INF 12:08
PROVIDERS: PCP Internal Medicine Adolescent Medicine; Visit Provider Internal Medicine Medical Oncology
DX: Z45.2 Encounter for adjustment and management of vascular access device (principal); C18.9 Malignant neoplasm of colon, unspecified
CPT/HCPCS: 36591; 80053; 82378; 85025; J1642

== ENCOUNTER 2022-06-21 14:38 | Outpatient (CLI) | payer MEDICARE, OTHER, SELFPAY | END 2022-06-21 14:55 | disposition home or self-care (01) | LOC: INF 14:39 | PROVIDERS: PCP Internal Medicine Adolescent Medicine; Visit Provider Internal Medicine Medical Oncology | DX: C18.9 Malignant neoplasm of colon, unspecified (principal); Z45.2 Encounter for adjustment and management of vascular access device | CPT/HCPCS: 96523; J1642 ==

== ENCOUNTER 2022-07-09 13:43 | Emergency (ER) | payer MEDICARE, OTHER, SELFPAY ==
[2022-07-09 13:52] VITALS: BP 162/82; PULSE 76; RESP 16; TEMP 36.8; O2SAT 98; BMI 24.2
--- NOTE | 2022-07-09 14:09 | CT_ITS ---
FINAL REPORT TECHNIQUE: Axial imaging of the lumbar spine was obtained without contrast. Sagittal and coronal reformatted images were also obtained and reviewed. This study was performed with techniques to keep radiation doses as low as reasonably achievable (ALARA). Individualized dose reduction techniques using automated exposure control or adjustment of mA and/or kV according to the patient's size were employed. CLINICAL HISTORY: previous [id number], intermittent midline pain FINDINGS: There are postoperative changes from fusion at L4-5. There is no fracture. There is mild anterolisthesis of L3 on L4 and L4 on L5. There is levoscoliosis. There is no evidence of significant central canal stenosis. L1-L2: An annular disc bulge is present with mild bilateral neural foraminal narrowing. L2-L3: There is an annular disc bulge with facet arthropathy and vertebral osteophytes. There is moderate bilateral neural foraminal narrowing. L3-L4: There is an annular disc bulge with facet arthropathy and vertebral osteophytes. There is moderate right mild left neural foraminal narrowing. L4-L5: There is fusion at this level. There is mild bilateral neural foraminal narrowing. L5-S1: An annular disc bulge with facet arthropathy is present. There is mild left neural foraminal narrowing. IMPRESSION: Multilevel degenerative change without acute bony abnormality. Reviewed, Interpreted and Dictated by Prasanth Etienne III, MD Transcribed by Linda Berman Authenticated and [facility]
--- NOTE | 2022-07-09 14:10 | HMH.EDGENADL ---
Discharge Plan Disposition Patient Disposition: Home, Self-Care Chief Complaint: Back Pain/Injury Prescriptions Prescriptions: No Action pravastatin 40 mg tablet 40 mg PO HS levothyroxine 25 MCG tablet 25 mcg PO DAILY apixaban 5 MG tablet 5 mg PO BID acetaminophen 325 MG tablet 650 mg PO Q4HP PRN (Reason: Fever Or Mild Pain) 0RF omeprazole 20 mg Capsule,Delayed Release(Dr/Ec) 20 mg PO DAILY amiodarone 200 mg Tablet 200 mg PO DAILY losartan 50 mg tablet 50 mg PO DAILY Qty: 30 0RF Referrals Follow up/Referrals: Froilan Priest MD [Primary Care Provider] - See instructions Clinical Impressions Clinical Impression: Back pain Instructions Patient Instructions: DI for Low Back Pain Discharge ED Provider: Nathan Manzano General Adult HPI General Chief complaint: Back Pain/Injury Stated complaint: Back pain Time Seen by Provider: 07/09/22 14:11 Mode of Arrival: Ambulatory Source of Information: Patient Limitations: No Limitations Description of Symptoms (Recalled from ER Triage Doc. by RN): Presents via POV d/t atraumatic left lumbar pain. Hx of 4 screws placed 02/2019. Denies tingling/numbness/incontinence. History of Present Illness HPI narrative: Patient is a 82-year-old female with past medical history of colon cancer, breast cancer, back pain status post surgical fixation in her lumbar spine who presents emergency department for evaluation of back pain. Over the last few days patient has had lumbar pain, intermittent, moderate in intensity. Denies saddle anesthesia, gait difficulties, urinary incontinence, fevers, vomiting, dysuria. No other acute complaints at this time. Related Data Home Medications Medication Instructions Recorded Confirmed levothyroxine 25 mcg tablet 25 mcg PO DAILY Hypothyroidism 12/11/19 04/30/22 pravastatin 40 mg tablet 40 mg PO HS Cholesterol 12/31/19 04/30/22 apixaban 5 mg tablet 5 mg PO BID AFIB 01/12/21 04/30/22 amiodarone 200 mg tablet 200 mg PO DAILY HEART RATE 04/05/22 04/30/22 omeprazole 20 mg capsule,delayed 20 mg PO DAILY GERD 04/05/22 04/30/22 release Previous Rx's Medication Instructions Recorded acetaminophen 325 mg tablet 650 mg PO Q4HP PRN Fever Or Mild 02/13/21 Pain losartan 50 mg tablet 50 mg PO DAILY #30 tabs 04/12/22 Allergies Allergy/AdvReac Type Severity Reaction Status Date / Time corn [From CORN (FOOD/DRUG)] Allergy Mild COUGH Verified 04/30/22 12:28 egg [From EGGS (FOOD/DRUG)] Allergy Mild COUGH Verified 04/30/22 12:28 lactose Allergy Mild COUGH Verified 04/30/22 12:28 [From DAIRY FOODS (FOOD/DRUG)] soy Allergy Mild COUGH Verified 04/30/22 12:28 wheat Allergy Mild COUGH Verified 04/30/22 12:28 [facility] Disclaimer: The information contained in this section may have been updated after the patient was seen, as this information can be updated by other users. Medical History Anemia Suspected secondary to chronic blood loss, microcytic/iron deficient. Breast cancer Hypothyroidism Surgical History History of cardiac cath History of colonoscopy History of laparoscopic cholecystectomy Social History (Updated 06/21/22 @ 15:52 by Meli Lloyd RN) Smoking Status: Never smoker second hand exposure: Yes alcohol intake: never substance use type: denies use current occupational status: retired Travel in the last 8 weeks: None household members: spouse housing: house current occupational exposures/hazards: No caffeine: Yes ROS Obtained: Yes Systems reviewed as appropriate & no additional complaints except as documented Physical Exam General General appearance: alert and in no apparent distress Head Head exam: atraumatic and normocephalic Eye Eye exam: Present PERRL and EOMI ENT ENT exam: Present mucous membranes moist Neck Neck exam: Present nor
--- NOTE | 2022-07-09 14:57 | PC.NURSE ---
heena castro and arya yeboah rounded on pt
[2022-07-09 15:25] VITALS: BP 142/80; PULSE 74; RESP 16; TEMP 36.8; O2SAT 98
== END 2022-07-09 15:28 | disposition home or self-care (01) ==
PROVIDERS: Emergency Provider Emergency Medicine; PCP Internal Medicine Adolescent Medicine
DX: M54.50 Low back pain, unspecified (principal)
CPT/HCPCS: 72131; 99284

== ENCOUNTER 2022-07-23 14:27 | Outpatient (CLI) | payer MEDICARE, OTHER, SELFPAY | END 2022-07-23 14:40 | disposition home or self-care (01) | LOC: INF 14:28 | PROVIDERS: PCP Internal Medicine Adolescent Medicine; Visit Provider Internal Medicine Medical Oncology | DX: C18.9 Malignant neoplasm of colon, unspecified (principal); Z45.2 Encounter for adjustment and management of vascular access device | CPT/HCPCS: 96523; J1642 ==

== ENCOUNTER → 2022-08-10 14:04 | Outpatient (CLI) | payer MEDICARE, OTHER, SELFPAY ==
[2022-08-10 15:52] LABS: Hematocrit 42.5 % (37.0-47.0); Hemoglobin 13.8 g/dL (12.2-16.2); Red Blood Count 4.81 M/mm3 (4.20-5.40); White Blood Count 6.4 K/mm3 (4.8-10.8)
[2022-08-10 15:53] LABS: Basophils # 0.1 K/mm3 (0-0.2); Basophils % 1.2 % (0.1-2.0); Eosinophils # 0.1 K/mm3 (0.0-0.4); Eosinophils % 0.7 % (0.1-12.0); Lymphocytes % 31.9 % (10-50); Mean Corpuscular HGB Conc 32.5 g/dL (31.8-35.4); Mean Corpuscular Hemoglobin 28.8 pg (27.0-31.2); Mean Corpuscular Volume 88.4 fl (81-99); Mean Platelet Volume 8.4 fl (7.4-10.4); Monocytes # 0.6 K/mm3 (0.1-1.0); Neutrophils # 3.6 K/mm3 (1.8-7.8); Neutrophils % 57.2 % (37.0-80.0); Platelet Count 288 K/mm3 (142-424); Red Cell Distribution Width 15.7 % (11.5-17.5)
[2022-08-10 17:33] LABS: Anion Gap 19.9 mEq/L (5-15); Blood Urea Nitrogen 19 mg/dl (7-17); Calcium 9.4 mg/dl (8.4-10.2); Carbon Dioxide 27 mmol/L (22.0-30.0); Chloride 100 mmol/L (98-107); Estimated Glomerular Filt Rate 48 ml/min (>60); GFR (African American) 58 ML/MIN (>60); Glucose 87 mg/dl (74-100); Potassium 4.9 mmoL/L (3.5-5.1); Sodium 142 mmol/L (136-145)
== END ==
PROVIDERS: PCP Internal Medicine Adolescent Medicine; Visit Provider Surgery
DX: C18.9 Malignant neoplasm of colon, unspecified (principal); C77.2 Secondary and unspecified malignant neoplasm of intra-abdominal lymph nodes; I48.91 Unspecified atrial fibrillation
CPT/HCPCS: 36415; 80048; 85025

== ENCOUNTER 2022-08-30 09:09 | Day surgery (SDC) | payer MEDICARE, OTHER, SELFPAY ==
[2022-08-30] VITALS (7 sets, daily range): BP systolic 107–149; BP diastolic 49–78; PULSE 64–103; RESP 16–18; TEMP 36.2–43; O2SAT 95–99; BMI 24.2
--- NOTE | 2022-08-30 10:24 | P.PN_ITS ---
[facility] Disclaimer: The information contained in this section may have been updated after the patient was seen, as this information can be updated by other users. Medical History Anemia Breast cancer Cardiomyopathy Colon cancer History of cataract History of transient ischemic attack (TIA) Hyperlipidemia Hypertension Hypothyroid Hypothyroidism Irritable bowel syndrome (IBS) Pneumonia Urinary tract infection Surgical History History of cardiac cath History of colonoscopy History of laparoscopic cholecystectomy Family History Other Family history of cancer Social History Smoking Status: Never smoker second hand exposure: Yes alcohol intake: never substance use type: denies use current occupational status: retired Travel in the last 8 weeks: None household members: spouse housing: house current occupational exposures/hazards: No caffeine: Yes [facility] Anesthesia Checklist Patient Identification Patient Identification: Arm Band Structural Data Admitted From: Home Planned Operative Procedure/s: Port-a-cath removal Consent for Planned Operative Procedure(s) Verified: Yes Verified Documents: Surgical Consent and History and Physical NPO Status Verified Time NPO: 00:00 Additional verifications Anesthesia Reactions: No Hx Blood Transfusions: Yes Blood Transfusion Reaction: No Airway Assessment C-Spine Mobility Assessed: Yes TMJ Mobility Assessed: Yes Dentition: Dentures-good fit Neurological Assessment Level of Consciousness: Awake and Alert Anesthesia Plan Anesthesia Risk discussed: Yes Anesthesia Plan: Verified ASA Class: III Anesthesia Type: MAC
--- NOTE | 2022-08-30 12:40 | EXP.OP.NOTE ---
Date of procedure: 08/30/22 Pre-op Diagnosis:: Obsolete venous access port Post-op Diagnosis:: Same Procedure performed:: Removal of left subclavian venous access device with reservoir port Surgeon:: Prasanth Vaughan MD [employer]:: Cheyenne Simmons Anesthesia: MAC and local Estimated blood loss (mL): 5 Clinical Note:: Patient is an 82-year-old female with a history of cecal carcinoma for which she had undergone chemotherapy. I have placed a venous access port on 01/20/2021. She has had findings on imaging consistent with necrotic AC node and right paratracheal node concerning for metastatic disease. Patient has refused any additional chemotherapy. She is followed by Dr. Sarah Barrera. She has some discomfort from her port. She wished to have it removed. Operative findings:: Well encapsulated noninfected venous access port Operative note:: Consent was obtained and patient was taken to the operating room. She was given preoperative intravenous antibiotics. In the operating room she was placed in a supine position. Adequate intravenous sedation was achieved. The area was prepped and draped. Local anesthetic was infiltrated in her previous scar incision and around the port. Limited incision was made in the previous scar. Dissection was carried down to the port which was well encapsulated. It was excised using blunt and sharp dissection from its encapsulated location. It was then removed with intact venous access port in its entirety. Pressure was held for hemostasis. The fibrous capsule was excised with electrocautery. There was good hemostasis. Subdermal tissues were reapproximated with interrupted 2-0 Vicryl. Skin was closed with 4-0 Monocryl in a subcuticular fashion. Dermabond and dressing was applied. Condition: stable Disposition: PACU Complications:: None immediate
== END 2022-08-30 13:25 | disposition home or self-care (01) ==
PROVIDERS: PCP Internal Medicine Adolescent Medicine; Visit Provider Surgery
PROC: (CPT 36590; principal; 2022-08-30 11:00)
DX: T82.9XXA Unspecified complication of cardiac and vascular prosthetic device, implant and graft, initial encounter (principal); Z79.899 Other long term (current) drug therapy
CPT/HCPCS: 36590; 96374

== ENCOUNTER 2022-10-15 15:00 | Outpatient (CLI) | payer MEDICARE, OTHER, SELFPAY ==
[2022-10-15 15:05] VITALS: BMI 24.0
[2022-10-15 15:30] LABS: Basophils # 0.1 K/mm3 (0-0.2); Basophils % 1.5 % (0.1-2.0); Eosinophils # 0.1 K/mm3 (0.0-0.4); Eosinophils % 1.1 % (0.1-12.0); Hematocrit 40.7 % (37.0-47.0); Hemoglobin 13.3 g/dL (12.2-16.2); Lymphocytes # 2.3 K/mm3 (0.7-4.5); Lymphocytes % 36.5 % (10-50); Mean Corpuscular HGB Conc 32.7 g/dL (31.8-35.4); Mean Corpuscular Hemoglobin 28.5 pg (27.0-31.2); Mean Corpuscular Volume 87.1 fl (81-99); Mean Platelet Volume 7.6 fl (7.4-10.4); Monocytes # 0.6 K/mm3 (0.1-1.0); Monocytes % 9.9 % (1.7-9.3); Neutrophils # 3.3 K/mm3 (1.8-7.8); Platelet Count 231 K/mm3 (142-424); Red Blood Count 4.67 M/mm3 (4.20-5.40); Red Cell Distribution Width 14.1 % (11.5-17.5); White Blood Count 6.4 K/mm3 (4.8-10.8)
--- NOTE | 2022-10-15 15:34 | PC.NURSE ---
1510 - BLOOD DRAWN FROM LEFT AC USING BUTTERFLY NEEDLE TO CHECK LABS ORDERED BY DR PARISI.
[2022-10-15 15:38] LABS: Alanine Aminotransferase 30 U/L (12-78); Albumin Level 4.4 g/dl (3.5-5.0); Albumin/Globulin Ratio 1.6 (1.1-1.8); Alkaline Phosphatase 106 U/L (38-126); Anion Gap 12.1 mEq/L (5-15); Aspartate Amino Transferase 34 U/L (14-36); Bilirubin,Total 0.5 mg/dl (0.2-1.3); Blood Urea Nitrogen 18 mg/dl (7-17); Calcium 9.4 mg/dl (8.4-10.2); Carbon Dioxide 27 mmol/L (22.0-30.0); Chloride 107 mmol/L (98-107); Creatinine Clearance Estimated 46 mL/min (50-200); Estimated Glomerular Filt Rate 53 ml/min (>60); GFR (African American) 64 ML/MIN (>60); Globulin 2.7 g/dL (1.3-3.2); Glucose 97 mg/dl (74-100); Potassium 5.1 mmoL/L (3.5-5.1); Sodium 141 mmol/L (136-145); Total Protein,Serum 7.1 g/dl (6.3-8.2)
[2022-10-17 07:30] LABS: CEA 3.9 ng/mL (0.0-4.7)
== END 2022-10-15 15:15 | disposition home or self-care (01) ==
LOC: INF 15:01
PROVIDERS: PCP Internal Medicine Adolescent Medicine; Visit Provider Internal Medicine Medical Oncology
DX: C18.9 Malignant neoplasm of colon, unspecified (principal)
CPT/HCPCS: 36415; 80053; 82378; 85025

== ENCOUNTER → 2022-10-19 08:28 | Outpatient (CLI) | payer MEDICARE, OTHER, SELFPAY ==
--- NOTE | 2022-10-19 08:31 | CT_ITS ---
FINAL REPORT CLINICAL HISTORY: COLON CANCER COMPARISON: August 2021 FINDINGS: Before and after the administration of intravenous contrast, axial images through the chest were performed by computed tomography. This study was performed with techniques to keep radiation doses as low as reasonably achievable, (ALARA). Individualized dose reduction techniques using automated exposure control or adjustment of mA and/or kV according to the patient's size were employed. No pulmonary mass or infiltrate is present. Mild chronic interstitial scarring in the left lung base is stable. There is no significant pleural effusion. There is no significant pericardial effusion. No mediastinal or hilar adenopathy is present. Prior right mastectomy. IMPRESSION: No evidence of metastatic disease. Reviewed, Interpreted and Dictated by Nilda Larios MD Transcribed by Juan Torres Authenticated and [facility]
--- NOTE | 2022-10-19 08:31 | CT_ITS ---
FINAL REPORT TECHNIQUE: Axial CT of the abdomen and pelvis, without and with IV contrast. CLINICAL HISTORY: COLON CANCER COMPARISON: March 2022 FINDINGS: Abdomen: Liver has an unremarkable CT appearance. The spleen, pancreas and adrenal glands are unremarkable. A few borderline sized lymph nodes in the jojo hepatis are stable and favored to be reactive. Precontrast imaging shows no renal stone disease. Postcontrast imaging of the kidneys shows no mass or obstruction. No bowel obstruction or fluid collection is seen. Stable upper abdomen midline abdominal wall hernia containing omental fat. Pelvis: The appendix is not visualized. Mild sigmoid colon diverticulosis. No fluid collection or adenopathy is seen. Uterus and ovaries are unremarkable. Varices in the right inguinal region are similar to prior. IMPRESSION: No evidence of metastatic disease. Reviewed, Interpreted and Dictated by Nilda Larios MD Transcribed by Juan Torres Authenticated and [facility]
== END ==
PROVIDERS: PCP Internal Medicine Adolescent Medicine; Visit Provider Internal Medicine Medical Oncology
DX: C18.9 Malignant neoplasm of colon, unspecified (principal)
CPT/HCPCS: 71270; 74178; Q9967

== ENCOUNTER → 2023-02-08 09:27 | Outpatient (CLI) | payer MEDICARE, OTHER, SELFPAY ==
--- NOTE | 2023-02-08 09:32 | XR_ITS ---
FINAL REPORT CLINICAL HISTORY: SCREENING FINDINGS: Using the distal third of the radius, the bone mineral density of the spine is 0.476 g/cm2, corresponding to T-score of -3.6. Using the left hip, the bone mineral density of the femoral neck is 0.572 g/cm2, corresponding to a T-score of -2.5. IMPRESSION: Diminished bone mineral density of the left hip and distal third of the radius consistent with osteoporosis. Reviewed, Interpreted and Dictated by Nick Oseguera MD Transcribed by Juan Torres Authenticated and [facility]
== END ==
PROVIDERS: PCP Internal Medicine Adolescent Medicine; Visit Provider Internal Medicine Adolescent Medicine
DX: S72.91XD Unspecified fracture of right femur, subsequent encounter for closed fracture with routine healing (principal); M81.0 Age-related osteoporosis without current pathological fracture
CPT/HCPCS: 77080

== ENCOUNTER 2023-03-08 10:00 | Outpatient (RCR) | payer MEDICARE, OTHER, SELFPAY ==
--- NOTE | 2023-02-09 11:10 | HMH.OTOPEV ---
OT Inpatient Evaluation Rehab OT Outpatient Eval Start: 02/09/23 10:56 Freq: Status: Active Protocol: Document 02/09/23 10:56 [facility] (Rec: 02/09/23 11:09 ARSROCKVALE [id number]) E-signed By Kathryn Galeas, OT Outpatient Therapy Subjective History Subjective History Pt is an 82 year old female who reports to therapy for initial evaluaiton to right shoulder. Pt initially injured right shoulder on December 04, 2022 during a fall. She landed on right shoulder and also fractured her right femur. Since then she has had decreased AROM/ Strength and pain. Pt is right hand dominant. She is also using a rolling walker at all times during functional mobility tasks. On initial fall, pt did receive an x-ray to right shoulder and no fx was found. However, she has not had any further imaging to right shoulder. Pt demonstrates with significant decline in AROM and strength at right shoulder. Pt will continue to be seen twice a week in order to address right shoulder deficits. New diagnosis of cancer in past 12 No months? Chief Complaint Pain,Stiff,Weakness Symptom Type Ache,Throb,Dull,Numbness Symptoms Relieved By Nothing Symptoms Aggravated By Physical Activity,Lifting Prior Functional Limitations None Current Functional Limitations Reaching,Lifting,Housework, Dressing,Sleeping,Recreation Activity Symptom Description Intermittent,Activity Dependent Level of pain today (0-10) 0 Pain scale - at its best (0-10) 0 Pain scale - at its worst (0-10) 8 Shoulder/Elbow Eval Shoulder Objective Measurements Shoulder ROM Right Shoulder Abduction Active Range of 65 degrees Motion (degrees) Shoulder Flexion Active Range of Motion 85 degrees (degrees) Query Text: Shoulder External Rotation Active Range 40 degrees of Motion (degrees) Shoulder Internal Rotation Active Range 45 degrees of Motion (degrees) Shoulder MMT Shoulder Abduction Strength Grade 3 Fair Shoulder Flexion Strength Grade 3 Fair Shoulder External Rotation Strength 3 Fair Grade Shoulder Internal Rotation Strength 3 Fair Grade Elbow Objective Measurements QuickDASH Activities Please rate your ability to do the following activities in the last week by selecting the number below the appropriate response. 1. Open a tight or new jar. Moderate difficulty 2. Do heavy emergency service restorer (e.g., wash Unable benz, floors). 3. Carry a shopping bag or briefcase. Unable 4. Wash your back. Unable 5. Use a knife to cut food. Moderate difficulty 6. Recreational activities in which you Severe difficulty take some force or impact through your arm, shoulder, or hand (e.g., golf, hammering, tennis, etc.). 7. During the past week, to what extent Quite a bit has your arm, shoulder or hand problem interfered with your normal social activities with family, friends, neighbors or groups? 8. During the past week, were you Moderately limited limited in your work or other regular daily activites as a result of your arm, shoulder or hand problem? 9. Arm, shoulder or hand pain. Moderate 10. Tingling (pins and needles) in your Moderate arm, shoulder or hand. 11. During the past week, how much Moderate difficulty difficulty have you had sleeping because of the pain in your arm, shoulder or hand? Quick DASH 41 OT Outpatient Assessment Impairments Problems/Impairments Palpation Tenderness,Impaired Range of Motion,Impaired Strength,Impaired Endurance, Impaired Lifting,Impaired Shower/Bathing,Impaired Household Care,Subjective C/O Pain Prognosis Rehab Potential Good Clinical Impression Consistent with Diagnosis Yes Short Term Goals Number of Weeks 3 Increase Range of Motion Yes: Flex: 110 Abd: 100 ER: 60 IR: 60 Increase Strength Yes: 3+/5 throughout right shoulder Increase Endurance Yes: Pt will tolerate R shoulder exercises for ~20 minutes prior to rest. Decrease Subjective C/O Pain Yes: 5/10 at worst Patient to be Ind w/ HEP Yes: AAROM exercises; pulleys Improve Quick Dash Score Yes: 30 or below Technical Communicator Goals Number of Weeks 6 Increase Range of Motion Yes: Flex: 120 Abd: 110 ER: 75 IR: 65 Increase Strength Yes: 4-/5 throughout right shoulder Increase Endurance Yes: Pt will tolerate R shoulder exercises for ~30 minutes prior to rest. Decrease Subjective C/O Pain Yes: 3/10 at wrost Patient to be Ind w/ Advanced HEP Yes: Advanded strengthening Improve Quick Dash Score Yes: 20 or below Outpatient Therapy Plan of Care Treatment Plan May Include Therapeutic Exercise Including Home Yes Exercise Program Manual Therapy Techniques Yes Neuromuscular Re-education Yes Therapeutic Activities to Return to Yes Previous Functional/Work Level ADL/Self Care Education Yes Dry Needling Yes Thermal Modalities Yes Electrical Stimulation Yes Ultrasound/Phonophoresis Yes Iontophoresis Yes Orthotics/Bracing/Splinting Yes Massage Yes Eval/Re-Eval Yes Frequency Times per week 2 Duration Number of Weeks 6 Addendums This patient is a candidate for social No or vocational rehab? Patient/Guardian verbally acknowledges Yes understanding of treatment program and consents to further treatment? Patient/Guardian verbally acknowledges Yes understanding of diagnosis, prognosis and goals for treatment? Eval Complexity OT Charge 81433 - Moderate Complexity PHYSICIAN CERTIFICATION: I certify the specified therapy services for Viridiana Rodriguez are required, authorized, and reviewed every 30 days.
--- NOTE | 2023-03-08 10:44 | HMH.RHREAS ---
Rehab Reassessment Rehab OP Re-assessment Start: 02/09/23 10:56 Freq: Status: Active Protocol: Document 03/08/23 10:08 MICHELLE (Rec: 03/08/23 10:44 [facility] [id number]) E-signed By Kathryn Galeas OT QuickDASH Activities Please rate your ability to do the following activities in the last week by selecting the number below the appropriate response. 1. Open a tight or new jar. Moderate difficulty 2. Do heavy school operations manager (e.g., wash Moderate difficulty benz, floors). 3. Carry a shopping bag or briefcase. Severe difficulty 4. Wash your back. Moderate difficulty 5. Use a knife to cut food. Moderate difficulty 6. Recreational activities in which you Severe difficulty take some force or impact through your arm, shoulder, or hand (e.g., golf, hammering, tennis, etc.). 7. During the past week, to what extent Moderately has your arm, shoulder or hand problem interfered with your normal social activities with family, friends, neighbors or groups? 8. During the past week, were you Moderately limited limited in your work or other regular daily activites as a result of your arm, shoulder or hand problem? 9. Arm, shoulder or hand pain. Moderate 10. Tingling (pins and needles) in your None arm, shoulder or hand. 11. During the past week, how much Mild difficulty difficulty have you had sleeping because of the pain in your arm, shoulder or hand? Quick DASH 32 Rehab Re-assessment Subjective Subjective I don't really see that it is helping. Objective Objective Notes Pt continues to be seen twice a week in order to address right shoulder deficits. Each session, pt engages in AROM, AAROM, and strengthening exercises for R shoulder. Pt also receives PROM manual therapy to right shoulder in all planes; flexion, abduction , ER, and IR. Moist heat is provided. No modalities provided due to contraindications with past cancer diagnosis. Assessment Progress Assessment No Progress Assessment Notes Pt demonstrates minimal progress since initial evaluation. Pt's AROM at right shoulder remains very limited and she continues to experience 8/10 pain at worst. Pt voiced she does not feel therapy is assisting in improving the shoulder at this time. Therapist recommends pt continue HEP on her own and to return back to her PCP for a follow up evaluation and possibly be referred to ortho or have a MRI completed. Pt agreeable with this plan. Current AROM R shoulder Flex: 90 degrees Abd: 80 degrees ER: 60 degrees IR: [address] and 5 Goals Not Met See below Revised Goals ST, 2, 4, and 6 LT-6 Plan Plan Hold tx at this time till patient follows up with PCP. Time and Billing Re-Eval Time 12 Re-Eval Billing Units 1 PHYSICIAN CERTIFICATION: I certify the specified therapy services for Viridiana Rodriguez are required, authorized, and reviewed every 30 days.
== END 2023-03-08 11:00 | disposition home or self-care (01) ==
LOC: OT 10:00
PROVIDERS: PCP Internal Medicine Adolescent Medicine; Visit Provider Internal Medicine Adolescent Medicine
DX: M25.511 Pain in right shoulder (principal)
CPT/HCPCS: 97010; 97110; 97140; 97164; 97166

== ENCOUNTER 2023-03-30 15:00 | Outpatient (RCR) | payer MEDICARE, OTHER, SELFPAY ==
--- NOTE | 2023-01-31 18:15 | HMH.PTOPEV ---
PT Outpatient Evaluation Rehab PT Outpatient Evaluation Start: 01/31/23 13:00 Freq: Status: Active Protocol: Document 01/31/23 13:00 LYRIC (Rec: 01/31/23 18:15 LYRIC [id number]) E-signed By Lulu Reed, PT Outpatient Therapy Subjective History Subjective History Pt is a 82 y/o female who reports she fell while going up the steps on 12/04/22 and fractured her R femur. Pt reports she had surgery for the fracture at the next day on 12/05/22. Pt denies complications following the surgery. Pt reports she went to [place] for PT/OT rehab from 12/10/22-01/20/23. Pt reports she then returned home with her . Pt reports she has been ambulating with a RW well with minimal pain. Pt states prior to the fall she was ambulating without an AD but her balance was not great. Pt reports she has 3 steps with handrail to get to her bedroom which she is able to traverse well. Pt denies falls since the surgery. Pt reports she does have difficulty with getting in/out of the car, her bath tub, and the bed. Pt reports she needs some assistance with showering and dressing. Pt reports her house is small so she is not able to walk a lot at home for exercise. Pt reports she has been taking OTC medication and muscle relaxers for pain control. Pt reports only dull pain along the incision with movement/transfers. Pt reports her low back has been bothering her since [place] due to trying to transfer with inability to lift her right leg. Medical History: High cholesterol, Afib, Hx of 2 back surgeries (2-3 years ago) Observation: incisions well healing without signs of infection New diagnosis of cancer in past 12 Yes: Colon cancer Mar 2022 - months? currently cancer free Chief Complaint Pain,Stiff,Weakness Symptom Type Ache,Dull Symptoms Relieved By Rest/Positioning,OTC Meds, Prescription Meds Symptoms Aggravated By Standing,Bending/Stooping, Physical Activity,Twisting, Walking Prior Functional Limitations None Current Functional Limitations Sleeping,Standing,Squatting, Walking,Stairs,Balance,Bending /Stooping Symptom Description Intermittent Level of pain today (0-10) 0 Pain scale - at its best (0-10) 0 Pain scale - at its worst (0-10) 5 Hip/Knee Eval Assistive Device Assistive Devices Rolling / Wheeled Walker Palpation Tenderness right Knee Palpation Overall Comment lateral hip mm around incision Hip Palpation Findings Tenderness MMT Hip Flexion Strength Grade 3+ Fair+ Hip Abduction Strength Grade 4- Good- Hip Adduction Strength Grade 4- Good- Hip Extension Strength Grade 3 Fair Knee Extension Strength Grade 4 Good Knee Flexion Strength Grade 4 Good ROM Hip Flexion w/Knee Flexed Active Range 95 of Motion (degrees) Hip Abduction Active Range of Motion ( 30 degrees) Knee Extension Active Range of Motion ( 4 degrees) Knee Flexion Active Range of Motion ( 120 degrees) Sensation Comment equal and intact to light touch sensation bilaterally Lower Extremity Functional Index Activities Today, do you or would you have any difficulty at all with: a.Any of your usual work, housework or Extreme difficulty or unable school activities to perform activity b. Your usual hobbies, recreational or Extreme difficulty or unable sporting activities to perform activity c. Getting into or out of the bath Extreme difficulty or unable to perform activity d. Walking between rooms Quite a bit of difficulty e. Putting on your shoes or socks Extreme difficulty or unable to perform activity f. Squatting Extreme difficulty or unable to perform activity g. Lifting an object, like a bag of Extreme difficulty or unable groceries from the floor to perform activity h. Performing light activities around Quite a bit of difficulty your home i. Performing heavy activities around Extreme difficulty or unable your home to perform activity j. Getting into or out of a car Quite a bit of difficulty k. Walking 2 blocks Extreme difficulty or unable to perform activity l. Walking a mile Extreme difficulty or unable to perform activity m. Going up or down 10 stairs (about 1 Quite a bit of difficulty flight of stairs) n. Standing for 1 hour Extreme difficulty or unable to perform activity o. Sitting for 1 hour Quite a bit of difficulty p. Running on even ground Extreme difficulty or unable to perform activity q. Running on uneven ground Extreme difficulty or unable to perform activity r. Making sharp turns while running fast Extreme difficulty or unable to perform activity s. Hopping Extreme difficulty or unable to perform activity t. Rolling over in bed Quite a bit of difficulty LEFI Score Lower Extremity Functional Index Score 6 Outpatient Therapy Assessment Impairments Problems/Impairmments Palpation Tenderness,Impaired Range of Motion,Impaired Strength,Impaired Endurance, Impaired Transfers,Impaired Gait Pattern,Impaired Walking, Impaired Standing,Impaired Shower/Bathing,Impaired Household Care,Impaired Stair Climbing,Impaired Incline Stepping,Impaired Stepping on Uneven Surface,Impaired Squatting,Impaired Bending, Impaired Balance,Impaired TUG Time,Subjective C/O Pain, Impaired Self Care/Self Management Prognosis Rehab Potential Good Clinical Impression Consistent with Diagnosis Yes Short Term Goals Number of Weeks 4 Increase Strength Yes: Improve LE strength by half grade to assist with function Improve Transfers Yes: Perform 10 sit to stands without UE support Improve Ability to Dress Self Yes: I to decrease burden of care Improve Ability to Shower/Bathe Self Yes: report ability to transfer into shower I to dec burden of care/fall risk Improve LEFI Score Yes: Improve score to at least 20/80 to improve overall QOL Decrease Subjective C/O Pain Yes: Improve pain at worst to 3-4/10 to improve overall QOL Improve Self Care/Self Management Yes Patient to be Ind w/ HEP Yes Chairlift Operator Goals Number of Weeks 8 Increase Range of Motion Yes: Improve R hip flexion to at least 105 Increase Strength Yes: Improve LE MMT to 4+/5 to assist with function Improve Gait Pattern with Assistive Yes: Walk 150 ft with SPC or Device LRD with proper mechanics to dec fall risk Increase Ability to Walk Yes: 10' with pain 2/10 to assist with ADLs Improve Ability to Climb Stairs Yes: 1 flight with 1 HR to assist with home/community navigation Improve Balance Yes Improve LEFI Score Yes: Improve LEFS score to at least 50/80 to improve overall QOL Decrease Subjective C/O Pain Yes: Improve pain at worst to 2/10 to improve overall QOL Patient to be Ind w/ Advanced HEP Yes Outpatient Therapy Plan of Care Treatment Plan May Include Therapeutic Exercise Including Home Yes Exercise Program Manual Therapy Techniques Yes Neuromuscular Re-education Yes Therapeutic Activities to Return to Yes Previous Functional/Work Level Gait Training Yes ADL/Self Care Education Yes Thermal Modalities Yes Electrical Stimulation Yes Ultrasound/Phonophoresis Yes Iontophoresis Yes Orthotics/Bracing/Splinting Yes Vasopneumatic Compression Pump Yes Massage Yes Manual Lymphatic Drainage Yes Group Therapy for Medicare Yes Eval/Re-Eval Yes Frequency Times per week 2-3 Duration Number of Weeks 6-8 Addendums This patient is a candidate for social No or vocational rehab? Patient/Guardian verbally acknowledges Yes understanding of treatment program and consents to further treatment? Patient/Guardian verbally acknowledges Yes understanding of diagnosis, prognosis and goals for treatment? Eval Complexity PT Charges 59459 - Low Complexity Shoulder/Elbow Eval Shoulder Objective Measurements Elbow Objective Measurements PHYSICIAN CERTIFICATION: I certify the specified therapy services for Viridiana Rodriguez are required, authorized, and reviewed every 30 days.
--- NOTE | 2023-03-01 14:30 | HMH.RHREAS ---
Rehab Reassessment Rehab OP Re-assessment Start: 01/31/23 13:00 Freq: Status: Active Protocol: Document 03/01/23 13:47 HUNTERRODRIGO (Rec: 03/01/23 14:29 BELIAMIGUELDasia [id number]) E-signed By Lulu Reed PT Lower Extremity Functional Index Activities Today, do you or would you have any difficulty at all with: a.Any of your usual work, housework or Moderate difficulty school activities b. Your usual hobbies, recreational or Moderate difficulty sporting activities c. Getting into or out of the bath Quite a bit of difficulty d. Walking between rooms Moderate difficulty e. Putting on your shoes or socks A little bit of difficulty f. Squatting A little bit of difficulty g. Lifting an object, like a bag of A little bit of difficulty groceries from the floor h. Performing light activities around A little bit of difficulty your home i. Performing heavy activities around Moderate difficulty your home j. Getting into or out of a car Moderate difficulty k. Walking 2 blocks Extreme difficulty or unable to perform activity l. Walking a mile Extreme difficulty or unable to perform activity m. Going up or down 10 stairs (about 1 A little bit of difficulty flight of stairs) n. Standing for 1 hour Quite a bit of difficulty o. Sitting for 1 hour No difficulty p. Running on even ground Extreme difficulty or unable to perform activity q. Running on uneven ground Extreme difficulty or unable to perform activity r. Making sharp turns while running fast Extreme difficulty or unable to perform activity s. Hopping Extreme difficulty or unable to perform activity t. Rolling over in bed A little bit of difficulty LEFI Score Lower Extremity Functional Index Score 34 Rehab Re-assessment Subjective Subjective Pt reports she is feeling better overall in regards to her R hip. Pt reports she still has some pain along her incision described as pulling rated 3/10 at worst on VAS scale. Pt reports this pain comes and goes and is not associated with certain activities. Pt reports she still has fear of falling and difficulty getting into her bath tub requiring assistance with this. Pt reports she is now able to perform lower body dressing independently. Pt reports compliance with her HEP. Objective Objective Notes R hip AROM: flex 100 R knee AROM: 0-125 RLE MMT: hip flex 4-/5, hip abd/add 4/5, knee ext 4+/5, knee flex 4+/5 Gait: step through pattern with FWB on RLE with RW Assessment Progress Assessment Progressing as Expected Assessment Notes Pt has attended 7 PT visits consisting of aerobic exercise , hip mobility, LE stretching/ strengthening, balance/ proprioception training, manual therapy and modalities with good tolerance. Pt demonstrated improved R hip/ knee AROM, RLE strength and LEFS score this date compared to the initial evaluation. Pt continues to report intermittent mild pain along the incision, difficulty getting into her bath tub and fear of falling. Pt would continue to benefit from skilled PT to further improve pain, LE strength, balance/ proprioception and gait to improve overall QOL, decrease fall risk and decrease burden of care. Patient goals met ST/8 Goals Not Met transferring into bath tub I Revised Goals n/a Plan Plan Continue initial POC Frequency of Therapy 2x/week Duration of therapy 4 more weeks Time and Billing Re-Eval Time 13 Re-Eval Billing Units 1 PHYSICIAN CERTIFICATION: I certify the specified therapy services for Viridiana Rodriguez are required, authorized, and reviewed every 30 days.
--- NOTE | 2023-03-30 17:07 | HMH.RHREAS ---
Rehab Reassessment Rehab OP Re-assessment Start: 01/31/23 13:00 Freq: Status: Active Protocol: Document 03/30/23 16:00 LYRIC (Rec: 03/30/23 17:07 LYRIC [id number]) E-signed By Lulu Reed PT Lower Extremity Functional Index Activities Today, do you or would you have any difficulty at all with: a.Any of your usual work, housework or A little bit of difficulty school activities b. Your usual hobbies, recreational or Moderate difficulty sporting activities c. Getting into or out of the bath Moderate difficulty d. Walking between rooms A little bit of difficulty e. Putting on your shoes or socks No difficulty f. Squatting A little bit of difficulty g. Lifting an object, like a bag of A little bit of difficulty groceries from the floor h. Performing light activities around A little bit of difficulty your home i. Performing heavy activities around Moderate difficulty your home j. Getting into or out of a car A little bit of difficulty k. Walking 2 blocks Quite a bit of difficulty l. Walking a mile Extreme difficulty or unable to perform activity m. Going up or down 10 stairs (about 1 Moderate difficulty flight of stairs) n. Standing for 1 hour Moderate difficulty o. Sitting for 1 hour No difficulty p. Running on even ground Extreme difficulty or unable to perform activity q. Running on uneven ground Extreme difficulty or unable to perform activity r. Making sharp turns while running fast Extreme difficulty or unable to perform activity s. Hopping Quite a bit of difficulty t. Rolling over in bed Moderate difficulty LEFI Score Lower Extremity Functional Index Score 40 Rehab Re-assessment Subjective Subjective Pt reports she was unable to schedule a PT appointment for 2 weeks which is why she hasn' t been to therapy. Pt reports she has been performing her HEP 1-2x/day. Pt reports she still uses her walker for most ambulation, but does use her cane for some household ambulation. Pt reports the most she has walked has been at therapy (~500 ft) which wore her out, pt denies going to the grocery store yet. Pt reports she has noticed 6/10 lateral hip pain described as dull with weight-bearing activities that improves with rest. Pt reports she is unable to lay on the right side due to discomfort. Pt reports she still has some difficulty lifting her right leg high enought ot get into her bath tub but she is able to do it with less assistance from her now. Objective Objective Notes TTP of R piriformis, gluteal mm R hip AROM: flex 100 in supine RLE MMT: hip flex 4/5, hip abd /add 4/5, knee ext 4+/5, knee flex 5/5 Gait: step through pattern with FWB on RLE with RW; step to pattern with slow sawyer and head down with SPC Assessment Assessment Notes Pt has attended 12 PT visits consisting of aerobic exercise , hip mobility, LE stretching/ strengthening, balance/ proprioception training, gait training with a cane, manual therapy and modalities with good tolerance. Pt demonstrated improved LEFS score and hip/knee flexion strength this date compared to the previous reassessment. Pt demonstrated ability to perform step to pattern with SPC however has slow sawyer and is unable to look up without becoming off balance. Pt continues to demonstrate and verbalize fear of falling limiting gait progress with SPC at this time. Pt would continue to benefit from skilled PT to further improve subjective report of pain, hip AROM, LE strength, balance/ proprioception, gait and functional activity tolerance to assist with return to PLOF. Patient goals met ST/8 LT/9 Goals Not Met hip AROM, LE strength, gait, walking tolerance, tub transfer, p!, LEFS Revised Goals n/a Plan Plan Continue initial POC Frequency of Therapy 2x/week Duration of therapy 4 more weeks Time and Billing Re-Eval Time 12 Re-Eval Billing Units 1 PHYSICIAN CERTIFICATION: I certify the specified therapy services for Viridiana Rodriguez are required, authorized, and reviewed every 30 days.
== END 2023-03-30 16:00 | disposition home or self-care (01) ==
LOC: PT 15:00
PROVIDERS: PCP Internal Medicine Adolescent Medicine; Visit Provider Internal Medicine Adolescent Medicine
DX: M79.604 Pain in right leg; S72.141A Displaced intertrochanteric fracture of right femur, initial encounter for closed fracture
CPT/HCPCS: 97010; 97110; 97112; 97116; 97163; 97164; 97530

== ENCOUNTER 2023-04-05 15:11 | Outpatient (CLI) | payer MEDICARE, OTHER, SELFPAY ==
--- NOTE | 2023-04-05 15:19 | XR_ITS ---
FINAL REPORT CLINICAL HISTORY: RIGHT HIP PAIN fell tuesday night, pain worse after fall FINDINGS: AP and frog leg views of the right hip were obtained. There is no prior exam for comparison. There is a chronic fracture of the proximal right femur, where the patient has undergone ORIF. No acute bony abnormality is identified. There is mild degenerative change present, osteopenia, and mild osteitis pubis. Postoperative changes are present in the lower lumbar spine as well. . IMPRESSION: No acute osseous abnormality of the right hip. The patient has undergone ORIF of fracture of the proximal right femur, chronic, as well as postoperative change in the lower lumbar spine. Reviewed, Interpreted and Dictated by Prasanth Etienne III, MD Transcribed by Araceli Pizano Authenticated and [facility]
== END 2023-04-05 23:59 ==
LOC: RAD 15:14
PROVIDERS: PCP Nurse Practitioner Family; Visit Provider Nurse Practitioner Family
DX: M25.551 Pain in right hip (principal)
CPT/HCPCS: 73502

== ENCOUNTER 2023-04-28 08:27 | Outpatient (CLI) | payer MEDICARE, OTHER, SELFPAY ==
[2023-04-28 08:36] VITALS: BMI 25.8
--- NOTE | 2023-04-28 08:37 | CT_ITS ---
FINAL REPORT TECHNIQUE: After the administration of intravenous contrast, axial images were obtained through the abdomen and pelvis by computed tomography. This study was performed with technique to keep radiation doses as low as reasonably achievable, (ALARA). Individualized dose reduction techniques using automated exposure control or adjustment of the MA and/or KV according to the patient's size were employed. CLINICAL HISTORY: Hx of colon and breast cancer. COMPARISON: 10/19/2022 FINDINGS: Abdomen: There are small lymph nodes in the peripancreatic region and jojo hepatis which are stable from prior exam. Patient is status postcholecystectomy. The liver is normal in size and attenuation. The spleen is unremarkable. The adrenals are normal. The pancreas is unremarkable. The kidneys enhance appropriately. The aorta is normal in caliber. There is no free fluid or adenopathy. There is a small upper abdominal wall midline hernia containing fat. Pelvis: The appendix is not identified. There is mild fecal impaction of the distal colon. Patient is status post right hemicolectomy. Uterus is unremarkable. The urinary bladder is unremarkable. There is no free fluid or adenopathy. IMPRESSION: No acute intra-abdominal process. No evidence of metastatic disease. Reviewed, Interpreted and Dictated by Nilda Larios MD Transcribed by Chen Silva Authenticated and [facility]
--- NOTE | 2023-04-28 08:37 | CT_ITS ---
FINAL REPORT TECHNIQUE: Axial CT with contrast with 3-D MIP reconstruction. This study was performed with techniques to keep radiation doses as low as reasonably achievable (ALARA). Individualized dose reduction techniques using automated exposure control or adjustment of mA and/or kV according to the patient's size were employed. CLINICAL HISTORY: Hx of colon and breast cancer. COMPARISON: 10/19/2022 FINDINGS: Patient is status post right nephrectomy. Pulmonary vessels enhance in normal fashion without evidence of embolism. Thoracic aorta shows no dissection or aneurysm. No pulmonary mass or infiltrate is present. There is no significant pleural effusion. There is no significant pericardial effusion. No mediastinal or hilar adenopathy is present. IMPRESSION: No evidence of metastatic disease. Reviewed, Interpreted and Dictated by Nilda Larios MD Transcribed by Chen Silva Authenticated and [facility]
[2023-04-28 08:44] VITALS: BMI 25.8
[2023-04-28 08:57] LABS: Basophils # 0.1 K/mm3 (0-0.2); Basophils % 1.2 % (0.1-2.0); Eosinophils # 0.1 K/mm3 (0.0-0.4); Eosinophils % 1.3 % (0.1-12.0); Hematocrit 43.1 % (37.0-47.0); Hemoglobin 14.2 g/dL (12.2-16.2); Lymphocytes # 2.3 K/mm3 (0.7-4.5); Lymphocytes % 38.7 % (10-50); Mean Corpuscular Hemoglobin 29.7 pg (27.0-31.2); Mean Corpuscular Volume 89.9 fl (81-99); Mean Platelet Volume 7.6 fl (7.4-10.4); Monocytes # 0.6 K/mm3 (0.1-1.0); Neutrophils # 2.9 K/mm3 (1.8-7.8); Neutrophils % 48.8 % (37.0-80.0); Platelet Count 241 K/mm3 (142-424); Red Blood Count 4.79 M/mm3 (4.20-5.40); Red Cell Distribution Width 16.2 % (11.5-17.5); White Blood Count 5.9 K/mm3 (4.8-10.8)
[2023-04-28 09:03] LABS: Chloride 103 mmol/L (98-107); Potassium 4.3 mmoL/L (3.5-5.1); Sodium 140 mmol/L (136-145)
[2023-04-28 09:05] LABS: Blood Urea Nitrogen 14 mg/dl (7-17); Creatinine Clearance Estimated 50 mL/min (50-200); Estimated Glomerular Filt Rate 60 ml/min (>60); GFR (African American) 73 ML/MIN (>60)
[2023-04-28 09:06] LABS: Alanine Aminotransferase 48 U/L (12-78); Albumin Level 4.5 g/dl (3.5-5.0); Albumin/Globulin Ratio 1.5 (1.1-1.8); Alkaline Phosphatase 118 U/L (38-126); Anion Gap 12.3 mEq/L (5-15); Aspartate Amino Transferase 72 U/L (14-36); Bilirubin,Total 0.7 mg/dl (0.2-1.3); Calcium 9.7 mg/dl (8.4-10.2); Carbon Dioxide 29 mmol/L (22.0-30.0); Globulin 3.1 g/dL (1.3-3.2); Glucose 100 mg/dl (74-100); Total Protein,Serum 7.6 g/dl (6.3-8.2)
[2023-04-28] MEDS: IOPAMIDOL-370 (76%);100ML BOTTLE 75 ML IV (09:37)
[2023-04-28] MEDS: SODIUM CHLORIDE 0.9% 10ML SYR (RAD ONLY) 10 ML IV (09:37)
[2023-04-29 08:22] LABS: CEA 5.2 ng/mL (0.0-4.7)
== END 2023-04-28 23:59 ==
LOC: RAD 08:28
PROVIDERS: Internal Medicine Medical Oncology; PCP Nurse Practitioner Family; Visit Provider Internal Medicine Medical Oncology
DX: C18.9 Malignant neoplasm of colon, unspecified (principal)
CPT/HCPCS: 36415; 71260; 74177; 80053; 82378; 85025; Q9967

== ENCOUNTER 2023-07-26 14:56 | Outpatient (CLI) | payer MEDICARE, OTHER, SELFPAY ==
[2023-07-26 15:04] VITALS: BMI 23.8
--- NOTE | 2023-07-26 15:10 | PC.NURSE ---
1510-collected labs via venipuncture stick in left ac with butterfly needle;pt d/c home; to review labs.
[2023-07-26 15:41] LABS: Basophils # 0.1 K/mm3 (0-0.2); Basophils % 1.1 % (0.1-2.0); Eosinophils % 0.5 % (0.1-12.0); Hematocrit 41.6 % (37.0-47.0); Hemoglobin 13.6 g/dL (12.2-16.2); Lymphocytes # 1.9 K/mm3 (0.7-4.5); Lymphocytes % 28.7 % (10-50); Mean Corpuscular HGB Conc 32.8 g/dL (31.8-35.4); Mean Corpuscular Hemoglobin 30.3 pg (27.0-31.2); Mean Corpuscular Volume 92.5 fl (81-99); Monocytes # 0.6 K/mm3 (0.1-1.0); Monocytes % 8.6 % (1.7-9.3); Neutrophils % 61.1 % (37.0-80.0); Platelet Count 276 K/mm3 (142-424); White Blood Count 6.5 K/mm3 (4.8-10.8)
[2023-07-26 15:57] LABS: Chloride 106 mmol/L (98-107); Potassium 4.3 mmoL/L (3.5-5.1); Sodium 138 mmol/L (136-145)
[2023-07-26 16:00] LABS: Alanine Aminotransferase 26 U/L (12-78); Albumin/Globulin Ratio 1.4 (1.1-1.8); Alkaline Phosphatase 102 U/L (38-126); Anion Gap 8.3 mEq/L (5-15); Aspartate Amino Transferase 31 U/L (14-36); Bilirubin,Total 0.6 mg/dl (0.2-1.3); Blood Urea Nitrogen 17 mg/dl (7-17); Calcium 9.5 mg/dl (8.4-10.2); Carbon Dioxide 28 mmol/L (22.0-30.0); Creatinine Clearance Estimated 45 mL/min (50-200); Estimated Glomerular Filt Rate 53 ml/min (>60); GFR (African American) 64 ML/MIN (>60); Globulin 2.9 g/dL (1.3-3.2); Glucose 97 mg/dl (74-100); Total Protein,Serum 6.9 g/dl (6.3-8.2)
[2023-07-28 09:16] LABS: CEA 5.9 ng/mL (0.0-4.7)
== END 2023-07-26 15:15 | disposition home or self-care (01) ==
LOC: INF 14:59
PROVIDERS: PCP Internal Medicine Adolescent Medicine; Visit Provider Internal Medicine Medical Oncology
DX: C18.9 Malignant neoplasm of colon, unspecified (principal)
CPT/HCPCS: 36415; 80053; 82378; 85025

== ENCOUNTER 2023-10-03 15:26 | Emergency (ER) | payer MEDICARE, OTHER, SELFPAY ==
[2023-10-03 15:28] VITALS: BP 175/75; PULSE 77; RESP 16; TEMP 36.7; O2SAT 98; BMI 24.2
--- NOTE | 2023-10-03 15:38 | CT_ITS ---
PROCEDURE INFORMATION: Exam: CT Cervical Spine Without Contrast Exam date and time: 10/03/2023 3:51 PM Age: 83 years old Clinical indication: Neck pain; Additional info: Posterior fall eloquis TECHNIQUE: Imaging protocol: Computed tomography of the cervical spine without contrast. Radiation optimization: All CT scans at this facility use at least one of these dose optimization techniques: automated exposure control; mA and/or kV adjustment per patient size (includes targeted exams where dose is matched to clinical indication); or iterative reconstruction. COMPARISON: CT HEAD/BRAIN WO CON 10/03/2023 3:48 PM FINDINGS: Bones: Spinal alignment is normal. No fracture or bone destruction. Diffuse osteopenia. Subtle fractures may be missed. Predental space narrowing consistent with arthritis. Degenerative disc disease predominantly at C6-C7 with disc space narrowing and disc osteophyte complex. Moderate to severe multilevel facet arthropathy. Lungs: Lung apices are normal. Soft tissues: Unremarkable. IMPRESSION: 1. Spinal alignment is normal. 2. No fracture or bone destruction. 3. Diffuse osteopenia. Subtle fractures may be missed. 4. Predental space narrowing consistent with arthritis. 5. Degenerative disc disease predominantly at C6-C7 with disc space narrowing and disc osteophyte complex. 6. Moderate to severe multilevel facet arthropathy.
--- NOTE | 2023-10-03 15:38 | CT_ITS ---
FINAL REPORT CLINICAL HISTORY: posterior fall eloquis FINDINGS: Axial images of the head were obtained without contrast. Coronal reformatted images were also obtained. This study was performed with techniques to keep radiation doses as low as reasonably achievable (ALARA). Individualized dose reduction techniques using automated exposure control or adjustment of mA and/or kV according to the patient's size were employed. There is motion on some of the images which decreases the sensitivity of the exam. There is generalized age appropriate atrophy. There is no evidence of intracranial hemorrhage or mass. The ventricular size is within normal limits. There is no evidence of shift of the midline structures. Bilateral basal ganglia calcifications are noted. No skull abnormality is seen on the bone window images. There is a posterior scalp hematoma. IMPRESSION: No acute intracranial abnormality. Reviewed, Interpreted and Dictated by Prasanth Etienne III, MD Transcribed by Shavon Fatima Authenticated and [facility]
--- NOTE | 2023-10-03 15:38 | HMH.EDGENADL ---
Discharge Plan Disposition Patient Disposition: Home, Self-Care Prescriptions Prescriptions: No Action pravastatin 40 mg tablet 40 mg PO HS levothyroxine 25 MCG tablet 25 mcg PO DAILY apixaban 5 MG tablet 5 mg PO BID acetaminophen 325 MG tablet 650 mg PO Q4HP PRN (Reason: Fever Or Mild Pain) 0RF omeprazole 20 mg Capsule,Delayed Release(Dr/Ec) 20 mg PO DAILY amiodarone 200 mg Tablet 200 mg PO DAILY losartan 50 mg tablet 50 mg PO DAILY Referrals Follow up/Referrals: Froilan Priest MD [Primary Care Provider] - See instructions Activity Restrictions/Add. Instructions Additional Instructions/Restrictions: At this time it was felt you are safe to be discharged home. If new or worsening symptoms please do not hesitate to return the emergency department. The knot on the back your head will take weeks to go away and this is expected. Clinical Impressions Clinical Impression: Hematoma of scalp, Fall Discharge ED Provider: Nathan Manzano General Adult HPI General Chief complaint: Fall Stated complaint: AO 10/03/23 1430 fell hit head has big knot Time Seen by Provider: 10/03/23 15:30 Mode of Arrival: Ambulatory Source of Information: Patient and Spouse Limitations: No Limitations Description of Symptoms (Recalled from ER Triage Doc. by RN): c/o knot on her head after hitting it on the kitchen floor, pt reports that she was cutting food when a piece flew at her and she jumped back and fell over the kitchen chair and hit the floor, denies any loc or other injuries at this time. Event happened approx 1.5 hours before arrival History of Present Illness HPI narrative: Patient is a 83-year-old female past medical history of atrial fibrillation on Eliquis who presents emergency department for a mechanical fall. Patient tripped while dodging a piece of food that she was cutting and fell backward striking her head onto the floor. No loss of consciousness reported. Due to an expanding knot on the back of her head she presents here for continued evaluation. No other traumatic injuries reported at this time. Related Data Home Medications Medication Instructions Recorded Confirmed levothyroxine 25 mcg tablet 25 mcg PO DAILY Hypothyroidism 12/11/19 08/02/23 pravastatin 40 mg tablet 40 mg PO HS Cholesterol 12/31/19 08/02/23 apixaban 5 mg tablet 5 mg PO BID AFIB 01/12/21 08/02/23 amiodarone 200 mg tablet 200 mg PO DAILY HEART RATE 04/05/22 08/02/23 omeprazole 20 mg capsule,delayed 20 mg PO DAILY GERD 04/05/22 08/02/23 release losartan 50 mg tablet 50 mg PO DAILY High blood pressure 08/27/22 08/02/23 Previous Rx's Medication Instructions Recorded acetaminophen 325 mg tablet 650 mg (2 x 325 mg) PO Q4HP PRN 02/13/21 Fever Or Mild Pain Allergies Allergy/AdvReac Type Severity Reaction Status Date / Time corn [From CORN (FOOD/DRUG)] Allergy Mild COUGH Verified 08/02/23 11:42 egg [From EGGS (FOOD/DRUG)] Allergy Mild COUGH Verified 08/02/23 11:42 lactose Allergy Mild COUGH Verified 08/02/23 11:42 [From DAIRY FOODS (FOOD/DRUG)] soy Allergy Mild COUGH Verified 08/02/23 11:42 wheat Allergy Mild COUGH Verified 08/02/23 11:42 pembrolizumab [From Keytruda] Allergy Verified 08/02/23 11:42 [facility] Disclaimer: The information contained in this section may have been updated after the patient was seen, as this information can be updated by other users. Medical History Urinary tract infection Pneumonia History of transient ischemic attack (TIA) Irritable bowel syndrome (IBS) Hypothyroid History of cataract Hypertension Hyperlipidemia Cardiomyopathy Colon cancer Breast cancer Anemia Suspected secondary to chronic blood loss, microcytic/iron deficient. Hypothyroidism Surgical History History of colonoscopy History of laparoscopic cholecystectomy History of cardiac cath Family History Other Family history of cancer Social History Smoking Status: Never smoker second hand exposure: Yes alcohol intake: never substance use type: denies use current occupational status: retired Travel in the last 8 weeks: None household members: spouse housing: house current occupational exposures/hazards: No caffeine: Yes ROS Obtained: Yes Systems reviewed as appropriate & no additional complaints except as documented Physical Exam General General appearance: alert and in no apparent distress Head Head exam: normocephalic and other (Large hematoma over the vertex, no open wounds. No tenderness in the cervical spine.) Eye Eye exam: Present PERRL and EOMI ENT ENT exam: Present mucous membranes moist Neck Neck exam: Present normal inspection Chest Chest inspection: Present normal inspection and symmetric chest wall rise Respiratory Respiratory exam: Absent respiratory distress Cardiovascular Cardiovascular exam: Present regular rate and normal rhythm Abdominal Exam Abdominal exam: Present soft; Absent tenderness Extremities Exam Extremities exam: Present normal inspection and other (No tenderness throughout the extremities) Back Exam Back exam: Present other (No tenderness throughout the spine); Absent tenderness Neurological Exam Neurological exam: Present alert and CN II-XII intact; Absent motor sensory deficit Psychiatric Psychiatric exam: Present normal affect Skin Skin exam: Present warm and dry Medical Decision Making Edwin Inquiry Pt receiving controlled substance: No Vital Signs: 10/03/23 15:28 10/03/23 16:00 10/03/23 16:30 Temperature 98.0 F Temperature Source Oral Pulse Rate 75 75 Pulse Rate [Left Radial] 77 Respiratory Rate 16 Blood Pressure 174/84 H 144/72 H Blood Pressure [Right Arm] 175/75 H Blood Pressure Mean [Right Arm] 108 Blood Pressure Source [Right Arm] Automatic Cuff Blood Pressure Position [Right Arm] Sitting 02 Sat by Pulse Oximetry 98 97 99 Oxygen Delivery Method Room Air 10/03/23 17:00 Temperature Temperature Source Pulse Rate 74 Pulse Rate [Left Radial] Respiratory Rate Blood Pressure 144/76 H Blood Pressure [Right Arm] Blood Pressure Mean [Right Arm] Blood Pressure Source [Right Arm] Blood Pressure Position [Right Arm] 02 Sat by Pulse Oximetry 97 Oxygen Delivery Method Room Air Orders (Tests/Meds): ED MEDICATIONS Generic Name Dose Route Start Last Admin Trade Name Freq PRN Reason Stop Dose Admin Sodium Chloride 10 ml 10/03/23 15:44 Sodium Chloride 0.9% 10ml Flush Syringe IV 11/02/23 15:43 NEEDED PRN Maintain IV Site ORDERS Category Date Time Status CT cervical spine wo con Stat Cat Scan 10/03/23 15:[address] head/brain wo con Stat Cat Scan 10/03/23 15:38 Completed Medical Decision Narrative: In summary patient is 83-year-old female past medical history described above who presents emergency department for evaluation of traumatic injury sustained in a fall. Patient is hemodynamically stable nontoxic-appearing upon arrival, afebrile. Differential includes intracranial hemorrhage, cervical spine fracture, among others. Patient will proceed with immediate noncontrasted CT scan of the head given her history of anticoagulation. No initial interventions are indicated. CT head shows no acute intracranial abnormality. My informal interpretation patient has a scalp hematoma. Informal interpretation of C-spine shows no obvious displaced fracture. On repeat evaluation patient was requesting to leave prior to C-spine formal read. She is ranging her neck freely without significant tenderness and I feel that this is appropriate. Patient is appropriate for discharge at this time was given return precautions. Critical Care Critical Care Time Critical Care Time: No
--- NOTE | 2023-10-03 15:53 | PC.NURSE ---
Back from CT
--- NOTE | 2023-10-03 15:54 | PC.NURSE ---
PT RETURNED FROM CT
[2023-10-03 16:00] VITALS: BP 174/84; PULSE 75; O2SAT 97
--- NOTE | 2023-10-03 16:11 | PC.NURSE ---
rounded on pt no needs at this time
[2023-10-03 16:30] VITALS: BP 144/72; PULSE 75; O2SAT 99
[2023-10-03 17:00] VITALS: BP 144/76; PULSE 74; O2SAT 97
[2023-10-03 18:00] VITALS: BP 178/83; PULSE 79; RESP 16; TEMP 36.6; O2SAT 96
== END 2023-10-03 18:00 | disposition home or self-care (01) ==
PROVIDERS: Emergency Provider Emergency Medicine; PCP Internal Medicine Adolescent Medicine
DX: S00.83XA Contusion of other part of head, initial encounter (principal); W18.39XA Other fall on same level, initial encounter
CPT/HCPCS: 70450; 72125; 99284

== ENCOUNTER 2023-10-26 16:35 | Outpatient (CLI) | payer MEDICARE, OTHER, SELFPAY ==
[2023-10-26 16:40] VITALS: BMI 24.0
--- NOTE | 2023-10-26 16:42 | PC.NURSE ---
[id number]-k.elayne ren collected labs via venipuncture stick in left ac with butterfly needle; pt d/c home.
[2023-10-26 17:05] LABS: Basophils # 0.1 K/mm3 (0-0.2); Basophils % 1.4 % (0.1-2.0); Eosinophils % 0.5 % (0.1-12.0); Hemoglobin 13.9 g/dL (12.2-16.2); Lymphocytes # 2.3 K/mm3 (0.7-4.5); Lymphocytes % 27.7 % (10-50); Mean Corpuscular HGB Conc 32.4 g/dL (31.8-35.4); Mean Corpuscular Hemoglobin 30.1 pg (27.0-31.2); Mean Platelet Volume 7.4 fl (7.4-10.4); Monocytes # 0.7 K/mm3 (0.1-1.0); Monocytes % 8.7 % (1.7-9.3); Neutrophils # 5.1 K/mm3 (1.8-7.8); Neutrophils % 61.7 % (37.0-80.0); Platelet Count 251 K/mm3 (142-424); Red Blood Count 4.62 M/mm3 (4.20-5.40); Red Cell Distribution Width 14.4 % (11.5-17.5); White Blood Count 8.2 K/mm3 (4.8-10.8)
[2023-10-26 17:13] LABS: Alanine Aminotransferase 32 U/L (12-78); Albumin Level 4.5 g/dl (3.5-5.0); Albumin/Globulin Ratio 1.4 (1.1-1.8); Alkaline Phosphatase 114 U/L (38-126); Anion Gap 12.5 mEq/L (5-15); Aspartate Amino Transferase 37 U/L (14-36); Bilirubin,Total 0.6 mg/dl (0.2-1.3); Blood Urea Nitrogen 19 mg/dl (7-17); Calcium 9.5 mg/dl (8.4-10.2); Carbon Dioxide 24 mmol/L (22.0-30.0); Chloride 107 mmol/L (98-107); Creatinine Clearance Estimated 45 mL/min (50-200); Estimated Glomerular Filt Rate 53 ml/min (>60); GFR (African American) 64 ML/MIN (>60); Globulin 3.3 g/dL (1.3-3.2); Glucose 89 mg/dl (74-100); Potassium 3.5 mmoL/L (3.5-5.1); Sodium 140 mmol/L (136-145); Total Protein,Serum 7.8 g/dl (6.3-8.2)
[2023-10-28 04:09] LABS: CEA 4.3 ng/mL (0.0-4.7)
== END 2023-10-26 16:53 | disposition home or self-care (01) ==
LOC: LAB 16:36
PROVIDERS: PCP Internal Medicine Adolescent Medicine; Visit Provider Internal Medicine Medical Oncology
DX: C18.9 Malignant neoplasm of colon, unspecified (principal)
CPT/HCPCS: 36415; 80053; 82378; 85025

== ENCOUNTER 2024-04-25 13:50 | Outpatient (CLI) | payer MEDICARE, OTHER, SELFPAY ==
[2024-04-25 14:14] LABS: Basophils # 0.1 K/mm3 (0-0.2); Basophils % 1.4 % (0.1-2.0); Eosinophils # 0.1 K/mm3 (0.0-0.4); Eosinophils % 0.8 % (0.1-12.0); Hematocrit 41.4 % (37.0-47.0); Hemoglobin 13.6 g/dL (12.2-16.2); Lymphocytes % 30.8 % (10-50); Mean Corpuscular HGB Conc 32.9 g/dL (31.8-35.4); Mean Corpuscular Hemoglobin 29.7 pg (27.0-31.2); Mean Corpuscular Volume 90.4 fl (81-99); Mean Platelet Volume 8.7 fl (7.4-10.4); Monocytes # 0.8 K/mm3 (0.1-1.0); Monocytes % 12.7 % (1.7-9.3); Neutrophils # 3.5 K/mm3 (1.8-7.8); Platelet Count 199 K/mm3 (142-424); Red Blood Count 4.58 M/mm3 (4.20-5.40); Red Cell Distribution Width 13.2 % (11.5-17.5); White Blood Count 6.6 K/mm3 (4.8-10.8)
[2024-04-25 14:23] LABS: Albumin Level 4.6 g/dl (3.5-5.0); Chloride 105 mmol/L (98-107); Potassium 4.5 mmoL/L (3.5-5.1); Sodium 139 mmol/L (136-145)
[2024-04-25 14:26] LABS: Alanine Aminotransferase 42 U/L (12-78); Albumin/Globulin Ratio 1.8 (1.1-1.8); Alkaline Phosphatase 96 U/L (38-126); Anion Gap 14.5 mEq/L (5-15); Aspartate Amino Transferase 46 U/L (14-36); Bilirubin,Total 0.7 mg/dl (0.2-1.3); Blood Urea Nitrogen 23 mg/dl (7-17); Carbon Dioxide 24 mmol/L (22.0-30.0); Estimated Glomerular Filt Rate 53 ml/min (>60); GFR (African American) 64 ML/MIN (>60); Globulin 2.6 g/dL (1.3-3.2); Total Protein,Serum 7.2 g/dl (6.3-8.2)
[2024-04-25 14:27] LABS: Calcium 9.4 mg/dl (8.4-10.2); Glucose 93 mg/dl (74-100)
[2024-04-26 15:09] LABS: CEA 4.9 ng/mL (0.0-4.7)
== END 2024-04-25 14:10 | disposition home or self-care (01) ==
LOC: INF 13:52
PROVIDERS: PCP Internal Medicine Adolescent Medicine; Visit Provider Internal Medicine Medical Oncology
DX: C18.9 Malignant neoplasm of colon, unspecified (principal); C77.2 Secondary and unspecified malignant neoplasm of intra-abdominal lymph nodes
CPT/HCPCS: 36415; 80053; 82378; 85025

== ENCOUNTER 2024-04-30 12:52 | Outpatient (CLI) | payer MEDICARE, OTHER, SELFPAY ==
--- NOTE | 2024-04-30 12:52 | CT_ITS ---
FINAL REPORT TECHNIQUE: After the administration of oral and intravenous contrast, axial images were obtained through the abdomen and pelvis by computed tomography. The study was performed with techniques to keep radiation dose as low as reasonably achievable, (ALARA). Individual dose reduction techniques using automated exposure control or adjustment of mA and/or kV according to the patient's size were employed. CLINICAL HISTORY: colon cancer COMPARISON: 04/28/2023 FINDINGS: Abdomen: The liver parenchyma is homogeneous. The gallbladder is surgically absent. The spleen is unremarkable. There is diffuse fatty infiltration of the pancreas. The adrenal glands are unremarkable. There are multiple benign-appearing cysts in the right kidney measuring up to 1.4 cm in diameter. The aorta is normal in caliber. There is protuberance of the midline anterior abdominal wall fascia with no todd hernia is seen. Pelvis: The appendix is not identified. The urinary bladder is unremarkable. No mass identified. There is no free fluid or adenopathy. There is streak artifact from posterior fusion hardware bridging the lower lumbar spine. Streak artifact is noted associated with orthopedic hardware of the proximal right femur. IMPRESSION: Protuberance of the anterior abdominal and pelvic wall fascia. Postoperative changes from lumbar fusion. Reviewed, Interpreted and Dictated by Nick Oseguera MD Transcribed by Ambreen Carson Authenticated and [facility]
--- NOTE | 2024-04-30 12:52 | CT_ITS ---
FINAL REPORT TECHNIQUE: Routine axial images were obtained from the lung apices to below the diaphragm following IV contrast administration. Individualized dose reduction techniques using automated exposure control or adjustment of the mA and/or kV according to the patient size were employed. CLINICAL HISTORY: colon cancer COMPARISON: 04/28/2023 FINDINGS: The mediastinal vasculature is adequately opacified. No pulmonary artery filling defects are seen. No acute lung disease is present. There is scarring at the left lung base. No pleural or pericardial effusion is seen. No adenopathy or mass lesion is present. IMPRESSION: No evidence of metastatic disease. Reviewed, Interpreted and Dictated by Nick Oseguera MD Transcribed by Ambreen Carson Authenticated and [facility]
[2024-04-30] MEDS: SODIUM CHLORIDE 0.9% 10ML SYR (RAD ONLY) 10 ML IV (13:40)
[2024-04-30] MEDS: BARIUM SULFATE(READI-CAT2);450ML BOTTLE 450 ML PO (13:40)
[2024-04-30] MEDS: IOPAMIDOL-370 (76%);100ML BOTTLE 75 ML IV (13:40)
== END 2024-04-30 23:59 | disposition home or self-care (01) ==
LOC: RAD 12:52
PROVIDERS: PCP Internal Medicine Adolescent Medicine; Visit Provider Internal Medicine Medical Oncology
DX: C18.9 Malignant neoplasm of colon, unspecified (principal); C77.2 Secondary and unspecified malignant neoplasm of intra-abdominal lymph nodes
CPT/HCPCS: 71260; 74177; Q9967

== ENCOUNTER 2024-11-12 14:02 | Outpatient (CLI) | payer MEDICARE, OTHER, SELFPAY ==
--- NOTE | 2024-11-12 14:04 | PC.NURSE ---
AMB LABS DRAWN FOR DR RUSSELL VIA BUTTERFLY NEEDLE IN LEFT AC. NEEDLE REMOVED AND COBAN APPLIED. PT TOLERATED WELL.
--- OUTSIDE RECORDS SUMMARY | 2024-11-12 14:05 | XMS_ITS | Clinical Summary ---
Author Organization [facility] Address [address] [place] [address] Care Team Providers Care Loop Sewer Name Role Phone Leatha Medina BAG MACHINE TENDER Primary Care Provider [phone] Allergies No known active allergies Medications apixaban (Eliquis) 5 MG tablet every 12 (twelve) hours. Active levothyroxine (Synthroid, Levoxyl) 25 MCG tablet 1 (one) time each day. Active pravastatin (Pravachol) 40 MG tablet Take 1 tablet (40 mg) by mouth every night. Active amiodarone (Pacerone) 200 MG tablet Take 1 tablet (200 mg) by mouth 1 (one) time each day. Active loperamide (Imodium A-D) 2 MG tablet Take 1 tablet (2 mg) by mouth 2 (two) times a day. Active omeprazole (PriLOSEC) [address] capsule Take 1 capsule (20 mg) by mouth 1 (one) time each day. Do not crush or chew. Active methocarbamol (Robaxin) 500 MG tablet Take 1 tablet (500 mg) by mouth 4 (four) times a day for 10 days. 40 tablet 12/10/2022 Active oxyCODONE (Roxicodone) 5 MG immediate release tablet Take 1 tablet (5 mg) by mouth every 6 (six) hours if needed for severe pain. 12 tablet 12/10/2022 Active Active Problems Problem Noted Date Diagnosed Date Skull lesion 12/10/2022 Overview (12/10/2022): 8 mm lucent lesion in the left frontal bone noted on imaging; appears to contain fat and is likely a hemangioma Follow up with PCP for surveillance. Closed displaced intertrocha nteric fracture of right femur, initial encounter 12/05/2022 Overview (12/06/2022): Ortho consulted 12/05: ORIF with cephalomedullary nail [facility] PT/OT Atrial fibrillation 12/05/2022 Overview (12/10/2022): Home medication resumed 12/07 amioderone Eliquis resumed on 12/09 Fall (on) (from) other stairs and steps, initial encounter 12/05/2022 Overview (12/06/2022): One step Admitted SGT 4 Tertiary exam 12/06 Right patella fracture 12/05/2022 Overview (12/05/2022): Age indeterminate FRANCHESKA (acute kidney injury) 12/05/2022 Overview (12/10/2022): Scr 1.11 IVF resolved Electrolyte abnormality 12/05/2022 Overview (12/08/2022): -Hypocalcemia - Continue to monitor HLD (hyperlipidemia) 12/05/2022 Overview (12/08/2022): -home medication resumed Hypothyroid 12/05/2022 Overview (12/08/2022): -home medication resumed Iron deficiency anemia 12/05/2022 Overview (12/06/2022): Monitor/trend Social History Tobacco Use Types Packs/Day Years Used Date Smoking Tobacco: Never Smokeless Tobacco: Never Alcohol Use Standard Drinks/Week Comments Never 0 (1 standard drink = 0.6 oz pur e alcohol) PHQ-2 Answer Date Recorded Patient Health Questionnaire-2 Score 0 12/20/2022 CAGE ASSESSMENT Answer Date Recorded Cage unable to access Not on file 12/08/2022 Cage max number of drinks Not on file 2022 Cage Beverages a week Not on file 12/08/2022 Have you ever felt you should CUT down on your d rinking? 0 12/08/2022 Have you been ANNOYED by people criticizing your drinking? 0 12/08/2022 Have you felt GUILTY about your drinking? 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 0 12/08/2022 CAGE Questionnaire Score 0 023 PHQ-2A Answer Date Recorded Patient Health Questionnaire-2 Score 0 12/20/2022 Comments Unknown Sex and Gender Information Value Date Recorded Sex Assigned at Not on file Legal Sex Female 8:47 PM EDT Gender Identity Not on file Sexual Orientation Not on file Last Filed Vital Signs Vital Sign Reading Time Taken Comments Blood Pressure 112/69 01/18/2023 11:28 AM EDT Pulse 63 01/18/2023 11:28 AM EDT Temperature 36.7 C (98 F) 01/18/2023 11:28 AM EDT Respiratory Rate 16 12/10/2022 11:16 AM EDT Oxygen Saturation 99% 01/18/2023 11:28 AM EDT Inhaled Oxygen Concentration - - Weight 69.4 kg (153 lb) 01/18/2023 11:28 AM EDT Height 167.6 cm (5' 6 ) 01/18/2023 11:28 AM EDT Body Mass Index 24.69 01/18/2023 11:28 AM EDT Plan of Treatment Health Maintenance Due Date Last Done Comments [facility]-Bone Density Scan 1940 [facility]-Medicare Annual Wellness (AWV) 1940 [facility]-/Child/Adol SDOH Screenings 1940 [facility]- SDOH Screenings 1958 [facility]-Adult SDOH Screenings 1958 [facility]-DTaP,Tdap,and Td Vaccines (1 - Tdap) 1959 [facility]-RSV Vaccine: 60+ Years or (1 - 1-dose 75+ series) 2015 [id number] Vaccine (4 - 2023- season) 2023 11/26/2020, 05/06/2020, 04/07/2020 [facility]-Depression Screening 12/21/2023 023, 12/23/2020 [facility]-Influenza Vaccine (#1) 11/26/202412/20, 12/28/2016 [facility]-Zoster Vaccines Completed 11/30/2019, 09/24/2019 [facility]-Pneumococcal Vaccine: 50+ Years Completed 02/04/2020, 04/29/2014 HPV Vaccines Aged Out No longer eligi ble based on patient's age to complete this topic [facility]-HIB Vaccines Aged Out No longer e ligible based on patient's age to complete this topic [facility]-Hepatitis A Vaccines Aged Out No longer eligible based on patient's age to complete this topic [facility]-IPV Vaccines Aged Out No longer e ligible based on patient's age to complete this topic [facility]-Rotavirus Vaccines Aged Out No lo nger eligible based on patient's age to complete this topic Medical Devices Implanted Type Area Automation Consultant Device Identifier Shelf Expiration Date Model / Serial / Lot Tho Intertan Trigen [id number] 130deg - [id number] Implanted:Qty: 1 on 12/05/2022 by William Lundberg MD at [facility] Right: Hip [id number] 10/10/2032 [id number] / / [id number] Lag/Comp Screw Kit 95/90 - [id number] Implanted:Qty: 1 on 12/05/2022 by William Lundberg MD at [facility] Right: Hip [id number] 05/11/2032 [id number] / / [id number] Screw Trigen 5.0mm Internal Capture 30mm - [id number] Implanted:Qty: 1 on 12/05/2022 by William Lundberg MD at [facility] Right: Hip [id number] 03/30/2032 [id number] / / [id number] [place] [phone] [employer]IC [employer]ERCIAL LUIS Hilario [id number] Advance Directives * Full Code (Latest Code Status on File) Date Activated Date Inactivated Comments 12/05/2022 12:34 AM 12/10/2022 3:44 PM Question Answer Comments Patient has decision-making capacity? Yes Care Teams Loop Sewer Relationship Specialty Start Date End Date Leatha Meidna APRN [address] [place] [address] PCP - General 12/23/20
[2024-11-12 14:16] LABS: Hematocrit 41.0 % (37.0-47.0); Hemoglobin 13.3 g/dL (12.2-16.2); Immature Granulocytes % 0.2 %; Mean Corpuscular HGB Conc 32.4 g/dL (31.8-35.4); Mean Corpuscular Hemoglobin 29.7 pg (27.0-31.2); Mean Corpuscular Volume 91.5 fl (81-99); Nucleated Red Blood Cells % 0 %; Platelet Count 214 K/mm3 (142-424); Red Blood Count 4.48 M/mm3 (4.20-5.40); Red Cell Distribution Width-SD 46.6 fL; White Blood Count 6.6 K/mm3 (4.8-10.8)
[2024-11-12 14:22] LABS: Albumin Level 4.5 g/dl (3.5-5.0); Chloride 106 mmol/L (98-107); Sodium 138 mmol/L (136-145)
[2024-11-12 14:23] LABS: Potassium 4.1 mmoL/L (3.5-5.1)
[2024-11-12 14:25] LABS: Alanine Aminotransferase 23 U/L (12-78); Anion Gap 10.1 mEq/L (5-15); Aspartate Amino Transferase 31 U/L (14-36); Blood Urea Nitrogen 19 mg/dl (7-17); Carbon Dioxide 26 mmol/L (22.0-30.0); Creatinine,Serum 0.90 mg/dl (0.52-1.04); Estimated Glomerular Filt Rate 60 ml/min (>60); GFR (African American) 72 ML/MIN (>60)
[2024-11-12 14:26] LABS: Albumin/Globulin Ratio 1.5 (1.1-1.8); Alkaline Phosphatase 98 U/L (38-126); Bilirubin,Total 0.7 mg/dl (0.2-1.3); Calcium 9.2 mg/dl (8.4-10.2); Globulin 3.0 g/dL (1.3-3.2); Glucose 86 mg/dl (74-100); Total Protein,Serum 7.5 g/dl (6.3-8.2)
[2024-11-13 09:00] LABS: CEA 4.3 ng/mL (0.0-4.7)
[2024-11-14 17:35] LABS: Thyroid Stimulating Hormone 2.11 uIU/mL (0.465-4.68)
== END 2024-11-12 14:07 | disposition home or self-care (01) ==
LOC: INF 14:03
PROVIDERS: Nurse Practitioner Family; PCP Internal Medicine Adolescent Medicine; Visit Provider Internal Medicine Medical Oncology
DX: C18.9 Malignant neoplasm of colon, unspecified (principal); C77.2 Secondary and unspecified malignant neoplasm of intra-abdominal lymph nodes
CPT/HCPCS: 36415; 80053; 82378; 84443; 85025

== ENCOUNTER 2025-02-18 15:00 | Outpatient (RCR) | payer MEDICARE, OTHER, SELFPAY ==
--- NOTE | 2025-01-28 17:55 | HMH.PTOPEV ---
PT Evaluation Rehab PT Outpatient Evaluation Start: 01/28/25 16:03 Freq: Status: Active Protocol: Document 01/28/25 16:03 LYRIC (Rec: 01/28/25 17:55 LYRIC [id number]) E-signed By Lulu Reed, PT Outpatient Therapy Subjective History Subjective History Pt is an 84 y/o female referred to PT for neck pain. Pt reports two occurrences of neck pain over the past 5 months with most recent exacerbation a little over a month ago. Pt reports both time she woke up after sleeping on her left side with pain from her left ear to her shoulder. Pt denies more distal UE symptoms or paresthesia. Pt reports both times she has went to the doctor and received steroid injections which helped with pain. Pt also reports she was prescribed a muscle relaxer she is still taking. Pt reports current symptoms of only mild tenderness to touch after receiving the last injection. Pt denies having imaging of her neck since onset of pain. Pt denies pain since going to the doctor and denies specific movements that continue to aggravate pain. Pt reports she is sleeping with one pillow, denies having a cervical pillow. Medical History: Pneumonia, History of transient ischemic attack (TIA), Irritable bowel syndrome (IBS), Hypothyroid, History of cataract, Hypertension, Hyperlipidemia, Cardiomyopathy, Colon cancer, Breast cancer, Anemia, Hypothyroidism New diagnosis of No: Hx of colon and breast cancer cancer in past 12 months? Chief Complaint Pain Symptom Type Ache,Dull Symptoms Relieved By Prescription Meds Symptom Description Intermittent Level of pain today 0 (0-10) Pain scale - at its 0 best (0-10) Pain scale - at its 10 worst (0-10) Cervical Eval Palpation Cervical Muscles L Cervical Paraspinal,L Upper Trapezius Cervical/Thoracic Tenderness Palpation Findings Posture Head/C-Spine Posture Flexed Standing Position Flexibility Deficits Upper Trapezius (L) Mild Tightness Muscle Length Levaetor Scapulae (L) Mild Tightness,(L) Moderate Tightness Muscle Length Passive Joint Mobility Cervical PIVM Dec: L C4/5 L C5/6 L C6/7 AROM Cervical Spine 30 Extension Active Range of Motion ( degrees) Cervical Spine 50 Flexion Active Range of Motion (degrees) Cervical Spine Right 40 Lateral Flexion Active Range of Motion (degrees) Cervical Spine Left 40 Lateral Flexion Active Range of Motion (degrees) Cervical Spine Right 60 Rotation Active Range of Motion ( degrees) Cervical Spine Left 40 Rotation Active Range of Motion ( degrees) Altered Sensation Bilateral Comment equal and intact to light touch sensation bilaterally Special Test C-spine Verterbral Left P/A Fischer Accessory Movements that Elicit Symptoms Shoulder/Elbow Eval Shoulder Objective Measurements Shoulder MMT Left Lower Trapezius 4- Good- Strength Grade Middle Trapezius 4- Good- Strength Grade Rhomboids Strength 4- Good- Grade Upper Trapezius/ 4 Good Levator Scapulae Shoulder Abduction 4 Good Strength Grade Shoulder Extension 4 Good Strength Grade Shoulder Flexion 4 Good Strength Grade Elbow Objective Measurements Neck Disability Index Neck Disability Index Section 1: Pain I have no pain at the moment Intensity Section 2: Personal I can look after myself normally without causing extra Care (washing, pain dressing, etc.) Section 3: Lifting I can lift heavy weights without extra pain Section 4: Reading I can read as much as I want to with slight pain in my neck Section 5: Headaches I have no headaches at all Section 6: I can concentrate fully when I want to with no Concentration difficulty Section 7: Work I can only do my usual work, but no more Section 8: Driving I can drive my car without any neck pain Section 9: Sleeping My sleep is slightly disturbed (less than 1 hr sleepless) Section 10: I am able to engage in all my recreation activities Recreation with some pain in NDI Score 4 Outpatient Therapy Assessment Impairments Problems/ Palpation Tenderness,Impaired Range of Motion,Impaired Impairmments Strength,Subjective C/O Pain,Impaired Self Care/Self Management Prognosis Rehab Potential Good Clinical Impression Consistent with Yes Diagnosis PT Patient Goals PT Patient Goals PT Short Term 3 weeks: Patient Goals 1. Verbalize compliance with HEP to assist with progress. 2. Improve cervical AROM left rotation to 50 and ext to 35 to assist with mobility and function. PT Half-Way Patient 6 weeks: Goals 1. Improve tenderness to palpation of L cervical musculature to 0-1/4 to assist with pain and mobility. 2. Improve scapular strength to 4-4+/5 grossly to assist with posture and function. 3. Improve cervical AROM ext to 40 and L rotation to 60 to assist with mobility and function. Outpatient Therapy Plan of Care Treatment Plan May Include Therapeutic Exercise Yes Including Home Exercise Program Manual Therapy Yes Techniques Neuromuscular Re- Yes education Therapeutic Yes Activities to Return to Previous Functional/Work Level ADL/Self Care Yes Education Thermal Modalities Yes Electrical Yes Stimulation Ultrasound/ Yes Phonophoresis Iontophoresis Yes Massage Yes Group Therapy for Yes Medicare Eval/Re-Eval Yes Frequency Times per week 1-2 Duration Number of Weeks 4-6 Addendums This patient is a No candidate for social or vocational rehab ? Patient/Guardian Yes verbally acknowledges understanding of treatment program and consents to further treatment? Patient/Guardian Yes verbally acknowledges understanding of diagnosis, prognosis and goals for treatment? Eval Complexity PT Charges 21066 - Low Complexity PHYSICIAN CERTIFICATION: I certify the specified therapy services for Viridiana Rodriguez are required, authorized, and reviewed every 30 days.
== END 2025-02-18 23:59 | disposition home or self-care (01) ==
LOC: PT 15:00
PROVIDERS: Visit Provider Internal Medicine Adolescent Medicine
DX: M54.2 Cervicalgia (principal)
CPT/HCPCS: 97110; 97161

== ENCOUNTER 2025-02-25 14:03 | Outpatient (RCR) | payer MEDICARE, OTHER, SELFPAY | END 2025-02-25 23:59 | disposition home or self-care (01) | LOC: PT 14:03 | PROVIDERS: Visit Provider Internal Medicine Adolescent Medicine | DX: M54.2 Cervicalgia (principal) | CPT/HCPCS: 97110; 97140 ==